=== PATIENT | male | born 1990 | race Caucasian/White ===

== ENCOUNTER 2023-08-08 12:51 | Outpatient (OUT) | payer OTHER, SELFPAY ==
--- NOTE | 2023-08-08 13:00 | XR_ITS ---
The [address] [address] Patient Name: MARK DREW MRN: [id number] date: 1990 Sex: M Assigned Patient Location: RAD Current Patient Location: RAD Accession/Order Number: [id number] Exam Date: 08/08/2023 13:00 Report Date: 08/08/2023 13:15 At the request of: LUIZ RUBIO Procedure: XR foreign body eye EXAMINATION: XR foreign body eye HISTORY: pre mri COMPARISON: No relevant comparison available. FINDINGS: ORBITS: Negative for a metallic foreign body. OTHER: Negative. XR/XR foreign body eye IMPRESSION: 1. No metallic foreign body within the orbits. Electronically authenticated by: EDWIN HILL Date: 08/08/2023 13:15
--- NOTE | 2023-08-08 13:01 | MR_ITS ---
The [address] [address] Patient Name: MARK DREW MRN: [id number] date: 1990 Sex: M Assigned Patient Location: [facility] Current Patient Location: [facility] Accession/Order Number: [id number] Exam Date: 08/08/2023 13:15 Report Date: 08/08/2023 14:43 At the request of: LUIZ RUBIO Procedure: MR head/brain wo con EXAM: MR head/brain wo con CLINICAL INDICATION: cognitive impairment R41.89 COMPARISON: CT head 04/19/2018. TECHNIQUE/PROTOCOL: Standard noncontrast protocol brain MRI performed (Sagittal T1 with axial T1, T2, GRE, FLAIR, and diffusion-weighted imaging). FINDINGS: No restricted diffusion, extra-axial fluid collection, hydrocephalus, midline shift, or other mass effect. Intracranial flow voids are maintained. 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 Single small medial left frontal susceptibility signal focus without surrounding vasogenic edema. Normal marrow signal. No soft tissue abnormalities. Scant scattered paranasal sinus mucosal thickening. Mastoid air cells are well-aerated. MR/MR head/brain wo con IMPRESSION: 1. No acute intracranial process. 2. Single small medial left frontal susceptibility signal focus could represent site of prior petechial hemorrhage. This is of uncertain clinical significance and is often found incidentally. Electronically authenticated by: WAQAR SANDOVAL Date: 08/08/2023 14:43
== END 2023-08-08 12:52 | disposition home or self-care (01) ==
LOC: RAD 12:54
PROVIDERS: PCP Family Medicine; Visit Provider Nurse Practitioner Adult Health
DX: R41.89 Other symptoms and signs involving cognitive functions and awareness (principal); Z01.89 Encounter for other specified special examinations; Z87.820 Personal history of traumatic brain injury
CPT/HCPCS: 70030; 70551

== ENCOUNTER 2023-08-09 09:01 | Outpatient (OUT) | payer OTHER, SELFPAY ==
[2023-08-09 09:32] LABS: Basophils Absolute Auto 0.1 10^3/uL (0.0-0.1); Basophils Percent Auto 0.6 % (0.2-2.0); Eosinophils Absolute Auto 0.2 10^3/uL (0.0-0.7); Eosinophils Percent Auto 2.1 % (0.9-7.0); Hematocrit 43.7 % (42.0-54.0); Hemoglobin 14.5 g/dL (14.0-18.0); Immature Granulocytes Abs Auto 0.03 10^3/uL (0.00-0.03); Immature Granulocytes Pct Auto 0.4 % (0.0-0.5); Lymphocytes Absolute Auto 2.1 10^3/uL (1.2-3.8); Lymphocytes Percent Auto 26.7 % (20.5-60.0); Mean Corpuscular HGB Conc 33.2 g/dL (29.9-35.2); Mean Corpuscular Hemoglobin 31.3 pg (25.9-34.0); Mean Corpuscular Volume 94.2 fL (80.0-94.0); Mean Platelet Volume 9.1 fL (9.5-13.5); Monocytes Absolute Auto 0.6 10^3/uL (0.3-0.8); Monocytes Percent Auto 7.2 % (1.7-12.0); Platelet Count 260 10^3/uL (150-450); Red Blood Count 4.64 10^6/uL (4.70-6.10); Red Cell Distribution Width 12.5 % (11.0-15.0)
[2023-08-09 10:35] LABS: Alanine Aminotransferase 42 U/L (16-63); Albumin Globulin Ratio 0.9; Albumin Level 3.7 g/dL (3.4-5.0); Alkaline Phosphatase 90 U/L (46-116); Aspartate Amino Transferase 22 U/L (15-37); Bilirubin Total 0.4 mg/dL (0.2-1.0); Calcium 8.9 mg/dL (8.5-10.1); Carbon Dioxide 30.6 mmol/L (21.0-32.0); Chol HDL Ratio 3.4; Cholesterol 146 mg/dL (<=200); Estimated GFR (African America >60 (>=60); Estimated GFR (Non-African Ame 58 (>=60); Free T3 2.45 pg/mL (2.18-3.98); Globulin 3.9 g/dL; Glucose 97 mg/dL (74-106); HDL Cholesterol 43 mg/dL (40-60); Thyroid Stimulating Hormone 1.414 uIU/mL (0.358-3.740); Total Protein 7.6 g/dL (6.4-8.2); Triglycerides 55 mg/dL (<=150)
[2023-08-09 10:42] LABS: Anion Gap 12.1; Chloride 103 mmol/L (98-107); Potassium 4.7 mmol/L (3.5-5.1); Sodium 141 mmol/L (136-145)
[2023-08-09 11:26] LABS: Estimated Average Glucose 108 mg/dL; Glycohemoglobin A1C 5.4 % (4.5-6.2)
== END 2023-08-09 09:02 | disposition home or self-care (01) ==
LOC: LAB 09:03
PROVIDERS: PCP Family Medicine; Visit Provider Family Medicine
DX: Z00.00 Encounter for general adult medical examination without abnormal findings (principal); E78.5 Hyperlipidemia, unspecified; R73.09 Other abnormal glucose; R41.89 Other symptoms and signs involving cognitive functions and awareness
CPT/HCPCS: 36415; 80053; 80061; 83036; 84436; 84443; 84481; 85025

== ENCOUNTER 2023-08-09 09:07 | Outpatient (OUT) | payer OTHER, SELFPAY | END 2023-08-09 09:08 | disposition home or self-care (01) | LOC: LAB 09:08 | PROVIDERS: PCP Family Medicine | DX: Z00.00 Encounter for general adult medical examination without abnormal findings (principal); E78.5 Hyperlipidemia, unspecified; R73.09 Other abnormal glucose; R41.89 Other symptoms and signs involving cognitive functions and awareness | CPT/HCPCS: 36415; 80053; 80061; 82607; 82746; 83036; 84436; 84443; 84481; 85025 ==

== ENCOUNTER 2023-08-15 14:06 | Outpatient (OUT) | payer OTHER, SELFPAY ==
[2023-08-15 15:49] LABS: Alanine Aminotransferase 42 U/L (16-63); Albumin Globulin Ratio 0.9; Albumin Level 3.8 g/dL (3.4-5.0); Alkaline Phosphatase 97 U/L (46-116); Anion Gap 13.3; Aspartate Amino Transferase 24 U/L (15-37); BUN Creatinine Ratio 14.1; Bilirubin Total 0.3 mg/dL (0.2-1.0); Carbon Dioxide 30.3 mmol/L (21.0-32.0); Chloride 102 mmol/L (98-107); Estimated GFR (African America >60 (>=60); Estimated GFR (Non-African Ame >60 (>=60); Globulin 4.1 g/dL; Glucose 89 mg/dL (74-106); Potassium 4.6 mmol/L (3.5-5.1); Sodium 141 mmol/L (136-145); Total Protein 7.9 g/dL (6.4-8.2)
== END 2023-08-15 14:07 | disposition home or self-care (01) ==
LOC: LAB 14:07
PROVIDERS: PCP Family Medicine; Visit Provider Family Medicine
DX: N28.9 Disorder of kidney and ureter, unspecified (principal)
CPT/HCPCS: 36415; 80053

== ENCOUNTER 2023-09-20 13:38 | Outpatient (OUT) | payer OTHER, SELFPAY ==
[2023-09-20 14:32] LABS: Anion Gap 11.7; BUN Creatinine Ratio 14.2; Calcium 9.3 mg/dL (8.5-10.1); Carbon Dioxide 29.9 mmol/L (21.0-32.0); Chloride 102 mmol/L (98-107); Estimated GFR (African America >60 (>=60); Estimated GFR (Non-African Ame >60 (>=60); Glucose 87 mg/dL (74-106); Potassium 4.6 mmol/L (3.5-5.1); Sodium 139 mmol/L (136-145)
== END 2023-09-20 13:39 | disposition home or self-care (01) ==
LOC: LAB 13:40
PROVIDERS: PCP Family Medicine; Visit Provider Family Medicine
DX: N28.9 Disorder of kidney and ureter, unspecified (principal)
CPT/HCPCS: 36415; 80048

== ENCOUNTER 2025-01-09 08:01 | Outpatient (OUT) | payer OTHER, SELFPAY ==
--- NOTE | 2025-01-09 08:08 | XR_ITS ---
The [place] [id number] Patient Name: MARK DREW MRN: [id number] date: 1990 Sex: M Assigned Patient Location: [facility] Current Patient Location: [facility] Accession/Order Number: [id number] Exam Date: 01/09/2025 08:14 Report Date: 01/09/2025 10:33 At the request of: ANTIONETTE HURD Procedure: XR shoulder LT min 2V LEFT SHOULDER - 3 views CLINICAL HISTORY: Chronic left shoulder pain, worsening over the past couple months. No injury. COMPARISON: None AP, Y and Grashey views were obtained. There is no evidence of fracture or dislocation. There is minimal spurring at the acromioclavicular joint. There are no significant soft tissue abnormalities. XR/XR shoulder LT min 2V IMPRESSION: NO ACUTE BONY FINDINGS. Impression dictated by: Judy Chung M.D. 01/09/2025 10:33 AM Dictation Location[facility] Electronically authenticated by: [id number] Y Date: 01/09/2025 10:33
--- OUTSIDE RECORDS SUMMARY | 2025-01-09 08:10 | XMS_ITS | CCD ---
Author Organization [facility] Care Team Providers Care Budget Record Clerk Name Role Phone Comfort Blood Attending Physician Unavailable Malcolm Miranda Primary Care Provider Malcolm Miranda Primary Care Provider [phone] MALCOLM MIRANDA Primary Care Unavailable LIZET STYLES Attending Unavailable PJ PEREZ Attending Unavailable MALCOLM MIRANDA Primary Care Unavailable Ivelisse Jara Unavailable Malcolm Miranda MD Primary Care Provider [phone] DR MALCOLM MIRANDA Admitting Unavailable RUTH, DR LEA Attending Unavailable RUTH, DR LEA Primary Care Unavailable RUTH, DR LEA Consulting Unavailable RUTH, DR LEA Admitting Unavailable RUTH, DR LEA Attending Unavailable RUTH, DR LEA Primary Care Unavailable DR MALCOLM MIRANDA Consulting Unavailable ZIBARON, DR EDWIN Dawn Consulting Unavailable DR MALCOLM MIRANDA Admitting Unavailable RUTH, DR LEA Attending Unavailable RUTH, DR LEA Primary Care Unavailable RUTH, DR LEA Consulting Unavailable RUTH, DR LEA Admitting Unavailable RUTH, DR LEA Attending Unavailable DR MALCOLM MIRANDA Primary Care Unavailable RUTH, DR LEA Primary Care Unavailable ANJEL, DR EVERETT Admitting Unavailable ANJEL, DR EVERETT Attending Unavailable ANJEL, DR EVERETT Consulting Unavailable DR MALCOLM MIRANDA Primary Care Unavailable SANJAY STYLES Admitting Unavailable SANJAY STYLES Attending Unavailable LUI LOZADA Consulting Unavailable SANJAY STYLES Consulting Unavailable LADY TAPIA Consulting Unavailable HOUSTON, DR PUENTES Admitting Unavailable HOUSTON, DR PUENTES Attending Unavailable DR MALCOLM MIRANDA Primary Care Unavailable HOUSTON, DR PUENTES Consulting Unavailable DR MALCOLM MIRANDA Admitting Unavailable RUTH, DR LEA Attending Unavailable RUTH, DR LEA Primary Care Unavailable RUTH, DR LEA Consulting Unavailable RUTH, DR LEA Admitting Unavailable RUTH, DR LEA Attending Unavailable RUTH, DR LEA Primary Care Unavailable RUTH, DR LEA Consulting Unavailable Niki Quiroz Unavailable Malcolm Miranda Primary Care Physician [phone] Eliz Cantu CNP Attending Unavailable RICHMOND MARTINEZ Attending Unavailable MALCOLM MIRANDA Primary Care Unavailable Donell Ernst Primary Care Physician [phone] ZayraLaura colon Primary Care Physician VALERIA MANZANO Attending Unavailable EDWIN COLE Referring Unavailable LUIZ RUBIO Attending Unavailable Zayra, Laura Shelby Admitting Unavailable Zayra, Laura Shelby Attending Unavailable Zayra, Laura Shelby Attending Unavailable Zayra, Laura Shelby Attending Unavailable Zayra, Laura Shelby Attending Unavailable Zayra, Laura Shelby Attending Unavailable Zayra, Laura Shelby Attending Unavailable Zayra, Laura Shelby Attending Unavailable MARIOPAM JEAN Attending Unavailable Zayra, Laura Shelby Attending Unavailable Zayra, Laura Shelby Attending Unavailable Zayra, Laura L Admitting Unavailable Sue Park Attending Unavailable Zayra, PATIENT CARE MANAGER Laura Shelby Attending Unavailable Zayra, PATIENT CARE MANAGER Laura Shelby Admitting Unavailable Fredo Zepeda Attending Unavailable Zayra, PATIENT CARE MANAGER Laura Shelby Attending Unavailable Elton Frederick Attending Unavailab Elton Saucedo Admitting Unavailab Malcolm Leung Primary Care Unavailable Allergies Allergy Classification Reported Allergen(s) Allergy Type Date of Onset Reaction(s) Facility (16 sources) Latex; Translations: [latex] Allergy to Substance 03-21-20 12 Anaphylaxis, Cutaneous hypersensitivity (disorder) [facility] Medications Current Medications Medication Drug Class(es) Dates Sig (Normalized) Sig (Original) acetaminophen 325 mg / HYDROcodone bitartrate 5 mg oral tablet (1 source) Opioid Agonist Start: 01-24-[address] [place] [address] 325 mg-5 mg oral tablet 1 tab(s), Oral, q6hr as needed for pain, 10 tab(s), Refill(s) 0 Start Date: 01/24/24 Status: Ordered Albuterol (Eqv-ProAir HFA) 90 mcg/inh inhalation aerosol (6 sources) Start: 07-27-2022 take 2 puff(s) by inhalation every six hours Albuterol (Eqv-ProAir HFA) 90 mcg/inh inhalation aerosol 2 puff(s), Inhalation, q6hr, 18 gm, Refill(s) 0, [facility], 175.3, cm, 07/27/22 11:50:00 EDT, Height/Length Dosing, 129.7, kg, 07/27/22 11:50:00 EDT, Weight Dosing Start Date: 07/27/22 Status: Ordered Quantity: 18.0 Unit: g Repeat number: 1 Indications: Bronchitis, not specified as acute or chronic; Chest pain, unspecified; Start: 07-27-2022 take 2 puff(s) by in halation every six hours Albuterol (Eqv-ProAir HFA) 90 mcg/inh inhalation aerosol 2 puff(s), Inhalation, q6hr, 18 gm, Refill(s) 0, [facility], 175.3, cm, 07/27/22 11:50:00 EDT, Height/Length Dosing, 129.7, kg, 07/27/22 11:50:00 EDT, Weight Dosing Start Date: 07/27/22 Status: Ordered ARIPiprazole 20 mg oral tablet (17 sources) Atypical Antipsychotic Start: 12-31-2023 take 1 tablet by mouth once daily aripiprazole 20 mg oral tablet 20 mg = 1 tab(s), Oral, Daily, # 30 tab(s), Refills(s) 0, Pharmacy: [facility]/pharmacy #[id number], 175, cm, 11/27/23 11:23:00 EDT, Height/Length Dosing, 135.5, kg, 11/27/23 11:23:00 EDT, Weight Dosing Start Date: 12/31/23 Status: Ordered Quantity: 30.0 Unit: tab(s) Repeat number: 1 Start: 07-18-2023 take 1 tablet by steve once daily aripiprazole 20 mg oral tablet 20 mg = 1 tab(s), Oral, Daily, Refills(s) 0 Start Date: 07/18/23 Status: Ordered Start: 07-08-2019 take 1 tablet by steve th once daily Abilify 15 mg Tab 15 mg = 1 tab(s), Oral, Daily Start Date: 07/08/19 Status: Ordered Start: 02-03-2019 take 10 mg by mouth once daily Aripiprazole 10 MG Oral Daily February 03, 2019 Active Start: 01-27-2019 End: 02-03-2019 take 15 mg by mouth once daily Aripiprazole 15 MG Oral Daily January 27, 2019 Discontinued Start: 10-16-2018 take 1 tablet by steve th once daily Abilify 30 mg oral tablet 30 mg = 1 tab(s), Oral, Daily Start Date: 10/16/18 Status: Ordered Abilify Active ARIPiprazole (AB ILIFY) 30 MG tablet Take 15 mg by mouth daily 0 Active ascorbic acid 1000 mg oral tablet (2 sources) Vitamin C Start: 07-18-2023 take 1000 mg by mouth once daily Vitamin C 1,000 mg, Oral, Daily, Refills(s) 0 Start Date: 07/18/23 Status: Ordered busPIRone hydrochloride 10 mg oral tablet (6 sources) Start: 12-31-2023 take 1 tablet by mouth twice daily as needed for anxiety busPIRone 10 mg Tab 10 mg = 1 tab(s), Oral, BID, as needed for anxiety, # 60 tab(s), Refills(s) 0, Pharmacy: [facility]/pharmacy #[id number], 175, cm, 11/27/23 11:23:00 EDT, Height/Length Dosing, 135.5, kg, 11/27/23 11:23:00 EDT, Weight Dosing Start Date: 12/31/23 Status: Ordered Quantity: 60.0 Unit: tab(s) Repeat number: 1 Start: 07-18-2023 take 1 tablet by steve th twice daily as needed for anxiety busPIRone 10 mg Tab 10 mg = 1 tab(s), Oral, BID, as needed for anxiety, Refills(s) 0 Start Date: 07/18/23 Status: Ordered busPIRone HCl Ac tive take 1 tablet by steve th twice daily busPIRone (BUSPAR) 10 MG tablet Take 10 mg by mouth 2 times daily 0 Active cephalexin 500 mg oral capsule (1 source) Cephalosporin Antibacterial Start: 11-09-2024 End: 11-16-2024 take 1 capsule by mouth every eight hours Keflex 500 mg Cap 500 mg = 1 cap(s), Oral, q8hr, X 7 day(s), # 21 cap(s), Refills(s) 0, Pharmacy: [facility]/pharmacy #[id number], 175, cm, 11/09/24 15:20:00 EDT, Height/Length Dosing, 128, kg, 11/09/24 15:20:00 EDT, Weight Dosing Start Date: 11/09/24 Stop Date: 11/16/24 Status: Ordered Quantity: 21.0 Unit: cap(s) Repeat number: 1 doxycycline hyclate 100 mg oral capsule (1 source) Tetracycline-class Drug Start: 11-09-2024 End: 11-16-2024 take 1 capsule by mouth twice daily doxycycline hyclate 100 mg Cap 100 mg = 1 cap(s), Oral, BID, X 7 day(s), # 14 cap(s), Refills(s) 0, [id number], 175, cm, 11/09/24 15:20:00 EDT, Height/Length Dosing, 128, kg, 11/09/24 15:20:00 EDT, Weight Dosing Start Date: 11/09/24 Stop Date: 11/16/24 Status: Ordered Quantity: 14.0 Unit: cap(s) Repeat number: 1 FLUoxetine 40 mg oral capsule (4 sources) Serotonin Reuptake Inhibitor Start: 12-31-2023 take 1 capsule by mouth once daily FLUoxetine 40 mg Cap 40 mg = 1 cap(s), Oral, Daily, # 30 cap(s), Refills(s) 0, [id number], 175, cm, 11/27/23 11:23:00 EDT, Height/Length Dosing, 135.5, kg, 11/27/23 11:23:00 EDT, Weight Dosing Start Date: 12/31/23 Status: Ordered Quantity: 30.0 Unit: cap(s) Repeat number: 1 Start: 07-18-2023 take 1 capsule by [facility] once daily FLUoxetine 40 mg Cap 40 mg = 1 cap(s), Oral, Daily, Refills(s) 0 Start Date: 07/18/23 Status: Ordered PROzac Active gabapentin 600 mg oral tablet (11 sources) Anti-epileptic Agent Start: 12-31-2023 take 1 tablet by mouth twice daily gabapentin 600 mg Tab 600 mg = 1 tab(s), Oral, BID, # 60 tab(s), Refills(s) 0, Pharmacy: [facility]/pharmacy #[id number], 175, cm, 11/27/23 11:23:00 EDT, Height/Length Dosing, 135.5, kg, 11/27/23 11:23:00 EDT, Weight Dosing Start Date: 12/31/23 Status: Ordered Start: 07-18-2023 [facility] 600 mg Tab 600 mg = 1 tab(s), Oral, BID, Refills(s) 0 Start Date: 07/18/23 Status: Ordered Start: 01-27-2019 take 800 mg by mouth twice maureen ly Gabapentin 800 MG Oral Twice daily January 27, 2019 Active Start: 10-16-2018 take 1 capsule by mo [facility] three times daily gabapentin 300 mg Cap 300 mg = 1 cap(s), Oral, TID Start Date: 10/16/18 Status: Ordered gabapentin (NEUR ONTIN) 300 MG capsule Take 800 mg by mouth 2 times daily. 0 Active 12 hr guaiFENesin 600 mg / pseudoephedrine hydrochloride 60 mg extended release oral tablet (1 source) alpha-Adrenergic Agonist Start: 02-06-2022 End: 02-13-2022 take 1 tablet by mouth in the morning, then take 1 tablet by mouth once in the evening pseudoephedrine-guaiFENesin (MUCINEX D) 60-600 MG per extended release tablet Take 1 tablet by mouth in the morning and 1 tablet in the evening. Do all this for 7 days. 14 tablet 0 02/06/2022 02/13/2022 Active hydrOXYzine pamoate 50 mg oral capsule (5 sources) Antihistamine Start: 02-03-2019 hydrOXYzine (VISTARIL) 50 MG capsule Take 50 mg by mouth 0 02/03/2019 Active lurasidone hydrochloride 60 mg oral tablet (11 sources) Atypical Antipsychotic Start: 12-31-2023 take 1 tablet by mouth once daily lurasidone 60 mg oral tablet 60 mg = 1 tab(s), Oral, Daily, # 30 tab(s), Refills(s) 0, Pharmacy: [facility]/pharmacy #[id number], 175, cm, 11/27/23 11:23:00 EDT, Height/Length Dosing, 135.5, kg, 11/27/23 11:23:00 EDT, Weight Dosing Start Date: 12/31/23 Status: Ordered Quantity: 30.0 Unit: tab(s) Repeat number: 1 Start: 08-28-2023 take 1 tablet by steve once daily lurasidone 60 mg oral tablet 60 mg = 1 tab(s), Oral, Daily, Refills(s) 0 Start Date: 08/28/23 Status: Ordered Start: 02-03-2019 take 80 mg by mouth once daily Lurasidone [Latuda] 80 MG Oral Daily at 1700 60 February 03, 2019 Active Start: 01-27-2019 End: 02-03-2019 take 20 mg by mouth once daily Lurasidone 20 MG Oral D aily at 1700 January 27, 2019 Discontinued Latuda Active take 2 tablets by mo [facility] once daily lurasidone (LATUDA) 40 MG TABS tablet Take 80 mg by mouth daily 0 Active methylPREDNISolone 4 mg oral tablet (1 source) Corticosteroid Start: 01-21-2024 End: 01-27-2024 Medrol 4 mg Tab = 1 packet(s), Oral, As Directed, as directed on package labeling, X 6 day(s), # 21 tab(s), Refills(s) 0, Pharmacy: [facility]/pharmacy #[id number], 175, cm, 01/21/24 12:47:00 EDT, Height/Length Dosing, 133.4, kg, 01/21/24 12:47:00 EDT, Weight Dosing Start Date: 01/21/24 Stop Date: 01/27/24 Status: Ordered 24 hr metoprolol succinate 25 mg extended release oral tablet (2 sources) beta-Adrenergic Moe Start: 01-02-2024 take 1 tablet by mouth twice daily metoprolol succinate 25 mg ER Tab 25 mg = 1 tab(s), Oral, BID, # 180 tab(s), Refills(s) 1, Pharmacy: [facility]/pharmacy #[id number], 175, cm, 11/27/23 11:23:00 EDT, Height/Length Dosing, 135.5, kg, 11/27/23 11:23:00 EDT, Weight Dosing Start Date: 01/02/24 Status: Ordered Start: 07-18-2023 take 1 tablet by [facility] twice daily Metoprolol tartrate 25 mg Tab 25 mg = 1 tab(s), Oral, BID, Refills(s) 0 Start Date: 07/18/23 Status: Ordered naproxen 500 mg oral tablet (1 source) Nonsteroidal Anti-inflammatory Drug Start: 01-24-2024 take 1 tablet by mouth twice daily Naprosyn 500 mg Tab 500 mg = 1 tab(s), Oral, BID, # 20 tab(s), Refills(s) 0 Start Date: 01/24/24 Status: Ordered nirmatrelvir/rit onavir (PAXLOVID) 20 x 150 MG & 10 x 100MG TBPK (1 source) Start: 02-06-2022 End: 02-11-2022 nirmatrelvir/riton avir (PAXLOVID) 20 x 150 MG & 10 x 100MG TBPK Take 3 tablets (two 150 mg nirmatrelvir and one 100 mg ritonavir tablets) by mouth every 12 hours for 5 days. 30 tablet 0 02/06/2022 02/11/2022 Active predniSONE 50 mg oral tablet (1 source) Start: 07-27-2022 End: 08-01-2022 take 1 tablet by mouth once daily predniSONE 50 mg Tab 50 mg = 1 tab(s), Oral, Daily, X 5 day(s), # 5 tab(s), Refills(s) 0, Pharmacy: [facility], 175.3, cm, 07/27/22 11:50:00 EDT, Height/Length Dosing, 129.7, kg, 07/27/22 11:50:00 EDT, Weight Dosing Start Date: 07/27/22 Stop Date: 08/01/22 Status: Ordered tiZANidine 4 mg oral tablet (2 sources) Central alpha-2 Adrenergic Agonist Start: 01-21-2024 End: 01-28-2024 take 1 tablet by mouth every eight hours tiZANidine 4 mg Tab 4 mg = 1 tab(s), Oral, q8hr, X 7 day(s), # 21 tab(s), Refills(s) 0, Pharmacy: [facility]/pharmacy #[id number], 175, cm, 01/21/24 12:47:00 EDT, Height/Length Dosing, 133.4, kg, 01/21/24 12:47:00 EDT, Weight Dosing Start Date: 01/21/24 Stop Date: 01/28/24 Status: Ordered tiZANidine HCl 4 MG Oral for 30 Days Active valACYclovir 1000 mg oral tablet (4 sources) Herpesvirus Nucleoside Analog DNA Polymerase Inhibitor, Herpes Simplex Virus Nucleoside Analog DNA Polymerase Inhibitor, Herpes Zoster Virus Nucleoside Analog DNA Polymerase Inhibitor Start: 05-06-2024 take 1 tablet by mouth once daily valacyclovir 1 g Tab See Instructions, TAKE 1 TABLET BY MOUTH EVERY DAY, # 30 tab(s), Refills(s) 0, Pharmacy: [id number], 175, cm, 04/29/24 11:05:00 EST, Height/Length Dosing, 131.1, kg, 04/29/24 11:05:00 EST, Weight Dosing Start Date: 05/06/24 Status: Ordered Quantity: 30.0 Unit: tab(s) Repeat number: 1 Start: 12-31-2023 take 1 tablet by steve once daily valacyclovir 1 g Tab 1 gm = 1 tab(s), Oral, Daily, # 30 tab(s), Refills(s) 0, [id number], 175, cm, 11/27/23 11:23:00 EDT, Height/Length Dosing, 135.5, kg, 11/27/23 11:23:00 EDT, Weight Dosing Start Date: 12/31/23 Status: Ordered Start: 07-18-2023 take 1 tablet by steve once daily valacyclovir 1 g Tab 1 gm = 1 tab(s), Oral, Daily, Refills(s) 0 Start Date: 07/18/23 Status: Ordered valACYclovir HCl 1 GM Oral for 30 Days Active 24 hr venlafaxine 37.5 mg extended release oral capsule (8 sources) Serotonin and Norepinephrine Reuptake Inhibitor Start: 01-01-2024 take 1 capsule by mouth once daily venlafaxine 37.5 mg Cap-ER 37.5 mg = 1 cap(s), Oral, Daily, # 90 cap(s), Refills(s) 0, Pharmacy: [facility]/pharmacy #[id number], 175, cm, 11/27/23 11:23:00 EDT, Height/Length Dosing, 135.5, kg, 11/27/23 11:23:00 EDT, Weight Dosing Start Date: 01/01/24 Status: Ordered Start: 07-18-2023 take 1 tablet by steve once daily venlafaxine 37.5 mg Tab 37.5 mg = 1 tab(s), Oral, Daily, Refills(s) 0 Start Date: 07/18/23 Status: Ordered Start: 07-08-2019 take 1 capsule by [facility] once daily Effexor XR 150 mg Cap-ER 150 mg = 1 cap(s), Oral, Daily Start Date: 07/08/19 Status: Ordered Effexor Active venlafaxine (EFF EXOR) 100 MG tablet Take 175 mg by mouth daily 0 Active Ventolin HFA 90 mcg/inh Aerosol (3 sources) Start: 10-16-2018 take 1 puff(s) by inhalation four times daily Ventolin HFA 90 mcg/inh Aerosol puff(s), Inhalation, QID Start Date: 10/16/18 Status: Ordered vilazodone hydrochloride 40 mg oral tablet (6 sources) Start: 12-31-2023 take 1 tablet by mouth once daily vilazodone 40 mg oral tablet 40 mg = 1 tab(s), Oral, Daily, # 30 tab(s), Refills(s) 0, Pharmacy: [facility]/pharmacy #[id number], 175, cm, 11/27/23 11:23:00 EDT, Height/Length Dosing, 135.5, kg, 11/27/23 11:23:00 EDT, Weight Dosing Start Date: 12/31/23 Status: Ordered Quantity: 30.0 Unit: tab(s) Repeat number: 1 Start: 07-18-2023 take 1 tablet by [facility] once daily vilazodone 40 mg oral tablet 40 mg = 1 tab(s), Oral, Daily, Refills(s) 0 Start Date: 07/18/23 Status: Ordered take 1 tablet by [facility] once daily vilazodone HCl (VILAZODONE HCL) 40 MG TABS Take 40 mg by mouth daily 0 Active Vitamin B12 1000 mcg Tab (1 source) Start: 07-18-2023 take 1 tablet by mouth once daily Vitamin B12 1000 mcg Tab 1,000 mcg = 1 tab(s), Oral, Daily, Refills(s) 0 Start Date: 07/18/23 Status: Ordered Completed/Discontinued Medications Medication Drug Class(es) Dates Sig (Normalized) Sig (Original) acetaminophen 325 mg / oxyCODONE hydrochloride 5 mg oral tablet (1 source) Opioid Agonist End: 08-19-2019 take 1 tablet by mouth every six hours as needed oxyCODONE-acetaminop hen (PERCOCET) 5-325 MG per tablet Take 1 tablet by mouth every 6 hours as needed. 0 08/19/2019 Discontinued Albuterol (2 sources) beta2-Adrenergic Agonist Start: 01-28-2019 Albuterol Sulfate 2 INH Inhalation Q4H PRN For sob January 28, 2019 Active 24 hr buPROPion hydrochloride 150 mg extended release oral tablet (4 sources) Aminoketone Start: 01-27-2019 End: 02-03-2019 take 150 mg by mouth once daily Bupropion Hcl 150 MG Oral Daily February 03, 2019 Active citalopram 40 mg oral tablet (4 sources) Serotonin Reuptake Inhibitor Start: 01-27-2019 End: 02-03-2019 take 40 mg by mouth once daily Citalopram 40 MG Oral Daily February 03, 2019 Active diphenhydrAMINE hydrochloride 25 mg oral tablet (2 sources) Histamine-1 Receptor Antagonist Start: 01-27-2019 take 50 mg by mouth twice daily as needed Diphenhydramine Hcl [Benadryl Allergy] 50 MG Oral Twice daily PRN For Allergy Symptoms January 27, 2019 Active Vitamin D 50,000 intl units (1.25 mg) oral capsule (2 sources) Start: 08-04-2024 take 1 capsule by mouth every week Vitamin D 50,000 intl units (1.25 mg) oral capsule 50,000 International_Unit = 1 cap(s), Oral, qWeek, # 12 cap(s), Refills(s) 3, Pharmacy: [facility]/pharmacy #[id number], 175, cm, 07/31/24 8:59:00 EDT, Height/Length Dosing, 128.6, kg, 07/31/24 8:59:00 EDT, Weight Dosing Start Date: 08/04/24 Status: Ordered Quantity: 12.0 Unit: cap(s) Repeat number: 4 Indications: Other specified abnormal findings of blood chemistry; Start: 08-31-2023 take 1 capsule by mo uth every week Vitamin D 50,000 intl units (1.25 mg) oral capsule 50,000 International_Unit = 1 cap(s), Oral, qWeek, # 12 cap(s), Refills(s) 3, Pharmacy: [facility], 175, cm, 08/28/23 14:14:00 EDT, Height/Length Dosing, 134.6, kg, 08/28/23 14:14:00 EDT, Weight Dosing Start Date: 08/31/23 Status: Ordered Problems Active Problems Problem Classification Problem Date Documented Da te Episodic/Chronic Abdominal pain (7 sources) Left lower quadrant pain 10-16-2018 Episodic Anxiety disorders (1 source) Anxiety disorder, unspecified; Translations: [ANXIETY DISORDER UNSPECIFIED] Onset: 01-24-2022 Chronic Asthma (2 sources) Asthma; Translations: [Unspecified asthma, uncomplicated] Onset: 01-24-2022 Chronic Chronic obstructive pulmonary disease and bronchiectasis (1 source) Bronchitis; Translations: [Bronchitis, not specified as acute or chronic] Onset: 07-27-2022 Episodic Essential hypertension (4 sources) Hypertensive disorder 07-18-2023 Chronic Gastrointestinal hemorrhage (14 sources) Hematochezia; Translations: [Rectal hemorrhage] 10-16-2018 Episodic Genitourinary symptoms and ill-defined conditions (1 source) Urethral discharge, unspecified; Translations: [Urethral discharge, unspecified] Onset: 05-08-2023 Episodic Immunizations and screening for infectious disease (2 sources) Contact with and (suspected) exposure to other viral communicable diseases Onset: 11-26-2021 Resolved: 11-26-2021 Episodic Malaise and fatigue (4 sources) Fatigue 08-28-2023 Episodic Mood disorders (17 sources) Severe manic bipolar I disorder with psychotic features; Translations: [Depressive disorder] Onset: 01-12-2022 10-16-2018 Chronic Nonspecific chest pain (2 sources) Chest pain; Translations: [Chest pain, unspecified] Onset: 07-27-2022 Episodic Nutritional deficiencies (3 sources) Decreased vitamin D 08-31-2023 Chronic Other gastrointestinal disorders (7 sources) Alteration in bowel elimination 10-16-2018 Episodic Other lower respiratory disease (3 sources) Cough 11-27-2023 Episodic Other lower respiratory disease (2 sources) Wheezing 04-29-2024 Episodic Other male genital disorders (1 source) Testicular pain, unspecified; Translations: [Testicular pain, unspecified] Onset: 05-08-2023 Episodic Other nutritional; endocrine; and metabolic disorders (1 source) Morbid (severe) obesity due to excess calories; Translations: [MORBID SEVERE OBES D/T EXCESS KRAIG] Onset: 01-24-2022 Chronic Other nutritional; endocrine; and metabolic disorders (1 source) Body mass index (BMI) 37.0-37.9, adult; Translations: [BODY MASS INDEX BMI 37.0-37.9 ADULT] Onset: 01-24-2022 Chronic Other nutritional; endocrine; and metabolic disorders (1 source) Body mass index (BMI) 40.0-44.9, adult; Translations: [BODY MASS INDEX BMI 40.0-44.9 ADULT] Onset: 01-10-2022 Chronic Other nutritional; endocrine; and metabolic disorders (12 sources) Body mass index 40+ - severely obese 07-08-2019 Chronic Other skin disorders (1 source) Acne Episodic Other skin disorders (3 sources) Ingrowing toenail 09-21-2023 Episodic Other skin disorders (2 sources) Excessive sweating 07-31-2024 Episodic Other skin disorders (2 sources) Lump on thigh 06-11-2024 Episodic Other upper respiratory infections (4 sources) Chronic sinusitis, unspecified; Translations: [Sinusitis] Onset: 05-12-2022 11-27-2023 Chronic Other upper respiratory infections (2 sources) Acute upper respiratory infection, unspecified; Translations: [ACUTE UP RESPIRATORY INFECTION UNS] Onset: 01-24-2022 Episodic Otitis media and related conditions (3 sources) Otitis media of left ear 11-06-2023 Episodic Residual codes; unclassified (4 sources) Memory impairment 07-18-2023 Episodic Residual codes; unclassified (4 sources) Reduced libido 08-28-2023 Episodic Spondylosis; intervertebral disc disorders; other back problems (1 source) Low back pain; Translations: [Low back pain, unspecified] Onset: 01-24-2024 Episodic Substance-related disorders (1 source) Smoker 07-10-2023 Chronic Comment on above: Added secondary to d ocumentation in Social History. Superficial injury; contusion (1 source) Right knee abrasion; Translations: [Abrasion, right knee, initial encounter] Onset: 11-09-2024 Episodic Thyroid disorders (4 sources) Hypothyroidism, unspecified; Translations: [HYPOTHYROIDISM UNSPECIFIED] Onset: 01-11-2022 Chronic Unclassified (3 sources) CONTACT W/AND (SUSP) EXPOS COVID-19; Translations: [CONTACT W/AND (SUSP) EXPOS COVID-19] Onset: 05-12-2022 Unclassified (2 sources) COUGH, UNSPECIFIED; Translations: [COUGH, UNSPECIFIED] Onset: 01-24-2022 Unclassified (3 sources) LOW BACK PAIN, UNSPECIFIED; Translations: [LOW BACK PAIN, UNSPECIFIED] Onset: 01-10-2022 Unclassified (4 sources) Patient encounter status 08-28-2023 Unclassified (2 sources) Non-smoker 04-29-2024 Viral infection (3 sources) Disease caused by 2019-nCoV; Translations: [COVID-19] Onset: 09-12-2022 Episodic Viral infection (2 sources) COVID-19; Translations: [COVID-19] Onset: 11-26-2021 Resolved: 11-26-2021 Past or Other Problems Problem Classification Problem Date Documented Da te Episodic/Chronic Deficiency and other anemia (1 source) Anemia, unspecified; Translations: [ANEMIA UNSPECIFIED] Onset: 03-05-2022 Episodic E Codes: Natural/environment (1 source) Overexertion from strenuous movement or load, initial encounter; Translations: [OVEREXERT STRENUOUS MVMT/LOAD INIT] Onset: 01-10-2022 Episodic Fracture of lower limb (3 sources) Closed fracture of shaft of femur; Translations: [Unspecified fracture of shaft of unspecified femur, initial encounter for closed fracture] Onset: 03-19-2012 03-19-2012 Episodic Other aftercare (1 source) Other shelter (current) drug therapy; Translations: [[facility] CURRENT DRUG THERAPY] Onset: 01-24-2022 Episodic Other connective tissue disease (4 sources) Impingement syndrome of unspecified shoulder; Translations: [IMPINGEMENT SYNDROME UNS SHOULDER] Onset: 01-18-2022 Episodic Other connective tissue disease (4 sources) Pain in right thigh; Translations: [PAIN IN RIGHT THIGH] Onset: 07-28-2021 Episodic Residual codes; unclassified (4 sources) Altered mental status, unspecified; Translations: [ALTERED MENTAL STATUS UNSPECIFIED] Onset: 03-01-2022 Episodic Screening and history of mental health and substance abuse codes (1 source) Personal history of nicotine dependence; Translations: [PERSONAL HISTORY OF NICOTINE DEPEND] Onset: 01-10-2022 Episodic Skin and subcutaneous tissue infections (4 sources) Cellulitis, unspecified; Translations: [CELLULITIS UNSPECIFIED] Onset: 11-07-2021 Episodic Sprains and strains (2 sources) Strain of muscle and tendon of back wall of thorax, initial encounter; Translations: [Strain of muscle, fascia and tendon of lower back, initial encounter] Onset: 01-10-2022 Episodic Unclassified (1 source) CONTACT W/AND (SUSP) EXPOS COVID-19; Translations: [CONTACT W/AND (SUSP) EXPOS COVID-19] Onset: 05-09-2022 Unclassified (1 source) COUGH, UNSPECIFIED; Translations: [COUGH, UNSPECIFIED] Onset: 01-22-2022 Unclassified (1 source) LOW BACK PAIN, UNSPECIFIED; Translations: [LOW BACK PAIN, UNSPECIFIED] Onset: 01-06-2022 Results Test Name Value Interpretation Reference Range Facility ED Note-Physicianon 11-15-19 25 ED Note-Physician ED Note-Physician Basic Information Time Seen: Jovan HAMPTON, Hans Paez. 11/09/2024 15:19 Chief Complaint pt states he had a fall 3 days ago, scraped his r knee. states pouring rubbing alcohol on it last night and now has concern for infection. History of Present Illness A 34-year-old male reports emerged department with concerns of right knee infection. Reports that he fell 3 days ago. Reports crepitus in right knee. Reports having some purulent drainage now. Reports he has been trying to put rubbing alcohol at, but concerned for more infection. Believes he may have a history of staph infection. He denies any fevers or chills. Reports otherwise doing well. Up-to-date on his tetanus shot. Review of Systems No other aggravating or relieving factors no other associated symptoms no other prior treatments or complaints. Family: Reviewed and noncontributory Social: lives at home Review of systems negative unless otherwise specified in the HPI. Physical Exam Vitals & Measurements T: 36.6 ???C(Oral) HR: 107(Peripheral) RR: 18 BP: 149/79 SpO2: 98% HT: 175 cm WT: 128 kg BMI: 41.8 General: The patient appears well and in no apparent distress. Patient is resting comfortably in chair. Afebrile Skin: Warm, dry, no pallor noted. There is approximately a 3 x 2 cm abrasion of the right knee. No obvious deformity. Mild yellow purulent discharge. No surrounding erythema. Head: Normocephalic, atraumatic Neck: No JVD Eye: PERRLA, EOMI ENT: Moist mucus membranes Cardiovascular: Regular rate. normal peripheral perfusion. pedal pulses +2 bila Respiratory: No respiratory distress. no accessory muscle use. no obvious audible wheezing Chest Wall: no deformity Musculoskeletal: normal ROM, no deformity, no swelling GI: No obvious distention Neurological: A&O. moves all extremities equal strength and symmetry Psychiatric: Cooperative and appropriate Medical Decision Making A 34-year-old male reports for department with concerns of abrasion of right knee. Reports fell 3 days ago, concerned of infection now. Exam does reveal some mild purulent yellow drainage, but otherwise benign exam. No surrounding erythema. Reports may have a history of staph, so the patient was placed on Keflex and doxycycline for antibiotic coverage. Discussed wound care. Discussed return precautions. Follow-up with your primary care provider in 3 to 5 days. If symptoms worsen, do not improve, or new symptoms arise please report back to emergency department for further evaluation. The patient was understanding and agreeable to plan moving forward. Assessment/Plan Abrasion of right knee (S80.211A: Abrasion, right knee, initial encounter) Orders: cephalexin, 500 mg = 1 cap(s), Oral, q8hr, X 7 day(s), # 21 cap(s), Refills(s) 0, Pharmacy: [facility] #[id number], 175, cm, 11/09/24 15:20:00 EDT, Height/Length Dosing, 128, kg, 11/09/24 15:20:00 EDT, Weight Dosing doxycycline, 100 mg = 1 cap(s), Oral, BID, X 7 day(s), # 14 cap(s), Refills(s) 0, Pharmacy: [id number], 175, cm, 11/09/24 15:20:00 EDT, Height/Length Dosing, 128, kg, 11/09/24 15:20:00 EDT, Weight Dosing Disposition Plan Patient Discharge Condition stable Discharge Disposition to home Discharge Prescription List Prescriptions doxycycline hyclate 100 mg Cap, 100 mg= 1 cap(s), Oral, BID Keflex 500 mg Cap, 500 mg= 1 cap(s), Oral, q8hr Follow-up With When Contact Information Laura Iverson In 3 days 11/12/[address] [place] [address] Business (1) Additional Instructions: Call Dr for diagnosis based follow up Patient Education Wound Care, Adult Abrasion, Tgho-ga-Iqhz Attestation Patient seen and evaluated by the physician buyer assistant. Attending physician was present in the emergency department and supervised care. This visit was performed by both the physician and an APC. I performed all aspects of the MDM as documented. This report was transcribed using voice recognition software. Every effort was made to ensure accuracy, however, inadvertently computerized truck driving instructor mistakes may be present. Appropriate healthcare PPE was used in evaluating this patient. The patient was placed in a mask. The healthcare provider was wearing mask, gloves, and utilizing proper hand hygiene. All equipment was properly cleansed. I performed a substantive part of the MDM during the patient???s E/M visit. I personally made or approved the documented management plan and acknowledge its risk of complications. (Independent Interpretation) My (EKG/X-Ray/US/CT as applicable) interpretation as above. (Discussion) Management/test interpretation discussed with APC. Problem List/Past Medical History Ongoing Bipolar illness BMI 40.0-44.9, adult Bright red blood per rectum Change in bowel habits Cough Decreased libido Depression Excessive sweating Fatigue HTN (hypertension) Ingrown toenail Left otitis media LLQ abdominal pain Low vitamin D level Lump of thigh (more content not included)... Normal [facility] Comment on above: Result Comment: Elec tronically Signed By: Hans Aldana PA-C\.br\Date and Time Signed: 11/09/24 20:15 EDT\.br\Electronically Co-Signed By: Fredo Zepeda MD\.br\Date and Time Co-Signed: 11/14/24 04:45 EDT Ambulatory Visit Summaryon 0 11-12-2024 Ambulatory Visit Summary Ambulatory Visit Summary MARK PATRICIA :1990 Visit Date:11/12/2024 Ambulatory Visit Instructions Your Diagnosis Left shoulder pain BMI 40.0-44.9, adult Obesity, morbid, BMI 40.0-49.9 Former smoker Your Care Team Attending Physician - Laura Xavier Primary Care Physician - Laura Xavier This Is Your Medications List albuterol (Albuterol (Eqv-ProAir HFA) 90 mcg/inh inhalation aerosol) aripiprazole (aripiprazole 20 mg oral tablet) busPIRone (busPIRone 10 mg Tab) cephalexin (Keflex 500 mg Cap) doxycycline (doxycycline hyclate 100 mg Cap) ergocalciferol (Vitamin D 50,000 intl units (1.25 mg) oral capsule) fluoxetine (FLUoxetine 40 mg Cap) lurasidone (lurasidone 60 mg oral tablet) meloxicam (meloxicam 15 mg Tab) valacyclovir (valacyclovir 1 g Tab) vilazodone (vilazodone 40 mg oral tablet) Procedures Performed Surgery. Discharge Vitals Temperature (Temporal Artery) 36.8 ???C Heart Rate (Peripheral) 84 Respiratory Rate 18 Blood Pressure 130/88 Height 175.0 cm Height 69 in Weight 125.0 kg Weight 275.578 lb BMI 40.82 Medications What How Much When Why Instructions Unchanged albuterol (Albuterol (Eqv-ProAir HFA) 90 mcg/ inh inhalation aerosol) 2 Puffs Inhalation Every 6 hours Chest pain Bronchitis Unchanged aripiprazole (aripiprazole 20 mg oral tablet) 1 Tablets By Mouth Every day Unchanged busPIRone (busPIRone 10 mg Tab) 1 Tablets By Mouth 2 times a day as needed for anxiety Unchanged cephalexin (Keflex 500 mg Cap) 1 Capsules By Mouth Every 8 hours Duration: 7 Days Unchanged doxycycline (doxycycline hyclate 100 mg Cap) 1 Capsules By Mouth 2 times a day Duration: 7 Days Unchanged ergocalciferol (Vitamin D 50,000 intl units (1.25 mg) oral capsule) 1 Capsules By Mouth Every week Low vitamin D level Unchanged fluoxetine (FLUoxetine 40 mg Cap) 20 Milligram By Mouth Every day Unchanged lurasidone (lurasidone 60 mg oral tablet) 80 Milligram By Mouth Every day Unchanged meloxicam (meloxicam 15 mg Tab) Unchanged valacyclovir (valacyclovir 1 g Tab) See instructions TAKE 1 TABLET BY MOUTH EVERY DAY Unchanged vilazodone (vilazodone 40 mg oral tablet) 1 Tablets By Mouth Every day Allergies Latex (Allergic skin rash) Problems Ongoing - Any problem that you are currently receiving treatment for. Bipolar illness BMI 40.0-44.9, adult Bright red blood per rectum Change in bowel habits Cough Decreased libido Depression Excessive sweating Fatigue HTN (hypertension) Ingrown toenail Left otitis media Left shoulder pain LLQ abdominal pain Low vitamin D level Lump of thigh Memory change Morbid obesity with BMI of 40.0-44.9, adult Morbid obesity with BMI of 40.0-44.9, adult Nonsmoker Obesity, morbid, BMI 40.0-49.9 Rectal bleeding Sinusitis Wellness examination Wheezing Patient Survey You may receive a survey via text or e-mail asking about your office visit. Please share your experience with us by completing your survey. We appreciate your feedback and thank you for choosing us for your care. Patient Portal You may access all of your results and other medical record information on our secure patient portal. If you are not signed up for this yet, please contact [employer] at [phone] to get signed up today. Language Information Language assistance services are available as needed. Sean [facility] Family Medicine Office/Clini c Noteon 11-12-2024 Family Medicine Office/Clinic Note Family Medicine Office/Clinic Note HPI Staff Patient is presenting for left shoulder pain, discuss referral to ortho Onset: since he was 21, dislocated shoulder. Has been getting worse. Did PT last year Location: left shoulder Characteristics: 6/10 pain at the worst Aggravated by: sleeping on that side, lifting his arm Relieved by: stretching makes it feel better for about a day Refills: valacyclovir History of Present Illness pt here with c/o left shoulder pain Review of Systems PHQ Score Initial Depression Screen Score: 2 SCORE Physical Exam Vitals & Measurements T: 36.8 ???C(Temporal Artery) HR: 84(Peripheral) RR: 18 BP: 130/88 SpO2: 97% HT: 175.0 cm HT: 69 in WT: 125.0 kg WT: 275.578 lb BMI: 40.82 General: alert, no acute distress ENMT: oral mucosa moist, no pharyngeal erythema or exudate Cardiovascular: regular rate and rhythm, normal peripheral perfusion Respiratory: Lungs CTA, respirations non labored Extremities: no deformity, no trauma Neurological: oriented x 4, LOC appropriate for age, CN II-XII intact, motor strength equal & normal bilaterally, speech normal Assessment/Plan 1. Left shoulder pain (M25.512: Pain in left shoulder) pt c/o worsening shoulder pain. He dislocated it several years ago and his friend put it back in place for him. he has had pain since then but it is getting worse. Did PT last year for it. Has been doing stretches and exercises at home. will send order for x ray to [facility]. will send meloxicam and medrol dose pack. pt was recommended to see ortho years ago but he declined at that time. will send referral to [facility] ortho. RTC 4 weeks Ordered: meloxicam, 15 mg = 1 tab(s), Oral, Daily, # 30 tab(s), Refills(s) 0, Pharmacy: [facility]/pharmacy #[id number], 175, cm, 11/12/24 9:06:00 EDT, Height/Length Dosing, 125, kg, 11/12/24 9:06:00 EDT, Weight Dosing methylPREDNISolone, = 1 packet(s), Oral, As Directed, as directed on package labeling, X 6 day(s), # 21 tab(s), Refills(s) 0, Pharmacy: [facility]/pharmacy #[id number], 175, cm, 11/12/24 9:06:00 EDT, Height/Length Dosing, 125, kg, 11/12/24 9:06:00 EDT, Weight Dosing 2. BMI 40.0-44.9, adult (Z68.41: Body mass index [BMI] 40.0-44.9, adult) BMI education Ordered: meloxicam, 15 mg = 1 tab(s), Oral, Daily, # 30 tab(s), Refills(s) 0, Pharmacy: [facility]/pharmacy #[id number], 175, cm, 11/12/24 9:06:00 EDT, Height/Length Dosing, 125, kg, 11/12/24 9:06:00 EDT, Weight Dosing methylPREDNISolone, = 1 packet(s), Oral, As Directed, as directed on package labeling, X 6 day(s), # 21 tab(s), Refills(s) 0, Pharmacy: [facility]/pharmacy #[id number], 175, cm, 11/12/24 9:06:00 EDT, Height/Length Dosing, 125, kg, 11/12/24 9:06:00 EDT, Weight Dosing 3. Obesity, morbid, BMI 40.0-49.9 (E66.01: Morbid (severe) obesity due to excess calories) see above Ordered: meloxicam, 15 mg = 1 tab(s), Oral, Daily, # 30 tab(s), Refills(s) 0, [id number], 175, cm, 11/12/24 9:06:00 EDT, Height/Length Dosing, 125, kg, 11/12/24 9:06:00 EDT, Weight Dosing methylPREDNISolone, = 1 packet(s), Oral, As Directed, as directed on package labeling, X 6 day(s), # 21 tab(s), Refills(s) 0, [id number], 175, cm, 11/12/24 9:06:00 EDT, Height/Length Dosing, 125, kg, 11/12/24 9:06:00 EDT, Weight Dosing 4. Former smoker (Z87.891: Personal history of nicotine dependence) continue not smoking Ordered: meloxicam, 15 mg = 1 tab(s), Oral, Daily, # 30 tab(s), Refills(s) 0, [id number], 175, cm, 11/12/24 9:06:00 EDT, Height/Length Dosing, 125, kg, 11/12/24 9:06:00 EDT, Weight Dosing methylPREDNISolone, = 1 packet(s), Oral, As Directed, as directed on package labeling, X 6 day(s), # 21 tab(s), Refills(s) 0, [id number], 175, cm, 11/12/24 9:06:00 EDT, Height/Length Dosing, 125, kg, 11/12/24 9:06:00 EDT, Weight Dosing Orders: fluoxetine, 20 mg, Oral, Daily, # 30 cap(s), Refills(s) 0, Pharmacy: [facility]/pharmacy #[id number], 175, cm, 11/27/23 11:23:00 EDT, Height/Length Dosing, 135.5, kg, 11/27/23 11:23:00 EDT, Weight Dosing lurasidone, 80 mg, Oral, Daily, # 30 tab(s), Refills(s) 0, Pharmacy: [facility]/pharmacy #[id number], 175, cm, 11/27/23 11:23:00 EDT, Height/Length Dosing, 135.5, kg, 11/27/23 11:23:00 EDT, Weight Dosing Follow-up No qualifying data available Problem List/Past Medical History Ongoing Bipolar illness BMI 40.0-44.9, adult Bright red blood per rectum Change in bowel habits Cough Decreased libido Depression Excessive sweating Fatigue HTN (hypertension) Ingrown toenail Left otitis media Left shoulder pain LLQ abdominal pain Low vitamin D level Lump of thigh Memory change Morbid obesity with BMI of 40.0-44.9, adult Morbid obesity with BMI of 40.0-44.9, adult Nonsmoker Obesity, morbid, BMI 40.0-49.9 Rectal bleeding Sinusitis Wellness examination Wheezing Historical No qualifying data Procedure/Surgical History Surgery. Medications Albuterol (Eqv-ProAir HFA) 90 mcg/inh inhalation aerosol, 2 puff(s), Inhalation, q6hr aripiprazole (more content not included)... Normal [facility] Comment on above: Result Comment: Elec tronically Signed By: Laura Xavier\.br\Date and Time Signed: 11/12/24 10:07 EDT ED Clinical Summaryon 2024 ED Clinical Summary ED Clinical Summary [place] [id number] ED Clinical Summary Person Information Name: MARK PATRICIA [place] Age: 34 Years : 1990 Sex: Male Language: Syriac PCP: Laura Xavier Marital Status: Single Visit Id: Visit Reason: Fall; Skin problem; Knee injury - Minor; RIGHT KNEE PAIN Speciality: Acuity: 4 Enc Type: Emergency Med Service: Emergency Arrival: 11/09/2024 15:15:00 Discharge: 11/09/2024 15:55:25 LOS: 000 00:40 Checkin: 11/09/2024 15:15:00 Checkout: 11/09/2024 15:55:25 Dispo Type: Home (Routine DC) EVENTS: Event Name Event Status Request Date/Time Start Date/Time Complete Date/Time Arrive Complete 11/09/2024 15:15:00 11/09/2024 15:15:00 11/09/2024 15:15:00 Document Home Meds Request 11/09/2024 15:15:00 Triage Complete 11/09/2024 15:15:00 11/09/2024 15:20:39 11/09/2024 15:20:39 Registration Complete 11/09/2024 15:17:32 11/09/2024 15:17:32 11/09/2024 15:17:32 Reg Complete Request 11/09/2024 15:17:32 Reg Bed Request Complete 11/09/2024 15:17:32 11/09/2024 15:17:32 11/09/2024 15:17:32 Bed Assign Complete 11/09/2024 15:17:41 11/09/2024 15:17:41 11/09/2024 15:17:41 Dr Exam Complete 11/09/2024 15:17:41 11/09/2024 15:19:58 11/09/2024 15:19:58 RN Exam Complete 11/09/2024 15:17:41 11/09/2024 15:23:48 11/09/2024 15:23:48 Registration Request 11/09/2024 15:19:58 Discharge Complete 11/09/2024 15:52:32 11/09/2024 15:55:29 11/09/2024 15:55:29 Transfer Complete 11/09/2024 15:55:29 11/09/2024 15:55:29 11/09/2024 15:55:29 ADDRESS: [address] [place] [phone] PHYS DOC NOTES: MEDICAL INFORMATION: Prescriptions Given: New Medications [id number], [address], [place] [phone], [phone] cephalexin (Keflex 500 mg Cap) 1 Capsules By Mouth every 8 hours for 7 Days. Refills: 0. doxycycline (doxycycline hyclate 100 mg Cap) 1 Capsules By Mouth 2 times a day for 7 Days. Refills: 0. Medications to Continue with No Changes Other Medications albuterol (Albuterol (Eqv-ProAir HFA) 90 mcg/inh inhalation aerosol) 2 Puffs Inhalation every 6 hours. Refills: 0. aripiprazole (aripiprazole 20 mg oral tablet) 1 Tablets By Mouth every day. Refills: 0. busPIRone (busPIRone 10 mg Tab) 1 Tablets By Mouth 2 times a day. as needed for anxiety. Refills: 0. ergocalciferol (Vitamin D 50,000 intl units (1.25 mg) oral capsule) 1 Capsules By Mouth every week. Refills: 3. fluoxetine (FLUoxetine 40 mg Cap) 1 Capsules By Mouth every day. Refills: 0. lurasidone (lurasidone 60 mg oral tablet) 1 Tablets By Mouth every day. Refills: 0. valacyclovir (valacyclovir 1 g Tab) TAKE 1 TABLET BY MOUTH EVERY DAY. Refills: 0. vilazodone (vilazodone 40 mg oral tablet) 1 Tablets By Mouth every day. Refills: 0. PATIENT EDUCATION INFORMATION: Instructions: Wound Care, Adult; Abrasion, Kqkw-hv-Atqz Follow up: With: Address: When: Laura Iverson [address] [place] [address] Business (1) In 3 days 11/12/2024 Comments: Call Dr for diagnosis based follow up DIAGNOSIS: Abrasion of right knee Normal [facility] ED Patient Summaryon 025 ED Patient Summary ED Patient Summary [address] [address] Patient Discharge Instructions Person Information Name: MARK PATRICIA Age: 34 Years Arrival Date: 11/09/2024 15:15:00 Discharge Diagnosis: Abrasion of right knee Primary Care Physician: Laura Xavier Provider Information Primary Provider: [employer] Analyst:Hans Aldana PA-C The exam and treatment you received in the Emergency Department were for an urgent problem and are not intended as complete care. It is important that you follow up with a doctor, nurse practitioner, or physician???s buyer assistant for ongoing care. If your symptoms become worse or you do not improve as expected and you are unable to reach your usual health care provider, you should return to the Emergency Department. We are available 24 hours a day. MARK PATRICIA has been given the following list of patient education materials, prescriptions and follow-up instructions: Follow-up Instructions: With: Address: When: Laura Iverson [address] [place] [address] [employer] (1) In 3 days 11/12/2024 Comments: Call Dr for diagnosis based follow up In the event that this physician does not participate in your insurance network, please consult with your insurance company to find a nearby participating provider. Patient Education Materials: Wound Care, Adult; Abrasion, Xzwt-sl-[id number] A MESSAGE TO ALL PATIENTS REGARDING OPIOIDS PRESCRIPTION OPIOIDS: WHAT YOU NEED TO KNOW Prescription opioids can be used to help relieve wdysznxd-tl-rqlosm pain and are often prescribed following a surgery or injury, or for certain health conditions. These medications can be an important part of the treatment but also come with serious risks. It is important to work with your healthcare provider to make sure you are getting the safest, most effective care. WHAT ARE THE RISKS AND SIDE EFFECTS OF OPIOID USE? Prescription opioids carry serious risks of addiction and overdose, especially with prolonged use. An opioid overdose, often marked by slowed breathing, can cause sudden . The use of prescription opioids can have a number of side effects as well, even when taken as directed: ??? Tolerance???meaning you might need to take more of the medication for the same pain relief ??? Physical dependence???meaning you have symptoms of withdrawal when a medication is stopped ??? Increased sensitivity to pain ??? Constipation ??? Nausea, vomiting, and dry mouth ??? Sleepiness and dizziness ??? Confusion ??? Depression ??? Low levels of testosterone that can result in lower sex drive, energy, and strength ??? Itching and sweating RISKS ARE GREATER WITH: ??? History of drug misuse, substance use disorder, or overdose ??? Mental health conditions (such as depression or anxiety) ??? Sleep apnea ??? Older age (65 years and older) ??? Avoid alcohol while taking prescription opioids. Also, unless specifically advised by your health care provider, medications to avoid include: ??? Benzodiazepines (such as Xanax or Valium) ??? Muscle relaxants (such as Soma or Flexeril) ??? Hypnotics (such as Ambien or Lunesta) ??? Other prescription opioids KNOW YOUR OPTIONS Talk to your health care provider about ways to manage your pain that don???t involve prescription opioids. Some of these options may actually work better and have fewer risks and side effects. Options may include: ??? Pain relievers such as acetaminophen, ibuprofen, and naproxen ??? Some medication that are also used for depression or seizures ??? Physical therapy and exercise ??? Cognitive behavioral therapy, a psychological, goal-directed approach, in which patients learn how to modify physical, behavioral, and emotional triggers of pain and stress. IF YOU ARE PRESCRIBED OPIOIDS FOR PAIN: ??? Never take opioids in greater amounts or more often than prescribed. ??? Follow up with your primary health care provider. o Work together to create a plan on how to manage your pain. o Talk about ways to help manage your pain that don???t involve prescription opioids. o Talk about any and all concerns and side effects. ??? Help prevent misuse and abuse o Never sell or share prescription opioids. o Never use another person???s prescription opioids. ??? Store prescription opioids in a secure place and out of reach of others (this may include visitors, children, friends, and family). ??? Safely dispose of unused prescription opioids: Find your community drug take-back program or your pharmacy mail-back program, or flush them down the toilet, following guidance from the Food and Drug Administration (www.fda.gov/Drugs/Re sourcesForYou). ??? Visit www.cdc.gov/drugoverd ose to learn about the risks of opioids abuse and overdose. ??? If you believe you may be struggl (more content not included)... Normal [facility] Reminderson 08-04-2024 Reminders Reminders From: Laura Xavier To: [facility] - Clinical; Sent: 08/04/2024 09:29:10 EDT Show up: 08/04/2024 09:29:00 EDT Subject: Ambulatory Reminder Due Date/Time: 08/05/2024 09:28:00 EDT Vitamin D is very low. otherwise all other labs are normal. Is he taking the vitamin D that was prescribed? Does he need refills? Results: Date Result Name Ind Value Ref Range 07/31/2024 9:40 WBC 6.8 E9/L (4.0 - 11.0) 07/31/2024 9:40 RBC 4.8 E12/L (4.3 - 5.9) 07/31/2024 9:40 HGB 15.2 gm/dL (13.5 - 17.5) 07/31/2024 9:40 Hct 44.3 % (37.7 - 49.0) 07/31/2024 9:40 MCV 91.3 fL (80.0 - 100.0) 07/31/2024 9:40 MCH 31.4 pg (27.0 - 34.0) 07/31/2024 9:40 MCHC 34.4 gm/dL (31.4 - 36.0) 07/31/2024 9:40 RDW 13.0 % (10.9 - 14.2) 07/31/2024 9:40 Platelet 276.0 E9/L (150.0 - 500.0) 07/31/2024 9:40 MPV 7.9 fL (6.4 - 10.8) 07/31/2024 9:40 Neutro Auto 62.3 % (36.0 - 75.0) 07/31/2024 9:40 Lymph Auto 28.1 % (14.0 - 50.0) 07/31/2024 9:40 [place] Auto 7.8 % (4.0 - 14.0) 07/31/2024 9:40 Eos Auto 1.4 % (0.0 - 8.0) 07/31/2024 9:40 Basophil Auto 0.4 % (0.0 - 2.0) 07/31/2024 9:40 Neutro Absolute 4.2 E9/L (2.0 - 7.5) 07/31/2024 9:40 Lymph Absolute 1.9 E9/L (1.0 - 4.0) 07/31/2024 9:40 [place] Absolute 0.5 E9/L (0.2 - 1.0) 07/31/2024 9:40 Eos Absolute 0.1 E9/L (0.0 - 0.5) 07/31/2024 9:40 Basophil Absolute 0.0 E9/L (0.0 - 0.2) 07/31/2024 9:40 Glucose Lvl 93 mg/dL (55 - 199) 07/31/2024 9:40 BUN 18 mg/dL (5 - 21) 07/31/2024 9:40 Creatinine 1.2 mg/dL (0.5 - 1.3) 07/31/2024 9:40 eGFR 82 mL/min/1.73 m2 (>=59 - ) 07/31/2024 9:40 BUN/Creat Ratio 15 (10 - 20) 07/31/2024 9:40 Sodium Lvl 140 mmol/L (135 - 145) 07/31/2024 9:40 Potassium Lvl 4.5 mmol/L (3.5 - 5.3) 07/31/2024 9:40 Chloride 105 mmol/L (101 - 111) 07/31/2024 9:40 CO2 26 mmol/L (21 - 31) 07/31/2024 9:40 AGAP 14 mEq/L (6 - 16) 07/31/2024 9:40 Calcium Lvl 9.3 mg/dL (8.9 - 11.1) 07/31/2024 9:40 Alk Phos 74 Int._Unit/L (21 - 98) 07/31/2024 9:40 ALT 24 Int._Unit/L (6 - 46) 07/31/2024 9:40 AST 17 Int._Unit/L (5 - 43) 07/31/2024 9:40 Total Protein 7.0 gm/dL (6.0 - 7.8) 07/31/2024 9:40 Albumin Lvl 4.2 gm/dL (3.3 - 5.0) 07/31/2024 9:40 Globulin 2.8 gm/dL (1.4 - 4.0) 07/31/2024 9:40 A/G Ratio 1.5 (1.1 - 2.2) 07/31/2024 9:40 Bili Total 0.4 mg/dL (0.0 - 1.1) 07/31/2024 9:40 Chol 143 mg/dL (120 - 200) 07/31/2024 9:40 Trig 85 mg/dL ( - <=149) 07/31/2024 9:40 HDL 40 mg/dL 07/31/2024 9:40 LDL Direct 97 mg/dL ( - <=129) 07/31/2024 9:40 VLDL 17 mg/dL (7 - 40) 07/31/2024 9:40 TSH 0.97 mcIU/mL (0.34 - 5.60) 07/31/2024 9:40 Vitamin D 25 Hydroxy (L) 16.9 ng/mL (30.0 - 100.0) From: Deanna Valdez M.A. (B - Clinical) To: Laura Xavier; [facility] - Clinical; Sent: 08/04/2024 10:11:48 EDT Show up: 08/04/2024 10:10:00 EDT Subject: RE: Ambulatory Reminder left message to return our call and relay below message From: Flavia Medrano LPN (B - Clinical) To: Laura Xavier; Sent: 08/04/2024 11:21:01 EDT Show up: 08/04/2024 11:20:00 EDT Subject: RE: Ambulatory Reminder Pt. return call message given, states he is not taking Vit D and would need refill. See proposal in correct encounter Normal [facility] Ambulatory Visit Summaryon 0 07-31-2024 Ambulatory Visit Summary Ambulatory Visit Summary MARK PATRICIA :1990 Visit Date:07/31/2024 Ambulatory Visit Instructions Your Diagnosis Excessive sweating Fatigue Low vitamin D level BMI 40.0-44.9, adult Former smoker Your Care Team Attending Physician - Laura Xavier Primary Care Physician - Laura Xavier This Is Your Medications List albuterol (Albuterol (Eqv-ProAir HFA) 90 mcg/inh inhalation aerosol) aripiprazole (aripiprazole 20 mg oral tablet) busPIRone (busPIRone 10 mg Tab) fluoxetine (FLUoxetine 40 mg Cap) lurasidone (lurasidone 60 mg oral tablet) valacyclovir (valacyclovir 1 g Tab) vilazodone (vilazodone 40 mg oral tablet) Procedures Performed Surgery. Discharge Vitals Heart Rate (Peripheral) 74 Respiratory Rate 18 Blood Pressure 124/86 Height 175 cm Height 69 in Weight 128.6 kg Weight 283.514 lb BMI 41.99 Medications What How Much When Why Instructions Unchanged albuterol (Albuterol (Eqv-ProAir HFA) 90 mcg/ inh inhalation aerosol) 2 Puffs Inhalation Every 6 hours Chest pain Bronchitis Unchanged aripiprazole (aripiprazole 20 mg oral tablet) 1 Tablets By Mouth Every day Unchanged busPIRone (busPIRone 10 mg Tab) 1 Tablets By Mouth 2 times a day as needed for anxiety Unchanged fluoxetine (FLUoxetine 40 mg Cap) 1 Capsules By Mouth Every day Unchanged lurasidone (lurasidone 60 mg oral tablet) 1 Tablets By Mouth Every day Unchanged valacyclovir (valacyclovir 1 g Tab) See instructions TAKE 1 TABLET BY MOUTH EVERY DAY Unchanged vilazodone (vilazodone 40 mg oral tablet) 1 Tablets By Mouth Every day Allergies Latex (Allergic skin rash) Problems Ongoing - Any problem that you are currently receiving treatment for. Bipolar illness BMI 40.0-44.9, adult Bright red blood per rectum Change in bowel habits Cough Decreased libido Depression Excessive sweating Fatigue HTN (hypertension) Ingrown toenail Left otitis media LLQ abdominal pain Low vitamin D level Lump of thigh Memory change Morbid obesity with BMI of 40.0-44.9, adult Nonsmoker Obesity, morbid, BMI 40.0-49.9 Rectal bleeding Sinusitis Wellness examination Wheezing Patient Survey You may receive a survey via text or e-mail asking about your office visit. Please share your experience with us by completing your survey. We appreciate your feedback and thank you for choosing us for your care. Normal [facility] CBC w/ Auto Diffon 5 Basophils/100 WBC (Bld) 0.4 % Normal 0.0-2.0 [facility] Comment on above: Performed By: #### 2 [id number] #### [facility] [address] [place] [address] Basophils/Leukocytes Auto (Bld) [Pure # fraction] 0.0 E9/L Normal 0.0-0.2 [facility] Comment on above: Performed By: #### 2 [id number] #### [facility] [address] [place] [address] Eosinophils (Bld) [#/Vol] 0.1 E9/L Normal 0.0-0.5 [facility] Comment on above: Performed By: #### 2 [id number] #### [facility] [address] [place] [address] Eosinophils/100 WBC (Bld) 1.4 % Normal 0.0-8.0 [facility] Comment on above: Performed By: #### 2 [id number] #### [facility] [address] [place] [address] Erythrocyte distribution width (RBC) [Ratio] 13.0 % Normal 10.9-14.2 [facility] Comment on above: Performed By: #### 2 [id number] #### [facility] [address] [place] [address] Hematocrit (Bld) [Volume fraction] 44.3 % Normal 37.7-49.0 [facility] Comment on above: Performed By: #### 2 [id number] #### [facility] [address] [place] [address] Hemoglobin (Bld) [Mass/Vol] 15.2 g/dL Normal 13.5-17.5 [facility] Comment on above: Performed By: #### 2 [id number] #### [facility] [address] [place] [address] Lymphocytes (Bld) [#/Vol] 1.9 E9/L Normal 1.0-4.0 [facility] Comment on above: Performed By: #### 2 [id number] #### [facility] [address] [place] [address] Lymphocytes/100 WBC (Bld) 28.1 % Normal 14.0-50.0 [facility] Comment on above: Performed By: #### 2 [id number] #### [facility] [address] [place] [address] MCH (RBC) [Entitic mass] 31.4 pg Normal 27.0-34.0 [facility] Comment on above: Performed By: #### 2 [id number] #### [facility] [address] [place] [address] MCHC (RBC) [Mass/Vol] 34.4 g/dL Normal 31.4-36.[address] [facility] Comment on above: Performed By: #### 2 [id number] #### [facility] [address] [place] [address] MCV (RBC) [Entitic vol] 91.3 fL Normal 80.0-100.0 [facility] Comment on above: Performed By: #### 2 [id number] #### [facility] [address] [place] [address] Monocytes (Bld) [#/Vol] 0.5 E9/L Normal 0.2-1.0 [facility] Comment on above: Performed By: #### 2 [id number] #### [facility] [address] [place] [address] Neutrophils (Bld) [#/Vol] 4.2 E9/L Normal 2.0-7.5 [facility] Comment on above: Performed By: #### 2 [id number] #### [facility] [address] [place] [address] Neutrophils/100 WBC (Bld) 62.3 % Normal 36.0-75.0 [facility] Comment on above: Performed By: #### 2 [id number] #### [facility] [address] [place] [address] Platelet mean volume (Bld) [Entitic vol] 7.9 fL Normal 6.4-10.8 [facility] Comment on above: Performed By: #### 2 [id number] #### [facility] [address] [place] [address] Platelets (Bld) [#/Vol] 276.0 E9/L Normal 150.0-500.0 [facility] Comment on above: Performed By: #### 2 [id number] #### [facility] [address] [place] [address] RBC (Bld) [#/Vol] 4.8 E12/L Normal 4.3-5.9 [facility] Comment on above: Performed By: #### 2 [id number] #### [facility] [address] [place] [address] WBC corrected for nucl RBC Auto (Bld) [#/Vol] 6.8 E9/L Normal 4.0-11.0 [facility] Comment on above: Performed By: #### 2 [id number] #### [facility] [address] [place] [address] CHEMISTRYOrdered By: SYSTEM SYSTEM on 07-31-2024 25-hydroxyvitamin D3 [Mass/Vol] 16.9 ng/mL Low 30.0 - 100.0 ng/mL Remisol Chem Albumin [Mass/Vol] 4.2 g/dL Normal 3.3 - 5.0 gm/dL Remisol Chem Albumin/Globulin [Mass ratio] 1.5 {ratio} Normal 1.1 - 2.2 Remisol Chem ALP [Catalytic activity/Vol] 74 [iU]/d Normal 21 - 98 Int._Unit/L Remisol Chem ALT No additional P-5'-P [Catalytic activity/Vol] 24 [iU]/d Normal 6 - 46 Int._Unit/L Remisol Chem Anion gap [Moles/Vol] 14 mmol/L Normal 6 - 16 mEq/L R emisol Chem AST [Catalytic activity/Vol] 17 [iU]/d Normal 5 - 43 Int._Unit/L Remisol Chem Bilirubin [Mass/Vol] 0.4 mg/dL Normal 0.0 - 1 .1 mg/dL Remisol Chem Calcium [Mass/Vol] 9.3 mg/dL Normal 8.9 - 11. 1 mg/dL Remisol Chem Chloride [Moles/Vol] 105 mmol/L Normal 101 - 1 11 mmol/L Remisol Chem Cholesterol [Mass/Vol] 143 mg/dL Normal 120 - 200 mg/dL Remisol Chem Cholesterol in HDL [Mass/Vol] 40 mg/dL Invalid Interpretation Code Remisol Chem Comment on above: Result Comment: '>= 60 LOW RISK' '<= 40 HIGH RISK' Cholesterol in LDL [Mass/Vol] 97 mg/dL Normal <=129mg/dL Remisol Chem Cholesterol in VLDL [Mass/Vol] 17 mg/dL Normal 7 - 40 mg/dL Remisol Chem CO2 [Moles/Vol] 26 mmol/L Normal 21 - 31 mmol/L Remisol Chem Creatinine [Mass/Vol] 1.2 mg/dL Normal 0.5 - 1.3 mg/dL Remisol Chem eGFR 82 mL/min/1.73 m2 Normal >=59mL/min /1 .73 m2 Remisol Chem Globulin (S) [Mass/Vol] 2.8 g/dL Normal 1.4 - 4.0 gm/dL Remisol Chem Glucose [Mass/Vol] 93 mg/dL Normal 55 - 199 mg/dL Remisol Chem Potassium [Moles/Vol] 4.5 mmol/L Normal 3.5 - 5.3 mmol/L Remisol Chem Protein [Mass/Vol] 7.0 g/dL Normal 6.0 - 7.8 gm/dL Remisol Chem Sodium [Moles/Vol] 140 mmol/L Normal 135 - 145 mmol/L Remisol Chem Triglyceride [Mass/Vol] 85 mg/dL Normal <=149mg/dL Remisol Chem TSH Qn 0.97 m[IU]/L Normal 0.34 - 5.60 mcIU/mL Remisol Chem Urea nitrogen [Mass/Vol] 18 mg/dL Normal 5 - 21 mg/dL Remisol Chem Urea nitrogen/Creatinine [Mass ratio] 15 mg/mg Normal 10 - 20 Remisol Chem CMPon 07-31-2024 Albumin [Mass/Vol] 4.2 g/dL Normal 3.3-5.0 [facility] Comment on above: Order Comment: green top tube received in the lab unspun. Testing performed on the SST tube that was centrifuged. 07/31/2024 20:08:41 EDT [id number] Performed By: #### 2 [id number] #### [facility] [address] [place] [address] Albumin/Globulin (S) [Mass conc ratio] 1.5 Normal 1.1-2.2 [facility] Comment on above: Order Comment: green top tube received in the lab unspun. Testing performed on the SST tube that was centrifuged. 07/31/2024 20:08:41 EDT [id number] Performed By: #### 2 [id number] #### [facility] [address] [place] [address] ALP [Catalytic activity/Vol] 74 Int._Unit/L Normal 21-98 [facility] Comment on above: Order Comment: green top tube received in the lab unspun. Testing performed on the SST tube that was centrifuged. 07/31/2024 20:08:41 EDT [id number] Performed By: #### 2 [id number] #### [facility] [address] [place] [address] ALT No additional P-5'-P [Catalytic activity/Vol] 24 Int._Unit/L Normal 6-46 [facility] Comment on above: Order Comment: green top tube received in the lab unspun. Testing performed on the SST tube that was centrifuged. 07/31/2024 20:08:41 EDT [id number] Performed By: #### 2 [id number] #### [facility] [address] [place] [address] Anion gap [Moles/Vol] 14 mmol/L Normal 6-[address] [facility] Comment on above: Order Comment: green top tube received in the lab unspun. Testing performed on the SST tube that was centrifuged. 07/31/2024 20:08:41 EDT [id number] Performed By: #### 2 [id number] #### [facility] [address] [place] [address] AST [Catalytic activity/Vol] 17 Int._Unit/L Normal 5-43 [facility] Comment on above: Order Comment: green top tube received in the lab unspun. Testing performed on the SST tube that was centrifuged. 07/31/2024 20:08:41 EDT [id number] Performed By: #### 2 [id number] #### [facility] [address] [place] [address] Bilirubin [Mass/Vol] 0.4 mg/dL Normal 0.0-1.1 [facility] Comment on above: Order Comment: green top tube received in the lab unspun. Testing performed on the SST tube that was centrifuged. 07/31/2024 20:08:41 EDT [id number] Performed By: #### 2 [id number] #### [facility] [address] [place] [address] Calcium [Mass/Vol] 9.3 mg/dL Normal 8.9-11.1 [facility] Comment on above: Order Comment: green top tube received in the lab unspun. Testing performed on the SST tube that was centrifuged. 07/31/2024 20:08:41 EDT [id number] Performed By: #### 2 [id number] #### [facility] [address] [place] [address] Chloride [Moles/Vol] 105 mmol/L Normal 101-111 [facility] Comment on above: Order Comment: green top tube received in the lab unspun. Testing performed on the SST tube that was centrifuged. 07/31/2024 20:08:41 EDT [id number] Performed By: #### 2 [id number] #### [facility] [address] [place] [address] CO2 [Moles/Vol] 26 mmol/L Normal 21-31 [facility] Comment on above: Order Comment: green top tube received in the lab unspun. Testing performed on the SST tube that was centrifuged. 07/31/2024 20:08:41 EDT [id number] Performed By: #### 2 [id number] #### [facility] [address] [place] [address] Creatinine [Mass/Vol] 1.2 mg/dL Normal 0.5-1.[address] [facility] Comment on above: Order Comment: green top tube received in the lab unspun. Testing performed on the SST tube that was centrifuged. 07/31/2024 20:08:41 EDT [id number] Performed By: #### 2 [id number] #### [facility] [address] [place] [address] Globulin (S) [Mass/Vol] 2.8 g/dL Normal 1.4-4.0 [facility] Comment on above: Order Comment: green top tube received in the lab unspun. Testing performed on the SST tube that was centrifuged. 07/31/2024 20:08:41 EDT [id number] Performed By: #### 2 [id number] #### [facility] [address] [place] [address] Glucose [Mass/Vol] 93 mg/dL Normal 55-199 [facility] Comment on above: Order Comment: green top tube received in the lab unspun. Testing performed on the SST tube that was centrifuged. 07/31/2024 20:08:41 EDT [id number] Performed By: #### 2 [id number] #### [facility] [address] [place] [address] Potassium [Moles/Vol] 4.5 mmol/L Normal 3.5-5.[address] [facility] Comment on above: Order Comment: green top tube received in the lab unspun. Testing performed on the SST tube that was centrifuged. 07/31/2024 20:08:41 EDT [id number] Performed By: #### 2 [id number] #### [facility] [address] [place] [address] Protein [Mass/Vol] 7.0 g/dL Normal 6.0-7.8 [facility] Comment on above: Order Comment: green top tube received in the lab unspun. Testing performed on the SST tube that was centrifuged. 07/31/2024 20:08:41 EDT [id number] Performed By: #### 2 [id number] #### [facility] [address] [place] [address] Sodium [Moles/Vol] 140 mmol/L Normal 135-145 [facility] Comment on above: Order Comment: green top tube received in the lab unspun. Testing performed on the SST tube that was centrifuged. 07/31/2024 20:08:41 EDT [id number] Performed By: #### 2 [id number] #### [facility] [address] [place] [address] Urea nitrogen [Mass/Vol] 18 mg/dL Normal 5-21 [facility] Comment on above: Order Comment: green top tube received in the lab unspun. Testing performed on the SST tube that was centrifuged. 07/31/2024 20:08:41 EDT [id number] Performed By: #### 2 [id number] #### [facility] [address] [place] [address] Urea nitrogen/Creatinine [Mass ratio] 15 No Units Normal 10-20 [facility] Comment on above: Order Comment: green top tube received in the lab unspun. Testing performed on the SST tube that was centrifuged. 07/31/2024 20:08:41 EDT [id number] Performed By: #### 2 [id number] #### [facility] [address] [place] [address] Family Medicine Office/Clini c Noteon 07-31-2024 Family Medicine Office/Clinic Note Family Medicine Office/Clinic Note HPI Staff Mark is a 34 year old male presenting to to discuss things Onset: 1 year Pt states he has been sweating a lot at night when sleeping , denies sweating during the day , pt would like to get labs done Pt stopped taking Vitamin D and needs refill on Valacyclovir Review of Systems PHQ Score Initial Depression Screen Score: 0 SCORE Physical Exam Vitals & Measurements HR: 74(Peripheral) RR: 18 BP: 124/86 SpO2: 99% HT: 69 in HT: 175 cm WT: 283.514 lb WT: 128.6 kg BMI: 41.99 Assessment/Plan 1. Excessive sweating (R61: Generalized hyperhidrosis) will check labs today. pt was recently weaned off of effexor. but the sweating was happening before that. will call patients with results. RTC 3 months Ordered: CBC w/ Auto Diff Comprehensive Metabolic Panel Lipid Panel Thyroid Stimulating Hormone Vitamin D 25 Hydroxy 2. Fatigue (R53.83: Other fatigue) will check labs today Ordered: CBC w/ Auto Diff Comprehensive Metabolic Panel Lipid Panel Thyroid Stimulating Hormone Vitamin D 25 Hydroxy 3. Low vitamin D level (R79.89: Other specified abnormal findings of blood chemistry) will check labs today Ordered: ergocalciferol, 50,000 International_Unit = 1 cap(s), Oral, qWeek, # 12 cap(s), Refills(s) 3, Pharmacy: [id number], 175, cm, 08/28/23 14:14:00 EDT, Height/Length Dosing, 134.6, kg, 08/28/23 14:14:00 EDT, Weight Dosing CBC w/ Auto Diff Comprehensive Metabolic Panel Lipid Panel Thyroid Stimulating Hormone Vitamin D 25 Hydroxy 4. BMI 40.0-44.9, adult (Z68.41: Body mass index [BMI] 40.0-44.9, adult) BMI education given Ordered: CBC w/ Auto Diff Comprehensive Metabolic Panel Lipid Panel Thyroid Stimulating Hormone Vitamin D 25 Hydroxy 5. Former smoker (Z87.891: Personal history of nicotine dependence) continue not smoking Ordered: CBC w/ Auto Diff Comprehensive Metabolic Panel Lipid Panel Thyroid Stimulating Hormone Vitamin D 25 Hydroxy Orders: meloxicam, See Instructions, TAKE 1 TABLET BY MOUTH EVERY DAY, # 30 tab(s), Refills(s) 0, Pharmacy: [id number], 175, cm, 06/11/24 9:21:00 EST, Height/Length Dosing, 129, kg, 06/11/24 9:21:00 EST, Weight Dosing venlafaxine, 37.5 mg = 1 cap(s), Oral, Daily, # 90 cap(s), Refills(s) 0, Pharmacy: [id number], 175, cm, 11/27/23 11:23:00 EDT, Height/Length Dosing, 135.5, kg, 11/27/23 11:23:00 EDT, Weight Dosing Follow-up No qualifying data available Problem List/Past Medical History Ongoing Bipolar illness BMI 40.0-44.9, adult Bright red blood per rectum Change in bowel habits Cough Decreased libido Depression Excessive sweating Fatigue HTN (hypertension) Ingrown toenail Left otitis media LLQ abdominal pain Low vitamin D level Lump of thigh Memory change Morbid obesity with BMI of 40.0-44.9, adult Nonsmoker Obesity, morbid, BMI 40.0-49.9 Rectal bleeding Sinusitis Wellness examination Wheezing Historical No qualifying data Procedure/Surgical History Surgery. Medications Albuterol (Eqv-ProAir HFA) 90 mcg/inh inhalation aerosol, 2 puff(s), Inhalation, q6hr aripiprazole 20 mg oral tablet, 20 mg= 1 tab(s), Oral, Daily busPIRone 10 mg Tab, 10 mg= 1 tab(s), Oral, BID FLUoxetine 40 mg Cap, 40 mg= 1 cap(s), Oral, Daily lurasidone 60 mg oral tablet, 60 mg= 1 tab(s), Oral, Daily valacyclovir 1 g Tab, See Instructions vilazodone 40 mg oral tablet, 40 mg= 1 tab(s), Oral, Daily Allergies Latex (Allergic skin rash) Social History Alcohol - Denies Alcohol Use, 10/16/2018 Never., 07/31/2024 Substance Abuse - Denies Substance Abuse, 10/16/2018 Never., 07/31/2024 Tobacco - Denies Tobacco Use, 07/10/2023 Former smoker, quit more than 30 days ago, quit 2020 Tobacco Use:., 07/31/2024 Family History Bilateral primary ovarian cancer: Mother. Immunizations Vaccine Date Status Comments influenza virus vaccine, inactivated 02/28/2023 Recorded influenza virus vaccine, inactivated 04/12/2021 Recorded influenza virus vaccine, inactivated 03/26/2020 Recorded influenza virus vaccine, live, trivalent - Not Given Patient Refuses influenza virus vaccine, inactivated 02/26/2019 Recorded influenza virus vaccine, inactivated 03/11/2012 Recorded measles/mumps/rubella virus vaccine 10/20/1997 Recorded DTaP, unspecified formulation 10/20/1997 Recorded DTaP, unspecified formulation 12/03/1995 Recorded measles/mumps/rubella virus vaccine 08/07/1994 Recorded hepatitis B pediatric vaccine 08/07/1994 Recorded DTP-Hib 08/07/1994 Recorded hepatitis B pediatric vaccine 1992 Recorded Hib, unspecified formulation 1992 Recorded hepatitis B pediatric vaccine 1992 Recorded Hib, unspecified formulation [address] [facility] Comment on above: Result Comment: Elec tronically Signed By: Laura Xavier.larry\Date and Time Signed: 07/31/24 09:24 EDT HEMATOLOGYOrdered By: SYSTEM SYSTEM on 07-31-2024 Basophils/100 WBC (Bld) 0.4 % Normal 0.0 - 2.0 % Remisol Heme Basophils/Leukocytes Auto (Bld) [Pure # fraction] 0.0 E9/L Normal 0.0 - 0.2 E9/L Remisol Heme Eosinophils (Bld) [#/Vol] 0.1 E9/L Normal 0.0 - 0.5 E9/L Remisol Heme Eosinophils/100 WBC (Bld) 1.4 % Normal 0.0 - 8.0 % Remisol Heme Erythrocyte distribution width (RBC) [Ratio] 13.0 % Normal 10.9 - 14.2 % Remisol Heme Hematocrit (Bld) [Volume fraction] 44.3 % Normal 37.7 - 49.0 % Remisol Heme Hemoglobin (Bld) [Mass/Vol] 15.2 g/dL Normal 13.5 - 17.5 gm/dL Remisol Heme Lymphocytes (Bld) [#/Vol] 1.9 E9/L Normal 1.0 - 4.0 E9/L Remisol Heme Lymphocytes/100 WBC (Bld) 28.1 % Normal 14.0 - 50.0 % Remisol Heme MCH (RBC) [Entitic mass] 31.4 pg Normal 27.0 - 34.0 pg Remisol Heme MCHC (RBC) [Mass/Vol] 34.4 g/dL Normal 31.4 - 36.0 gm/dL Remisol Heme MCV (RBC) [Entitic vol] 91.3 fL Normal 80.0 - 100.0 fL Remisol Heme Monocytes (Bld) [#/Vol] 0.5 E9/L Normal 0.2 - 1.0 E9/L Remisol Heme Monocytes/100 WBC (Bld) 7.8 % Normal 4.0 - 14.0 % Remisol Heme Neutrophils (Bld) [#/Vol] 4.2 E9/L Normal 2.0 - 7.5 E9/L Remisol Heme Neutrophils/100 WBC (Bld) 62.3 % Normal 36.0 - 75.0 % Remisol Heme Platelet mean volume (Bld) [Entitic vol] 7.9 fL Normal 6.4 - 10.8 fL Remisol Heme Platelets (Bld) [#/Vol] 276.0 E9/L Normal 150.0 - 500.0 E9/L Remisol Heme RBC (Bld) [#/Vol] 4.8 E12/L Normal 4.3 - 5.9 E12/L Remisol Heme WBC corrected for nucl RBC Auto (Bld) [#/Vol] 6.8 E9/L Normal 4.0 - 11.0 E9/L Remisol Heme Lipid Panelon 07-31-2024 Cholesterol [Mass/Vol] 143 mg/dL Normal 120-200 [facility] Comment on above: Performed By: #### [id number] #### [facility] [address] [place] [address] Cholesterol in HDL [Mass/Vol] 40 mg/dL Invalid Interpretation Code [facility] Comment on above: Result Comment: '>= 60 LOW RISK' '<= 40 HIGH RISK' Performed By: #### [id number] #### [facility] [address] [place] [address] Cholesterol in LDL [Mass/Vol] 97 mg/dL Normal <=129 [facility] Comment on above: Performed By: #### 2 [id number] #### [facility] [address] [place] [address] Cholesterol in VLDL [Mass/Vol] 17 mg/dL Normal 7-40 [facility] Comment on above: Performed By: #### 2 [id number] #### [facility] [address] [place] [address] Triglyceride [Mass/Vol] 85 mg/dL Normal <=149 [facility] Comment on above: Performed By: #### 2 [id number] #### [facility] [address] [place] [address] TSHon 07-31-2024 TSH Qn 0.97 m[IU]/L Normal 0.34-5.60 [facility] Comment on above: Performed By: #### 2 [id number] #### [facility] [address] [place] [address] Vitamin D 25 Hydroxyon 07-31 25-hydroxyvitamin D3 [Mass/Vol] 16.9 ng/mL Low 30.0-100.0 [facility] Comment on above: Performed By: #### [id number] #### [facility] [address] [place] [address] eGFRon 07-31-2024 eGFR 82 mL/min/1.73 m2 Normal >=59 [facility] Comment on above: Performed By: #### 1 [id number] #### [facility] [address] [place] [address] Ambulatory Visit Summaryon 0 06-11-2024 Ambulatory Visit Summary Ambulatory Visit Summary MARK PATRICIA :1990 Visit Date:06/11/2024 Ambulatory Visit Instructions Your Diagnosis Lump of thigh BMI 40.0-44.9, adult Former smoker Your Care Team Attending Physician - Laura Xavier Primary Care Physician - Laura Xavier This Is Your Medications List albuterol (Albuterol (Eqv-ProAir HFA) 90 mcg/inh inhalation aerosol) aripiprazole (aripiprazole 20 mg oral tablet) busPIRone (busPIRone 10 mg Tab) ergocalciferol (Vitamin D 50,000 intl units (1.25 mg) oral capsule) fluoxetine (FLUoxetine 40 mg Cap) lurasidone (lurasidone 60 mg oral tablet) naproxen (Naprosyn 500 mg Tab) valacyclovir (valacyclovir 1 g Tab) venlafaxine (venlafaxine 37.5 mg Cap-ER) vilazodone (vilazodone 40 mg oral tablet) Procedures Performed Surgery. Discharge Vitals Heart Rate (Peripheral) 66 Respiratory Rate 18 Blood Pressure 122/80 Height 175.0 cm Height 69 in Weight 129.0 kg Weight 284.396 lb BMI 42.12 Medications What How Much When Why Instructions Unchanged albuterol (Albuterol (Eqv-ProAir HFA) 90 mcg/ inh inhalation aerosol) 2 Puffs Inhalation Every 6 hours Chest pain Bronchitis Unchanged aripiprazole (aripiprazole 20 mg oral tablet) 1 Tablets By Mouth Every day Unchanged busPIRone (busPIRone 10 mg Tab) 1 Tablets By Mouth 2 times a day as needed for anxiety Unchanged ergocalciferol (Vitamin D 50,000 intl units (1.25 mg) oral capsule) 1 Capsules By Mouth Every week Low vitamin D level Unchanged fluoxetine (FLUoxetine 40 mg Cap) 1 Capsules By Mouth Every day Unchanged lurasidone (lurasidone 60 mg oral tablet) 1 Tablets By Mouth Every day Unchanged naproxen (Naprosyn 500 mg Tab) 1 Tablets By Mouth 2 times a day Unchanged valacyclovir (valacyclovir 1 g Tab) See instructions TAKE 1 TABLET BY MOUTH EVERY DAY Unchanged venlafaxine (venlafaxine 37.5 mg Cap-ER) 1 Capsules By Mouth Every day Unchanged vilazodone (vilazodone 40 mg oral tablet) 1 Tablets By Mouth Every day Allergies Latex (Allergic skin rash) Problems Ongoing - Any problem that you are currently receiving treatment for. Bipolar illness BMI 40.0-44.9, adult Bright red blood per rectum Change in bowel habits Cough Decreased libido Depression Fatigue HTN (hypertension) Ingrown toenail Left otitis media LLQ abdominal pain Low vitamin D level Lump of thigh Memory change Morbid obesity with BMI of 40.0-44.9, adult Nonsmoker Obesity, morbid, BMI 40.0-49.9 Rectal bleeding Sinusitis Wellness examination Wheezing Patient Survey You may receive a survey via text or e-mail asking about your office visit. Please share your experience with us by completing your survey. We appreciate your feedback and thank you for choosing us for your care. Normal [facility] Family Medicine Office/Clini c Noteon 06-11-2024 Family Medicine Office/Clinic Note Family Medicine Office/Clinic Note HPI Staff Tiffanie is a 33 year old male presenting for acute visit Pain characteristics: Pain location: left inner thigh painful lump Intensity:0/10 Pt states yesterday it did get better lump is no long there. This has been intermittent mostly when it is cold out doing heavy strenuous work, will sometimes feel a pain into his left testicle. Will take Tylenol as needed History of Present Illness pt presents today for lump on left thigh Review of Systems PHQ Score Initial Depression Screen Score: 0 SCORE Physical Exam Vitals & Measurements HR: 66(Peripheral) RR: 18 BP: 122/80 SpO2: 98% HT: 69 in HT: 175.0 cm WT: 129.0 kg WT: 284.396 lb BMI: 42.12 General: alert, no acute distress ENMT: oral mucosa moist, no pharyngeal erythema or exudate Cardiovascular: regular rate and rhythm, normal peripheral perfusion Respiratory: Lungs CTA, respirations non labored Extremities: no deformity, no trauma Neurological: oriented x 4, LOC appropriate for age, CN II-XII intact, motor strength equal & normal bilaterally, speech normal Assessment/Plan 1. Lump of thigh (R22.40: Localized swelling, mass and lump, unspecified lower limb) pt c/o intermittent pain in upper left thigh near groin area and sometimes it shoots into his left testicle. pt recently moved and lift a lot of heavy objects. offered to order u/s but pt states I've had those done in the past and it doesn't show anything. will order anti inflammatory and medrol dose pack. if pain becomes persistent he will let me know and I will order u/s. there is no lump or pain during visit today. Ordered: meloxicam, 15 mg = 1 tab(s), Oral, Daily, # 30 tab(s), Refills(s) 0, Pharmacy: [facility]/pharmacy #[id number], 175, cm, 06/11/24 9:21:00 EST, Height/Length Dosing, 129, kg, 06/11/24 9:21:00 EST, Weight Dosing methylPREDNISolone, = 1 packet(s), Oral, As Directed, as directed on package labeling, X 6 day(s), # 21 tab(s), Refills(s) 0, Pharmacy: [facility]/pharmacy #[id number], 175, cm, 06/11/24 9:21:00 EST, Height/Length Dosing, 129, kg, 06/11/24 9:21:00 EST, Weight Dosing 2. BMI 40.0-44.9, adult (Z68.41: Body mass index [BMI] 40.0-44.9, adult) BMI education given Ordered: brompheniramine/dextr omethorphan/PSE, 5 mL, Oral, QID for cold symptoms, 200 mL, Refill(s) 0, [facility]/pharmacy #[id number], 175, cm, 04/29/24 11:05:00 EST, Height/Length Dosing, 131.1, kg, 04/29/24 11:05:00 EST, Weight Dosing meloxicam, 15 mg = 1 tab(s), Oral, Daily, # 30 tab(s), Refills(s) 0, [id number], 175, cm, 06/11/24 9:21:00 EST, Height/Length Dosing, 129, kg, 06/11/24 9:21:00 EST, Weight Dosing methylPREDNISolone, = 1 packet(s), Oral, As Directed, as directed on package labeling, X 6 day(s), # 21 tab(s), Refills(s) 0, Pharmacy: [facility]/pharmacy #[id number], 175, cm, 06/11/24 9:21:00 EST, Height/Length Dosing, 129, kg, 06/11/24 9:21:00 EST, Weight Dosing 3. Former smoker (Z87.891: Personal history of nicotine dependence) continue not smoking Ordered: meloxicam, 15 mg = 1 tab(s), Oral, Daily, # 30 tab(s), Refills(s) 0, [id number], 175, cm, 06/11/24 9:21:00 EST, Height/Length Dosing, 129, kg, 06/11/24 9:21:00 EST, Weight Dosing methylPREDNISolone, = 1 packet(s), Oral, As Directed, as directed on package labeling, X 6 day(s), # 21 tab(s), Refills(s) 0, Pharmacy: [facility]/pharmacy #[id number], 175, cm, 06/11/24 9:21:00 EST, Height/Length Dosing, 129, kg, 06/11/24 9:21:00 EST, Weight Dosing Follow-up No qualifying data available Problem List/Past Medical History Ongoing Bipolar illness BMI 40.0-44.9, adult Bright red blood per rectum Change in bowel habits Cough Decreased libido Depression Fatigue HTN (hypertension) Ingrown toenail Left otitis media LLQ abdominal pain Low vitamin D level Lump of thigh Memory change Morbid obesity with BMI of 40.0-44.9, adult Nonsmoker Obesity, morbid, BMI 40.0-49.9 Rectal bleeding Sinusitis Wellness examination Wheezing Historical No qualifying data Procedure/Surgical History Surgery. Medications Albuterol (Eqv-ProAir HFA) 90 mcg/inh inhalation aerosol, 2 puff(s), Inhalation, q6hr aripiprazole 20 mg oral tablet, 20 mg= 1 tab(s), Oral, Daily busPIRone 10 mg Tab, 10 mg= 1 tab(s), Oral, BID FLUoxetine 40 mg Cap, 40 mg= 1 cap(s), Oral, Daily lurasidone 60 mg oral tablet, 60 mg= 1 tab(s), Oral, Daily Medrol 4 mg Tab, 1 packet(s), Oral, As Directed meloxicam 15 mg Tab, 15 mg= 1 tab(s), Oral, Daily Naprosyn 500 mg Tab, 500 mg= 1 tab(s), Oral, BID valacyclovir 1 g Tab, See Instructions, Not taking: pt has been out venlafaxine 37.5 mg Cap-ER, 37.5 mg= 1 cap(s), Oral, Daily vilazodone 40 mg oral tablet, 40 mg= 1 tab(s), Oral, Daily Vitamin D 50,000 intl units (1.25 mg) oral capsule, [id number] International_Unit= 1 cap(s), Oral, qWeek, 3 refills Allergies Latex (Allergic skin rash) Social History Alcohol - Denies Alcohol Use, 10/16/2018 Substance Abuse - Denies Substance Abuse, 10/16/2018 Tobacco (more content not included)... Normal [facility] Comment on above: Result Comment: Elec tronically Signed By: Laura Xavier\.br\Date and Time Signed: 06/11/24 09:37 EST Ambulatory Visit Summaryon 1 06-30-2023 Ambulatory Visit Summary Ambulatory Visit Summary MARK PATRICIA :1990 Visit Date:04/29/2024 Ambulatory Visit Instructions Your Diagnosis Cough Wheezing BMI 40.0-44.9, adult Obesity, morbid, BMI 40.0-49.9 Nonsmoker Your Care Team Attending Physician - Laura Xavier Primary Care Physician - Laura Xavier This Is Your Medications List acetaminophen-hydroco done ([place] 325 mg-5 mg oral tablet) albuterol (Albuterol (Eqv-ProAir HFA) 90 mcg/inh inhalation aerosol) aripiprazole (aripiprazole 20 mg oral tablet) brompheniramine/dextr omethorphan/PSE (Bromfed DM oral syrup) busPIRone (busPIRone 10 mg Tab) doxycycline (doxycycline hyclate 100 mg Cap) ergocalciferol (Vitamin D 50,000 intl units (1.25 mg) oral capsule) fluoxetine (FLUoxetine 40 mg Cap) lurasidone (lurasidone 60 mg oral tablet) naproxen (Naprosyn 500 mg Tab) valacyclovir (valacyclovir 1 g Tab) venlafaxine (venlafaxine 37.5 mg Cap-ER) vilazodone (vilazodone 40 mg oral tablet) Procedures Performed Surgery. Discharge Vitals Temperature (Tympanic) 37.0 ???C Heart Rate (Peripheral) 78 Respiratory Rate 20 Blood Pressure 138/86 Height 175 cm Height 69 in Weight 131.1 kg Weight 289.026 lb BMI 42.81 Medications What How Much When Why Instructions New brompheniramine/ dextromethorphan/ PSE (Bromfed DM oral syrup) 5 Milliliter By Mouth 4 times a day as needed for for cold symptoms BMI 40.0-44.9, adult Obesity, morbid, BMI 40.0-49.9 [address]up [address] [facility]/pharmacy #[id number] New doxycycline (doxycycline hyclate 100 mg Cap) 1 Capsules By Mouth 2 times a day BMI 40.0-44.9, adult Obesity, morbid, BMI 40.0-49.9 Nonsmoker Duration: [address] [facility]/pharmacy #[id number] Unchanged acetaminophen-hydroco done ([place] 325 mg-5 mg oral tablet) 1 Tablets By Mouth Every 6 hours as needed for as needed for pain Lower back pain Unchanged albuterol (Albuterol (Eqv-ProAir HFA) 90 mcg/ inh inhalation aerosol) 2 Puffs Inhalation Every 6 hours Chest pain Bronchitis Unchanged aripiprazole (aripiprazole 20 mg oral tablet) 1 Tablets By Mouth Every day Unchanged busPIRone (busPIRone 10 mg Tab) 1 Tablets By Mouth 2 times a day as needed for anxiety Unchanged ergocalciferol (Vitamin D 50,000 intl units (1.25 mg) oral capsule) 1 Capsules By Mouth Every week Low vitamin D level Unchanged fluoxetine (FLUoxetine 40 mg Cap) 1 Capsules By Mouth Every day Unchanged lurasidone (lurasidone 60 mg oral tablet) 1 Tablets By Mouth Every day Unchanged naproxen (Naprosyn 500 mg Tab) 1 Tablets By Mouth 2 times a day Unchanged valacyclovir (valacyclovir 1 g Tab) See instructions TAKE 1 TABLET BY MOUTH EVERY DAY Unchanged venlafaxine (venlafaxine 37.5 mg Cap-ER) 1 Capsules By Mouth Every day Unchanged vilazodone (vilazodone 40 mg oral tablet) 1 Tablets By Mouth Every day Pharmacy Information [facility]/pharmacy #[id number]: [address], [place] [id number] [phone] Allergies Latex (Allergic skin rash) Problems Ongoing - Any problem that you are currently receiving treatment for. Bipolar illness BMI 40.0-44.9, adult Bright red blood per rectum Change in bowel habits Cough Decreased libido Depression Fatigue HTN (hypertension) Ingrown toenail Left otitis media LLQ abdominal pain Low vitamin D level Memory change Morbid obesity with BMI of 40.0-44.9, adult Nonsmoker Obesity, morbid, BMI 40.0-49.9 Rectal bleeding Sinusitis Wellness examination Wheezing Patient Survey You may receive a survey via text or e-mail asking about your office visit. Please share your experience with us by completing your survey. We appreciate your feedback and thank you for choosing us for your care. Normal [facility] Family Medicine Office/Clini c Noteon 04-29-2024 Family Medicine Office/Clinic Note Family Medicine Office/Clinic Note Chief Complaint Sick Visit HPI Staff Pt presents today for acute sick visit. Cough & Nasal drainage for the past 3 days. Occasional sputum. Sx worse at night. No known exposure to flu/covid. Denies fever. History of Present Illness pt presents today with URI symptoms Review of Systems PHQ Score Initial Depression Screen Score: 0 SCORE Physical Exam Vitals & Measurements T: 37.0 ???C(Tympanic) HR: 78(Peripheral) RR: 20 BP: 138/86 SpO2: 96% HT: 69 in HT: 175 cm WT: 131.1 kg WT: 289.026 lb BMI: 42.81 General: alert, no acute distress ENMT: oral mucosa moist, no pharyngeal erythema or exudate, KIMMY TM full of fluid and red Cardiovascular: regular rate and rhythm, normal peripheral perfusion Respiratory: Lungs expiratory wheezes, respirations non labored Extremities: no deformity, no trauma Neurological: oriented x 4, LOC appropriate for age, CN II-XII intact, motor strength equal & normal bilaterally, speech normal Assessment/Plan 1. Cough (R05.9: Cough, unspecified) pt c/o severe cough that is worse at night. pt will get mucinex OTC. bromfed and doxycycline sent to pharmacy. pt states he has been hospitalized int he past for pneumonia 2. Wheezing (R06.2: Wheezing) will given 60mg kenalog in office today. doxy sent to pharmacy. 3. BMI 40.0-44.9, adult (Z68.41: Body mass index [BMI] 40.0-44.9, adult) BMI education given Ordered: brompheniramine/dextr omethorphan/PSE, 5 mL, Oral, QID for cold symptoms, 200 mL, Refill(s) 0, [facility]/pharmacy #[id number], 175, cm, 04/29/24 11:05:00 EST, Height/Length Dosing, 131.1, kg, 04/29/24 11:05:00 EST, Weight Dosing doxycycline, 100 mg = 1 cap(s), Oral, BID, X 7 day(s), # 14 cap(s), Refills(s) 0, Pharmacy: [facility]/pharmacy #[id number], 175, cm, 04/29/24 11:05:00 EST, Height/Length Dosing, 131.1, kg, 04/29/24 11:05:00 EST, Weight Dosing 4. Obesity, morbid, BMI 40.0-49.9 (E66.01: Morbid (severe) obesity due to excess calories) see above Ordered: brompheniramine/dextr omethorphan/PSE, 5 mL, Oral, QID for cold symptoms, 200 mL, Refill(s) 0, [facility]/pharmacy #[id number], 175, cm, 04/29/24 11:05:00 EST, Height/Length Dosing, 131.1, kg, 04/29/24 11:05:00 EST, Weight Dosing doxycycline, 100 mg = 1 cap(s), Oral, BID, X 7 day(s), # 14 cap(s), Refills(s) 0, Pharmacy: [facility]/pharmacy #[id number], 175, cm, 04/29/24 11:05:00 EST, Height/Length Dosing, 131.1, kg, 04/29/24 11:05:00 EST, Weight Dosing 5. Nonsmoker (Z78.9: Other specified health status) continue not smoking Ordered: brompheniramine/dextr omethorphan/PSE, 5 mL, Oral, QID for cold symptoms, 200 mL, Refill(s) 0, [facility]/pharmacy #[id number], 175, cm, 04/29/24 11:05:00 EST, Height/Length Dosing, 131.1, kg, 04/29/24 11:05:00 EST, Weight Dosing doxycycline, 100 mg = 1 cap(s), Oral, BID, X 7 day(s), # 14 cap(s), Refills(s) 0, Pharmacy: [facility]/pharmacy #[id number], 175, cm, 04/29/24 11:05:00 EST, Height/Length Dosing, 131.1, kg, 04/29/24 11:05:00 EST, Weight Dosing Orders: gabapentin, 600 mg = 1 tab(s), Oral, BID, # 60 tab(s), Refills(s) 0, Pharmacy: [facility]/pharmacy #[id number], 175, cm, 11/27/23 11:23:00 EDT, Height/Length Dosing, 135.5, kg, 11/27/23 11:23:00 EDT, Weight Dosing metoprolol, 25 mg = 1 tab(s), Oral, BID, # 180 tab(s), Refills(s) 1, Pharmacy: [facility]/pharmacy #[id number], 175, cm, 11/27/23 11:23:00 EDT, Height/Length Dosing, 135.5, kg, 11/27/23 11:23:00 EDT, Weight Dosing Follow-up No qualifying data available Problem List/Past Medical History Ongoing Bipolar illness BMI 40.0-44.9, adult Bright red blood per rectum Change in bowel habits Cough Decreased libido Depression Fatigue HTN (hypertension) Ingrown toenail Left otitis media LLQ abdominal pain Low vitamin D level Memory change Morbid obesity with BMI of 40.0-44.9, adult Nonsmoker Obesity, morbid, BMI 40.0-49.9 Rectal bleeding Sinusitis Wellness examination Wheezing Historical No qualifying data Procedure/Surgical History Surgery. Medications Albuterol (Eqv-ProAir HFA) 90 mcg/inh inhalation aerosol, 2 puff(s), Inhalation, q6hr aripiprazole 20 mg oral tablet, 20 mg= 1 tab(s), Oral, Daily Bromfed DM oral syrup, 5 mL, Oral, QID, PRN busPIRone 10 mg Tab, 10 mg= 1 tab(s), Oral, BID doxycycline hyclate 100 mg Cap, 100 mg= 1 cap(s), Oral, BID FLUoxetine 40 mg Cap, 40 mg= 1 cap(s), Oral, Daily lurasidone 60 mg oral tablet, 60 mg= 1 tab(s), Oral, Daily Naprosyn 500 mg Tab, 500 mg= 1 tab(s), Oral, BID [place] 325 mg-5 mg oral tablet, 1 tab(s), Oral, q6hr, PRN valacyclovir 1 g Tab, See Instructions venlafaxine 37.5 mg Cap-ER, 37.5 mg= 1 cap(s), Oral, Daily vilazodone 40 mg oral tablet, 40 mg= 1 tab(s), Oral, Daily Vitamin D 50,000 intl units (1.25 mg) oral capsule, [id number] International_Unit= 1 cap(s), Oral, qWeek, 3 refills Allergies Latex (Allergic skin rash) Social History Alcohol - Denies Alcohol Use, 10/16/2018 Substance Abuse - Denies Substance Abuse, 10/16/2018 Tobacco - Denies Tobacco Use, 07/10/2023 Former smoker, tara (more content not included)... Normal [facility] Comment on above: Result Comment: Elec tronically Signed By: Laura Xavier\.br\Date and Time Signed: 04/29/24 11:43 EST ED Clinical Summaryon 2023 ED Clinical Summary ED Clinical Summary [place] [id number] ED Clinical Summary Person Information Name: MARK PATRICIA [place] Age: 33 Years : 1990 Sex: Male Language: Syriac PCP: Laura Xavier Marital Status: Single Visit Id: Visit Reason: Back pain; BACK PAIN - HEARD SOMETHING POP ON SUNDAY Speciality: Acuity: 4 Enc Type: Emergency Med Service: Emergency Arrival: 01/23/2024 22:38:51 Discharge: 01/24/2024 02:10:37 LOS: 000 03:32 Checkin: 01/23/2024 22:38:51 Checkout: 01/24/2024 02:10:37 Dispo Type: Home (Routine DC) EVENTS: Event Name Event Status Request Date/Time Start Date/Time Complete Date/Time Arrive Complete 01/23/2024 22:38:51 01/23/2024 22:38:51 01/23/2024 22:38:51 Document Home Meds Request 01/23/2024 22:38:51 Triage Complete 01/23/2024 22:38:51 01/23/2024 23:04:28 01/23/2024 23:04:28 Registration Complete 01/23/2024 22:43:31 01/23/2024 22:43:31 01/23/2024 22:43:31 Reg Complete Request 01/23/2024 22:43:31 Reg Bed Request Complete 01/23/2024 22:43:31 01/23/2024 22:43:31 01/23/2024 22:43:31 Bed Assign Complete 01/23/2024 23:46:32 01/23/2024 23:46:32 01/23/2024 23:46:32 Dr Exam Complete 01/23/2024 23:46:32 01/23/2024 23:57:49 01/23/2024 23:57:49 RN Exam Complete 01/23/2024 23:46:32 01/23/2024 23:58:52 01/23/2024 23:58:52 Registration Request 01/23/2024 23:57:49 Meds Admin Complete 01/24/2024 00:12:49 01/24/2024 00:29:47 X-Ray Complete 01/24/2024 00:13:49 01/24/2024 00:33:14 01/24/2024 00:45:58 Wet Read Request 01/24/2024 00:45:58 Discharge Complete 01/24/2024 01:51:54 01/24/2024 02:10:41 01/24/2024 02:10:41 Transfer Complete 01/24/2024 02:10:41 01/24/2024 02:10:41 01/24/2024 02:10:41 ADDRESS: [address] [place] [id number] PHYS DOC NOTES: MEDICAL INFORMATION: Prescriptions Given: New Medications Printed Prescriptions acetaminophen-hydroco done ([place]ane 325 mg-5 mg oral tablet) 1 Tablets By Mouth every 6 hours as needed as needed for pain. Refills: 0. naproxen (Naprosyn 500 mg Tab) 1 Tablets By Mouth 2 times a day. Refills: 0. Medications to Continue with No Changes Other Medications albuterol (Albuterol (Eqv-ProAir HFA) 90 mcg/inh inhalation aerosol) 2 Puffs Inhalation every 6 hours. Refills: 0. aripiprazole (aripiprazole 20 mg oral tablet) 1 Tablets By Mouth every day. Refills: 0. ascorbic acid (Vitamin C) 1,000 Milligram By Mouth every day. busPIRone (busPIRone 10 mg Tab) 1 Tablets By Mouth 2 times a day. as needed for anxiety. Refills: 0. ergocalciferol (Vitamin D 50,000 intl units (1.25 mg) oral capsule) 1 Capsules By Mouth every week. Refills: 3. fluoxetine (FLUoxetine 40 mg Cap) 1 Capsules By Mouth every day. Refills: 0. gabapentin (gabapentin 600 mg Tab) 1 Tablets By Mouth 2 times a day. Refills: 0. lurasidone (lurasidone 60 mg oral tablet) 1 Tablets By Mouth every day. Refills: 0. methylPREDNISolone (Medrol 4 mg Tab) 1 Packets By Mouth As Directed for 6 Days. as directed on package labeling. Refills: 0. metoprolol (metoprolol succinate 25 mg ER Tab) 1 Tablets By Mouth 2 times a day. Refills: 1. tizanidine (tiZANidine 4 mg Tab) 1 Tablets By Mouth every 8 hours for 7 Days. Refills: 0. valacyclovir (valacyclovir 1 g Tab) 1 Tablets By Mouth every day. Refills: 0. venlafaxine (venlafaxine 37.5 mg Cap-ER) 1 Capsules By Mouth every day. Refills: 0. vilazodone (vilazodone 40 mg oral tablet) 1 Tablets By Mouth every day. Refills: 0. PATIENT EDUCATION INFORMATION: Instructions: Acute Back Pain, Adult Follow up: With: Address: When: Laura Iverson In 3 days 01/27/2024 Comments: Return to the emergency room if your pain gets worse, bowel or bladder incontinence, numbness/tingling in the saddle/groin area or any new symptoms. DIAGNOSIS: 1:Lower back pain Normal [facility] ED Note-Physicianon 01-24-20 24 ED Note-Physician ED Note-Physician Basic Information Time Seen: Xavier Pereyra, Sue Johnston 01/23/2024 23:57 Chief Complaint right lower back pain since sunday. states was pulling weeds and felt something pop. currently taking muscles relaxants and steriods with minimal relief shooting pains down right leg at times History of Present Illness The patient is a 33-year-old male who presented to the emergency room with right lower back pain. The patient stated the pain started on Sunday. The patient states he was just pulling weeds when the pain started. He felt a pop on the right side. The patient states the pain gets worse when he is standing for a long time and it radiates down to the thigh when he stands for long time. The patient denies any bowel or bladder incontinence. He denies any saddle paresthesia. Denies any weakness on the legs. The patient denies any abdominal pain. The patient denies any blood in urine. The patient denies any other associated symptoms. Review of Systems Additional ROS info: Except as noted in the above Review of Systems and in the History of Present Illness all other systems have been reviewed and are negative or noncontributory. Physical Exam Vitals & Measurements T: 36.6 ?C(Oral) HR: 74(Peripheral) RR: 16 BP: 131/83 SpO2: 96% HT: 175 cm WT: 133.4 kg BMI: 43.56 General: alert, no acute distress Skin: warm, dry Head: no trauma, normocephalic Neck: Trachea midline, no tenderness, supple Eye: normal conjunctiva, sclera clear, Cardiovascular: regular rate and rhythm, Respiratory: Lungs CTA, respirations non labored, breath sounds equal Gastrointestinal: soft, non distended, no tenderness, no guarding Back: Mild tenderness in the right lumbosacral region, Normal ROM, Normal alignment, no step-offs. Patellar reflexes equal bilaterally. Extremities: no deformity, no trauma Neurological: Alert and oriented, motor strength equal & normal bilaterally, sensation equal & normal bilaterally, speech normal, no focal neuro deficits Psychiatric: cooperative, affect appropriate for age, Medical Decision Making MEDICAL DECISION MAKING Number and Complexity of Problems Differential Diagnosis: [] [facility] Data External documents reviewed: [] My EKG interpretation: [] My CT interpretation: [] My X-ray interpretation: [] My Ultrasound interpretation: [] Decision rules/scores evaluated: [] Discussed with: [] Treatment and Disposition ED Course: The patient presented with lower back pain. More likely his pain is a muscle skeletal in origin. The patient has no signs or symptoms of cauda equina syndrome. The patient was given Toradol, Norflex and Percocet in the emergency room his pain improved. The x-ray shows no fracture no dislocation. Will discharge patient home with prescription for Naprosyn and few [place] Plane's for breakthrough pain. He does have tizanidine prescribed by his primary doctor. The patient was instructed to return to the emergency room if his pain gets worse, bowel or bladder incontinence, saddle paresthesia or any new symptoms. Shared decision making: [] Code status: [] Assessment/Plan 1. Lower back pain (M54.50: Low back pain, unspecified) Ordered: acetaminophen-hydroco done, 1 tab(s), Oral, q6hr as needed for pain, 10 tab(s), Refill(s) 0 Orders: acetaminophen-oxycodo ne, 1 tab(s), Tab, Oral, Once, Stop date 01/24/24 0:11:00 EDT, STAT, Start date 01/24/24 0:11:00 EDT ketorolac, 60 mg = 2 mL, Injection, IntraMuscular, Once, Stop date 01/24/24 0:11:00 EDT, STAT, Start date 01/24/24 0:11:00 EDT, 01/24/24 0:11:00 EDT naproxen, 500 mg = 1 tab(s), Oral, BID, # 20 tab(s), Refills(s) 0 orphenadrine, 60 mg = 2 mL, Injection, IntraMuscular, Once, Stop date 01/24/24 0:11:00 EDT, STAT, Start date 01/24/24 0:11:00 EDT, 01/24/24 0:11:00 EDT XR Spine Lumbosacral 2 or 3 Views Medications Administered Given ketorolac 60 mg/2 mL Injection, 60 mg, IntraMuscular orphenadrine 30 mg/mL Inj, 60 mg, IntraMuscular Percocet 5 mg-325 mg oral tablet, 1 tab(s), Oral Disposition Plan Patient Discharge Condition Stable, improved Discharge Disposition Discharge home Discharge Prescription List Prescriptions Naprosyn 500 mg Tab, 500 mg= 1 tab(s), Oral, BID [place] Plane 325 mg-5 mg oral tablet, 1 tab(s), Oral, q6hr, PRN Follow-up With When Contact Information Laura Iverson In 3 days 01/27/2024 EDT Additional Instructions: Return to the emergency room if your pain gets worse, bowel or bladder incontinence, numbness/tingling in the saddle/groin area or any new symptoms. Patient Education Acute Back Pain, Adult Problem List/Past Medical History Ongoing Bipolar illness BMI 40.0-44.9, adult Bright red blood per rectum Change in bowel habits Cough Decreased libido Depression Fatigue HTN (hypertension) Ingrown toenail Left otitis media LLQ abdominal pain Low vitamin D level Memory change Morbid obesity with BMI of 40.0-44.9, adult Rectal bl (more content not included)... Normal [facility] Comment on above: Result Comment: Elec tronically Signed By: Sue Park M.D.\.larry\Date and Time Signed: 01/24/24 01:53 EDT ED Patient Summaryon 024 ED Patient Summary ED Patient Summary [place] [id number] Patient Discharge Instructions Person Information Name: MARK PATRICIA Age: 33 Years Arrival Date: 01/23/2024 22:38:51 Discharge Diagnosis: 1:Lower back pain Primary Care Physician: Laura Xavier Provider Information Primary Provider: Sue Park M.D. [employer] Analyst:None The exam and treatment you received in the Emergency Department were for an urgent problem and are not intended as complete care. It is important that you follow up with a doctor, nurse practitioner, or physician?s buyer assistant for ongoing care. If your symptoms become worse or you do not improve as expected and you are unable to reach your usual health care provider, you should return to the Emergency Department. We are available 24 hours a day. MARK PATRICIA has been given the following list of patient education materials, prescriptions and follow-up instructions: Follow-up Instructions: With: Address: When: Laura Iverson In 3 days 01/27/2024 Comments: Return to the emergency room if your pain gets worse, bowel or bladder incontinence, numbness/tingling in the saddle/groin area or any new symptoms. In the event that this physician does not participate in your insurance network, please consult with your insurance company to find a nearby participating provider. Patient Education Materials: Acute Back Pain,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 (aripiprazole 20 mg oral tablet) 1 Tablets By Mouth Every day Unchanged ascorbic acid (Vitamin C) 1,000 Milligram By Mouth Every day Unchanged busPIRone (busPIRone 10 mg Tab) 1 Tablets By Mouth 2 times a day as needed for anxiety Unchanged ergocalciferol (Vitamin D 50,000 intl units (1.25 mg) oral capsule) 1 Capsules By Mouth Every week Low vitamin D level Unchanged fluoxetine (FLUoxetine 40 mg Cap) 1 Capsules By Mouth Every day Unchanged gabapentin (gabapentin 600 mg Tab) 1 Tablets By Mouth 2 times a day Unchanged lurasidone (lurasidone 60 mg oral tablet) 1 Tablets By Mouth Every day Unchanged metoprolol (Metoprolol tartrate 25 mg Tab) 1 Tablets By Mouth 2 times a day Unchanged valacyclovir (valacyclovir 1 g Tab) 1 Tablets By Mouth Every day Unchanged venlafaxine (venlafaxine 37.5 mg Tab) 1 Tablets By Mouth Every day Unchanged vilazodone (vilazodone 40 mg oral tablet) 1 Tablets By Mouth Every day Allergies Latex (Allergic skin rash) Problems Ongoing - Any problem that you are currently receiving treatment for. Bipolar illness BMI 40.0-44.9, adult Bright red blood per rectum Change in bowel habits Decreased libido Depression Fatigue HTN (hypertension) Ingrown toenail LLQ abdominal pain Low vitamin D level Memory change Rectal bleeding Wellness examination Patient Survey You may receive a survey via text or e-mail asking about your office visit. Please share your experience with us by completing your survey. We appreciate your feedback and thank you for choosing us for your care. Normal [facility] Family Medicine Office/Clini c Noteon 11-06-2023 Family Medicine Office/Clinic Note HPI Staff Mark is a 33 year old male presenting for acute sick visit Respiratory C/O: Onset: 5 days ago Body aches: no Chest congestion: yes Last night is first time he hasn't felt any chest congestion Chills: no Cough: yes Sputum production: yes clear/green Sore throat: not today but days before yes Ear complaints: no Eye itching/watering: no Fever: no Headache: no Nasal congestion: yes Nasal discharge: yes Poor appetite: no Reduced activity: no Sinus pain/pressure: no Sneezing: no Wheezing: yes a night time Ill contacts: no Remedies tried: none History of Present Illness pt presents today for nasal congestion, cough and wheezing Review of Systems PHQ Score Initial Depression Screen Score: 0 SCORE Physical Exam Vitals & Measurements T: 36.9 ?C(Tympanic) HR: 82(Peripheral) RR: 18 BP: 126/84 HT: 69 in HT: 175.0 cm WT: 137.15 kg WT: 301.73 lb BMI: 44.78 General: alert, no acute distress ENMT: oral mucosa moist, no pharyngeal erythema or exudate, left TM red and bulging Cardiovascular: regular rate and rhythm, normal peripheral perfusion Respiratory: Lungs CTA, respirations non labored Extremities: no deformity, no trauma Neurological: oriented x 4, LOC appropriate for age, CN II-XII intact, motor strength equal & normal bilaterally, speech normal Assessment/Plan 1. Left otitis media (H66.92: Otitis media, unspecified, left ear) left TM red and full of fluid, sinus congestion wheezing and cough at night. will send Augmentin and medrol dose pack. RTC as needed Ordered: amoxicillin-clavulana te, = 1 tab(s), Oral, q12hr, X 7 day(s), # 14 tab(s), Refills(s) 0, Pharmacy: [facility]/pharmacy #[id number], 175, cm, 11/06/23 11:54:00 EDT, Height/Length Dosing, 137.2, kg, 11/06/23 11:54:00 EDT, Weight Dosing methylPREDNISolone, = 1 packet(s), Oral, As Directed, as directed on package labeling, X 6 day(s), # 21 tab(s), Refills(s) 0, Pharmacy: [facility] #[id number], 175, cm, 11/06/23 11:54:00 EDT, Height/Length Dosing, 137.2, kg, 11/06/23 11:54:00 EDT, Weight Dosing 2. BMI 40.0-44.9, adult (Z68.41: Body mass index [BMI] 40.0-44.9, adult) BMI education given Ordered: amoxicillin-clavulana te, = 1 tab(s), Oral, q12hr, X 7 day(s), # 14 tab(s), Refills(s) 0, Pharmacy: [id number], 175, cm, 11/06/23 11:54:00 EDT, Height/Length Dosing, 137.2, kg, 11/06/23 11:54:00 EDT, Weight Dosing cephalexin, 500 mg = 1 cap(s), Oral, q8hr, # 30 cap(s), Refills(s) 0, Pharmacy: [facility], 175, cm, 09/21/23 13:51:00 EDT, Height/Length Dosing, 133.1, kg, 09/21/23 13:51:00 EDT, Weight Dosing methylPREDNISolone, = 1 packet(s), Oral, As Directed, as directed on package labeling, X 6 day(s), # 21 tab(s), Refills(s) 0, Pharmacy: [id number], 175, cm, 11/06/23 11:54:00 EDT, Height/Length Dosing, 137.2, kg, 11/06/23 11:54:00 EDT, Weight Dosing 3. Former smoker (Z87.891: Personal history of nicotine dependence) continue not smoking Ordered: amoxicillin-clavulana te, = 1 tab(s), Oral, q12hr, X 7 day(s), # 14 tab(s), Refills(s) 0, Pharmacy: [id number], 175, cm, 11/06/23 11:54:00 EDT, Height/Length Dosing, 137.2, kg, 11/06/23 11:54:00 EDT, Weight Dosing cephalexin, 500 mg = 1 cap(s), Oral, q8hr, # 30 cap(s), Refills(s) 0, Pharmacy: [facility], 175, cm, 09/21/23 13:51:00 EDT, Height/Length Dosing, 133.1, kg, 09/21/23 13:51:00 EDT, Weight Dosing methylPREDNISolone, = 1 packet(s), Oral, As Directed, as directed on package labeling, X 6 day(s), # 21 tab(s), Refills(s) 0, Pharmacy: [facility] #[id number], 175, cm, 11/06/23 11:54:00 EDT, Height/Length Dosing, 137.2, kg, 11/06/23 11:54:00 EDT, Weight Dosing Follow-up No qualifying data available Problem List/Past Medical History Ongoing Bipolar illness BMI 40.0-44.9, adult Bright red blood per rectum Change in bowel habits Decreased libido Depression Fatigue HTN (hypertension) Ingrown toenail Left otitis media LLQ abdominal pain Low vitamin D level Memory change Rectal bleeding Wellness examination Historical No qualifying data Procedure/Surgical History Surgery. Medications Albuterol (Eqv-ProAir HFA) 90 mcg/inh inhalation aerosol, 2 puff(s), Inhalation, q6hr aripiprazole 20 mg oral tablet, 20 mg= 1 tab(s), Oral, Daily Augmentin 875 mg oral tablet, 1 tab(s), Oral, q12hr busPIRone 10 mg Tab, 10 mg= 1 tab(s), Oral, BID FLUoxetine 40 mg Cap, 40 mg= 1 cap(s), Oral, Daily gabapentin 600 mg Tab, 600 mg= 1 tab(s), Oral, BID lurasidone 60 mg oral tablet, 60 mg= 1 tab(s), Oral, Daily Medrol 4 mg Tab, 1 packet(s), Oral, As Directed Metoprolol tartrate 25 mg Tab, 25 mg= 1 tab(s), Oral, BID valacyclovir 1 g Tab, 1 gm= 1 tab(s), Oral, Daily venlafaxine 37.5 mg Tab, 37.5 mg= 1 tab(s), Oral, Daily vilazodone 40 mg oral tablet, 40 mg= 1 tab(s), Oral, Daily Vitamin C, 1000 mg, Oral, Daily Vitamin D 50,000 intl units (1.25 mg) oral capsule, 12196 International_Unit= 1 cap(s), Oral, qWeek, 3 refills Allergies Latex ( (more content not included)... Normal [facility] Comment on above: Result Comment: Elec tronically Signed By: Laura Xavier\.br\Date and Time Signed: 11/06/23 13:42 EDT Auth for Release of Medical Recordson 11-01-2023 Auth for Release of Medical Records [id number] .00TIFF Normal [facility] Lab Reportson 10-31-2023 Lab Reports [id number] .00TIFF Normal [facility] Physician Referralon 024 Physician Referral [id number] .00TIFF Normal [facility] Family Medicine Office/Clini c Noteon 09-21-2023 Family Medicine Office/Clinic Note HPI Staff Mark is a 33 year old male presenting for acute visit Onset: 2 weeks ago pt has ingrown toe nail on left big toe, denies any drainage. Corner sore when having to wear steal toe boots. denies any drainage. Last year had it removed and now it grew back. History of Present Illness left big toe ingrown and infected Review of Systems PHQ Score Initial Depression Screen Score: 0 SCORE Physical Exam Vitals & Measurements HR: 82(Peripheral) RR: 18 BP: 134/84 SpO2: 99% HT: 69 in HT: 175.0 cm WT: 133.1 kg WT: 292.82 lb BMI: 43.46 General: alert, no acute distress ENMT: oral mucosa moist, no pharyngeal erythema or exudate Cardiovascular: regular rate and rhythm, normal peripheral perfusion Respiratory: Lungs CTA, respirations non labored Extremities: no deformity, no trauma Neurological: oriented x 4, LOC appropriate for age, CN II-XII intact, motor strength equal & normal bilaterally, speech normal Assessment/Plan 1. Ingrown toenail (L60.0: Ingrowing nail) left big toenail ingrown and infected. will send referral to Dr. Lizarraga. will start keflex Ordered: cephalexin, 500 mg = 1 cap(s), Oral, q8hr, # 30 cap(s), Refills(s) 0, Pharmacy: [facility], 175, cm, 09/21/23 13:51:00 EDT, Height/Length Dosing, 133.1, kg, 09/21/23 13:51:00 EDT, Weight Dosing [facility] External Ambulatory Referral 2. BMI 40.0-44.9, adult (Z68.41: Body mass index [BMI] 40.0-44.9, adult) BMI education complete Ordered: cephalexin, 500 mg = 1 cap(s), Oral, q8hr, # 30 cap(s), Refills(s) 0, Pharmacy: [facility], 175, cm, 09/21/23 13:51:00 EDT, Height/Length Dosing, 133.1, kg, 09/21/23 13:51:00 EDT, Weight Dosing [facility] External Ambulatory Referral 3. Former smoker (Z87.891: Personal history of nicotine dependence) continue not smoking Ordered: cephalexin, 500 mg = 1 cap(s), Oral, q8hr, # 30 cap(s), Refills(s) 0, Pharmacy: [facility], 175, cm, 09/21/23 13:51:00 EDT, Height/Length Dosing, 133.1, kg, 09/21/23 13:51:00 EDT, Weight Dosing [facility] External Ambulatory Referral Follow-up No qualifying data available Problem List/Past Medical History Ongoing Bipolar illness BMI 40.0-44.9, adult Bright red blood per rectum Change in bowel habits Decreased libido Depression Fatigue HTN (hypertension) Ingrown toenail LLQ abdominal pain Low vitamin D level Memory change Rectal bleeding Wellness examination Historical No qualifying data Procedure/Surgical History Surgery. Medications Albuterol (Eqv-ProAir HFA) 90 mcg/inh inhalation aerosol, 2 puff(s), Inhalation, q6hr aripiprazole 20 mg oral tablet, 20 mg= 1 tab(s), Oral, Daily busPIRone 10 mg Tab, 10 mg= 1 tab(s), Oral, BID cephalexin 500 mg Cap, 500 mg= 1 cap(s), Oral, q8hr FLUoxetine 40 mg Cap, 40 mg= 1 cap(s), Oral, Daily gabapentin 600 mg Tab, 600 mg= 1 tab(s), Oral, BID lurasidone 60 mg oral tablet, 60 mg= 1 tab(s), Oral, Daily Metoprolol tartrate 25 mg Tab, 25 mg= 1 tab(s), Oral, BID valacyclovir 1 g Tab, 1 gm= 1 tab(s), Oral, Daily venlafaxine 37.5 mg Tab, 37.5 mg= 1 tab(s), Oral, Daily vilazodone 40 mg oral tablet, 40 mg= 1 tab(s), Oral, Daily Vitamin C, 1000 mg, Oral, Daily Vitamin D 50,000 intl units (1.25 mg) oral capsule, 52246 International_Unit= 1 cap(s), Oral, qWeek, 3 refills Allergies Latex (Allergic skin rash) Social History Alcohol - Denies Alcohol Use, 10/16/2018 Substance Abuse - Denies Substance Abuse, 10/16/2018 Tobacco - Denies Tobacco Use, 07/10/2023 Former smoker, quit more than 30 days ago Tobacco Use:. Never Smokeless Tobacco Use:. Cigarettes, Household tobacco concerns: No., 09/21/2023 Family History Bilateral primary ovarian cancer: Mother. Immunizations Vaccine Date Status Comments influenza virus vaccine, inactivated 02/28/2023 Recorded influenza virus vaccine, inactivated 04/12/2021 Recorded influenza virus vaccine, inactivated 03/26/2020 Recorded influenza virus vaccine, live, trivalent - Not Given Patient Refuses influenza virus vaccine, inactivated 02/26/2019 Recorded influenza virus vaccine, inactivated 03/11/2012 Recorded measles/mumps/rubella virus vaccine 10/20/1997 Recorded DTaP, unspecified formulation 10/20/1997 Recorded DTaP, unspecified formulation 12/03/1995 Recorded measles/mumps/rubella virus vaccine 08/07/1994 Recorded hepatitis B pediatric vaccine 08/07/1994 Recorded DTP-Hib 08/07/1994 Recorded hepatitis B pediatric vaccine 1992 Recorded Hib, unspecified formulation 1992 Recorded hepatitis B pediatric vaccine 1992 Recorded Hib, unspecified formulation [address] [facility] Comment on above: Result Comment: Elec tronically Signed By: Laura Xavier\.br\Date and Time Signed: 09/21/23 14:11 EDT Reminderson 08-30-2023 Reminders - From: Laura Xavier To: [facility] - Clinical; Sent: 08/30/2023 08:00:20 EDT Show up: 08/30/2023 08:00:00 EDT Subject: Ambulatory Reminder Due Date/Time: 08/31/2023 07:59:00 EDT Vitamin D is low but Testosterone is normal. I can send in Vitamin D supplement to pharmacy of his choice. Results: Date Result Name Ind Value Ref Range 08/28/2023 18:19 Vitamin D 25 Hydroxy ((L)) 17.9 ng/mL (30.0 - 100.0) 08/28/2023 18:19 Testoster Tot 306 ng/dL ([id number] - ) From: Johana Alexander (B - Clinical) To: Laura Xavier; Sent: 08/30/2023 15:37:34 EDT Show up: 08/30/2023 15:35:00 EDT Subject: RE: Ambulatory Reminder Patient informed and voiced understanding. [facility] Normal [facility] Testost Totalon 08-30-2023 Testosterone [Mass/Vol] 306 ng/dL Invalid Interpretation Code [id number] [facility] Comment on above: Result Comment: Adul t male reference interval is based on a population of healthy nonobese males (BMI <30) between 19 and 39 years old. Timoteo, et.al. JCEM 2017,102;9590-9026. PMID: [id number]. Performed at: [facility] [id number] PhD Shayy Gonzalez Performed By: #### [id number] ####[facility] [id number] [place] [address] Family Medicine Office/Clini c Noteon 08-29-2023 Family Medicine Office/Clinic Note HPI Staff Anthony is a 33 year old male presenting for one month follow up full PE Health Maintenance: Colonoscopy: [facility] normal , having blood in stool PSA: none Last Labs: due Pt did see neurologist and did have Ct scan done and has some testing the . Pt did get all cpap supplies and when to use machine and feels like the air flow is now to high. He did get sleep study and machine by [facility]. He would like to discuss where he should go to have the air flow adjusted. History of Present Illness pt presents today to discuss decreased libido and fatigue. had lab work done by Dr. Miranda a few weeks ago. Physical Exam Vitals & Measurements HR: 80(Peripheral) RR: 18 BP: 128/78 SpO2: 98% HT: 69 in HT: 175.0 cm WT: 134.6 kg WT: 296.12 lb BMI: 43.95 General: alert, no acute distress ENMT: oral mucosa moist, no pharyngeal erythema or exudate Cardiovascular: regular rate and rhythm, normal peripheral perfusion Respiratory: Lungs CTA, respirations non labored Extremities: no deformity, no trauma Neurological: oriented x 4, LOC appropriate for age, CN II-XII intact, motor strength equal & normal bilaterally, speech normal Assessment/Plan 1. Decreased libido (R68.82: Decreased libido) pt c/o decreased libido. will check testosterone today. discussed this could be from his psych meds. pt will decide Ordered: Lab Specimen Collect [id number] Testosterone Level Total Vitamin D 25 Hydroxy 2. Fatigue (R53.83: Other fatigue) pt c/o worsening fatigue. will check labs today Ordered: Lab Specimen Collect [id number] Testosterone Level Total Vitamin D 25 Hydroxy 3. BMI 40.0-44.9, adult (Z68.41: Body mass index [BMI] 40.0-44.9, adult) BMI education complete Ordered: Lab Specimen Collect [id number] Testosterone Level Total Vitamin D 25 Hydroxy 4. Former smoker (Z87.891: Personal history of nicotine dependence) continue not smoking Ordered: Lab Specimen Collect [id number] Testosterone Level Total Vitamin D 25 Hydroxy Follow-up No qualifying data available Problem List/Past Medical History Ongoing Bipolar illness BMI 40.0-44.9, adult Bright red blood per rectum Change in bowel habits Decreased libido Depression Fatigue HTN (hypertension) LLQ abdominal pain Memory change Rectal bleeding Wellness examination Historical No qualifying data Procedure/Surgical History Surgery. Medications Albuterol (Eqv-ProAir HFA) 90 mcg/inh inhalation aerosol, 2 puff(s), Inhalation, q6hr aripiprazole 20 mg oral tablet, 20 mg= 1 tab(s), Oral, Daily busPIRone 10 mg Tab, 10 mg= 1 tab(s), Oral, BID FLUoxetine 40 mg Cap, 40 mg= 1 cap(s), Oral, Daily gabapentin 600 mg Tab, 600 mg= 1 tab(s), Oral, BID lurasidone 60 mg oral tablet, 60 mg= 1 tab(s), Oral, Daily Metoprolol tartrate 25 mg Tab, 25 mg= 1 tab(s), Oral, BID valacyclovir 1 g Tab, 1 gm= 1 tab(s), Oral, Daily venlafaxine 37.5 mg Tab, 37.5 mg= 1 tab(s), Oral, Daily vilazodone 40 mg oral tablet, 40 mg= 1 tab(s), Oral, Daily Vitamin B12 1000 mcg Tab, 1000 mcg= 1 tab(s), Oral, Daily Vitamin C, 1000 mg, Oral, Daily Allergies Latex (Allergic skin rash) Social History Alcohol - Denies Alcohol Use, 10/16/2018 Substance Abuse - Denies Substance Abuse, 10/16/2018 Tobacco - Denies Tobacco Use, 07/10/2023 Former smoker, quit more than 30 days ago Tobacco Use:. Never Smokeless Tobacco Use:. Cigarettes, Household tobacco concerns: No., 08/28/2023 Family History Bilateral primary ovarian cancer: Mother. Immunizations Vaccine Date Status Comments influenza virus vaccine, inactivated 02/28/2023 Recorded influenza virus vaccine, inactivated 04/12/2021 Recorded influenza virus vaccine, inactivated 03/26/2020 Recorded influenza virus vaccine, live, trivalent - Not Given Patient Refuses influenza virus vaccine, inactivated 02/26/2019 Recorded influenza virus vaccine, inactivated 03/11/2012 Recorded measles/mumps/rubella virus vaccine 10/20/1997 Recorded DTaP, unspecified formulation 10/20/1997 Recorded DTaP, unspecified formulation 12/03/1995 Recorded measles/mumps/rubella virus vaccine 08/07/1994 Recorded hepatitis B pediatric vaccine 08/07/1994 Recorded DTP-Hib 08/07/1994 Recorded hepatitis B pediatric vaccine 1992 Recorded Hib, unspecified formulation 1992 Recorded hepatitis B pediatric vaccine 1992 Recorded Hib, unspecified formulation [address] [facility] Comment on above: Result Comment: Elec tronically Signed By: Laura Xavier\.br\Date and Time Signed: 08/29/23 11:43 EDT CHEMISTRYOrdered By: SYSTEM SYSTEM on 08-28-2023 25-hydroxyvitamin D3 [Mass/Vol] 17.9 ng/mL Low 30.0 - 100.0 ng/mL Remisol Chem Vitamin D 25 Hydroxyon 08-27 25-hydroxyvitamin D3 [Mass/Vol] 17.9 ng/mL Low 30.0-100.0 [facility] Comment on above: Performed By: #### [id number] ####[facility] [address] [place] [address] CHEMISTRYOrdered By: Lab ROP User on 07-10-2023 Glucose [Mass/Vol] 80 mg/dL Normal 55 - 99 mg/dL [facility] POC Subsection Comment on above: Result Comment: Alonzo dodd RN/ POC Device SN [id number] Invalid Interpretation Code [facility] POC Subsection POC User ID [id number] Invalid Interpretation Code [facility] POC Subsection POC Username NEHAL BOYKIN Invalid Interpretation Code [facility] POC Subsection MICRO OTHER TESTSOrdered By: Mi Case on 07-10-2023 Influenzae A Ag Negative (07/10/23 5:19 PM) Normal Negative [facility] Sero Influenzae B Ag Negative 1 (07/10/23 5:19 PM) Normal Negative [facility] Comment on above: Interpretive Data: T est sensitivity and specificity vary for age group, specimen type, antigen types, and prevalence of disease. Test results must be evaluated in conjunction with other clinical data available to the physician. Individuals who received nasally administered Influenza A vaccine may have positive test results up to 3 days after vaccination. Rapid COV Int NEG Ctl Pass (07/10/23 5:19 PM) Normal [facility] Sero Rapid COV Int POS Ctl Pass (07/10/23 5:19 PM) Normal [facility] S. pyogenes Ag IA.rapid Ql (Throat) Negative (07/10/23 5:19 PM) Normal Negative [facility] Sero SARS-CoV+SARS-CoV-2 (COVID-19) Ag IA.rapid Ql (Resp) Not Detected 3 (07/10/23 5:19 PM) Normal Not Detected [facility]ero Comment on above: Interpretive Data: T he mokono Veritor System for Rapid Detection of SARS-CoV-2 is a chromatographic digital immunoassay intended for the direct and qualitative detection of SARS-CoV-2 nucleocapsid antigens in nasal swabs from individuals who are suspected of COVID-19 by their healthcare provider within the first five days of the onset of symptoms. Negative results should be treated as presumptive, do not rule out SARS-CoV-2 infection and should not be used as the sole basis for treatment or patient management decisions, including infection control decisions. Negative results should be considered in the context of a patient s recent exposures, history and the presence of clinical signs and symptoms consistent with COVID-19, and confirmed with a molecular assay, if necessary, for patient management. For in vitro diagnostic use. In the [place], only for use under an Emergency Use Authorization. In the [place], this test has not been FDA cleared or approved; this test has been authorized by FDA under an EUA for use by authorized laboratories; use by laboratories certified under the CLIA, 42 U.S.C. 263a, that meet requirements to perform moderate, high, or waived complexity tests and at the Point of Care (POC), i.e., in patient care settings operating under a CLIA Certificate of Waiver, Certificate of Compliance, or Certificate of Accreditation. This test has been authorized only for the detection of proteins from SARS-CoV-2, not for any other viruses or pathogens; and, in the [place], this test is only authorized for the duration of the declaration that circumstances exist justifying the authorization of emergency use of in vitro diagnostics for detection and/or diagnosis of the virus that causes COVID-19 under Section 564(b)(1) of the Act, 21 U.S.C. 360bbb-3(b)(1), unless the authorization is terminated or revoked sooner. URINALYSISOrdered By: Michelle Johnson on 07-10-2023 Bacteria LM Ql (Urine sed) Trace /HPF Normal Trace/HPF [facility] UA Auto SS Bilirubin Ql (U) Negative (07/10/23 6:07 PM) Normal Negative [facility] UA Auto SS Clarity (U) Clear (07/10/23 6:07 PM) Normal Clear [facility] UA Auto SS Color (U) Yellow (07/10/23 6:07 PM) Normal Yellow [facility] UA Auto SS Crystals LM Ql (Urine sed) Present (07/10/23 6:07 PM) Normal [facility] UA Auto SS Epithelial cells.squamous LM.HPF (Urine sed) [#/Area] 0-2 /HPF Normal 0-2/HPF [facility] UA Aut o SS Glucose Test strip (U) [Mass/Vol] Negative (07/10/23 6:07 PM) Normal Negative [facility]A Auto SS Hemoglobin Ql (U) Negative (07/10/23 6:07 PM) Normal Negative [facility] UA Auto SS Ketones (U) [Mass/Vol] Negative (07/10/23 6:07 PM) Normal Negative [facility] UA Auto SS Destrehan.plasma/Lithiu m.RBC (Bld) [Mass ratio] 0-3 /HPF Normal 0-3/HPF [facility]A Auto SS Mucus Ql (Urine sed) 3+ (07/10/23 6:07 PM) Normal [facility] Auto SS Nitrite Ql (U) Negative (07/10/23 6:07 PM) Normal Negative [facility] UA Auto SS pH (U) 6.0 *NA* (07/10/23 6:07 PM) Invalid Interpretation Code 5.0 - 9.0 [facility] UA Auto SS Protein (U) [Mass/Vol] Negative (07/10/23 6:07 PM) Normal Negative [facility] UA Auto SS Specific gravity (U) [Rel density] >=1.030 *NA* (07/10/23 6:07 PM) Invalid Interpretation Code 1.005 - 1.030 [facility] UA Auto SS UA Spec Desc Clean Catch (07/10/23 6:07 PM) Normal [facility] UA Auto SS Urobilinogen Qn (U) [id number] {Barry'U}/dL Normal 0.0 - 1.0 EU/dL [facility] UA Auto SS WBC Auto Ql (U) Negative (07/10/23 6:07 PM) Normal Negative [facility]A Auto SS WBC LM.HPF (Urine sed) [#/Area] 0-5 /HPF Normal 0-5/HPF [facility] UA Auto SS Chlamydia/GC DNA, Uron 05-09 Chlamydia Probe, Ur Negative Normal NEG [facility] Comment on above: Result Comment: CHLA MYDIA TRACHOMATIS DNA not detected by nucleic acid amplification. This test is intended for medical purposes only and is not valid for the evaluation of suspected sexual abuse or for other forensic purposes. In certain contexts, culture may be required to meet applicable laws and regulations for diagnosis of C. trachomatis and N. gonorrhoeae infections. Per 2014 CDC recommendations, this test does not include confirmation of positive results by an alternative nucleic acid target. Performed By: #### U CGP #### [employer] [address] [place] [address] [id number] Tile Installer: Gurinder Ramirez MD Gonorrhea Probe, Ur Negative Normal NEG [facility] Comment on above: Result Comment: NEIS SERIA GONORRHOEAE DNA not detected by nucleic acid amplification. This test is intended for medical purposes only and is not valid for the evaluation of suspected sexual abuse or for other forensic purposes. In certain contexts, culture may be required to meet applicable laws and regulations for diagnosis of C. trachomatis and N. gonorrhoeae infections. Per 2014 CDC recommendations, this test does not include confirmation of positive results by an alternative nucleic acid target. Performed By: #### U CGP #### [facility] [address] [id number] Tile Installer: Gurnider Ramirez MD UA w/Reflex Cultureon 2022 Bilirubin, SemiQt,Ur Negative Normal NEG [facility] Comment on above: Performed By: #### U AX #### [place] [address] Tile Installer: Adarsh Hernandez MD Blood, Urine Negative Normal NEG [facility] Comment on above: Performed By: #### U AX #### [place] [address] Tile Installer: Adarsh Hernandez MD Clarity (U) Clear Normal CLEAR [facility] Comment on above: Performed By: #### U AX #### [place] [id number] Tile Installer: Adarsh Hernandez MD Color (U) Yellow Normal YEL [facility] Comment on above: Performed By: #### U AX #### [place] [address] Tile Installer: Adarsh Hernanedz MD Comment Microscopic exam not performed based on chemical results unless requested in Normal [facility] Comment on above: Result Comment: orig inal order. Utilizing a urinalysis as the only screening method to exclude a potential uropathogen can be unreliable in many patient populations. Rapid screening tests are less sensitive than culture and if UTI is a clinical possibility, culture should be considered despite a negative urinalysis. Performed By: #### U AX #### [place] [address] Tile Installer: Adarsh Hernandez MD Glucose Ql (U) Negative Normal NEG [facility] Comment on above: Performed By: #### U AX #### [place] [address] Tile Installer: Adarsh Hernandez MD Ketones Ql (U) Negative Normal NEG [facility] Comment on above: Performed By: #### U AX #### [place] [address] Tile Installer: Adarsh Hernandez MD Leukocyte esterase Test strip Ql (U) Negative Normal NEG [facility] Comment on above: Performed By: #### U AX #### [place] [address] Tile Installer: Adarsh Hernandez MD Nitrite,Ur Negative Normal NEG [facility] Comment on above: Performed By: #### U AX #### [place] [address] Tile Installer: Adarsh Hernandez MD PH,Ur 6.0 Normal 5.0-8.0 [facility] Comment on above: Performed By: #### U AX #### [place] [address] Tile Installer: Adarsh Hernandez MD Protein Ql (U) Negative Normal NEG [facility] Comment on above: Performed By: #### U AX #### [place] [id number] [place] [address] Tile Installer: Adarsh Hernandez MD Spec. Crivitz,Ur 1.027 Normal 1.005-1.030 [facility] Comment on above: Performed By: #### U AX #### [place] [address] Tile Installer: Adarsh Hernandez MD Urobilinogen,Ur Normal Normal 0.0-1.0 [facility] Comment on above: Performed By: #### U AX #### [place] [address] Tile Installer: Adarsh Hernandez MD CHEMISTRYOrdered By: SYSTEM SYSTEM on 09-12-2022 Albumin [Mass/Vol] 4.1 g/dL Normal 3.3 - 5.0 gm/dL FT Remisol Albumin/Globulin [Mass ratio] 1.2 {ratio} Normal 1.1 - 2.2 [facility] Remisol ALP [Catalytic activity/Vol] 63 [iU]/d Normal 21 - 98 Int._Unit/L [facility] Remisol ALT No additional P-5'-P [Catalytic activity/Vol] 29 [iU]/d Normal 6 - 46 Int._Unit/L [facility] Remisol Ammonia (P) [Moles/Vol] umol Low 11 - 35 mcmol [facility] Remisol Anion gap [Moles/Vol] 13 mmol/L Normal 6 - 16 mEq/L F [facility] Remisol AST [Catalytic activity/Vol] 25 [iU]/d Normal 5 - 43 Int._Unit/L [facility] Remisol Bilirubin [Mass/Vol] 0.4 mg/dL Normal 0.0 - 1 .1 mg/dL [facility] Remisol Calcium [Mass/Vol] 9.0 mg/dL Normal 8.9 - 11. 1 mg/dL [facility] Remisol Chloride [Moles/Vol] 100 mmol/L Low 101 - 1 11 mmol/L [facility] Remisol CO2 [Moles/Vol] 28 mmol/L Normal 21 - 31 mmol/L [facility] Remisol Creatinine [Mass/Vol] 1.4 mg/dL High 0.5 - 1.3 mg/dL [facility] Remisol Ethanol [Mass/Vol] mg/dL Normal <=7mg/dL [facility] R emisol GFR/1.73 sq M.predicted among non-blacks MDRD (S/P/Bld) [Vol rate/Area] 69 mL/min/1.73 m2 Normal >=59mL/min/1 .73 m2 FT Chem S Globulin (S) [Mass/Vol] 3.5 g/dL Normal 1.4 - 4.0 gm/dL [facility] Remisol Glucose [Mass/Vol] 95 mg/dL Normal 55 - 199 mg/dL [facility] Remisol Potassium [Moles/Vol] 3.7 mmol/L Normal 3.5 - 5.3 mmol/L [facility] Remisol Protein [Mass/Vol] 7.6 g/dL Normal 6.0 - 7.8 gm/dL [facility] Remisol Sodium [Moles/Vol] 137 mmol/L Normal 135 - 145 mmol/L [facility] Remisol Troponin I.cardiac [Mass/Vol] pg/mL Low 15.90 - 38.40 pg/mL [facility] Remisol TSH Qn 0.91 m[IU]/L Normal 0.34 - 5.60 mcIU/mL [facility] Remisol Urea nitrogen [Mass/Vol] 17 mg/dL Normal 5 - 21 mg/dL [facility] Remisol Urea nitrogen/Creatinine [Mass ratio] 12 mg/mg Normal 10 - 20 [facility] Remisol HEMATOLOGYOrdered By: SYSTEM SYSTEM on 09-12-2022 Basophils/100 WBC (Bld) 1.2 % Normal 0.0 - 2.0 % [facility] HemeAutoSS Basophils/Leukocytes Auto (Bld) [Pure # fraction] 0.1 E9/L Normal 0.0 - 0.2 E9/L [facility] HemeAutoSS Eosinophils/100 WBC (Bld) 2.9 % Normal 0.0 - 8.0 % [facility] HemeAutoSS Eosinophils/Leukocyte s Auto (Bld) [Pure # fraction] 0.2 E9/L Normal 0.0 - 0.5 E9/L [facility] HemeAutoSS Lymphocytes/100 WBC (Bld) 33.2 % Normal 14.0 - 50.0 % [facility] HemeAutoSS Lymphocytes/Leukocyte s Auto (Bld) [Pure # fraction] 2.6 E9/L Normal 1.0 - 4.0 E9/L [facility] HemeAutoSS Monocytes/100 WBC (Bld) 7.8 % Normal 4.0 - 14.0 % [facility] HemeAutoSS Monocytes/Leukocytes Auto (Bld) [Pure # fraction] 0.6 E9/L Normal 0.2 - 1.0 E9/L [facility] HemeAutoSS Neutrophils/100 WBC (Bld) 54.9 % Normal 36.0 - 75.0 % [facility] HemeAutoSS Neutrophils/Leukocyte s Auto (Bld) [Pure # fraction] 4.3 E9/L Normal 2.0 - 7.5 E9/L FT HemeAutoSS HEMATOLOGYOrdered By: Payton Ashby on 09-12-2022 Erythrocyte distribution width (RBC) [Ratio] 12.8 % Normal 10.9 - 14.2 % [facility] HemeAutoSS Hematocrit (Bld) [Volume fraction] 43.5 % Normal 37.7 - 49.0 % [facility] HemeAutoSS Hemoglobin (Bld) [Mass/Vol] 14.7 g/dL Normal 13.5 - 17.5 gm/dL [facility] HemeAutoSS MCH (RBC) [Entitic mass] 31.9 pg Normal 27.0 - 34.0 pg [facility] HemeAutoSS MCHC (RBC) [Mass/Vol] 33.9 g/dL Normal 31.4 - 36.0 gm/dL [facility] HemeAutoSS MCV (RBC) [Entitic vol] 94.1 fL Normal 80.0 - 100.0 fL [facility] HemeAutoSS Platelet mean volume (Bld) [Entitic vol] 7.4 fL Normal 6.4 - 10.8 fL [facility] HemeAutoSS Platelets (Bld) [#/Vol] 262.0 E9/L Normal 150.0 - 500.0 E9/L [facility] HemeAutoSS RBC (Bld) [#/Vol] 4.6 E12/L Normal 4.3 - 5.9 E12/L [facility] HemeAutoSS WBC corrected for nucl RBC Auto (Bld) [#/Vol] 7.9 E9/L Normal 4.0 - 11.0 E9/L [facility] HemeAutoSS SEROLOGYOrdered By: Marie Escobar on 09-12-2022 Heterophile Ab LA Ql (S) Positive *ABN* (09/12/22 4:50 PM) Invalid Interpretation Code Negative [facility] CHEMISTRYOrdered By: SYSTEM SYSTEM on 07-27-2022 Anion gap [Moles/Vol] 12 mmol/L Normal 6 - 16 mEq/L F [facility] Remisol Calcium [Mass/Vol] 9.3 mg/dL Normal 8.9 - 11. 1 mg/dL [facility] Remisol Chloride [Moles/Vol] 103 mmol/L Normal 101 - 1 11 mmol/L [facility] Remisol CO2 [Moles/Vol] 25 mmol/L Normal 21 - 31 mmol/L [facility] Remisol Creatinine [Mass/Vol] 1.3 mg/dL Normal 0.5 - 1.3 mg/dL [facility] Remisol GFR/1.73 sq M.predicted among blacks MDRD (S/P/Bld) [Vol rate/Area] mL/min/1.73 m2 Normal >=59mL/min/1 .73 m2 FT Chem S GFR/1.73 sq M.predicted among non-blacks MDRD (S/P/Bld) [Vol rate/Area] mL/min/1.73 m2 Normal >=59mL/min/1 .73 m2 [facility] Chem S Glucose [Mass/Vol] 89 mg/dL Normal 55 - 199 mg/dL [facility] Remisol Potassium [Moles/Vol] 4.3 mmol/L Normal 3.5 - 5.3 mmol/L [facility] Remisol Sodium [Moles/Vol] 136 mmol/L Normal 135 - 145 mmol/L [facility] Remisol Troponin I.cardiac [Mass/Vol] 3.10 pg/mL Low 15.90 - 38.40 pg/mL [facility] Remisol Urea nitrogen [Mass/Vol] 19 mg/dL Normal 5 - 21 mg/dL [facility] Remisol Urea nitrogen/Creatinine [Mass ratio] 15 mg/mg Normal 10 - 20 [facility] Remisol COAGULATIONOrdered By: Lesley Corrales on 07-27-2022 aPTT Coag (PPP) [Time] 33.3 s Normal 25.1 - 36.5 second(s) [facility] Auto Coag INR Coag (PPP) [Relative time] 1.0 {INR} Invalid Interpretation Code [facility] Auto Coag PT Coag (PPP) [Time] 11.5 s Normal 9.4 - 1 2.5 second(s) [facility] Auto Coag HEMATOLOGYOrdered By: SYSTEM SYSTEM on 07-27-2022 Basophils/100 WBC (Bld) 1.2 % Normal 0.0 - 2.0 % [facility] HemeAutoSS Basophils/Leukocytes Auto (Bld) [Pure # fraction] 0.1 E9/L Normal 0.0 - 0.2 E9/L [facility] HemeAutoSS Eosinophils/100 WBC (Bld) 2.8 % Normal 0.0 - 8.0 % [facility] HemeAutoSS Eosinophils/Leukocyte s Auto (Bld) [Pure # fraction] 0.2 E9/L Normal 0.0 - 0.5 E9/L [facility] HemeAutoSS Lymphocytes/100 WBC (Bld) 24.7 % Normal 14.0 - 50.0 % [facility] HemeAutoSS Lymphocytes/Leukocyte s Auto (Bld) [Pure # fraction] 2.1 E9/L Normal 1.0 - 4.0 E9/L [facility] HemeAutoSS Monocytes/100 WBC (Bld) 8.1 % Normal 4.0 - 14.0 % [facility] HemeAutoSS Monocytes/Leukocytes Auto (Bld) [Pure # fraction] 0.7 E9/L Normal 0.2 - 1.0 E9/L [facility] HemeAutoSS Neutrophils/100 WBC (Bld) 63.2 % Normal 36.0 - 75.0 % [facility] HemeAutoSS Neutrophils/Leukocyte s Auto (Bld) [Pure # fraction] 5.2 E9/L Normal 2.0 - 7.5 E9/L [facility] HemeAutoSS HEMATOLOGYOrdered By: Alejandra Jameson on 07-27-2022 Erythrocyte distribution width (RBC) [Ratio] 13.1 % Normal 10.9 - 14.2 % [facility] HemeAutoSS Hematocrit (Bld) [Volume fraction] 43.6 % Normal 37.7 - 49.0 % [facility] HemeAutoSS Hemoglobin (Bld) [Mass/Vol] 14.9 g/dL Normal 13.5 - 17.5 gm/dL [facility] HemeAutoSS MCH (RBC) [Entitic mass] 32.0 pg Normal 27.0 - 34.0 pg [facility] HemeAutoSS MCHC (RBC) [Mass/Vol] 34.1 g/dL Normal 31.4 - 36.0 gm/dL [facility] HemeAutoSS MCV (RBC) [Entitic vol] 93.7 fL Normal 80.0 - 100.0 fL [facility] HemeAutoSS Platelet mean volume (Bld) [Entitic vol] 7.6 fL Normal 6.4 - 10.8 fL [facility] HemeAutoSS Platelets (Bld) [#/Vol] 273.0 E9/L Normal 150.0 - 500.0 E9/L [facility] HemeAutoSS RBC (Bld) [#/Vol] 4.6 E12/L Normal 4.3 - 5.9 E12/L [facility] HemeAutoSS WBC corrected for nucl RBC Auto (Bld) [#/Vol] 8.3 E9/L Normal 4.0 - 11.0 E9/L [facility] HemeAutoSS [facility] SARS-CoV-2 (COVID-19) RNA HARJEET+probe Ql (Unsp spec) Not detected Normal NOT DETECTED [facility] Comment on above: Result Comment: This test is not yet approved or cleared by the [place] FDA. When there are no FDA-approved or cleared tests available, and other criteria are met, FDA can make tests available under an emergency access mechanism called an Emergency Use Authorization (EUA). The EUA for this test is supported by the [place] of Health and Human Service's (HHS's) declaration that circumstances exist to justify the emergency use of in vitro diagnostics for the detection and/or diagnosis of the virus that causes COVID-19. This EUA will remain in effect (meaning this test can be used) for the duration of the COVID-19 declaration justifying emergency of IVDs, unless it is terminated or revoked by FDA (after which the test may no longer be used). When diagnostic testing is negative, the possibility of a false negative should be considered in the context of a patient's recent exposures and the presence of clinical signs and symptoms consistent with SARS-CoV-2. Performed By: #### C MP, SAMREEN, TSH #### [facility] [address] [place] [address] Dr. Sg Koch INFLUENZA A AND B AGon 05-09 INFLUANEGH SEE BELOW Normal [facility] Comment on above: Result Comment: Nega tive for Flu A protein angiten. Infection due to Flu A cannot be ruled out. Flu A angiten in the sample may be below the detection limit of the test. Performed By: #### I NFLUAB #### [facility] [address] [place] [address] Dr. Sg Koch INFLUBNEGH SEE BELOW Normal [facility] Comment on above: Result Comment: Nega tive for Flu B protein antigen. Infection due to Flu B cannot be ruled out. Flu B antigen in the sample may be below the detection limit of the test. Performed By: #### I NFLUAB #### [facility] [address] [place] [address] Dr. Sg Koch INFLUENZA A AG Negative Normal NEGATIVE SEE COMMENT [facility] Comment on above: Performed By: #### I NFLUAB #### [facility] [address] [place] [address] Dr. Sg Koch INFLUENZA B AG Negative Normal NEGATIVE SEE COMMENT [facility] Comment on above: Performed By: #### I NFLUAB #### [facility] [address] [place] [address] Dr. Sg Koch INTERNAL CONTROLS Within Normal Limits Normal Wi thin Normal Limits [facility] Comment on above: Performed By: #### I NFLUAB #### [facility] [address] [place] [address] Dr. Sg Koch COVID + FLU Quick Testingon 05-03-2022 SARS-CoV-2 (COVID-19) RNA HARJEET+probe Ql (Unsp spec) Negative [employer] Other COVID + FLU Quick Testing Negative [employer] [facility] [employer] 1 Other AMMONIAon 03-01-2022 Ammonia (P) [Mass/Vol] ug/dL Critically low 11-32 [facility] Comment on above: Performed By: #### C MP, LIPID, TSH #### [facility] [address] [place] [address] Dr. Sg Koch CBC AUTO DIFFon 03-01-2022 BASO # 0.0 103/ul Normal 0.0-0.1 [facility] Comment on above: Performed By: #### C MP, LIPID, TSH #### [facility] [address] [place] [address] Dr. Sg Koch Basophils/100 WBC (Bld) 0.5 % Normal 0.2-2.0 [facility] Comment on above: Performed By: #### C MP, LIPID, TSH #### [facility] [address] [place] [address] Dr. Sg Koch EO # 0.2 103/ul Normal 0.0-0.7 [facility] Comment on above: Performed By: #### C MP, LIPID, TSH #### [facility] [address] [place] [address] Dr. Sg Koch Eosinophils/100 WBC (Bld) 2.5 % Normal 0.9-7.0 [facility] Comment on above: Performed By: #### C MP, LIPID, TSH #### [facility] [address] [place] [address] Dr. Sg Koch Erythrocyte distribution width (RBC) [Ratio] 13.2 % Normal 11.0-15.0 [facility] Comment on above: Performed By: #### C MP, LIPID, TSH #### [facility] [address] [place] [address] Dr. Sg Koch Hematocrit (Bld) [Volume fraction] 42.3 % Normal 42.0-54.0 [facility] Comment on above: Performed By: #### C MP, LIPID, TSH #### [facility] [address] [place] [address] Dr. Sg Koch Hemoglobin (Bld) [Mass/Vol] 14.6 g/dL Normal 14.0-18.0 [facility] Comment on above: Performed By: #### C MP, LIPID, TSH #### [facility] [address] [place] [address] Dr. Sg Koch IG # 0.03 10e3/ul Normal 0.00-0.03 [facility] Comment on above: Performed By: #### C MP, LIPID, TSH #### [facility] [address] [address] [address] Sg Koch IG % 0.4 % Normal 0.0-0.5 [facility] Comment on above: Performed By: #### C MP, LIPID, TSH #### [facility] [address] [place] [address] Dr. Sg Koch LYMPH # 2.2 103/ul Normal 1.2-3.8 [facility] Comment on above: Performed By: #### C MP, LIPID, TSH #### [facility] [address] [place] [address] Dr. Sg Koch Lymphocytes/100 WBC (Bld) 29.3 % Normal 20.5-60.0 [facility] Comment on above: Performed By: #### C MP, LIPID, TSH #### [facility] [address] [place] [address] Dr. Sg Koch MANUAL DIFF REQ NO Normal [facility] Comment on above: Performed By: #### C MP, LIPID, TSH #### [facility] [address] [place] [address] Dr. Sg Koch MCH (RBC) [Entitic mass] 31.5 pg Normal 25.9-34.0 [facility] Comment on above: Performed By: #### C MP, LIPID, TSH #### [facility] [address] [place] [address] Dr. Sg Koch MCHC (RBC) [Mass/Vol] 34.5 g/dL Normal 29.9-35.2 [facility] Comment on above: Performed By: #### C MP, LIPID, TSH #### [facility] [facility] [address] [place] [address] Dr. Sg Koch MCV (RBC) [Entitic vol] 91.4 fL Normal 80.0-94.0 [facility] Comment on above: Performed By: #### C MP, LIPID, TSH #### [facility] [address] [address] [address] Sg Koch MONO # 0.5 103/ul Normal 0.3-0.8 [facility] Comment on above: Performed By: #### C MP, LIPID, TSH #### [facility] [address] [address] [address] Sg Koch Monocytes/100 WBC (Bld) 6.8 % Normal 1.7-12.0 [facility] Comment on above: Performed By: #### C MP, LIPID, TSH #### [facility] [address] [address] [address] Sg Koch NEUT # 4.6 103/ul Normal 1.4-6.5 [facility] Comment on above: Performed By: #### C MP, LIPID, TSH #### [facility] [address] [place] [address] Dr. Sg Koch Neutrophils/100 WBC (Bld) 60.5 % Normal 43.0-75.0 [facility] Comment on above: Performed By: #### C MP, LIPID, TSH #### [facility] [address] [address] [address] Sg Koch Platelet mean volume (Bld) [Entitic vol] 8.8 fL Critically low 9.5-13.5 [facility] Comment on above: Performed By: #### C MP, LIPID, TSH #### [facility] [address] [address] [address] Sg Koch PLT 251 103/ul Normal 150-450 [facility] Comment on above: Performed By: #### C MP, LIPID, TSH #### [facility] [address] [place] [address] Dr. Sg Koch RBC 4.63 106/ul Critically low 4.70-6.10 [facility] Comment on above: Performed By: #### C MP, LIPID, TSH #### [facility] [address] [place] [address] Dr. Sg Koch WBC 7.5 103/ul Normal 4.0-11.0 [facility] Comment on above: Performed By: #### C MP, LIPID, TSH #### [facility] [address] [address] [address] Sg Koch FREE THYROXINE INDEX T7on FTI 1.82 Normal 1.30-4.50 [facility] Comment on above: Performed By: #### C MP, TSH, T7 #### [facility] [address] [address] [address] Sg Koch T3U 32.0 % Critically low 33.0-40.0 [facility] Comment on above: Performed By: #### C MP, TSH, T7 #### [facility] [address] [address] [address] Sg Koch T4 [Mass/Vol] 5.70 ug/dL Normal 4.50-12.10 [facility] Comment on above: Performed By: #### C MP, TSH, T7 #### [facility] [address] [address] [address] Sg Koch IRONon 03-01-2022 Iron [Mass/Vol] 92.0 ug/dL Normal 65.0-175.0 [facility] Comment on above: Performed By: #### V ITAD, IRON, VITB12 #### [facility] [address] [place] [address] Dr. Sg Koch PROF 14(COMP METB)on 022 Albumin [Mass/Vol] 3.8 g/dL Normal 3.4-5.0 [facility] Comment on above: Performed By: #### C MP, TSH, T7 #### [facility] [address] [address] [address] Sg Koch Albumin/Globulin [Mass ratio] 1.0 {ratio} Normal [facility] Comment on above: Performed By: #### C MP, TSH, T7 #### [facility] [address] [address] [address] Sg Koch ALP [Catalytic activity/Vol] 79 U/L Normal 46-116 [facility] Comment on above: Performed By: #### C MP, TSH, T7 #### [facility] [address] [address] [address] Sg Koch ALT [Catalytic activity/Vol] 36 U/L Normal 16-63 [facility] Comment on above: Performed By: #### C MP, TSH, T7 #### [facility] [address] [address] [address] Sg Koch Anion gap [Moles/Vol] 8.4 mmol/L Normal [facility] Comment on above: Performed By: #### C MP, TSH, T7 #### [facility] [address] [address] [address] Sg Koch AST [Catalytic activity/Vol] 19 U/L Normal 15-37 [facility] Comment on above: Performed By: #### C MP, TSH, T7 #### [facility] [address] [place] [address] Dr. Sg Koch Bilirubin [Mass/Vol] 0.4 mg/dL Normal 0.2-1.0 [facility] Comment on above: Performed By: #### C MP, TSH, T7 #### [facility] [address] [place] [address] Dr. Sg Koch Calcium [Mass/Vol] 8.8 mg/dL Normal 8.5-10.1 [facility] Comment on above: Performed By: #### C MP, TSH, T7 #### [facility] [address] [place] [address] Dr. Sg Koch Chloride [Moles/Vol] 102 mmol/L Normal 98-107 [facility] Comment on above: Performed By: #### C MP, TSH, T7 #### [facility] [address] [place] [address] Dr. Sg Koch CO2 [Moles/Vol] 30.7 mmol/L Normal 21.0-32.0 [facility] Comment on above: Performed By: #### C MP, TSH, T7 #### [facility] [address] [place] [address] Dr. Sg Koch Creatinine [Mass/Vol] 1.36 mg/dL Critically high 0.70-1.30 [facility] Comment on above: Performed By: #### C MP, TSH, T7 #### [facility] [address] [address] [address] Sg Koch EGFR-AF CITIZEN OF [place] >60 Normal >=60 [facility] Comment on above: Performed By: #### C MP, TSH, T7 #### [facility] [address] [address] [address] Sg Koch EGFR-NON AF CITIZEN OF [place] >60 Normal >=60 [facility] Comment on above: Performed By: #### C MP, TSH, T7 #### [facility] [address] [address] [address] Sg Koch Globulin (S) [Mass/Vol] 3.9 g/dL Normal [facility] Comment on above: Performed By: #### C MP, TSH, T7 #### [facility] [address] [address] [address] Sg Koch Glucose [Mass/Vol] 90 mg/dL Normal 74-106 [facility] Comment on above: Performed By: #### C MP, TSH, T7 #### [facility] [address] [address] [address] Sg Koch Potassium [Moles/Vol] 4.1 mmol/L Normal 3.5-5.1 [facility] Comment on above: Performed By: #### C MP, TSH, T7 #### [facility] [address] [address] [address] Sg Koch Protein [Mass/Vol] 7.7 g/dL Normal 6.4-8.2 [facility] Comment on above: Performed By: #### C MP, TSH, T7 #### [facility] [address] [address] [address] Sg Koch Sodium [Moles/Vol] 137 mmol/L Normal 136-145 [facility] Comment on above: Performed By: #### C MP, TSH, T7 #### [facility] [address] [address] [address] Sg Koch Urea nitrogen [Mass/Vol] 14.0 mg/dL Normal 7.0-18.0 [facility] Comment on above: Performed By: #### C MP, TSH, T7 #### [facility] [address] [place] [address] Dr. Sg Koch Urea nitrogen/Creatinine [Mass ratio] 10.3 mg/mg Normal [facility] Comment on above: Performed By: #### C MP, TSH, T7 #### [facility] [address] [place] [address] Dr. Sg Koch TSHon 03-01-2022 TSH 1.199 uIU/mL Normal 0.358-3.740 [facility] Comment on above: Performed By: #### C MP, TSH, T7 #### [facility] [address] [place] [address] Dr. Sg Koch VITAMIN B12on 03-01-2022 Cobalamin (Vitamin B12) [Mass/Vol] 707.0 pg/mL Normal 193.0-986.0 [facility] Comment on above: Performed By: #### C MP, LIPID, TSH #### [facility] [address] [place] [address] Dr. Sg Koch VITAMIN D 25 OHon 03-01-2022 VIT D 25-OH 29.0 ng/mL Normal [facility] Comment on above: Performed By: #### V ITAD, IRON, VITB12 #### [facility] [address] [place] [address] Dr. Sg Koch VIT D RANGES SEE BELOW Normal [facility] Comment on above: Result Comment: <20 ng/mL Vit D deficient 20 - <30 ng/mL Vit D insufficient 30 - 100 ng/mL Vit D sufficient >100 ng/mL Potential Toxicity Performed By: #### V ITAD, IRON, VITB12 #### [facility] [address] [place] [address] Dr. Sg Koch Covid-19 PCR (CVDTB)on SARS-CoV-2 (COVID-19) RNA HARJEET+probe Ql (Unsp spec) Detected Critically abnormal NOT DETECTED [facility] Comment on above: Result Comment: This test is not yet approved or cleared by the [place] FDA. When there are no FDA-approved or cleared tests available, and other criteria are met, FDA can make tests available under an emergency access mechanism called an Emergency Use Authorization (EUA). The EUA for this test is supported by the Patient Transport Orderly of Health and Human Service's (HHS's) declaration that circumstances exist to justify the emergency use of in vitro diagnostics for the detection and/or diagnosis of the virus that causes COVID-19. This EUA will remain in effect (meaning this test can be used) for the duration of the COVID-19 declaration justifying emergency of IVDs, unless it is terminated or revoked by FDA (after which the test may no longer be used). Performed By: #### C MP, LIPID, TSH #### [facility] [address] [place] [address] Dr. Sg Koch COVID-19, Rapidon 02-06-2022 Interpretation and review of laboratory results Abnormal [facility] SARS-CoV-2 (COVID-19) RNA HARJEET+probe Ql (Unsp spec) Detected Abnormal Not Detected [facility] Comment on above: Rapid NAAT: The specimen is POSITIVE for SARS-Cov-2, the novel coronavirus associated with COVID-19. This test has been authorized by the FDA under an Emergency Use Authorization (EUA) for use by authorized laboratories. The ID NOW COVID-19 assay is designed to detect the virus that causes COVID-19 in patients with signs and symptoms of infection who are suspected of COVID-19. An individual without symptoms of COVID-19 and who is not shedding SARS-CoV-2 virus would expect to have a negative (not detected) result in this assay. Fact sheet for Healthcare Providers: https://www.fda.gov/media/556418/download Fact sheet for Patients: https://www.fda.gov/media/159230/download Methodology: Isothermal Nucleic Acid Amplification Results reported to the appropriate Health Department Specimen Description .NASOPHARYNGEAL SWAB [facility] Rapid influenza A/B antigens on 02-06-2022 Flu A Antigen Negative NEGATIVE [facility] Comment on above: for Influenza A Anti gen Flu B Antigen Negative NEGATIVE [facility] Comment on above: for Influenza B Anti gen. [facility] XR CHEST 2 Von 01-22-2022 XR CHEST 2 V EXAM: CHEST 2 VIEWS HISTORY: COUGH TECHNIQUE: PA and lateral views chest. COMPARISON: None. FINDINGS: The lungs are clear. There is no focal lung consolidation, pleural effusion or pneumothorax. Pulmonary vasculature is within normal limits. The cardiomediastinal silhouette is normal. IMPRESSION: 1. No acute cardiopulmonary disease. Electronically authenticated by: LADY TAPIA Date: 2022-01-22 16:48 Normal [facility] T3, TOTAL (TRIIODOTHYRONINE) on 01-12-2022 T3, TOTAL 119 ng/dL Normal 71-180 [facility] Comment on above: Performed By: #### C MP, LIPID, TSH #### [facility] [address] [address] [address] Sg Koch T4 [facility]Pon 01-12-2022 T4 [Mass/Vol] 5.6 ug/dL Normal 4.5-12.0 [facility] Comment on above: Performed By: #### C MP, LIPID, TSH #### [facility] [address] [address] [address] Sg Koch TESTOSTERONE, TOTALon 2021 Testosterone [Mass/Vol] 654 ng/dL Normal 264-916 [facility] Comment on above: Result Comment: Adul t male reference interval is based on a population of healthy nonobese males (BMI <30) between 19 and 39 years old. Timoteo, et.al. JCEM 2017,102;4760-5715. PMID: [id number]. Performed By: #### C MP, LIPID, TSH #### [facility] [address] [address] [address] Sg Koch VIT D 25-OH [facility]on 2021 Vitamin D, 25-Hydroxy 33.1 ng/mL Normal 30.0-100.0 [facility] Comment on above: Result Comment: Odalys min D deficiency has been defined by the [place] of [employer] and an Endocrine Society practice guideline as a level of serum 25-OH vitamin D less than 20 ng/mL (1,2). The Endocrine Society went on to further define vitamin D insufficiency as a level between 21 and 29 ng/mL (2). 1. IOM ([place] of [employer]). 2010. Dietary reference intakes for calcium and D. [place]: The National Academies Press. 2. Carmen MF, Marc MENSAH, Ghulam FONSECA, et al. Evaluation, treatment, and prevention of vitamin D deficiency: an Endocrine Society clinical practice guideline. JCEM. 2010; 96(7):1911-30. Performed By: #### C MP, LIPID, TSH #### [facility] [address] [address] [address] Sg Koch CBC AUTO DIFFon 01-11-2022 BASO # 0.1 103/ul Normal 0.0-0.1 [facility] Comment on above: Performed By: #### C BC #### [facility] [address] [place] [address] Dr. Sg Koch Basophils/100 WBC (Bld) 0.7 % Normal 0.2-2.0 [facility] Comment on above: Performed By: #### C BC #### [facility] [address] [place] [address] Dr. Sg Koch EO # 0.3 103/ul Normal 0.0-0.7 [facility] Comment on above: Performed By: #### C BC #### [facility] [address] [place] [address] Dr. Sg Koch Eosinophils/100 WBC (Bld) 3.3 % Normal 0.9-7.0 [facility] Comment on above: Performed By: #### C BC #### [facility] [address] [place] [address] Dr. Sg Koch Erythrocyte distribution width (RBC) [Ratio] 13.1 % Normal 11.0-15.0 [facility] Comment on above: Performed By: #### C BC #### [facility] [address] [place] [address] Dr. Sg Koch Hematocrit (Bld) [Volume fraction] 41.5 % Critically low 42.0-54.0 [facility] Comment on above: Performed By: #### C BC #### [facility] [address] [place] [address] Dr. Sg Koch Hemoglobin (Bld) [Mass/Vol] 14.3 g/dL Normal 14.0-18.0 [facility] Comment on above: Performed By: #### C BC #### [facility] [address] [place] [address] Dr. Sg Koch IG # 0.04 10e3/ul Critically high 0.00-0.03 [facility] Comment on above: Performed By: #### C BC #### [facility] [address] [place] [address] Dr. Sg Koch IG % 0.5 % Normal 0.0-0.5 [facility] Comment on above: Performed By: #### C BC #### [facility] [address] [place] [address] Dr. Sg Koch LYMPH # 2.3 103/ul Normal 1.2-3.8 [facility] Comment on above: Performed By: #### C BC #### [facility] [address] [place] [address] Dr. Sg Koch Lymphocytes/100 WBC (Bld) 30.3 % Normal 20.5-60.0 [facility] Comment on above: Performed By: #### C BC #### [facility] [address] [place] [address] Dr. Sg Koch MANUAL DIFF REQ NO Normal [facility] Comment on above: Performed By: #### C BC #### [facility] [address] [place] [address] Dr. Sg Koch MCH (RBC) [Entitic mass] 31.1 pg Normal 25.9-34.0 [facility] Comment on above: Performed By: #### C BC #### [facility] [address] [place] [address] Dr. Sg Koch MCHC (RBC) [Mass/Vol] 34.5 g/dL Normal 29.9-35.2 [facility] Comment on above: Performed By: #### C BC #### [facility] [address] [place] [address] Dr. Sg Koch MCV (RBC) [Entitic vol] 90.2 fL Normal 80.0-94.0 [facility] Comment on above: Performed By: #### C BC #### [facility] [address] [place] [address] Dr. Sg Koch MONO # 0.6 103/ul Normal 0.3-0.8 [facility] Comment on above: Performed By: #### C BC #### [facility] [address] [place] [address] Dr. Sg Koch Monocytes/100 WBC (Bld) 8.4 % Normal 1.7-12.0 [facility] Comment on above: Performed By: #### C BC #### [facility] [address] [place] [address] Dr. Sg Koch NEUT # 4.2 103/ul Normal 1.4-6.5 [facility] Comment on above: Performed By: #### C BC #### [facility] [address] [place] [address] Dr. Sg Koch Neutrophils/100 WBC (Bld) 56.8 % Normal 43.0-75.0 [facility] Comment on above: Performed By: #### C BC #### [facility] [address] [place] [address] Dr. Sg Koch Platelet mean volume (Bld) [Entitic vol] 9.0 fL Critically low 9.5-13.5 [facility] Comment on above: Performed By: #### C BC #### [facility] [address] [place] [address] Dr. Sg Koch PLT 249 103/ul Normal 150-450 [facility] Comment on above: Performed By: #### C BC #### [facility] [address] [place] [address] Dr. Sg Koch RBC 4.60 106/ul Critically low 4.70-6.10 [facility] Comment on above: Performed By: #### C BC #### [facility] [address] [place] [address] Dr. Sg Koch WBC 7.5 103/ul Normal 4.0-11.0 [facility] Comment on above: Performed By: #### C BC #### [facility] [address] [address] [address] Sg Koch GLYCOHEMOGLOBIN A1Con 2021 ADA RECOMMENDATION SEE BELOW Normal [facility] Comment on above: Result Comment: ADA RECOMMENDED LIMIT 4.0 - 6.0 ADA THERAPEUTIC TARGET < 7.0 ACTION SUGGESTED > 7.0 Performed By: #### C MP, LIPID, TSH #### [facility] [address] [place] [address] Dr. Sg Koch Glucose [Mass/Vol] 105 mg/dL Normal [facility] Comment on above: Performed By: #### C MP, LIPID, TSH #### [facility] [address] [place] [address] Dr. Sg Koch HbA1c (Bld) [Mass fraction] 5.3 % Normal 4.5-6.2 [facility] Comment on above: Performed By: #### C MP, LIPID, TSH #### [facility] [address] [place] [address] Dr. Sg Koch LIPID PROFILEon 01-11-2022 CHOL-HDL RATIO NORM SEE BELOW Normal [facility] Comment on above: Result Comment: 3.3 - 4.4 LOW RISK 4.4 - 7.1 AVERAGE RISK 7.1 - 11.0 MODERATE RISK >11.0 HIGH RISK Performed By: #### C MP, LIPID, TSH #### [facility] [address] [place] [address] Dr. Sg Koch Cholesterol [Mass/Vol] 137 mg/dL Normal <=200 [facility] Comment on above: Performed By: #### C MP, LIPID, TSH #### [facility] [address] [place] [address] Dr. Sg Koch Cholesterol in HDL [Mass/Vol] 42 mg/dL Normal 40-60 [facility] Comment on above: Performed By: #### C MP, LIPID, TSH #### [facility] [address] [place] [address] Dr. Sg Koch Cholesterol in LDL [Mass/Vol] 81.4 mg/dL Normal [facility] Comment on above: Performed By: #### C MP, LIPID, TSH #### [facility] [address] [address] [address] Sg Koch Cholesterol.total/Cho lesterol in HDL [Mass ratio] 3.3 {ratio} Normal [facility] Comment on above: Performed By: #### C MP, LIPID, TSH #### [facility] [address] [address] [address] Sg Koch HDL NORMAL > or = 60 mg/dl - LO W CARDIOVASCULAR RISK <40 mg/dl - HIGH CARDIOVASCULAR RISK Normal [facility] Comment on above: Performed By: #### C MP, LIPID, TSH #### [facility] [address] [place] [address] Dr. Sg Koch LDL CALC NORMAL SEE BELOW Normal [facility] Comment on above: Result Comment: <100 mg/dl OPTIMAL 100 - 129 mg/dl NEAR OR ABOVE OPTIMAL 130 - 159 mg/dl BORDERLINE HIGH 160 - 189 mg/dl HIGH >190 mg/dl VERY HIGH Performed By: #### C MP, LIPID, TSH #### [facility] [address] [address] [address] Sg Koch Triglyceride [Mass/Vol] 68 mg/dL Normal <=150 [facility] Comment on above: Performed By: #### C MP, LIPID, TSH #### [facility] [address] [address] [address] Sg Koch VLDL CALC 13.6 mg/dL Normal [facility] Comment on above: Performed By: #### C MP, LIPID, TSH #### [facility] [address] [address] [address] Sg Koch PROF 14(COMP METB)on 022 Albumin [Mass/Vol] 4.0 g/dL Normal 3.4-5.0 [facility] Comment on above: Performed By: #### C MP, LIPID, TSH #### [facility] [address] [address] [address] Sg Koch Albumin/Globulin [Mass ratio] 1.1 {ratio} Normal [facility] Comment on above: Performed By: #### C MP, LIPID, TSH #### [facility] [address] [address] [address] Sg Koch ALP [Catalytic activity/Vol] 76 U/L Normal 46-116 [facility] Comment on above: Performed By: #### C MP, LIPID, TSH #### [facility] [address] [address] [address] Sg Koch ALT [Catalytic activity/Vol] 30 U/L Normal 16-63 [facility] Comment on above: Performed By: #### C MP, LIPID, TSH #### [facility] [address] [place] [address] Dr. Sg Koch Anion gap [Moles/Vol] 10.3 mmol/L Normal [facility] Comment on above: Performed By: #### C MP, LIPID, TSH #### [facility] [address] [place] [address] Dr. Sg Koch AST [Catalytic activity/Vol] 22 U/L Normal 15-37 [facility] Comment on above: Performed By: #### C MP, LIPID, TSH #### [facility] [address] [place] [address] Dr. Sg Koch Bilirubin [Mass/Vol] 0.5 mg/dL Normal 0.2-1.0 [facility] Comment on above: Performed By: #### C MP, LIPID, TSH #### [facility] [address] [place] [address] Dr. Sg Koch Calcium [Mass/Vol] 8.7 mg/dL Normal 8.5-10.1 [facility] Comment on above: Performed By: #### C MP, LIPID, TSH #### [facility] [address] [place] [address] Dr. Sg Koch Chloride [Moles/Vol] 104 mmol/L Normal 98-107 [facility] Comment on above: Performed By: #### C MP, LIPID, TSH #### [facility] [facility] [address] [place] [address] Dr. Sg Koch CO2 [Moles/Vol] 29.0 mmol/L Normal 21.0-32.0 [facility] Comment on above: Performed By: #### C MP, LIPID, TSH #### [facility] [address] [address] [address] Sg Koch Creatinine [Mass/Vol] 1.41 mg/dL Critically high 0.70-1.30 [facility] Comment on above: Performed By: #### C MP, LIPID, TSH #### [facility] [address] [address] [address] Sg Koch EGFR-AF CITIZEN OF [place] >60 Normal >=60 [facility] Comment on above: Performed By: #### C MP, LIPID, TSH #### [facility] [address] [address] [address] Sg Koch EGFR-NON AF CITIZEN OF [place] <59 Critically low >=60 [facility] Comment on above: Performed By: #### C MP, LIPID, TSH #### [facility] [address] [address] [address] Sg Koch Globulin (S) [Mass/Vol] 3.5 g/dL Normal [facility] Comment on above: Performed By: #### C MP, LIPID, TSH #### [facility] [address] [address] [address] Sg Koch Glucose [Mass/Vol] 100 mg/dL Normal 74-106 [facility] Comment on above: Performed By: #### C MP, LIPID, TSH #### [facility] [address] [address] [address] Sg Koch Potassium [Moles/Vol] 4.3 mmol/L Normal 3.5-5.1 [facility] Comment on above: Performed By: #### C MP, LIPID, TSH #### [facility] [address] [address] [address] Sg Koch Protein [Mass/Vol] 7.5 g/dL Normal 6.4-8.2 [facility] Comment on above: Performed By: #### C MP, LIPID, TSH #### [facility] [address] [address] [address] Sg Koch Sodium [Moles/Vol] 139 mmol/L Normal 136-145 [facility] Comment on above: Performed By: #### C MP, LIPID, TSH #### [facility] [address] [address] [address] Sg Koch Urea nitrogen [Mass/Vol] 17.0 mg/dL Normal 7.0-18.0 [facility] Comment on above: Performed By: #### C MP, LIPID, TSH #### [facility] [address] [address] [address] Sg Koch Urea nitrogen/Creatinine [Mass ratio] 12.1 mg/mg Normal [facility] Comment on above: Performed By: #### C MP, LIPID, TSH #### [facility] [address] [place] [address] Dr. Sg Koch TSHon 01-11-2022 TSH 1.086 uIU/mL Normal 0.358-3.740 [facility] Comment on above: Performed By: #### C MP, LIPID, TSH #### [facility] [address] [place] [address] Dr. Sg Koch COVID Quick Testingon 2021 Result Negative [employer] Other HERPES SIMPLEX 1/2 IGMon HSV, IgM I/II Combination <0.91 Normal 0.00-0.90 [facility] Comment on above: Result Comment: Nega tive <0.91 Equivocal 0.91 - 1.09 Positive >1.09 Effective February 06, 2022 HSV, IgM I/II Combination will be made non-orderable. [facility] offers [id number] HSV 1 and 2-Spec Ab, IgG w/Rfx and [id number] HSV HARJEET. Performed By: #### C MP, LIPID, TSH #### [facility] [address] [address] [address] Sg Koch HEPATITIS PANEL, ACUTEon HBsAg Screen Negative Normal Negative [facility] Comment on above: Performed By: #### C MP, LIPID, TSH #### [facility] [address] [address] [address] Sg Koch HCV AB 0.1 s/co ratio Normal 0.0-0.9 [facility] Comment on above: Performed By: #### C MP, LIPID, TSH #### [facility] [address] [address] [address] Sg Koch Hep A Ab, IgM Negative Normal Negative [facility] Comment on above: Performed By: #### C MP, LIPID, TSH #### [facility] [address] [address] [address] Sg Koch Hep B Core Ab, IgM Negative Normal Negative [facility] Comment on above: Performed By: #### C MP, LIPID, TSH #### [facility] [address] [address] [address] Sg Koch Interpretation: Comment Normal [facility] Comment on above: Result Comment: Nega tive Not infected with HCV, unless recent infection is suspected or other evidence exists to indicate HCV infection. Performed By: #### C MP, LIPID, TSH #### [facility] [address] [address] [address] Sg Koch HERPES SIMPLEX 1/2 IGGon HSV 1 IgG, Type Spec <0.91 Normal 0.00-0.90 [facility] Comment on above: Result Comment: Nega tive <0.91 Equivocal 0.91 - 1.09 Positive >1.09 Note: Negative indicates no antibodies detected to HSV-1. Equivocal may suggest early infection. If clinically appropriate, retest at later date. Positive indicates antibodies detected to HSV-1. Performed By: #### C MP, LIPID, TSH #### [facility] [address] [address] [address] Sg Koch HSV 2 IgG Type Spec 9.36 index Critically high 0.00-0.90 [facility] Comment on above: Result Comment: Nega tive <0.91 Equivocal 0.91 - 1.09 Positive >1.09 Note: Negative indicates no HSV-2 antibodies detected. Positive indicates HSV-2 antibodies detected. Equivocal and low positive HSV-2 screens (Index 0.91-5.00) may be false positive and are reflexed to supplemental testing in accordance with CDC guidelines. Performed By: #### C NEELA LIPID, TSH #### [facility] [address] [place], [place] [address] Dr. Sg Koch RPR QUANTon 11-08-2021 Rapid Plasma Reagin, Quant Non-Reactive Normal NonRea<1:1 [facility] Comment on above: Result Comment: Esteban hughes Note: This test does not meet current guidelines for screening and diagnosis of syphilis. This test is intended for following treatment response in patients being treated for syphilis infection. To screen for syphilis infection, a reflex cascade that includes both RPR and a treponema-specific assay should be utilized, such as Treponema pallidum (Syphilis) Screening Stephens (581072) or Rapid Plasma Reagin (RPR) Test With Reflex to Quantitative RPR and Confirmatory Treponema pallidum Antibodies ([id number]). Performed By: #### C NEELA LIPID, TSH #### [facility] [address] [place], [place] [address] Dr. Sg Koch CBC Auto Differentialon 03-15 Basophils (Bld) [#/Vol] 0.07 10*3/uL [place] Basophils/100 WBC (Bld) 1 % 0 - 2 % [place] Differential Type NOT REPORTED [place] Eosinophils (Bld) [#/Vol] 0.23 10*3/uL [place] Eosinophils/100 WBC (Bld) 2 % 1 - 4 % [place] Erythrocyte distribution width (RBC) [Ratio] 12.7 % 11.8 - 14.4 % [place] Hematocrit (Bld) [Volume fraction] 44.8 % 40.7 - 50.3 % [place] Hemoglobin (Bld) [Mass/Vol] 15.1 g/dL 13 - 17 g/dL [place] Immature granulocytes (Bld) [#/Vol] 0.07 10*3/uL [place] Immature granulocytes (Bld) [#/Vol] 1 % High 0 [place] Interpretation and review of laboratory results Abnormal [place] Lymphocytes (Bld) [#/Vol] 2.90 10*3/uL [place] Lymphocytes/100 WBC (Bld) 23 % Low 24 - 43 % [place] MCH (RBC) [Entitic mass] 30.4 pg 25.2 - 33.5 pg [place] MCHC (RBC) [Mass/Vol] 33.7 g/dL 28.4 - 34.8 g/dL [place] MCV (RBC) [Entitic vol] 90.1 fL 82.6 - 102.9 fL [place] Monocytes (Bld) [#/Vol] 0.90 10*3/uL [place] Monocytes/100 WBC (Bld) 7 % 3 - 12 % [place] Platelet mean volume (Bld) [Entitic vol] 8.9 fL 8.1 - 13.5 fL [place] Platelets (Bld) [#/Vol] 293 10*3/uL [place] Platelets (Bld) [#/Vol] NOT REPORTED [place] RBC (Bld) [#/Vol] 4.97 10*6/uL 4.21 - 5.7 7 m/uL [place] RBC morphology finding Nom (Bld) NOT REPORTED [place] Segmented neutrophils/100 WBC (Bld) 66 % High 36 - 65 % [place] Segs Absolute 8.54 High [place] WBC (Bld) [#/Vol] 12.7 10*3/uL High [place] WBC (Bld) [#/Vol] 0.0 10*3/uL 0.0 per 10 0 WBC [place] WBC Morphology NOT REPORTED [place], [place] CBC with Diffon 04-10-2020 Abs. Basophil 0.07 k/uL Normal 0.00-0.20 [facility] Comment on above: Performed By: #### C MPX, CDP #### [facility] [address] [place] [address] Tile Installer: Víctor Leary MD Abs.Imm.Granulocyte 0.07 k/uL Normal 0.00-0.30 [facility] Comment on above: Performed By: #### C MPX, CDP #### [facility] [address] [place], [facility] Tile Installer: Víctor Leary MD Abs.Neutrophil (Seg) 8.54 k/uL High 1.50-8.10 [facility] Comment on above: Performed By: #### C MPX, CDP #### [facility] [address] [place], [facility] Tile Installer: Víctor Leary MD Basophils/100 WBC (Bld) 1 % Normal 0-2 [facility] Comment on above: Performed By: #### C MPX, CDP #### [facility] [address] [place], [facility] Tile Installer: Víctor Leary MD Eosinophils (Bld) [#/Vol] 0.23 10*3/uL Normal 0.00-0.44 [facility] Comment on above: Performed By: #### C MPX, CDP #### [facility] [address] [place], [facility]83 Tile Installer: Víctor Leary MD Eosinophils/100 WBC (Bld) 2 % Normal 1-4 [facility] Comment on above: Performed By: #### C MPX, CDP #### [facility] [address] [place], [facility] Tile Installer: Víctor Leary MD Erythrocyte distribution width (RBC) [Ratio] 12.7 % Normal 11.8-14.4 [facility] Comment on above: Performed By: #### C MPX, CDP #### [facility] [address] [place] [address] Tile Installer: Víctor Leary MD Hematocrit (Bld) [Volume fraction] 44.8 % Normal 40.7-50.3 [facility] Comment on above: Performed By: #### C MPX, CDP #### [facility] [address] [place], [place] [id number] Tile Installer: Víctor Leary MD Hemoglobin (Bld) [Mass/Vol] 15.1 g/dL Normal 13.0-17.0 [facility] Comment on above: Performed By: #### C MPX, CDP #### [facility] [address] [place], [facility] Tile Installer: Víctor Leary MD Immature granulocytes (Bld) [#/Vol] 1 % High 0 [facility] Comment on above: Performed By: #### C MPX, CDP #### [facility] [address] [place], [facility]83 Tile Installer: Víctor Leary MD Lymphocytes (Bld) [#/Vol] 2.90 10*3/uL Normal 1.10-3.70 [facility] Comment on above: Performed By: #### C MPX, CDP #### [facility] [address] [place], [place] [id number] Tile Installer: Víctor Leary MD Lymphocytes/100 WBC (Bld) 23 % Low 24-43 [facility] Comment on above: Performed By: #### C MPX, CDP #### [facility] [address] [place], [place] [address] Tile Installer: Víctor Leary MD MCH (RBC) [Entitic mass] 30.4 pg Normal 25.2-33.5 [facility] Comment on above: Performed By: #### C MPX, CDP #### [facility] [address] [place], [place] [id number] Tile Installer: Víctor Leary MD MCHC (RBC) [Mass/Vol] 33.7 g/dL Normal 28.4-34.8 [facility] Comment on above: Performed By: #### C MPX, CDP #### [facility] [address] [place], [place] [id number] Tile Installer: Víctor Leary MD MCV (RBC) [Entitic vol] 90.1 fL Normal 82.6-102.9 [facility] Comment on above: Performed By: #### C MPX, CDP #### [facility] [address] [place], [place] [id number] Tile Installer: Víctor Leary MD Monocytes (Bld) [#/Vol] 0.90 10*3/uL Normal 0.10-1.20 [facility] Comment on above: Performed By: #### C MPX, CDP #### [facility] [address] [place], [place] [id number] Tile Installer: Víctor Leary MD Monocytes/100 WBC (Bld) 7 % Normal 3-12 [facility] Comment on above: Performed By: #### C MPX, CDP #### [facility] [address] [place], [place] [id number] Tile Installer: Víctor Leary MD Neutrophil (Seg) 66 % High 36-65 [facility] Comment on above: Performed By: #### C MPX, CDP #### [facility] [address] [place], [place] [id number] Tile Installer: Víctor Leary MD NRBC Automated 0.0 per 100 WBC Normal 0.0 [facility] Comment on above: Performed By: #### C MPX, CDP #### [facility] [address] [place], [place] [id number] Tile Installer: Víctor Leary MD Platelet mean volume (Bld) [Entitic vol] 8.9 fL Normal 8.1-13.5 [facility] Comment on above: Performed By: #### C MPX, CDP #### [facility] [address] [place] [address] Tile Installer: Víctor Leary MD Platelets (Bld) [#/Vol] 293 10*3/uL Normal 138-453 [facility] Comment on above: Performed By: #### C MPX, CDP #### [facility] [address] [place], [place] [id number] ([address] Tile Installer: Víctor Leary MD RBC (Bld) [#/Vol] 4.97 10*6/uL Normal 4.21-5.77 [facility] Comment on above: Performed By: #### C MPX, CDP #### [facility] [address] [place] [address] Tile Installer: Víctor Leary MD WBC (Bld) [#/Vol] 12.7 10*3/uL High 3.5-11.3 [facility] Comment on above: Performed By: #### C MPX, CDP #### [facility] [address] [place], [place] [address] Tile Installer: Víctor Leary MD Auto Diff Performed NOT REPORTED Normal [facility] Comment on above: Performed By: #### C MPX, CDP #### [facility] [address] [place] [address] Tile Installer: Víctor Leary MD Platelets (Bld) [#/Vol] NOT REPORTED Normal [facility] Comment on above: Performed By: #### C MPX, CDP #### [facility] [address] [place] [address] Tile Installer: Víctor Leary MD RBC morphology finding Nom (d) NOT REPORTED Normal [facility] Comment on above: Performed By: #### C MPX, CDP #### [facility] [address] [place], [place] [id number] Tile Installer: Víctor Leary MD WBC Morphology NOT REPORTED Normal [facility] Comment on above: Performed By: #### C MPX, CDP #### [facility] [address] [place] [address] Tile Installer: Víctor Leary MD COVID-19on 04-10-2020 SARS-CoV-2, Rapid Not Detected Not Detected [facility] [place] Comment on above: Rapid NAAT: The specimen is NEGATIVE for SARS-CoV-2, the novel coronavirus associated with COVID-19. The ID NOW COVID-19 assay is designed to detect the virus that causes COVID-19 in patients with signs and symptoms of infection who are suspected of COVID-19. An individual without symptoms of COVID-19 and who is not shedding SARS-CoV-2 virus would expect to have a negative (not detected) result in this assay. Negative results should be treated as presumptive and, if inconsistent with clinical signs and symptoms or necessary for patient management, should be tested with an alternative molecular assay. Negative results do not preclude SARS-CoV-2 infection and should not be used as the sole basis for patient management decisions. Fact sheet for Healthcare Providers: https://www.fda.gov/media/219448/download Fact sheet for Patients: https://www.fda.gov/media/355703/download Methodology: Isothermal Nucleic Acid Amplification Source .NASOPHARYNGEAL SWAB [place], [place] Comp Metabolic Pr/rfx MGon 1 06-10-2019 (cont.) Normal [facility] Comment on above: Result Comment: Aver age GFR for 20-29 years old: 116 mL/min/1.73sq m Chronic Kidney Disease: <60 mL/min/1.73sq m Kidney failure: <15 mL/min/1.73sq m eGFR calculated using average adult body mass. Additional eGFR calculator available at: http://www.[employer]/multiple_crcl_2012.htm Performed By: #### C MPX, CDP #### [facility] [address] [place] [address] Tile Installer: Víctor Leary MD Albumin [Mass/Vol] 4.2 g/dL Normal 3.5-5.2 [facility] Comment on above: Performed By: #### C MPX, CDP #### [facility] [address] [place] [address] Tile Installer: Víctor Leary MD Albumin/Globulin [Mass ratio] 1.3 {ratio} Normal 1.0-2.5 [facility] Comment on above: Performed By: #### C MPX, CDP #### [facility] [address] [place] [address] Tile Installer: Víctor Leary MD Alkaline Phos 83 U/L Normal 40-129 [facility] Comment on above: Performed By: #### C MPX, CDP #### [facility] [address] [place], [place] [id number] Tile Installer: Víctor Leary MD ALT [Catalytic activity/Vol] 26 U/L Normal 5-41 [facility] Comment on above: Performed By: #### C MPX, CDP #### [facility] [address] [place] [address] Tile Installer: Víctor Leary MD Anion gap [Moles/Vol] 7 mmol/L Low 9-17 [facility] Comment on above: Performed By: #### C MPX, CDP #### [facility] [address] [place] [address] Tile Installer: Víctor Leary MD AST [Catalytic activity/Vol] 21 U/L Normal <40 [facility] Comment on above: Performed By: #### C MPX, CDP #### [facility] [address] [place], [place] [id number] Tile Installer: Víctor Leary MD Bilirubin Ql (U) 0.17 mg/dL Low 0.3-1.2 [facility] Comment on above: Performed By: #### C MPX, CDP #### [facility] [address] [place] [address] Tile Installer: Víctor Leary MD BUN/CRE Ratio 12 Normal 9-20 [facility] Comment on above: Performed By: #### C MPX, CDP #### [facility] [address] [place], [place] [id number] Tile Installer: Víctor Leary MD Calcium [Mass/Vol] 9.4 mg/dL Normal 8.6-10.4 [facility] Comment on above: Performed By: #### C MPX, CDP #### [facility] [address] [place], [place] [id number] Tile Installer: Víctor Leary MD Chloride [Moles/Vol] 101 mmol/L Normal 98-107 [facility] Comment on above: Performed By: #### C MPX, CDP #### [facility] [address] [place], [place] [id number] Tile Installer: Víctor Leary MD CO2 [Moles/Vol] 28 mmol/L Normal 20-31 [facility] Comment on above: Performed By: #### C MPX, CDP #### [facility] [address] [place], [place] [id number] Tile Installer: Víctor Leary MD Creatinine [Mass/Vol] 1.13 mg/dL Normal 0.70-1.20 [facility] Comment on above: Performed By: #### C MPX, CDP #### [facility] [address] [place], [place] [id number] Tile Installer: Víctor Leary MD GFR, Amer >60 Normal >60 [facility] Comment on above: Performed By: #### C MPX, CDP #### [facility] [address] [place], [place] [id number] Tile Installer: Víctor Leary MD GFR,non Amer >60 Normal >60 [facility] Comment on above: Performed By: #### C MPX, CDP #### [facility] [address] [place], [place] [id number] Tile Installer: Víctor Leary MD Glucose [Mass/Vol] 114 mg/dL High 70-99 [facility] Comment on above: Performed By: #### C MPX, CDP #### [facility] [address] [place] [address] Tile Installer: Víctor Leary MD Potassium [Moles/Vol] 4.0 mmol/L Normal 3.7-5.3 [facility] Comment on above: Performed By: #### C MPX, CDP #### [facility] [address] [place] [address] Tile Installer: Víctor Leary MD Protein [Mass/Vol] 7.5 g/dL Normal 6.4-8.3 [facility] Comment on above: Performed By: #### C MPX, CDP #### [facility] [address] [place] [address] Tile Installer: Víctor Leary MD Sodium [Moles/Vol] 136 mmol/L Normal 135-144 [facility] Comment on above: Performed By: #### C MPX, CDP #### [address] [place] [address] Tile Installer: Víctor Leary MD Staging: Normal [facility] Comment on above: Result Comment: Stag e 1: Some kidney damage normal GFR Stage 2: Mild kidney damage GFR 60-89 Stage 3: Moderate kidney damage GFR 30-59 Stage 4: Severe kidney damage GFR 15-29 Stage 5: Severe kidney damage GFR <15 ESRD - chronic treatment by dialysis or transplant Performed By: #### C MPX, CDP #### [facility] [address] [place] [address] Tile Installer: Víctor Leary MD Urea nitrogen [Mass/Vol] 14 mg/dL Normal 6-20 [facility] Comment on above: Performed By: #### C MPX, CDP #### [facility] [address] [place] [address] Tile Installer: Víctor Leary MD Comprehensive Metabolic Pane l w/ Reflex to MGon 04-10-2020 Albumin [Mass/Vol] 4.2 g/dL 3.5 - 5.2 g/dL [place] Albumin/Globulin [Mass ratio] 1.3 {ratio} [place] ALP [Catalytic activity/Vol] 83 U/L 40 - 129 U/L [place] ALT [Catalytic activity/Vol] 26 U/L 5 - 41 U/L [place] Anion gap [Moles/Vol] 7 mmol/L Low 9 - 17 mmol/L [place] AST [Catalytic activity/Vol] 21 U/L <40 [place] Bilirubin Ql (U) 0.17 mg/dL Low 0.3 - 1.2 mg/dL [place] Bun/Cre Ratio 12 [place] Calcium [Mass/Vol] 9.4 mg/dL 8.6 - 10. 4 mg/dL [place] Chloride [Moles/Vol] 101 mmol/L 98 - 10 7 mmol/L [place] CO2 [Moles/Vol] 28 mmol/L 20 - 31 mmol/L [place] Creatinine [Mass/Vol] 1.13 mg/dL 0.7 - 1.2 mg/dL [place] GFR >60 >60 mL/min [place] GFR Non- >60 >60 mL/min [place] Glucose [Mass/Vol] 114 mg/dL High 70 - 99 mg/dL [place] Interpretation and review of laboratory results Abnormal [place] Potassium [Moles/Vol] 4.0 mmol/L 3.7 - 5.3 mmol/L [place] Protein [Mass/Vol] 7.5 g/dL 6.4 - 8.3 g/dL [place] Sodium [Moles/Vol] 136 mmol/L 135 - 144 mmol/L [place] Urea nitrogen [Mass/Vol] 14 mg/dL 6 - 20 mg/dL [place] Drug Scr, Abuse, Uron 2019 Amphetamine(s),Ur Negative Normal [facility]G [facility] Comment on above: Performed By: #### U A, LEILANI #### [facility] [address] [place], [place] [id number] Tile Installer: Víctor Leary MD Barbiturate(s),Ur Negative Normal [facility] Comment on above: Performed By: #### U A, LEILANI #### [facility] [address] [place], [facility] Tile Installer: Víctor Leary MD Base excess Calc (Bld) [Moles/Vol] Negative Normal [facility] Comment on above: Performed By: #### U A, LEILANI #### [facility] [address] [place], [place] [id number] Tile Installer: Víctor Leary MD Benzodiazepine(s) Negative Normal [facility] Comment on above: Performed By: #### U A, LEILANI #### [facility] [address] [place], [place] [address] Tile Installer: Víctor Leary MD Buprenorphrine, Ur Negative Normal [facility] Comment on above: Performed By: #### U A, LEILANI #### [facility] [address] [place], [place] [id number] Tile Installer: Víctor Leary MD Cannabinoid(s),Ur Negative Normal [facility] Comment on above: Performed By: #### U A, LEILANI #### [facility] [address] [place], [place] [id number] Tile Installer: Víctor Leary MD Methadone Ql (U) Negative Normal NEG [facility] Comment on above: Performed By: #### U A, LEILANI #### [facility] [address] [place], [place] [id number] Tile Installer: Víctor Leary MD Methamphetamine, Ur Negative Normal [facility] Comment on above: Performed By: #### U A, LEILANI #### [facility] [address] [place] [address] Tile Installer: Víctor Leary MD Opiate(s), Ur Negative Normal NEG [facility] Comment on above: Performed By: #### U A, LEILANI #### [facility] [address] [place] [address] Tile Installer: Víctor Leary MD Oxycodone, Urine Negative Normal NEG [facility] Comment on above: Performed By: #### U A, LEILANI #### [facility] [address] [place], [place] [id number] Tile Installer: Víctor Leary MD Phencyclidine, Ur Negative Normal NEG [facility] Comment on above: Performed By: #### U A, LEILANI #### [facility] [address] [place] [address] Tile Installer: Víctor Leary MD Propoxyphene,Urine Negative Normal NEG [facility] Comment on above: Performed By: #### U A, LEILANI #### [facility] [address] [place] [address] [place], [place] [id number] Tile Installer: Víctor Leary MD Tricyclic antidepressants Screen Ql (U) Negative [facility] Comment on above: Result Comment: Drug screen results are to be used for medical purposes only. All positive results are unconfirmed. Testing for employment or legal uses should be sent to a reference laboratory for confirmation. Performed By: #### U A, LEILANI #### [facility] [address] [place], [place] [id number] Tile Installer: Víctor Leary MD Interpretive Info NOT REPORTED Normal [facility] Comment on above: Performed By: #### U A, LEILANI #### [facility] [address] [place], [place] [address] Tile Installer: Víctor Leary MD MDMA, Urine NOT REPORTED Normal NEG [facility] Comment on above: Performed By: #### U A, LEILANI #### [facility] [address] [place] [address] Tile Installer: Víctor Leary MD Drug screen multi urineon Amphetamine Screen, Ur Negative NEGATIVE [facility] [place] Barbiturate Screen, Ur Negative NEGATIVE [facility] [place] Benzodiazepine Screen, Urine Negative NEGATIVE [facility] [place] Buprenorphine Urine Negative NEGATIVE [facility] [place] Cannabinoid Scrn, Ur Negative NEGATIVE [facility] [place] Cocaine Metabolite, Urine Negative NEGATIVE [facility] [place] MDMA, Urine NOT REPORTED NEGATIVE [facility] [place] [place] Methadone Screen, Urine Negative NEGATIVE [facility] [place] Methamphetamine, Urine Negative NEGATIVE [facility] [place] Opiates, Urine Negative NEGATIVE [facility] [place] Oxycodone Screen, Ur Negative NEGATIVE [facility] [place] Phencyclidine, Urine Negative NEGATIVE [facility] [place] Propoxyphene, Urine Negative NEGATIVE [facility] [place] Test Information NOT REPORTED [facility], [place] Tricyclic Antidepressants, Urine Negative NEGATIVE [facility] [place], [place] Comment on above: Drug screen results are to be used for medical purposes only. All positive results are unconfirmed. Testing for employment or legal uses should be sent to a reference laboratory for confirmation. Ethanolon 04-10-2020 Ethanol [Mass/Vol] mg/dL <10 mg/dL [place] Ethanol percent <0.010 <0.010 % [place], [place] Ethanol Alcoholon 04-10-2020 Ethanol [Mass/Vol] mg/dL Normal <10 [facility] Comment on above: Performed By: #### A LCB #### [facility] [address] [place] [address] Tile Installer: Víctor Leary MD Ethanol percent <0.010 Normal <0.010 [facility] Comment on above: Performed By: #### A LCB #### [facility] [address] [place] [address] Tile Installer: Víctor Leary MD Metabolic Panelon 04-10-2020 GFR/1.73 sq M predicted among non-blacks MDRD (S/P/Bld) [Vol rate/Area] [place], [place] Comment on above: Stage 1: Some kidney damage normal GFR Stage 2: Mild kidney damage GFR 60-89 Stage 3: Moderate kidney damage GFR 30-59 Stage 4: Severe kidney damage GFR 15-29 Stage 5: Severe kidney damage GFR <15 ESRD - chronic treatment by dialysis or transplant Average GFR for 20-2 9 years old: 116 mL/min/1.73sq m Chronic Kidney Disease: <60 mL/min/1.73sq m Kidney failure: <15 mL/min/1.73sq m eGFR calculated using average adult body mass. Additional eGFR calculator available at: http://www.[employer]/multiple_crcl_2012.htm Otheron 04-10-2020 SARS-CoV-2 [place] [id number] 04-10-2020 SARS-CoV-2,Rapid Not Detected [facility] Comment on above: Result Comment: Rapid NAAT: The specimen is NEGATIVE for SARS-CoV-2, the novel coronavirus associated with COVID-19. The ID NOW COVID-19 assay is designed to detect the virus that causes COVID-19 in patients with signs and symptoms of infection who are suspected of COVID-19. An individual without symptoms of COVID-19 and who is not shedding SARS-CoV-2 virus would expect to have a negative (not detected) result in this assay. Negative results should be treated as presumptive and, if inconsistent with clinical signs and symptoms or necessary for patient management, should be tested with an alternative molecular assay. Negative results do not preclude SARS-CoV-2 infection and should not be used as the sole basis for patient management decisions. Fact sheet for Healthcare Providers: https://www.fda.gov/media/526717/download Fact sheet for Patients: https://www.fda.gov/media/048055/download Methodology: Isothermal Nucleic Acid Amplification Performed By: #### C OVID #### [facility] [address] [place] [address] Tile Installer: Víctor Leary MD SARS-CoV-2 Normal [facility] Comment on above: Performed By: #### C OVID #### [facility] [address] [place] [id number] Tile Installer: Víctor Leary MD SARS-CoV-2 Source .NASOPHARYNGEAL SWAB Normal [facility] Comment on above: Performed By: #### C OVID #### [facility] [address] [place] [id number] Tile Installer: Víctor Leary MD TSH w/reflex to FT4on 2019 TSH Qn 2.45 m[IU]/L Normal 0.30-5.00 [facility] Comment on above: Performed By: #### T SHX #### [facility] [address] [place] [id number] Tile Installer: Víctor Leary MD TSH with Reflexon 04-10-2020 TSH Qn 2.45 m[IU]/L [facility], [place] Urinalysis, Routineon 2019 Acetoacetic Acid,Ur Negative Normal NEG [facility] Comment on above: Performed By: #### U A, LEILANI #### [address] [place] [id number] Tile Installer: Víctor Leary MD Bilirubin, SemiQt,Ur Negative Normal NEG [facility] Comment on above: Performed By: #### U A, LEILANI #### [facility] [address] [place] [id number] Tile Installer: Víctor Leary MD Color (U) YELLOW Normal [facility] Comment on above: Performed By: #### U A, LEILANI #### [facility] [address] [place] [address] Tile Installer: Víctor Leary MD Glucose Ql (U) Negative Normal NEG [facility] Comment on above: Performed By: #### U A, LEILANI #### [facility] [address] [place] [facility] Tile Installer: Víctor Leary MD Hemoglobin, Ur Negative Normal [facility]G [facility] Comment on above: Performed By: #### U A, LEILANI #### [facility] [address] [place], [place] 1432683 Tile Installer: Víctor Leary MD Leukocyte esterase Test strip Ql (U) Negative Normal NEG [facility] Comment on above: Performed By: #### U A, LEILANI #### [facility] [address] [place], [facility] Tile Installer: Víctor Leary MD Nitrite,Ur Negative Normal NEG [facility] Comment on above: Performed By: #### U A, LEILANI #### [address] [place] [id number] Tile Installer: Víctor Leary MD pH (U) 5.5 [pH] Normal 5.0-9.0 [facility] Comment on above: Performed By: #### U A, LEILANI #### [address] [place], [facility] Tile Installer: Víctor Leary MD Protein Ql (U) Negative Normal NEG [facility] Comment on above: Performed By: #### U A, LEILANI #### [address] [place], [place] [address] Tile Installer: Víctor Leary MD Specific gravity (U) [Rel density] >1.030 High 1.010-1.020 [facility] Comment on above: Performed By: #### U A, LEILANI #### [address] [place], [place] [id number] Tile Installer: Víctor Leary MD Turbidity CLEAR Normal CLEAR [facility] Comment on above: Performed By: #### U A, LEILANI #### [address] [place] [address] Tile Installer: Víctor Leary MD Urobilinogen,Ur Normal Normal NORM [facility] Comment on above: Performed By: #### U A, LEILANI #### [facility] [address] [place] [address] Tile Installer: Víctor Leary MD Comment NOT REPORTED Normal [facility] Comment on above: Performed By: #### U A, LEILANI #### [facility] [address] [place] [address] Tile Installer: Víctor Leary MD Urinalysis, reflex to micros copicon 04-10-2020 Bilirubin Urine Negative NEGATIVE [facility] [place] [place] Color, UA YELLOW YELLOW [place] Glucose, Ur Negative NEGATIVE [place] Interpretation and review of laboratory results Abnormal [place] Ketones Ql (U) Negative NEGATIVE [place], [place] Leukocyte esterase Test strip Ql (U) Negative NEGATIVE [place] Nitrite, Urine Negative NEGATIVE [place] pH, UA 5.5 [place] Protein (U) [Mass/Vol] Negative NEGATIVE [place] Specific [place], UA >1.030 High [place] Turbidity UA CLEAR CLEAR [place], [place] Urinalysis Comments NOT REPORTED [place] Urine Hgb Negative NEGATIVE [place] Urobilinogen, Urine Normal Normal [place] CBC Auto Differentialon 04-0 Basophils (Bld) [#/Vol] 0.06 10*3/uL [place] Basophils/100 WBC (Bld) 1 % 0 - 2 % [place] Differential Type NOT REPORTED [place] Eosinophils (Bld) [#/Vol] 0.27 10*3/uL [place] Eosinophils/100 WBC (Bld) 4 % 1 - 4 % [place] Erythrocyte distribution width (RBC) [Ratio] 12.4 % 11.8 - 14.4 % [place] Hematocrit (Bld) [Volume fraction] 46.1 % 40.7 - 50.3 % [place] Hemoglobin (Bld) [Mass/Vol] 15.5 g/dL 13 - 17 g/dL [place] Immature granulocytes (Bld) [#/Vol] 0 % 0 [place] Immature granulocytes (Bld) [#/Vol] 10*3/uL [place] Lymphocytes (Bld) [#/Vol] 2.22 10*3/uL [place] Lymphocytes/100 WBC (Bld) 32 % 24 - 43 % [place] MCH (RBC) [Entitic mass] 30.2 pg 25.2 - 33.5 pg [place] MCHC (RBC) [Mass/Vol] 33.6 g/dL 28.4 - 34.8 g/dL [place] MCV (RBC) [Entitic vol] 89.9 fL 82.6 - 102.9 fL [place] Monocytes (Bld) [#/Vol] 0.44 10*3/uL [place] Monocytes/100 WBC (Bld) 6 % 3 - 12 % [place] Platelet mean volume (Bld) [Entitic vol] 8.8 fL 8.1 - 13.5 fL [place] Platelets (Bld) [#/Vol] NOT REPORTED [place] Platelets (Bld) [#/Vol] 258 10*3/uL [place] RBC (Bld) [#/Vol] 5.13 10*6/uL 4.21 - 5.7 7 m/uL [place] RBC morphology finding Nom (Bld) NOT REPORTED [place] Segmented neutrophils/100 WBC (Bld) 57 % 36 - 65 % [place] Segs Absolute 3.95 [place] WBC (Bld) [#/Vol] 0.0 10*3/uL 0.0 per 10 0 WBC [place] WBC (Bld) [#/Vol] 7.0 10*3/uL [place] WBC Morphology NOT REPORTED [facility] [place] CBC with Diffon 08-19-2019 Abs. Basophil 0.06 k/uL Normal 0.00-0.20 [facility] Comment on above: Performed By: #### C MPX, CDP #### [facility] [address] [place], [place] [id number] Tile Installer: Víctor Leary MD Abs.Imm.Granulocyte <0.03 Normal 0.00-0.30 [facility] Comment on above: Performed By: #### C MPX, CDP #### [facility] [address] [place] [address] Tile Installer: Víctor Leary MD Abs.Neutrophil (Seg) 3.95 k/uL Normal 1.50-8.10 [facility] Comment on above: Performed By: #### C MPX, CDP #### [facility] [address] [place], [place] [id number] Tile Installer: Víctor Leary MD Basophils/100 WBC (Bld) 1 % Normal 0-2 [facility] Comment on above: Performed By: #### C MPX, CDP #### [address] [place], [place] 2334183 Tile Installer: Víctor Leary MD Eosinophils (Bld) [#/Vol] 0.27 10*3/uL Normal 0.00-0.44 [facility] Comment on above: Performed By: #### C MPX, CDP #### [facility] [address] [place], [place] 1430083 Tile Installer: Víctor Leary MD Eosinophils/100 WBC (Bld) 4 % Normal 1-4 [facility] Comment on above: Performed By: #### C MPX, CDP #### [address] [place], [place] 665[address]83 Tile Installer: Víctor Leary MD Erythrocyte distribution width (RBC) [Ratio] 12.4 % Normal 11.8-14.4 [facility] Comment on above: Performed By: #### C MPX, CDP #### [facility] [address] [place], [place] [address] Tile Installer: Víctor Leary MD Hematocrit (Bld) [Volume fraction] 46.1 % Normal 40.7-50.3 [facility] Comment on above: Performed By: #### C MPX, CDP #### [facility] [address] [place], [facility] Tile Installer: Víctor Leary MD Hemoglobin (Bld) [Mass/Vol] 15.5 g/dL Normal 13.0-17.0 [facility] Comment on above: Performed By: #### C MPX, CDP #### [facility] [address] [place], [place] [address] Tile Installer: Víctor Leary MD Immature granulocytes (Bld) [#/Vol] 0 % Normal 0 [facility] Comment on above: Performed By: #### C MPX, CDP #### [facility] [address] [place], [facility] Tile Installer: Víctor Leary MD Lymphocytes (Bld) [#/Vol] 2.22 10*3/uL Normal 1.10-3.70 [facility] Comment on above: Performed By: #### C MPX, CDP #### [facility] [address] [place], [facility] Tile Installer: Víctor Leary MD Lymphocytes/100 WBC (Bld) 32 % Normal 24-43 [facility] Comment on above: Performed By: #### C MPX, CDP #### [facility] [address] [place], [facility] Tile Installer: Víctor Leary MD MCH (RBC) [Entitic mass] 30.2 pg Normal 25.2-33.5 [facility] Comment on above: Performed By: #### C MPX, CDP #### [facility] [address] [place], [place] [id number] Tile Installer: Víctor Leary MD MCHC (RBC) [Mass/Vol] 33.6 g/dL Normal 28.4-34.8 [facility] Comment on above: Performed By: #### C MPX, CDP #### [facility] [address] [place], [facility] Tile Installer: Víctor Leary MD MCV (RBC) [Entitic vol] 89.9 fL Normal 82.6-102.9 [facility] Comment on above: Performed By: #### C MPX, CDP #### [facility] [address] [place], [facility]83 Tile Installer: Víctor Leary MD Monocytes (Bld) [#/Vol] 0.44 10*3/uL Normal 0.10-1.20 [facility] Comment on above: Performed By: #### C MPX, CDP #### [facility] [address] [place], [facility]83 Tile Installer: Víctor Leary MD Monocytes/100 WBC (Bld) 6 % Normal 3-12 [facility] Comment on above: Performed By: #### C MPX, CDP #### [facility] [address] [place], [facility]83 Tile Installer: Víctor Leary MD Neutrophil (Seg) 57 % Normal 36-65 [facility] Comment on above: Performed By: #### C MPX, CDP #### [facility] [address] [place], [facility]83 Tile Installer: Víctor Leary MD NRBC Automated 0.0 per 100 WBC Normal 0.0 [facility] Comment on above: Performed By: #### C MPX, CDP #### [facility] [address] [place], [facility] Tile Installer: Víctor Leary MD Platelet mean volume (Bld) [Entitic vol] 8.8 fL Normal 8.1-13.5 [facility] Comment on above: Performed By: #### C MPX, CDP #### [facility] [address] [place], [place] [id number] Tile Installer: Víctor Leary MD Platelets (Bld) [#/Vol] 258 10*3/uL Normal 138-453 [facility] Comment on above: Performed By: #### C MPX, CDP #### [facility] [address] [place], [place] [id number] Tile Installer: Víctor Leray MD RBC (Bld) [#/Vol] 5.13 10*6/uL Normal 4.21-5.77 [facility] Comment on above: Performed By: #### C MPX, CDP #### [facility] [address] [place], [facility]83 Tile Installer: íVctor Leary MD WBC (Bld) [#/Vol] 7.0 10*3/uL Normal 3.5-11.3 [facility] Comment on above: Performed By: #### C MPX, CDP #### [facility] [address] [place], [place] 2379283 Tile Installer: Víctor Leary MD Auto Diff Performed NOT REPORTED Normal [facility] Comment on above: Performed By: #### C MPX, CDP #### [facility] [address] [place], [place] [id number] Tile Installer: Víctor Leary MD Platelets (Bld) [#/Vol] NOT REPORTED Normal [facility] Comment on above: Performed By: #### C MPX, CDP #### [facility] [address] [place], [place] 6157083 Tile Installer: Víctor Leary MD RBC morphology finding Nom (Bld) NOT REPORTED Normal [facility] Comment on above: Performed By: #### C MPX, CDP #### [facility] [address] [place], [place] 4981083 Tile Installer: Víctor Leary MD WBC Morphology NOT REPORTED Normal [facility] Comment on above: Performed By: #### C MPX, CDP #### [facility] [address] [place], [place] [id number] Tile Installer: Víctor Leary MD Comp Metabolic Pr/rfx MGon 0 08-19-2019 (cont.) Normal [facility] Comment on above: Result Comment: Aver age GFR for 20-29 years old: 116 mL/min/1.73sq m Chronic Kidney Disease: <60 mL/min/1.73sq m Kidney failure: <15 mL/min/1.73sq m eGFR calculated using average adult body mass. Additional eGFR calculator available at: http://www.[employer]/multiple_crcl_2011.htm Performed By: #### C MPX, CDP #### [facility] [address] [place], [place] [id number] Tile Installer: Víctor Leary MD Albumin [Mass/Vol] 4.1 g/dL Normal 3.5-5.2 [facility] Comment on above: Performed By: #### C MPX, CDP #### [facility] [address] [place], [place] [id number] Tile Installer: Víctor Leary MD Albumin/Globulin [Mass ratio] 1.1 {ratio} Normal 1.0-2.5 [facility] Comment on above: Performed By: #### C MPX, CDP #### [facility] [address] [place], [place] 7928683 Tile Installer: Víctor Leary MD Alkaline Phos 87 U/L Normal 40-129 [facility] Comment on above: Performed By: #### C MPX, CDP #### [facility] [address] [place] [address] Tile Installer: Víctor Leary MD ALT [Catalytic activity/Vol] 23 U/L Normal 5-41 [facility] Comment on above: Performed By: #### C MPX, CDP #### [facility] [address] [place], [place] 7862783 Tile Installer: Víctor Leary MD Anion gap [Moles/Vol] 14 mmol/L Normal 9-17 [facility] Comment on above: Performed By: #### C MPX, CDP #### [facility] [address] [place], [place] [id number] Tile Installer: Víctor Leary MD AST [Catalytic activity/Vol] 20 U/L Normal <40 [facility] Comment on above: Performed By: #### C MPX, CDP #### [facility] [address] [place], [place] 5392383 Tile Installer: Víctor Leary MD Bilirubin Ql (U) 0.38 mg/dL Normal 0.3-1.2 [facility] Comment on above: Performed By: #### C MPX, CDP #### [facility] [address] [place], [place] 0960183 Tile Installer: Víctor Leary MD BUN/CRE Ratio 13 Normal 9-20 [facility] Comment on above: Performed By: #### C MPX, CDP #### [facility] [address] [place], [place] [id number] Tile Installer: Víctor Leary MD Calcium [Mass/Vol] 9.2 mg/dL Normal 8.6-10.4 [facility] Comment on above: Performed By: #### C MPX, CDP #### [facility] [address] [place], [place] 3473583 Tile Installer: Víctor Leary MD Chloride [Moles/Vol] 100 mmol/L Normal 98-107 [facility] Comment on above: Performed By: #### C MPX, CDP #### [facility] [address] [place] [id number] Tile Installer: Víctor Leary MD CO2 [Moles/Vol] 24 mmol/L Normal 20-31 [facility] Comment on above: Performed By: #### C MPX, CDP #### [facility] [address] [place], [place] 4351283 Tile Installer: Víctor Leary MD Creatinine [Mass/Vol] 1.15 mg/dL Normal 0.70-1.20 [facility] Comment on above: Performed By: #### C MPX, CDP #### [facility] [address] [place], [place] [id number] Tile Installer: Víctor Leary MD GFR, Amer >60 Normal >60 [facility] Comment on above: Performed By: #### C MPX, CDP #### [facility] [address] [place], [place] 8887083 Tile Installer: Víctor Leary MD GFR,non Amer >60 Normal >60 [facility] Comment on above: Performed By: #### C MPX, CDP #### [facility] [address] [place], [place] 3443283 Tile Installer: Víctor Leary MD Glucose [Mass/Vol] 157 mg/dL High 70-99 [facility] Comment on above: Performed By: #### C MPX, CDP #### [facility] [address] [place], [place] 4408983 Tile Installer: Víctor Leary MD Potassium [Moles/Vol] 4.0 mmol/L Normal 3.7-5.3 [facility] Comment on above: Performed By: #### C MPX, CDP #### [facility] [address] [place] [address] Tile Installer: Víctor Leary MD Protein [Mass/Vol] 7.9 g/dL Normal 6.4-8.3 [facility] Comment on above: Performed By: #### C MPX, CDP #### [facility] [address] [place] [address] Tile Installer: Víctor Leary MD Sodium [Moles/Vol] 138 mmol/L Normal 135-144 [facility] Comment on above: Performed By: #### C MPX, CDP #### [facility] [address] [place] [address] Tile Installer: Víctor Leary MD Staging: Normal [facility] Comment on above: Result Comment: Stag e 1: Some kidney damage normal GFR Stage 2: Mild kidney damage GFR 60-89 Stage 3: Moderate kidney damage GFR 30-59 Stage 4: Severe kidney damage GFR 15-29 Stage 5: Severe kidney damage GFR <15 ESRD - chronic treatment by dialysis or transplant Performed By: #### C MPX, CDP #### [facility] [address] [place] [address] Tile Installer: Víctor Leary MD Urea nitrogen [Mass/Vol] 15 mg/dL Normal 6-20 [facility] Comment on above: Performed By: #### C MPX, CDP #### [facility] [address] [place] [address] Tile Installer: Víctor Leary MD Comprehensive Metabolic Pane l w/ Reflex to MGon 08-19-2019 Albumin [Mass/Vol] 4.1 g/dL 3.5 - 5.2 g/dL [place] Albumin/Globulin [Mass ratio] 1.1 {ratio} [place] ALP [Catalytic activity/Vol] 87 U/L 40 - 129 U/L [place] ALT [Catalytic activity/Vol] 23 U/L 5 - 41 U/L [place] Anion gap [Moles/Vol] 14 mmol/L 9 - 17 mmol/L [place] AST [Catalytic activity/Vol] 20 U/L <40 [place] Bilirubin Ql (U) 0.38 mg/dL 0.3 - 1.2 mg/dL [place] Bun/Cre Ratio 13 [place] Calcium [Mass/Vol] 9.2 mg/dL 8.6 - 10. 4 mg/dL [place] Chloride [Moles/Vol] 100 mmol/L 98 - 10 7 mmol/L [place] CO2 [Moles/Vol] 24 mmol/L 20 - 31 mmol/L [place] Creatinine [Mass/Vol] 1.15 mg/dL 0.7 - 1.2 mg/dL [place] GFR >60 >60 mL/min [place] GFR Non- >60 >60 mL/min [place] Glucose [Mass/Vol] 157 mg/dL High 70 - 99 mg/dL [place] Interpretation and review of laboratory results Abnormal [place] Potassium [Moles/Vol] 4.0 mmol/L 3.7 - 5.3 mmol/L [place] Protein [Mass/Vol] 7.9 g/dL 6.4 - 8.3 g/dL [place] Sodium [Moles/Vol] 138 mmol/L 135 - 144 mmol/L [place], [place] Urea nitrogen [Mass/Vol] 15 mg/dL 6 - 20 mg/dL [place], [place] Drug Scr, Abuse, Uron 2019 Amphetamine(s),Ur Negative Normal NEG [facility] Comment on above: Performed By: #### VIELKA PASTOR DAU #### [facility] [address] [place] [address] Tile Installer: Víctor Leary MD Barbiturate(s),Ur Negative Normal NEG [facility] Comment on above: Performed By: #### VIELKA PASTOR DAU #### [facility] [address] [place] [address] Tile Installer: Víctor Leary MD Base excess Calc (Bld) [Moles/Vol] Negative Normal NEG [facility] Comment on above: Performed By: #### VIELKA PASTOR, LEILANI #### [facility] [address] [place], [place] [id number] Tile Installer: Víctor Leary MD Benzodiazepine(s) Negative Normal NEG [facility] Comment on above: Performed By: #### U AX, UMICAO, LEILANI #### [facility] [address] [place], [place] [id number] Tile Installer: Víctor Leary MD Buprenorphrine, Ur Negative Normal [facility] Comment on above: Performed By: #### U AX, UMICAO, LEILANI #### [facility] [address] [place], [place] [id number] Tile Installer: Víctor Leary MD Cannabinoid(s),Ur Negative Normal [facility] Comment on above: Performed By: #### U AX, UMICAO, LEILANI #### [facility] [address] [place] [address] Tile Installer: Víctor Leary MD Methadone Ql (U) Negative Normal [facility] Comment on above: Performed By: #### U AX, UMICAO, LEILANI #### [address] [place], [place] [id number] Tile Installer: Víctor Leary MD Methamphetamine, Ur Negative Normal [facility] Comment on above: Performed By: #### U AX, UMICAO, LEILANI #### [facility] [address] [place] [address] Tile Installer: Víctor Leary MD Opiate(s), Ur Negative Normal [facility] Comment on above: Performed By: #### U AX, UMICAO, LEILANI #### [facility] [address] [place], [place] [id number] Tile Installer: Víctor Leary MD Oxycodone, Urine Negative Normal NEG [facility] Comment on above: Performed By: #### U AX, UMICAO, LEILANI #### [facility] [address] [place], [place] [id number] Tile Installer: Víctor Leary MD Phencyclidine, Ur Negative Normal NEG [facility] Comment on above: Performed By: #### U AX, UMICAO, LEILANI #### [facility] [address] [place], [place] [id number] Tile Installer: Víctor Leary MD Propoxyphene,Urine Negative Normal NEG [facility] Comment on above: Performed By: #### U AX, UMICAO, LEILANI #### [facility] [address] [place] [address] Tile Installer: Víctor Leary MD Tricyclic antidepressants Screen Ql (U) Negative Normal NEG [facility] Comment on above: Result Comment: Drug screen results are to be used for medical purposes only. All positive results are unconfirmed. Testing for employment or legal uses should be sent to a reference laboratory for confirmation. Performed By: #### U AX, UMICAO, LEILANI #### [facility] [address] [place] [address] Tile Installer: Víctor Leary MD Interpretive Info NOT REPORTED Normal [facility] Comment on above: Performed By: #### U AX, UMICAO, LEILANI #### [facility] [address] [place] [address] Tile Installer: Víctor Leary MD MDMA, Urine NOT REPORTED Normal NEG [facility] Comment on above: Performed By: #### U AX, UMICAO, LEILANI #### [facility] [address] [place] [address] Tile Installer: Víctor Leary MD Ethanolon 08-19-2019 Ethanol [Mass/Vol] mg/dL <10 mg/dL [place] Ethanol percent <0.010 <0.010 % [place], [place] Ethanol Alcoholon 08-19-2019 Ethanol [Mass/Vol] mg/dL Normal <10 [facility] Comment on above: Performed By: #### C MPX, CDP #### [facility] [address] [place] [address] Tile Installer: Víctor Leary MD Ethanol percent <0.010 Normal <0.010 [facility] Comment on above: Performed By: #### C MPX, CDP #### [facility] [address] [place] [address] Tile Installer: Víctor Leary MD Metabolic Panelon 08-19-2019 GFR/1.73 sq M predicted among non-blacks MDRD (S/P/Bld) [Vol rate/Area] [place] Comment on above: Average GFR for 20-2 9 years old: 116 mL/min/1.73sq m Chronic Kidney Disease: <60 mL/min/1.73sq m Kidney failure: <15 mL/min/1.73sq m eGFR calculated using average adult body mass. Additional eGFR calculator available at: http://[email or web address]/multiple_crcl_2012.htm Stage 1: Some kidney damage normal GFR Stage 2: Mild kidney damage GFR 60-89 Stage 3: Moderate kidney damage GFR 30-59 Stage 4: Severe kidney damage GFR 15-29 Stage 5: Severe kidney damage GFR <15 ESRD - chronic treatment by dialysis or transplant Microscopic Urinalysison Amorphous, UA NOT REPORTED None [place], [place] Bacteria, UA TRACE Abnormal None [place], [place] Casts UA NOT REPORTED /LPF [place] Crystals, UA NOT REPORTED None /HPF [place], [place] Epithelial Cells UA None [place] Interpretation and review of laboratory results Abnormal [place] Mucus, UA 2+ Abnormal None [place] Other Observations UA NOT REPORTED NOT REQ. M [place] RBC (U) [#/Vol] None [place], [place] Renal Epithelial, UA NOT REPORTED 0 /HPF [facility] [place] [place] Trichomonas, UA NOT REPORTED None [facility] [place], [place] WBC, UA 0 TO 2 [facility], [place] Yeast, UA NOT REPORTED None [facility], [place] - [facility], [place] UA w/Reflex Cultureon 2019 Acetoacetic Acid,Ur Negative Normal [facility] Comment on above: Performed By: #### U AX, UMICAO, LEILANI #### [facility] [address] [place] [address] [place], [place] [id number] Tile Installer: Víctor Leary MD Bilirubin, SemiQt,Ur Negative Normal [facility] Comment on above: Performed By: #### U AX, UMICAO, LEILANI #### [address] [place] [address] Tile Installer: Víctor Leary MD Color (U) YELLOW Normal L [facility] Comment on above: Performed By: #### U AX, UMICAO, LEILANI #### [address] [place] [address] Tile Installer: Víctor Leary MD Glucose Ql (U) Negative Normal NEG [facility] Comment on above: Performed By: #### U AX, UMICAO, LEILANI #### [address] [place], [place] [id number] Tile Installer: Víctor Leary MD Hemoglobin, Ur Negative Normal NEG [facility] Comment on above: Performed By: #### U AX, UMICAO, LEILANI #### [address] [place], [place] [id number] Tile Installer: Víctor Leary MD Leukocyte esterase Test strip Ql (U) Negative Normal [facility] Comment on above: Performed By: #### U AX, UMICAO, LEILANI #### [address] [place] [address] Tile Installer: Víctor Leary MD Nitrite,Ur Negative Normal [facility] Comment on above: Performed By: #### U AX, UMICAO, LEILANI #### [facility] [address] [place] [address] Tile Installer: Víctor Leary MD pH (U) 5.5 [pH] Normal 5.0-9.0 [facility] Comment on above: Performed By: #### U AX, UMICAO, LEILANI #### [facility] [address] [place], [place] [address] Tile Installer: Víctor Leary MD Protein Ql (U) Negative Normal NEG [facility] Comment on above: Performed By: #### U AX, UMICAO, LEILANI #### [facility] [address] [place], [facility] Tile Installer: Víctor Leary MD Specific gravity (U) [Rel density] >1.030 High 1.010-1.020 [facility] Comment on above: Performed By: #### U AX, UMICAO, LEILANI #### [facility] [address] [place], [facility] Tile Installer: Víctor Leary MD Turbidity CLEAR Normal CLEAR [facility] Comment on above: Performed By: #### U AX, UMICAO, LEILANI #### [facility] [address] [place], [facility] Tile Installer: Víctor Leary MD Urobilinogen,Ur Normal Normal NORM [facility] Comment on above: Performed By: #### U AX, UMICAO, LEILANI #### [facility] [address] [place], [place] [address] Tile Installer: Víctor Leary MD Comment NOT REPORTED Normal [facility] Comment on above: Performed By: #### U AX, UMICAO, LEILANI #### [facility] [address] [place], [facility] Tile Installer: Víctor Leary MD Urinalysis Reflex to Culture on 08-19-2019 Bilirubin Urine Negative NEGATIVE [facility] [place] [place] Color, UA YELLOW YELLOW [place], [place] Glucose, Ur Negative NEGATIVE [place] Interpretation and review of laboratory results Abnormal [place] Ketones Ql (U) Negative NEGATIVE [place], [place] Leukocyte esterase Test strip Ql (U) Negative NEGATIVE [place] Nitrite, Urine Negative NEGATIVE [place] pH, UA 5.5 [place] Protein (U) [Mass/Vol] Negative NEGATIVE [place] Specific [place], UA >1.030 High [place], [place] Turbidity UA CLEAR CLEAR [place], [place] Urinalysis Comments NOT REPORTED [place] Urine Hgb Negative NEGATIVE [place] Urobilinogen, Urine Normal Normal [place] Urinalysis,Microon 0 ----- Normal [facility] Comment on above: Performed By: #### U AX, UMICAO, LEILANI #### [facility] [address] [place] [address] [place] [address] Tile Installer: Víctor Leary MD Bacteria LM.HPF (Urine sed) [#/Area] TRACE Abnormal [facility] Comment on above: Performed By: #### U AX, UMICAO, LEILANI #### [address] [place] [address] Tile Installer: Víctor Leary MD Epithelial cells LM.HPF (Urine sed) [#/Area] None Normal 0-5 [facility] Comment on above: Performed By: #### U AX, UMICAO, LEILANI #### [address] [place] [address] Tile Installer: Víctor Leary MD Mucus Strands 2+ Abnormal [facility] Comment on above: Performed By: #### U AX, UMICAO, LEILANI #### [address] [place] [facility] Tile Installer: Víctor Leary MD RBC (U) [#/Vol] None Normal 0-2 [facility] Comment on above: Performed By: #### U AX, UMICAO, LEILANI #### [facility] [address] [place] [id number] Tile Installer: Víctor Leary MD WBC (U) [#/Vol] 0 TO 2 Normal 0-5 [facility] Comment on above: Performed By: #### U AX, UMICAO, LEILANI #### [facility] [address] [place] [address] Tile Installer: Víctor Leary MD Amorphous sediment LM Ql (Urine sed) NOT REPORTED Normal [facility] Comment on above: Performed By: #### U AX, UMICAO, LEILANI #### [facility] [address] [place] [address] Tile Installer: Víctor Leary MD Casts LM.LPF (Urine sed) [#/Area] NOT REPORTED Normal [facility] Comment on above: Performed By: #### U AX, UMICAO, LEILANI #### [facility] [address] [place] [id number] Tile Installer: Víctor Leary MD Crystals LM Nom (Urine sed) NOT REPORTED Normal [facility] Comment on above: Performed By: #### U AX, UMICAO, LEILANI #### [facility] [address] [place], [facility] Tile Installer: Víctor Leary MD Epithelial, Renal NOT REPORTED Normal 0 [facility] Comment on above: Performed By: #### U AX, UMICAO, LEILANI #### [facility] [address] [place], [place] [id number] Tile Installer: Víctor Leary MD Other Observations NOT REPORTED Normal NREQ [facility] Comment on above: Performed By: #### U AX, UMICAO, LEILANI #### [facility] [address] [place] [address] Tile Installer: Víctor Leary MD Trichomonas NOT REPORTED Normal [facility] Comment on above: Performed By: #### U AX, UMICAO, LEILANI #### [facility] [address] [place] [address] Tile Installer: Víctor Leary MD Yeast LM Ql (Urine sed) NOT REPORTED Normal NONE [facility] Comment on above: Performed By: #### U AX, UMICAO, LEILANI #### [facility] [address] [place] [address] Tile Installer: Víctor Leary MD Urine Drug Screenon 08-19-19 20 Amphetamine Screen, Ur Negative NEGATIVE [facility] [place] Barbiturate Screen, Ur Negative NEGATIVE [facility] [place] Benzodiazepine Screen, Urine Negative NEGATIVE [facility] [place] Buprenorphine Urine Negative NEGATIVE [facility] [place] Cannabinoid Scrn, Ur Negative NEGATIVE [facility] [place] Cocaine Metabolite, Urine Negative NEGATIVE [facility] [place] MDMA, Urine NOT REPORTED NEGATIVE [facility] [place] Methadone Screen, Urine Negative NEGATIVE [facility] [place] Methamphetamine, Urine Negative NEGATIVE [facility] [place] Opiates, Urine Negative NEGATIVE [facility] [place] Oxycodone Screen, Ur Negative NEGATIVE [facility] [place] Phencyclidine, Urine Negative NEGATIVE [facility] [place] Propoxyphene, Urine Negative NEGATIVE [facility] [place] Test Information NOT REPORTED [facility] [place] Tricyclic Antidepressants, Urine Negative NEGATIVE [facility] [place] Comment on above: Drug screen results are to be used for medical purposes only. All positive results are unconfirmed. Testing for employment or legal uses should be sent to a reference laboratory for confirmation. Laboratory Studieson 017 Amphetamines Ql (U) Negative [facility] Appearance (U) Clear [facility] Bacteria LM.HPF (Urine sed) [#/Area] None seen [facility] Benzodiazepines Ql (U) Negative [facility] Bilirubin Ql (U) Negative [facility] Cocaine Ql (U) Negative [facility] Color (U) Yellow [facility] Epithelial cells.squamous LM.HPF (Urine sed) [#/Area] None seen /hpf [facility] Glucose (U) [Mass/Vol] Normal mg/dL [facility] Hyaline casts LM Ql (Urine sed) None seen /lpf [facility] Ketones Ql (U) Negative [facility] Leukocyte esterase Test strip Ql (U) Negative [facility] Nitrite Ql (U) Negative [facility] Opiates Ql (U) Negative [facility] pH (U) 7.0 [pH] 5.0-9.0 [facility] Phencyclidine Ql (U) Negative [facility] Protein Ql (U) Negative [facility] RBC (U) [#/Vol] None seen /hpf [facility] Specific gravity (U) [Rel density] 1.021 1.001-1.030 [facility] Urine Barbiturates Screen Negative [facility] Urine Collection Type Type [facility] Comment on above: VOIDED Urine Drug Screen Comment See comment [facility] Comment on above: THESE ARE UNCONFIRME D RESULTS AND SHOULD NOT BE USED FOR LEGAL PURPOSES. DRUG CUT-OFF CONCENTRATION: AMPH 1000 ng/mL CHASE 200 ng/mL ОЛЕГ 200 ng/mL COCM 300 ng/mL OP 300 ng/mL PCP 25 ng/mL THC 20 ng/mL Urine Marijuana (THC) Screen Negative [facility] Urine Occult Blood Negative [facility] Urobilinogen Qn (U) Normal mg/dL [facility] WBC (U) [#/Vol] None seen /hpf [facility] Albumin [Mass/Vol] 3.5 g/dL 3.2-5.5 [facility] Albumin/Globulin [Mass ratio] 1.2 {ratio} [facility] ALP [Catalytic activity/Vol] 75 U/L 32-92 [facility] ALT [Catalytic activity/Vol] 17 U/L 10-60 [facility] AST [Catalytic activity/Vol] 18 U/L 10-42 [facility] Basophils (Bld) [#/Vol] 0.1 10*3/uL 0.0-0.2 [facility] Basophils/100 WBC (Bld) 1.0 % [facility] Bilirubin Ql (U) 0.4 mg/dL 0.3-1.2 [facility] Bilirubin.direct [Mass/Vol] 0.1 mg/dL 0.0-0.4 [facility] Bilirubin.indirect (Body fld) [Mass/Vol] 0.3 mg/dL [facility] Calcium [Mass/Vol] 9.1 mg/dL 8.2-10.2 [facility] Chloride [Moles/Vol] 104 mmol/L 95-114 [facility] Cholesterol [Mass/Vol] 104 mg/dL Low 140-200 [facility] Comment on above: CHOL less than 200 m g/dL Low risk CHOL 201-239 mg/dL Borderline risk CHOL 240 mg/dL and greater High risk Cholesterol [Mass/Vol] 21 mg/dL [facility] Cholesterol in HDL [Mass/Vol] 30 mg/dL 29-71 [facility] Comment on above: HDL CHOL ATP-III CLA SSIFICATION Cardiovascular Risk HDL > or equal to 60 mg/dL Low HDL < 40 mg/dL High Cholesterol.total/Cho lesterol in HDL [Mass ratio] 3.5 {ratio} [facility] CO2 [Moles/Vol] 27.7 mmol/L 22.0-30.0 [facility] Creatinine [Mass/Vol] 1.13 mg/dL 0.64-1.27 [facility] Eosinophils (Bld) [#/Vol] 0.40 10*3/uL 0.0-0.45 [facility] Eosinophils/100 WBC (Bld) 4.5 % [facility] Erythrocyte distribution width (RBC) [Ratio] 13.3 % 12.0-14.8 [facility] Estimated GFR (Non- > 60 [facility] GFR/1.73 sq M.predicted MDRD (S/P/Bld) [Vol rate/Area] mL/min/{1.73_m2} [facility] Comment on above: GFR estimated refere nce range: According to KDOQI guidelines, <60 ml/min/1.73m2 is sufficient to diagnose a patient with chronic kidney disease. Globulin (S) [Mass/Vol] 2.9 g/dL [facility] Glucose [Mass/Vol] 99 mg/dL 70-100 [facility] Comment on above: ADA RECOMMENDED REFE RENCE RANGE Hematocrit (Bld) [Volume fraction] 41.7 % 38.8-50.0 [facility] Hemoglobin (Bld) [Mass/Vol] 14.3 g/dL 13.0-17.0 [facility] LDL Cholesterol, Calculated 52 mg/dL 0-100 [facility] Comment on above: LDL ATP III CLASSIFI CATION LDL less than 100 mg/dL Optimal LDL 100-129 mg/dL Near or above optimal LDL 130-159 mg/dL Borderline high LDL 160-189 mg/dL High LDL greater than 189 mg/dL Very high Lymphocytes (Bld) [#/Vol] 3.1 10*3/uL 1.00-4.8 [facility] Lymphocytes/100 WBC (Bld) 38.8 % [facility] MCH (RBC) [Entitic mass] 29.7 pg 27.5-35.2 [facility] MCHC (RBC) [Mass/Vol] 34.3 g/dL 32.5-35.6 [facility] MCV (RBC) [Entitic vol] 86.6 fL 83.5-101 [facility] Monocytes (Bld) [#/Vol] 0.7 10*3/uL 0.0-0.8 [facility] Monocytes/100 WBC (Bld) 8.9 % [facility] Neutrophils (Bld) [#/Vol] 3.7 10*3/uL 1.8-7.7 [facility] Neutrophils/100 WBC (Bld) 46.8 % [facility] Platelet mean volume (Bld) [Entitic vol] 7.7 fL 6.6-10.1 [facility] Platelets (Bld) [#/Vol] 261 10*3/uL 150-450 [facility] Potassium [Moles/Vol] 4.1 mmol/L 3.5-5.1 [facility] Protein [Mass/Vol] 6.4 g/dL 6.1-7.9 [facility] RBC (Bld) [#/Vol] 4.81 10*6/uL 3.90-5.60 [facility] Sodium [Moles/Vol] 138 mmol/L 136-146 [facility] Triglyceride [Mass/Vol] 109 mg/dL 35-149 [facility] Comment on above: TRIG ATP III CLASSIF ICATION TRIG less than 150 mg/dL Normal TRIG 150-199 mg/dL Borderline high TRIG 200-500 mg/dL High TRIG greater than 500 mg/dL Very high Standard traceable to the Center for Disease Conrtrol and Prevention (CDC) test method. TSH Qn 0.54 uIU/mL 0.45-5.33 [facility] Comment on above: Revised TSH Assay This assay is standardized to the World Health Organization International Standard for human TSH. Please note Reference Intervals have changed. Urea nitrogen [Mass/Vol] 14 mg/dL 02-03 [facility] WBC (Bld) [#/Vol] 7.9 10*3/uL 4.1-10.5 [facility] Vital Signs Date Time Vital Sign Value Performing Clinician Facility 01-23-2024 23:01-0400 Body temperature 97.88 [degF] [facility] 01-23-2024 23:01-0400 Diastolic blood pressure 83 mm[Hg] [facility] 01-23-2024 23:01-0400 Heart rate 74 /min [facility] 01-23-2024 23:01-0400 Respiratory rate 16 /min [facility] 01-23-2024 23:01-0400 SaO2% (BldA) [Mass fraction] 96 % [facility] 01-23-2024 23:01-0400 Systolic blood pressure 131 mm[Hg] [facility] 07-10-2023 19:03-0500 Diastolic blood pressure 86 mm[Hg] [facility] 07-10-2023 19:03-0500 Heart rate 72 /min [facility] 07-10-2023 19:03-0500 Mean blood pressure 98 mm[Hg] [facility] 07-10-2023 19:03-0500 Respiratory rate 18 /min [facility] 07-10-2023 19:03-0500 SaO2% (BldA) [Mass fraction] 97 % [facility] 07-10-2023 19:03-0500 Systolic blood pressure 121 mm[Hg] [facility] 07-10-2023 18:00-0500 Diastolic blood pressure 82 mm[Hg] [facility] 07-10-2023 18:00-0500 Heart rate 81 /min [facility] 07-10-2023 18:00-0500 Respiratory rate 17 /min [facility] 07-10-2023 18:00-0500 Systolic blood pressure 131 mm[Hg] [facility] 07-10-2023 17:30-0500 Diastolic blood pressure 92 mm[Hg] [facility] 07-10-2023 17:30-0500 Heart rate 79 /min [facility] 07-10-2023 17:30-0500 Mean blood pressure 107 mm[Hg] [facility] 07-10-2023 17:30-0500 Respiratory rate 18 /min [facility] 07-10-2023 17:30-0500 SaO2% (BldA) [Mass fraction] 95 % [facility] 07-10-2023 17:30-0500 Systolic blood pressure 136 mm[Hg] [facility] 07-10-2023 16:10-0500 gluc 80 mg/dL [facility] 07-10-2023 16:10-0500 gluc [facility] 07-10-2023 16:00-0500 Body temperature 97.88 [degF] [facility] 07-10-2023 16:00-0500 Heart rate 87 /min [facility] 09-12-2022 16:50-0400 gluc 105 mg/dL Timothy [facility]ess[facility] 09-12-2022 16:50-0400 gluc Timothy Kessler [facility] 09-12-2022 16:36-0400 Body temperature 98.24 [degF] [facility] 09-12-2022 16:36-0400 Diastolic blood pressure 80 mm[Hg] Timothy Kessler [facility] 09-12-2022 16:36-0400 Heart rate 63 /min Timothy Kessler [facility] 09-12-2022 16:36-0400 Respiratory rate 16 /min Timothy Kessler [facility] 09-12-2022 16:36-0400 SaO2% (BldA) [Mass fraction] 99 % [facility] [facility] 09-12-2022 16:36-0400 Systolic blood pressure 124 mm[Hg] Timothy Kessler [facility] 07-27-2022 14:35-0400 Diastolic blood pressure 73 mm[Hg] [facility] 07-27-2022 14:35-0400 Heart rate 54 /min [facility] 07-27-2022 14:35-0400 Mean blood pressure 85 mm[Hg] [facility] 07-27-2022 14:35-0400 Respiratory rate 20 /min [facility] 07-27-2022 14:35-0400 SaO2% (BldA) [Mass fraction] 97 % [facility] 07-27-2022 14:35-0400 Systolic blood pressure 108 mm[Hg] [facility] 07-27-2022 13:59-0400 Heart rate 68 /min [facility] 07-27-2022 13:59-0400 Respiratory rate 16 /min [facility] 07-27-2022 13:41-0400 Heart rate 75 /min [facility] 07-27-2022 13:41-0400 Respiratory rate 16 /min [facility] 07-27-2022 12:45-0400 Diastolic blood pressure 67 mm[Hg] [facility] 07-27-2022 12:45-0400 Mean blood pressure 85 mm[Hg] [facility] 07-27-2022 12:45-0400 Respiratory rate 20 /min [facility] 07-27-2022 12:45-0400 SaO2% (BldA) [Mass fraction] 95 % [facility] 07-27-2022 12:45-0400 Systolic blood pressure 122 mm[Hg] [facility] 07-27-2022 11:43-0400 Body temperature 98.42 [degF] [facility] 07-27-2022 11:43-0400 Diastolic blood pressure 80 mm[Hg] [facility] 07-27-2022 11:43-0400 Heart rate 76 /min [facility] 07-27-2022 11:43-0400 Respiratory rate 16 /min [facility] 07-27-2022 11:43-0400 SaO2% (BldA) [Mass fraction] 97 % [facility] 03-16-2023 11:43-0400 Systolic blood pressure 122 mm[Hg] Sue Park [facility] 05-03-2022 13:15-0500 Body height 175.26 cm Niki Quiroz Other [employer] Other 05-03-2022 13:15-0500 Body mass index (BMI) [Ratio] 39.13 kg/m2 Niki Austinmond Other [employer] Other 05-03-2022 13:15-0500 Body temperature 997 [degF] Niki Quiroz Other [employer] Other 05-03-2022 13:15-0500 Body weight 120.2 kg Niki Quiroz Other [employer] Other 05-03-2022 13:15-0500 Respiratory rate 18 /min Niki Quiroz Other [employer] Other 05-03-2022 13:15-0500 SaO2% (BldA) [Mass fraction] 99 % Niki Quiroz Other [employer] Other 02-06-2022 11:27-0400 Body height 175.3 cm Malcolm Miranda MD Work Phone: [employer] 02-06-2022 11:27-0400 Body mass index (BMI) [Ratio] 40.61 kg/m2 Malcolm Miranda MD Work Phone: [employer] 02-06-2022 11:27-0400 Body weight 124.74 kg Malcolm Miranda MD Work Phone: [employer] 02-06-2022 11:27-0400 Diastolic blood pressure 90 mm[Hg] Malcolm Miranda MD Work Phone: [employer] 02-06-2022 11:27-0400 Heart rate 70 /min Malcolm Miranda MD [facility] 02-06-2022 11:27-0400 Respiratory rate 18 /min Malcolm Miranda MD [facility] 02-06-2022 11:27-0400 SaO2% (BldA) [Mass fraction] 96 % Malcolm Miranda MD Work Phone: [facility] 02-06-2022 11:27-0400 Systolic blood pressure 130 mm[Hg] Malcolm Miranda MD Work Phone: [facility] 04-10-2020 00:19-0500 Body Temperature 97 [degF] Lizet [facility] 04-10-2020 00:19-0500 BP Diastolic 88 mm[Hg] [facility] [place] 04-10-2020 00:19-0500 BP Systolic 130 mm[Hg] [facility] [place] 04-10-2020 00:19-0500 Pulse (Heart Rate) 97 /min [facility] [place] 04-10-2020 00:19-0500 Pulse Oximetry 97 % [facility] [place] 04-10-2020 00:19-0500 Respiratory Rate 16 /min [place]et [place] [place] 08-19-2019 15:18-0400 BMI (Body Mass Index) 39.05 kg/m2 [facility] [place] 08-19-2019 15:18-0400 Body Temperature 98.01 [degF] [facility] [employer] [place] 08-19-2019 15:18-0400 Body weight 127.01 kg [facility] [place] 08-19-2019 15:18-0400 BP Diastolic 74 mm[Hg] [facility] [place] 08-19-2019 15:18-0400 BP Systolic 121 mm[Hg] [facility] [place] 08-19-2019 15:18-0400 Pulse (Heart Rate) 88 /min [facility] [place] 08-19-2019 15:18-0400 Pulse Oximetry 98 % Pj [facility] , [place] 08-19-2019 15:18-0400 Respiratory Rate 18 /min Pj [facility] [place] NEGATED: Highlighted row BMI (Body Mass Index) Comfort Blood [facility] NEGATED: Highlighted row Body Temperature Comfort Blood [facility] NEGATED: Highlighted row Body weight Comfort Blood [facility] NEGATED: Highlighted row BP Diastolic Comfort Blood [facility] NEGATED: Highlighted row BP Systolic Comfort Blood [facility] NEGATED: Highlighted row Height Comfort Blood [facility] NEGATED: Highlighted row Pulse (Heart Rate) [facility] NEGATED: Highlighted row Pulse Oximetry Comfort Blood [facility] NEGATED: Highlighted row Respiratory Rate Comfort Blood [facility] Encounters Encounter Date Encounter Type Care Provider Facility Start: 12-16-2024 ambulatory Elton Davis acility:[facility] Start: 11-12-2024 End: 11-12-2024 ambulatory PATIENT CARE MANAGER Laura L Zayra Facility:[facility] Nadira whitaker Start: 11-09-2024 End: 11-09-2024 Emergency department patient visit Fredo Zepeda [facility] Start: 07-31-2024 End: 08-01-2024 Lab Drop off Laura L Zayra [facility] Start: 07-31-2024 End: 08-01-2024 ambulatory Larua L Zayra Facility:[facility] [place] Start: 06-11-2024 End: 06-11-2024 ambulatory Laura L Zayra Facility:[facility] [place] Start: 04-29-2024 End: 04-29-2024 ambulatory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 help right away. Call your lo (more content not included)... [facility] 01-24-2024 Evaluation + Plan note Extrac jadyn from: Title:ED Note Author:Sue Park M.D. te:01/24/24 1. Lower back pain (M54.50: Low back pain, unspecified) Ordered: acetaminophen-hydrocodone, 1 tab(s), Oral, q6hr as needed for pain, 10 tab(s), Refill(s) 0 Orders: acetaminophen-oxycodone, 1 tab(s), Tab, Oral, Once, Stop date 01/24/24 0:11:00 EDT, STAT, Start date 01/24/24 0:11:00 EDT ketorolac, 60 mg = 2 mL, Injection, IntraMuscular, Once, Stop date 01/24/24 0:11:00 EDT, STAT, Start date 01/24/24 0:11:00 EDT, 01/24/24 0:11:00 EDT naproxen, 500 mg = 1 tab(s), Oral, BID, # 20 tab(s), Refills(s) 0 orphenadrine, 60 mg = 2 mL, Injection, IntraMuscular, Once, Stop date 01/24/24 0:11:00 EDT, STAT, Start date 01/24/24 0:11:00 EDT, 01/24/24 0:11:00 EDT XR Spine Lumbosacral 2 or 3 Views [facility] 09-12-2024 Hospital Discharge instructions Patient Education 01/24/2024 02:10:41 Acute Back Pain, Adult Acute Back Pain, Adult Acute back pain is sudden and usually short-lived. It is often caused by an injury to the muscles and tissues in the back. The injury may result from: A muscle, tendon, or ligament getting overstretched or torn. Ligaments are tissues that connect bones to each other. Lifting something improperly can cause a back strain. Wear and tear (degeneration) of the spinal disks. Spinal disks are circular tissue that provide cushioning between the bones of the spine (vertebrae). Twisting motions, such as while playing sports or doing yard work. A hit to the back. Arthritis. You may have a physical exam, lab tests, and imaging tests to find the cause of your pain. Acute back pain usually goes away with rest and home care. Follow these instructions at home: Managing pain, stiffness, and swelling Take dvph-zsf-umcnqty and prescription medicines only as told by your health care provider. Treatment may include medicines for pain and inflammation that are taken by mouth or applied to the skin, or muscle relaxants. Your health care provider may recommend applying ice during the first 24 48 hours after your pain starts. To do this: ?Put ice in a plastic bag. ?Place a towel between your skin and the bag. ?Leave the ice on for 20 minutes, 2 3 times a day. ?Remove the ice if your skin turns bright red. This is very important. If you cannot feel pain, heat, or cold, you have a greater risk of damage to the area. If directed, apply heat to the affected area as often as told by your health care provider. Use theheat source that your health care provider recommends, such as a moist heat pack or a heating pad. ?Place a towel between your skin and the heat source. ?Leave the heat on for 20 30 minutes. ?Remove the heat if your skin turns bright red. This is especially important if you are unable to feel pain, heat, or cold. You have a greater risk of getting burned. Activity Do not stay in bed. Staying in bed for more than 1 2 days can delay your recovery. Sit up and stand up straight. Avoid leaning forward when you sit or hunching over when you stand. ?If you work at a desk, sit close to it so you do not need to lean over. Keep your chin tucked in. Keep your neck drawn back, and keep your elbows bent at a 90-degree angle (right angle). ?Sit high and close to the steering wheel when you drive. Add lower back (lumbar) support to your car seat, if needed. Take short walks on even surfaces as soon as you are able. Try to increase the length of time you walk each day. Do not sit, drive, or sack sewer machine one place for more than 30 minutes at a time. Sitting or standing for long periods of time can put stress on your back. Do not drive or use heavy machinery while taking prescription pain medicine. Use proper lifting techniques. When you bend and lift, use positions that put less stress on your back: ?Bend your knees. ?Keep the load close to your body. ?Avoid twisting. Exercise regularly as told by your health care provider. Exercising helps your back heal faster andhelps prevent back injuries by keeping muscles strong and flexible. Work with a physical therapist to make a safe exercise program, as recommended by your health care provider. Do any exercises as told by your physical therapist. Lifestyle Maintain a healthy weight. Extra weight puts stress on your back and makes it difficult to have good posture. Avoid activities or situations that make you feel anxious or stressed. Stress and anxiety increase muscle tension and can make back pain worse. Learn ways to manage anxiety and stress, such as through exercise. General instructions Sleep on a firm mattress in a comfortable position. Try lying on your side with your knees slightlybent. If you lie on your back, put a pillow under your knees. Keep your head and neck in a straight line with your spine (neutral position) when using electronicequipment like smartphones or pads. To do this: ?Raise your smartphone or pad to look at it instead of bending your head or neck to look down. ?Put the smartphone or pad at the level of your face while looking at the screen. Follow your treatment plan as told by your health care provider. This may include: ?Cognitive or behavioral therapy. ?Acupuncture or massage therapy. ?Meditation or yoga. Contact a health care provider if: You have pain that is not relieved with rest or medicine. You have increasing pain going down into your legs or buttocks. Your pain does not improve after 2 weeks. You have pain at night. You lose weight without trying. You have a fever or chills. You develop nausea or vomiting. You develop abdominal pain. Get help right away if: You develop new bowel or bladder control problems. You have unusual weakness or numbness in your arms or legs. You feel faint. These symptoms may represent a serious problem that is an emergency. Do not wait to see if the symptoms will go away. Get medical help right away. Call your local emergency services (911 in the [place] Do not drive yourself to the hospital. Summary Acute back pain is sudden and usually short-lived. Use proper lifting techniques. When you bend and lift, use positions that put less stress on your back. Take uplu-zrb-ainglqt and prescription medicines only as told by your health care provider, and apply heat or ice as told. This information is not intended to replace advice given to you by your health care provider. Make sure you discuss any questions you have with your health care provider. Document Revised: 07/22/2021 Document Reviewed: 07/22/2021 [employer] Patient Education 2023 [employer]. Follow Up Care 01/23/2024 22:41:38 With:Laura Iverson Address:Unknown When:01/27/2024 Comments:Return to the emergency room if your pain gets worse, bowel or bladder incontinence, numbness/tingling in the saddle/groin area or any new symptoms. [facility] 09-12-2024 NoteED Patient Education Note Orthopedics Acute Back Pain, Adult Acute back pain is sudden and usually short-lived. It is often caused by an injury to the muscles and tissues in the back. The injury may result from: ? A muscle, tendon, or ligament getting overstretched or torn. Ligaments are tissues that connect bones to each other. Lifting something improperly can cause a back strain. ? Wear and tear (degeneration) of the spinal disks. Spinal disks are circular tissue that provide cushioning between the bones of the spine (vertebrae). ? Twisting motions, such as while playing sports or doing yard work. ? A hit to the back. ? Arthritis. You may have a physical exam, lab tests, and imaging tests to find the cause of your pain. Acute back pain usually goes away with rest and home care. Follow these instructions at home: Managing pain, stiffness, and swelling ? Take ilsd-blb-ekiszhq and prescription medicines only as told by your health care provider. Treatment may include medicines for pain and inflammation that are taken by mouth or applied to the skin,or muscle relaxants. ? Your health care provider may recommend applying ice during the first 24?48 hours after your painstarts. To do this: ? Put ice in a plastic bag. ? Place a towel between your skin and the bag. ? Leave the ice on for 20 minutes, 2?3 times a day. ? Remove the ice if your skin turns bright red. This is very important. If you cannot feel pain, heat, or cold, you have a greater risk of damage to the area. ? If directed, apply heat to the affected area as often as told by your health care provider. Use the heat source that your health care provider recommends, such as a moist heat pack or a heating pad. ? Place a towel between your skin and the heat source. ? Leave the heat on for 20?30 minutes. ? Remove the heat if your skin turns bright red. This is especially important if you are unable to feel pain, heat, or cold. You have a greater risk of getting burned. Activity ? Do not stay in bed. Staying in bed for more than 1?2 days can delay your recovery. ? Sit up and stand up straight. Avoid leaning forward when you sit or hunching over when you stand. ? If you work at a desk, sit close to it so you do not need to lean over. Keep your chin tucked in.Keep your neck drawn back, and keep your elbows bent at a 90-degree angle (right angle). ? Sit high and close to the steering wheel when you drive. Add lower back (lumbar) support to your car seat, if needed. ? Take short walks on even surfaces as soon as you are able. Try to increase the length of time youwalk each day. ? Do not sit, drive, or sack sewer machine one place for more than 30 minutes at a time. Sitting or standing for long periods of time can put stress on your back. ? Do not drive or use heavy machinery while taking prescription pain medicine. ? Use proper lifting techniques. When you bend and lift, use positions that put less stress on yourback: ? Bend your knees. ? Keep the load close to your body. ? Avoid twisting. ? Exercise regularly as told by your health care provider. Exercising helps your back heal faster and helps prevent back injuries by keeping muscles strong and flexible. ? Work with a physical therapist to make a safe exercise program, as recommended by your health care provider. Do any exercises as told by your physical therapist. Lifestyle ? Maintain a healthy weight. Extra weight puts stress on your back and makes it difficult to have good posture. ? Avoid activities or situations that make you feel anxious or stressed. Stress and anxiety increase muscle tension and can make back pain worse. Learn ways to manage anxiety and stress, such as through exercise. General instructions ? Sleep on a firm mattress in a comfortable position. Try lying on your side with your knees slightly bent. If you lie on your back, put a pillow under your knees. ? Keep your head and neck in a straight line with your spine (neutral position) when using electronic equipment like smartphones or pads. To do this: ? Raise your smartphone or pad to look at it instead of bending your head or neck to look down. ? Put the smartphone or pad at the level of your face while looking at the screen. ? Follow your treatment plan as told by your health care provider. This may include: ? Cognitive or behavioral therapy. ? Acupuncture or massage therapy. ? Meditation or yoga. Contact a health care provider if: ? You have pain that is not relieved with rest or medicine. ? You have increasing pain going down into your legs or buttocks. ? Your pain does not improve after 2 weeks. ? You have pain at night. ? You lose weight without trying. ? You have a fever or chills. ? You develop nausea or vomiting. ? You develop abdominal pain. Get help right away if: ? You develop new bowel or bladder control problems. ? You have unusual weakness or numbness in your arms or legs. ? (more content not included)...[facility]09-09-2024 Note Patient Education Orthopedics Acute Back Pain, Adult Acute back pain is sudden and usually short-lived. It is often caused by an injury to the muscles and tissues in the back. The injury may result from: ? A muscle, tendon, or ligament getting overstretched or torn. Ligaments are tissues that connect bones to each other. Lifting something improperly can cause a back strain. ? Wear and tear (degeneration) of the spinal disks. Spinal disks are circular tissue that provide cushioning between the bones of the spine (vertebrae). ? Twisting motions, such as while playing sports or doing yard work. ? A hit to the back. ? Arthritis. You may have a physical exam, lab tests, and imaging tests to find the cause of your pain. Acute back pain usually goes away with rest and home care. Follow these instructions at home: Managing pain, stiffness, and swelling ? Take ykmr-jhw-dayndqe and prescription medicines only as told by your health care provider. Treatment may include medicines for pain and inflammation that are taken by mouth or applied to the skin,or muscle relaxants. ? Your health care provider may recommend applying ice during the first 24?48 hours after your painstarts. To do this: ? Put ice in a plastic bag. ? Place a towel between your skin and the bag. ? Leave the ice on for 20 minutes, 2?3 times a day. ? Remove the ice if your skin turns bright red. This is very important. If you cannot feel pain, heat, or cold, you have a greater risk of damage to the area. ? If directed, apply heat to the affected area as often as told by your health care provider. Use the heat source that your health care provider recommends, such as a moist heat pack or a heating pad. ? Place a towel between your skin and the heat source. ? Leave the heat on for 20?30 minutes. ? Remove the heat if your skin turns bright red. This is especially important if you are unable to feel pain, heat, or cold. You have a greater risk of getting burned. Activity ? Do not stay in bed. Staying in bed for more than 1?2 days can delay your recovery. ? Sit up and stand up straight. Avoid leaning forward when you sit or hunching over when you stand. ? If you work at a desk, sit close to it so you do not need to lean over. Keep your chin tucked in.Keep your neck drawn back, and keep your elbows bent at a 90-degree angle (right angle). ? Sit high and close to the steering wheel when you drive. Add lower back (lumbar) support to your car seat, if needed. ? Take short walks on even surfaces as soon as you are able. Try to increase the length of time youwalk each day. ? Do not sit, drive, or sack sewer machine one place for more than 30 minutes at a time. Sitting or standing for long periods of time can put stress on your back. ? Do not drive or use heavy machinery while taking prescription pain medicine. ? Use proper lifting techniques. When you bend and lift, use positions that put less stress on yourback: ? Bend your knees. ? Keep the load close to your body. ? Avoid twisting. ? Exercise regularly as told by your health care provider. Exercising helps your back heal faster and helps prevent back injuries by keeping muscles strong and flexible. ? Work with a physical therapist to make a safe exercise program, as recommended by your health care provider. Do any exercises as told by your physical therapist. Lifestyle ? Maintain a healthy weight. Extra weight puts stress on your back and makes it difficult to have good posture. ? Avoid activities or situations that make you feel anxious or stressed. Stress and anxiety increase muscle tension and can make back pain worse. Learn ways to manage anxiety and stress, such as through exercise. General instructions ? Sleep on a firm mattress in a comfortable position. Try lying on your side with your knees slightly bent. If you lie on your back, put a pillow under your knees. ? Keep your head and neck in a straight line with your spine (neutral position) when using electronic equipment like smartphones or pads. To do this: ? Raise your smartphone or pad to look at it instead of bending your head or neck to look down. ? Put the smartphone or pad at the level of your face while looking at the screen. ? Follow your treatment plan as told by your health care provider. This may include: ? Cognitive or behavioral therapy. ? Acupuncture or massage therapy. ? Meditation or yoga. Contact a health care provider if: ? You have pain that is not relieved with rest or medicine. ? You have increasing pain going down into your legs or buttocks. ? Your pain does not improve after 2 weeks. ? You have pain at night. ? You lose weight without trying. ? You have a fever or chills. ? You develop nausea or vomiting. ? You develop abdominal pain. Get help right away if: ? You develop new bowel or bladder control problems. ? You have unusual weakness or numbness in your arms or legs. ? You fee (more content not included)...[facility]04-16-2024 Evaluation + Plan note Diagnostic Tests Pending * Testosterone Level Total 08/28/23 [facility]02-27-2024 Hospital Discharge instructions Patient Education 07/10/2023 19:05:09 Viral Illness, Adult Viral Illness, Adult Viruses are tiny germs that can get into a person's body and cause illness. There are many different types of viruses, and they cause many types of illness. Viral illnesses can range from mild to severe. They can affect various parts of the body. Short-term conditions that are caused by a virus include colds and the flu (influenza). Long-term conditions that are caused by a virus include herpes, shingles, and HIV (human immunodeficiency virus) infection. A few viruses have been linked to certain cancers. What are the causes? Many types of viruses can cause illness. Viruses invade cells in your body, multiply, and cause theinfected cells to work abnormally or . When these cells , they release more of the virus. When this happens, you develop symptoms of the illness, and the virus continues to spread to other cells. If the virus takes over the function of the cell, it can cause the cell to divide and grow out ofcontrol. This happens when a virus causes cancer. Different viruses get into the body in different ways. You can get a virus by: Swallowing food or water that has come in contact with the virus (is contaminated). Breathing in droplets that have been coughed or sneezed into the air by an infected person. Touching a surface that has been contaminated with the virus and then touching your eyes, nose, or mouth. Being bitten by an insect or animal that carries the virus. Having sexual contact with a person who is infected with the virus. Being exposed to blood or fluids that contain the virus, either through an open cut or during a transfusion. If a virus enters your body, your body's defense system (immune system) will try to fight the virus. You may be at higher risk for a viral illness if your immune system is weak. What are the signs or symptoms? You may have these symptoms, depending on the type of virus and the location of the cells that it invades: Cold and flu viruses: ?Fever. ?Headache. ?Sore throat. ?Muscle aches. ?Stuffy nose (nasal congestion). ?Cough. Digestive system (gastrointestinal) viruses: ?Fever. ?Pain in the abdomen. ?Nausea. ?Diarrhea. Liver viruses (hepatitis): ?Loss of appetite. ?Tiredness. ?Skin or the white parts of your eyes turning yellow (jaundice). Brain and spinal cord viruses: ?Fever. ?Headache. ?Stiff neck. ?Nausea and vomiting. ?Confusion or sleepiness. Skin viruses: ?Warts. ?Itching. ?Rash. Sexually transmitted viruses: ?Discharge. ?Swelling. ?Redness. ?Rash. How is this diagnosed? This condition may be diagnosed based on one or more of the following: Symptoms. Medical history. Physical exam. Blood test, sample of mucus from your lungs (sputum sample), stool sample, or a swab of body fluidsor a skin sore (lesion). How is this treated? Viruses can be hard to treat because they live within cells. Antibiotic medicines do not treat viruses because these medicines do not get inside cells. Treatment for a viral illness may include: Resting and drinking plenty of fluids. Medicines to relieve symptoms. These can include wwqw-agh-sjmvrlc medicine for pain and fever, medicines for cough or congestion, and medicines to relieve diarrhea. Antiviral medicines. These medicines are available only for certain types of viruses. Some viral illnesses can be prevented with vaccinations. A common example is the flu shot. Follow these instructions at home: Medicines Take cwym-pzl-nimoeft and prescription medicines only as told by your health care provider. If you were prescribed an antiviral medicine, take it as told by your health care provider. Do not stop taking the antiviral even if you start to feel better. Be aware of when antibiotics are needed and when they are not needed. Antibiotics do not treat viruses. You may get an antibiotic if your health care provider thinks that you may have, or are at riskfor, a bacterial infection and you have a viral infection. ?Do not ask for an antibiotic prescription if you have been diagnosed with a viral illness. Antibiotics will not make your illness go away faster. ?Frequently taking antibiotics when they are not needed can lead to antibiotic resistance. When this develops, the medicine no longer works against the bacteria that it normally fights. General instructions Drink enough fluids to keep your urine pale yellow. Rest as much as possible. Return to your normal activities as told by your health care provider. Ask your health care provider what activities are safe for you. Keep all follow-up visits as told by your health care provider. This is important. How is this prevented? To reduce your risk of viral illness: Wash your hands often with soap and water for at least 20 seconds. If soap and water are not available, use hand sand mill operator facing sand. Avoid touching your nose, eyes, and mouth, especially if you have not washed your hands recently. If anyone in your household has a viral infection, clean all household surfaces that may have been in contact with the virus. Use soap and hot water. You may also use bleach that you have added waterto (diluted). Stay away from people who are sick with symptoms of a viral infection. Do not share items such as toothbrushes and water bottles with other people. Keep your vaccinations up to date. This includes getting a yearly flu shot. Eat a healthy diet and get plenty of rest. Contact a health care provider if: You have symptoms of a viral illness that do not go away. Your symptoms come back after going away. Your symptoms get worse. Get help right away if you have: Trouble breathing. A severe headache or a stiff neck. Severe vomiting or pain in your abdomen. These symptoms may represent a serious problem that is an emergency. Do not wait to see if the symptoms will go away. Get medical help right away. Call your local emergency services (911 in the [place] Do not drive yourself to the hospital. Summary Viruses are types of germs that can get into a person's body and cause illness. Viral illnesses canrange from mild to severe. They can affect various parts of the body. Viruses can be hard to treat. There are medicines to relieve symptoms, and there are some antiviralmedicines. If you were prescribed an antiviral medicine, take it as told by your health care provider. Do not stop taking the antiviral even if you start to feel better. Contact a health care provider if you have symptoms of a viral illness that do not go away. This information is not intended to replace advice given to you by your health care provider. Make sure you discuss any questions you have with your health care provider. Document Revised: 09/13/2020 Document Reviewed: 03/09/2020 [employer] Patient Education 2022 [employer]. Follow Up Care 07/10/2023 15:55:35 With:Donell Ernst Address:Unknown When:07/13/2023 18:22:05 [facility]02-27-2024 Evaluation + Plan noteExtracted from: Title:ED Note Author:Jocelin Blevins PA-C Date:07/10/23 1. Viral illness (B34.9: Vir al infection, unspecified) Orders: ketorolac, 30 mg = 1 mL, Injection, IV Push, Once, Stop date 07/10/23 16:59:00 EST, STAT, Start date 07/10/23 16:59:00 EST, 07/10/23 16:59:00 EST Sodium Chloride 0.9% intravenous solution 1,000 mL, 1,000 mL, IV, 1,000 mL/hr, STAT, Start date 07/10/23 16:31:00 EST, 1 hour(s), Total volume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
== END 2025-01-09 08:02 | disposition home or self-care (01) ==
LOC: RAD 08:04
PROVIDERS: PCP Nurse Practitioner; Visit Provider Nurse Practitioner
DX: M25.512 Pain in left shoulder (principal)
CPT/HCPCS: 73030

== ENCOUNTER 2025-01-26 10:00 | Outpatient (OUT) | payer OTHER, SELFPAY ==
--- OUTSIDE RECORDS SUMMARY | 2021-04-12 16:00 | XMS_ITS | Continuity of Care Document ---
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 [address] [place] [address], [id number], [place]. tel:[phone] Family History Family Member Type Diagnosis Age At Onset No Information Immunizations Vaccine Date Status Comments Flulaval/ Fluarix administered Source: Ne w Immunization Record Payers Payer name Insurance type Covered republican ID Authoriza tion(s) Medicaid Wrap - [facility] [place] [id number] Medicaid Wrap - [facility] [place] [id number] Social History Type Description Quantity Date Captured Comments Alcohol Use Details Unknown Caffeine Use Details Unknown Tobacco Use Status No Information Smoking Status No Information Sex Male Sexual Orientation Don't Know Gender Identity Male Chief Complaint And Reason For Visit No Information Reason For Referral Reason For Referral No Information History Of Present Illness Encounter Date Complaint History Of Prese nt Illness No Information Functional Status Date Functional Assessmen t No Information Instructions Date Instruction Additional Infor mation No Information Assessments Type Assessment Date No Information Patient Care Teams Name Effective Dates (start - stop) Status Members No Information
--- OUTSIDE RECORDS SUMMARY | 2025-01-26 10:03 | XMS_ITS | Clinical Summary ---
Author Organization [facility] Address [address], [address] [place] [address] Care Team Providers Care Ribbon Winder Name Role Phone Malcolm Cifuentes MD Primary Care Provider [phone] Allergies Active Allergy Reactions Criticality Noted Date Comments Latex Anaphylaxis High 03/21/2012 Medications hydrOXYzine (VISTARIL) 50 MG capsule Take 1 capsule by mouth 02/03/2019 Active gabapentin (NEURONTIN) 300 MG capsule Take 800 mg by mouth 2 times daily. Active ARIPiprazole (ABILIFY) 30 MG tablet Take 0.5 tablets by mouth daily Active vilazodone HCl (VIIBRYD) 40 MG TABS Take 1 tablet by mouth daily Active lurasidone (LATUDA) 40 MG TABS tablet Take 2 tablets by mouth daily Active venlafaxine (EFFEXOR) 100 MG tablet Take 0.5 tablets by mouth daily Active busPIRone (BUSPAR) 10 MG tablet Take 1 tablet by mouth 2 times daily Active FLUoxetine (PROZAC) 20 MG capsule Take 1 capsule by mouth daily Active valACYclovir (VALTREX) 1 g tablet Take 1 tablet by mouth daily Active Active Problems Problem Noted Date Diagnosed Date Closed fracture of shaft of femur 03/19/2012 Family History Medical History Relation Name Comments Depression Father Diabetes Father High Blood Pressure Father High Cholesterol Father Seizures Father Asthma Mother Cancer Mother Cervical Diabetes Mother High Cholesterol Mother Relation Name Status Comments Brother 1 Alive Brother 2 Alive Father Alive Mother Alive Social History Tobacco Use Types Packs/Day Years Used Date Smoking Tobacco: Former Cigarettes Q uit: 03/07/2012 Smokeless Tobacco: Former Chew Tobacco Cessation:Counseling Given: Not Answered Alcohol Use Standard Drinks/Week Comments Yes 0 (1 standard drink = 0.6 oz pur e alcohol) social Interpersonal Safety Domain Source: IP Abuse Scr eening Answer Date Recorded Read-Only, Retired: Physical Abuse Denies 05/08/2023 Read-Only, Retired: Verbal Abuse Denies 05/08/2023 Read-Only, Retired: Emotional abuse Denies 05/08/2023 Read-Only, Retired: Financial Abuse Denies 05/08/2023 Read-Only, Retired: Sexual abuse Denies 05/08/2023 Sex and Gender Information Value Date Recorded Sex Assigned at Not on file Legal Sex Male 1:18 AM EST Gender Identity Not on file Sexual Orientation Not on file Last Filed Vital Signs Vital Sign Reading Time Taken Comments Blood Pressure 132/78 05/08/2023 12:52 AM EST Pulse 76 05/08/2023 12:52 AM EST Temperature 36.2 C (97.2 F) 05/08/2023 12:52 AM EST Respiratory Rate 16 05/08/2023 12:52 AM EST Oxygen Saturation 96% 05/08/2023 12:52 AM EST Inhaled Oxygen Concentration - - Weight 127 kg (280 lb) 05/08/2023 12:55 AM EST Height 175.3 cm (5' 9 ) 05/08/2023 12:55 AM EST Body Mass Index 41.35 05/08/2023 12:55 AM EST Plan of Treatment Health Maintenance Due Date Last Done Comments Depression Screen 2004 Varicella vaccine (1 of 2 - 13+ 2-dose series) 2005 HIV screen 2007 Hepatitis C screen 2010 DTaP/Tdap/Td vaccine (1 - Tdap) 2011 Hepatitis B vaccine (1 of 3 - 19+ 3-dose series) 2011 Flu vaccine (#1) 12/12/2024 COVID-19 Vaccine ( - 2023-2 5 season) 2025 HPV vaccine (No Doses Required) Completed Hepatitis A vaccine Aged Out No longe r eligible based on patient's age to complete this topic Hib vaccine Aged Out No longer eligi ble based on patient's age to complete this topic Meningococcal (ACWY) vaccine Aged Out No longer eligible based on patient's age to complete this topic Meningococcal B vaccine Aged Out No l onger eligible based on patient's age to complete this topic Pneumococcal 0-49 years Vaccine Aged Out No longer eligible based on patient's age to complete this topic Polio vaccine Aged Out No longer elig ible based on patient's age to complete this topic Insurance [place] Care Teams Ribbon Winder Relationship Specialty Start Date End Date Malcolm Cifuentes MD [address] [place] [address] PCP - General Family Medicine 08/19/19
--- OUTSIDE RECORDS SUMMARY | 2025-01-26 10:03 | XMS_ITS | Encounter Summary ---
Author Organization [facility] Address [address] [place] [address] Care Team Providers Care Watch And Clock Repair Clerk Name Role Phone Malcolm Cifuentes MD Primary Care Provider [phone] Encounter Details Date Type Department Care Team (Late st Contact Info) Description 08/08/2023 Clinisync Result Encounter [facility] External Department Unsolicited Luiz Rubio, SUPPLY CHAIN BUYER Social History Tobacco Use Types Packs/Day Years Used Date Smoking Tobacco: Never Assessed Sex and Gender Information Value Date Recorded Sex Assigned at Not on file Legal Sex Male 9:50 PM EDT Gender Identity Not on file Sexual Orientation Not on file documented as of this encounter Plan of Treatment Upcoming Encounters Date Type Department Care Team (Late st Contact Info) Description 02/05/2025 2:45 PM EDT [facility] [address] [place] [phone] Hank Wasserman, [address] [place] [address] documented as of this encounter Procedures Procedure Name Priority Date/Time Associated Diagnosis Comments XR FOREIGN BODY EYE 08/08/2023 1 :15 PM EDT documented in this encounter Results * XR FOREIGN BODY EYE (08/08/2023 1:15 PM EDT) Anatomical Region Laterality Modality Other 08/08/2023 1:15 PM EDT Narrative 08/08/2023 1:18 PM EDT [address] [address] XRay Report Signed Patient: GALLO PATRICIA MR#: [id number] : 1990 Acct:[id number] Age/Sex: 33 / M ADM Date: 08/08/23 Loc: RAD Attending Dr: Luiz Rubio SUPPLY CHAIN BUYER Ordering Physician: Luiz Rubio NP Date of Service: 08/08/23 Procedure(s): XR foreign body eye Accession Number(s): [id number] cc: Malcolm Cifuentes M.D.; Luiz Rubio NP [facility] [place] [address] Patient Name: GALLO PATRICIA MRN: [id number] date: 1990 Sex: M Assigned Patient Location: RAD Current Patient Location: [facility] Accession/Order Number: [id number] Exam Date: 08/08/2023 13:00 Report Date: 08/08/2023 13:15 At the request of: LUIZ RUBIO Procedure: XR foreign body eye EXAMINATION: XR foreign body eye HISTORY: pre mri COMPARISON: No relevant comparison available. FINDINGS: ORBITS: Negative for a metallic foreign body. OTHER: Negative. XR/XR foreign body eye IMPRESSION: 1. No metallic foreign body within the orbits. Electronically authenticated by: TALAT JAIN Date: 08/08/2023 13:15 Dictated By: Talat Jain M.D. Signed By: 08/08/23 1318 DD/ 1315 TD/TT: Pathology Collector: Procedure Note Radiology, Radiologist, MD - 08/08/2023 [place] [address] XRay Report Signed Patient: GALLO PATRICIA WMR#: [id number] : 1990Acct:[id number] Age/Sex: 33 / MADM Date: 08/08/23 Loc: RAD Attending Dr: Luiz Rubio SUPPLY CHAIN BUYER Ordering Physician: Luiz Rubio NP Date of Service: 08/08/23 Procedure(s): XR foreign body eye Accession Number(s): [id number] cc: Malcolm Cifuentes M.D.; Luiz Rubio NP [place] [id number] Patient Name: GALLO PATRICIA MRN: [id number] date: 1990 Sex: M Assigned Patient Location: RAD Current Patient Location: RAD Accession/Order Number: [id number] Exam Date: 08/08/2023 13:00 Report Date: 08/08/2023 13:15 At the request of: LUIZ RUBIO Procedure: XR foreign body eye EXAMINATION: XR foreign body eye HISTORY: pre mri COMPARISON: No relevant comparison available. FINDINGS: ORBITS: Negative for a metallic foreign body. OTHER: Negative. XR/XR foreign body eye IMPRESSION: 1. No metallic foreign body within the orbits. Electronically authenticated by: TALAT JAIN Date: 08/08/2023 13:15 Dictated By: Talat Jain M.D. Signed By:08/08/23 1318 DD/ 1315 TD/TT: Pathology Collector: us Luiz Rubio SUPPLY CHAIN BUYER [facility] Final R esult documented in this encounter Visit Diagnoses Not on filedocumented in this encounter Care Teams Watch And Clock Repair Clerk Relationship Specialty Start Date End Date Malcolm Cifuentes MD PCP - General Family Medicine 08/02/23 documented as of this encounter
--- OUTSIDE RECORDS SUMMARY | 2025-01-26 10:03 | XMS_ITS | Clinical Summary ---
Author Organization [facility] Address [address] [place] [address] Care Team Providers Care Silk Brusher Name Role Phone Malcolm Cifuentes MD Primary Care Provider [phone] Allergies Active Allergy Reactions Criticality Noted Date Comments Latex Anaphylaxis,Rash,Unknown High 03/21/2012 Medications busPIRone (Buspar) 10 MG tablet Take 1 tablet by mouth in the morning and 1 tablet before bedtime. Active valACYclovir (Valtrex) 1 g tablet Take 1 tablet by mouth Daily Active venlafaxine XR (Effexor XR) 37.5 MG 24 hr capsule Take 37.5 mg by mouth Daily Do not crush or chew. Active lurasidone (Latuda) 60 MG tablet Take 60 mg by mouth in the evening. Take with meals Active metoprolol tartrate (Lopressor) 25 MG tablet Take 25 mg by mouth in the morning and 25 mg before bedtime. Active FLUoxetine (PROzac) 40 MG capsule Take 40 mg by mouth Daily Active ARIPiprazole (Abilify) 20 MG tablet Take 20 mg by mouth Daily Active gabapentin (Neurontin) 600 MG tablet 600 mg in the morning and 600 mg before bedtime. Active vilazodone (Viibryd) 40 mg tablet Take 40 mg by mouth in the morning. Take with meals. Active Active Problems Problem Noted Date Diagnosed Date Anxiety 09/07/2023 Major depressive disorder with current active ep isode 09/07/2023 Intractable chronic post-traumatic headache 08/13 Chronic migraine without aura 09/07/2023 CYRIL (obstructive sleep apnea) 09/07/2023 Memory changes 09/07/2023 Family History Relation Name Status Comments Mother Social History Tobacco Use Types Packs/Day Years Used Date Smoking Tobacco: Every Day Cigarettes Tobacco Cessation:Ready to Q uit: Not Asked; Counseling Given: Not Answered Alcohol Use Standard Drinks/Week Comments Not Currently 3 (1 standard drink = 0.6 oz pur e alcohol) Sex and Gender Information Value Date Recorded Sex Assigned at Not on file Legal Sex Male 9:50 PM EDT Gender Identity Not on file Sexual Orientation Not on file Last Filed Vital Signs Vital Sign Reading Time Taken Comments Blood Pressure 140/96 09/27/2023 3:29 PM EDT Pulse 76 09/27/2023 3:29 PM EDT Temperature - - Respiratory Rate - - Oxygen Saturation 94% 09/27/2023 3:29 PM EDT Inhaled Oxygen Concentration - - Weight 134 kg (296 lb) 09/27/2023 3:29 PM EDT Height 175.3 cm (5' 9 ) 09/27/2023 3:29 PM EDT Body Mass Index 43.71 09/27/2023 3:29 PM EDT Plan of Treatment Upcoming Encounters Date Type Department Care Team (Late st Contact Info) Description 02/05/2025 2:45 PM EDT Office Visit [facility] [address] [facility] [place] [phone] Hank Wasserman DO [address] [place] [address] [place] [address] MEDICAID Care Teams Silk Brusher Relationship Specialty Start Date End Date Malcolm Cifuentes MD PCP - General Family Medicine 08/02/23
--- OUTSIDE RECORDS SUMMARY | 2025-01-26 10:03 | XMS_ITS | Encounter Summary ---
Author Organization [facility] Address [address] [facility] [place] [address] Care Team Providers Care Heatset Winder Operator Name Role Phone Malcolm Cifuentes MD Primary Care Provider [phone] Encounter Details Date Type Department Care Team (Late st Contact Info) Description 08/08/2023 Clinisync Result Encounter [facility] External Department Unsolicited Luiz Rubio, BASKET TURNER Social History Tobacco Use Types Packs/Day Years [...] 02/05/2025 2:45 PM EDT [facility] [address] [place] [phone] Hank Wasserman, [address] [place] [address] documented as of this encounter Procedures Procedure Name Priority Date/Time Associated Diagnosis Comments MR HEAD/BRAIN WO CON 08/08/2023 2:43 PM EDT documented in this encounter Results * MR HEAD/BRAIN WO CON (08/08/2023 2:43 PM EDT) Anatomical Region Laterality Modality Other 08/08/2023 2:43 PM EDT Narrative 08/08/2023 2:46 [place] [address] Magnetic Resonance Report Signed Patient: GALLO PATRICIA MR#: [id number] : 1990 Acct:[id number] Age/Sex: 33 / M ADM Date: 08/08/23 Loc: RAD Attending Dr: Luiz Rubio BASKET TURNER Ordering Physician: Luiz Rubio NP Date of Service: 08/08/23 Procedure(s): MR head/brain wo con Accession Number(s): [id number] cc: Malcolm Cifuentes M.D.; Luiz Rubio NP [place] [address] Patient Name: GALLO PATRICIA MRN: [id number] date: 1990 Sex: M Assigned Patient Location: [facility] Current Patient Location: [facility] Accession/Order Number: [id number] Exam Date: 08/08/2023 13:15 Report Date: 08/08/2023 14:43 At the request of: LUIZ RUBIO Procedure: MR head/brain wo con EXAM: MR head/brain wo con CLINICAL INDICATION: cognitive impairment R41.89 COMPARISON: CT head 04/19/2018. TECHNIQUE/PROTOCOL: Standard noncontrast protocol brain MRI performed (Sagittal T1 with axial T1, T2, GRE, FLAIR, and diffusion-weighted imaging). FINDINGS: No restricted diffusion, extra-axial fluid collection, hydrocephalus, midline shift, or other mass effect. Intracranial flow voids are maintained. 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 Single small medial left frontal susceptibility signal focus without surrounding vasogenic edema. Normal marrow signal. No soft tissue abnormalities. Scant scattered paranasal sinus mucosal thickening. Mastoid air cells are well-aerated. MR/MR head/brain wo con IMPRESSION: 1. No acute intracranial process. 2. Single small medial left frontal susceptibility signal focus could represent site of prior petechial hemorrhage. This is of uncertain clinical significance and is often found incidentally. Electronically authenticated by: FLAVIA MORRIS Date: 08/08/2023 14:43 Dictated By: Flavia Morris M.D. Signed By: 08/08/23 1446 DD/ 1443 TD/TT: Building Coordinator: Procedure Note Radiology, Radiologist, MD - 08/08/2023 [place] [address] Magnetic Resonance Report Signed Patient: GALLO PATRICIA WMR#: [id number] : 1990Acct:[id number] Age/Sex: 33 / MADM Date: 08/08/23 Loc: RAD Attending Dr: Luiz Rubio BASKET TURNER Ordering Physician: Luiz Rubio NP Date of Service: 08/08/23 Procedure(s): MR head/brain wo con Accession Number(s): [id number] cc: Malcolm Cifuentes M.D.; Luiz Rubio NP [place] [address] Patient Name: GALLO PATRICIA MRN: [id number] date: 1990 Sex: M Assigned Patient Location: [facility] Current Patient Location: [facility] Accession/Order Number: [id number] Exam Date: 08/08/2023 13:15 Report Date: 08/08/2023 14:43 At the request of: LUIZ RUBIO Procedure: MR head/brain wo con EXAM: MR head/brain wo con CLINICAL INDICATION: cognitive impairment R41.89 COMPARISON: CT head 04/19/2018. TECHNIQUE/PROTOCOL: Standard noncontrast protocol brain MRI performed (Sagittal T1 with axial T1, T2, GRE, FLAIR, and diffusion-weighted imaging). FINDINGS: No restricted diffusion, extra-axial fluid collection, hydrocephalus,midline shift, or other mass effect. Intracranial flow voids are maintained. 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 Single small medial left frontal susceptibility signal focus without surroundingvasogenic edema. Normal marrow signal. No soft tissue abnormalities. Scant scatteredparanasal sinus mucosal thickening. Mastoid air cells are well-aerated. MR/MR head/brain wo con IMPRESSION: 1. No acute intracranial process. 2. Single small medial left frontal susceptibility signal focus could represent site of prior petechial hemorrhage. This is of uncertain clinicalsignificance and is often found incidentally. Electronically authenticated by: FLAVIA MORRIS Date: 08/08/2023 14:43 Dictated By: Flavia Morris M.D. Signed By:08/08/23 1446 DD/ 1443 TD/TT: Building Coordinator: us Luiz Rubio BASKET TURNER [facility] Final R esult documented in this encounter Visit Diagnoses Not on filedocumented in this encounter Care Teams Heatset Winder Operator Relationship Specialty Start Date End Date Malcolm Cifuentes MD PCP - General Family Medicine 08/02/23 documented as of this encounter
--- OUTSIDE RECORDS SUMMARY | 2025-01-26 10:03 | XMS_ITS | Clinical Summary ---
Author Organization [employer] Address [id number] [address] [place] [address] Care Team Providers Care Health Information Managers Name Role Phone Malcolm Cifuentes MD Primary Care Provider [phone] Allergies Active Allergy Reactions Criticality Noted Date Comments Latex Rash Low 03/21/2018 Medications buPROPion (WELLBUTRIN) 75 mg tablet Take 150 mg by mouth daily. Active citalopram (CeleXA) 40 mg tablet Take 40 mg by mouth daily. Active gabapentin (NEURONTIN) 300 mg capsule Take 300 mg by mouth 2 (two) times a day. Active ARIPiprazole (ABILIFY) 30 mg tablet Take 30 mg by mouth daily. Active Social History Tobacco Use Types Packs/Day Years Used Date Smoking Tobacco: Former Smokeless Tobacco: Former Alcohol Use Standard Drinks/Week Comments Yes 0 (1 standard drink = 0.6 oz pur e alcohol) socail Childcare Answer Date Recorded Childcare Unknown 10/23/2018 Employment Answer Date Recorded Employment Unknown 10/23/2018 Purpose - Life Answer Date Recorded Purpose and direction in life Unknown Sex and Gender Information Value Date Recorded Sex Assigned at Not on file Legal Sex Male 12:02 PM EDT Gender Identity Not on file Sexual Orientation Not on file Last Filed Vital Signs Vital Sign Reading Time Taken Comments Blood Pressure 115/77 01/27/2019 3:35 PM EDT Pulse 70 01/27/2019 3:35 PM EDT Temperature 36.9 C (98.4 F) 01/27/2019 3:35 PM EDT Respiratory Rate 18 01/27/2019 3:35 PM EDT Oxygen Saturation 97% 01/27/2019 3:35 PM EDT Inhaled Oxygen Concentration - - Weight 117.9 kg (260 lb) 01/27/2019 4:16 PM EDT Height 175.3 cm (5' 9 ) 01/27/2019 4:16 PM EDT Body Mass Index 38.4 01/27/2019 4:16 PM EDT Plan of Treatment Not on file Medical Devices Not on [place] [address] [place] [address] MEDICAID Care Teams Health Information Managers Relationship Specialty Start Date End Date Malcolm Cifuentes MD PCP - General 03/21/18
--- OUTSIDE RECORDS SUMMARY | 2025-01-26 10:06 | XMS_ITS | CCD ---
Author Organization [facility] Care Team Providers Care Information Architect Name Role Phone Comfort Blood Attending Physician Unavailable Malcolm Miranda Primary Care Provider Malcolm Miranda Primary Care Provider [phone] MALCOLM MIRANDA Primary Care Unavailable LIZET STYLES Attending Unavailable PJ PEREZ Attending Unavailable MALCOLM MIRANDA Primary Care Unavailable Ivelisse Jara Unavailable Malcolm Miranda MD Primary Care Provider [phone] DR MALCOLM MIRANDA Admitting Unavailable RUTH, DR LEA Attending Unavailable RUTH, DR LEA Primary Care Unavailable RUTH, DR LEA Consulting Unavailable RUTH, DR LEA Admitting Unavailable RUTH, DR LEA Attending Unavailable RUTH, DR LEA Primary Care Unavailable RUTH, DR LEA Consulting Unavailable ZIBARON, DR EDWIN Dawn Consulting Unavailable RUTH, DR LEA Admitting Unavailable RUTH, DR LEA Attending Unavailable RUTH, DR LEA Primary Care Unavailable RUTH, DR LEA Consulting Unavailable RUTH, DR LEA Admitting Unavailable RUTH, DR LEA Attending Unavailable RUTH, DR LEA Primary Care Unavailable DR MALCOLM MIRANDA Primary Care Unavailable DR KARLOS HOBBS Admitting Unavailable ANJEL, DR EVERETT Attending Unavailable DR KARLOS HOBBS Consulting Unavailable DR MALCOLM MIRANDA Primary Care Unavailable SANJAY STYLES Admitting Unavailable SANJAY STYLES Attending Unavailable LUI LOZADA Consulting Unavailable SANJAY STYLES Consulting Unavailable LADY TAPIA Consulting Unavailable HOUSTON, DR PUENTES Admitting Unavailable HOUSTON, DR PUENTES Attending Unavailable RUTH, DR LEA Primary Care Unavailable HOUSTON, DR PUENTES Consulting Unavailable DR MALCOLM MIRANDA Admitting Unavailable RUTH, DR LEA Attending Unavailable RUTH, DR LEA Primary Care Unavailable RUTH, DR LEA Consulting Unavailable RUTH, DR LEA Admitting Unavailable RUTH, DR LEA Attending Unavailable RUTH, DR LEA Primary Care Unavailable RUTH, DR LEA Consulting Unavailable Niki Quiroz Unavailable Malcolm Miranda Primary Care Physician [phone] Eliz Cantu CNP Attending Unavailable RICHMOND MARTINEZ Attending Unavailable MALCOLM MIRANDA Primary Care Unavailable Donell Ernst Primary Care Physician Laura Iverson Primary Care Physician [phone] VALERIA MANZANO Attending Unavailable EDWIN COLE Referring [...] Laura Shelby Attending Unavailable Zayra, Laura Shelby Admitting Unavailable HaSue garcia Attending Unavailable Elton Frederick Attending Unavailab Elton Saucedo Admitting Unavailab Malcolm Leung Primary Care Unavailable Fredo Zepeda Attending Unavailable Zayra, Laura Shelby Attending Unavailable Zayra, Laura Shelby Attending Unavailable Zayra, Laura Shelby Attending Unavailable Zayra, Laura Shelby Admitting Unavailable Allergies Allergy Classification Reported Allergen(s) Allergy Type Date of Onset Reaction(s) Facility (16 sources) Latex; Translations: [latex] Allergy to Substance 03-21-20 12 Anaphylaxis, Cutaneous hypersensitivity (disorder) [facility] Medications Current Medications Medication Drug Class(es) Dates Sig (Normalized) Sig (Original) acetaminophen 325 mg / HYDROcodone bitartrate 5 mg oral tablet (1 source) Opioid Agonist Start: 01-24-2024 Milfay 325 mg-5 mg oral tablet 1 tab(s), [...] Daily, # 30 tab(s), Refills(s) 0, Pharmacy: [facility]/pharmacy #[id number], 175, cm, 11/27/23 11:23:00 EDT, Height/Length Dosing, 135.5, kg, 11/27/23 11:23:00 EDT, Weight Dosing Start Date: 12/31/23 Status: Ordered Quantity: 30.0 Unit: tab(s) Repeat number: 1 Start: 07-18-2023 take 1 tablet by steve th once daily aripiprazole 20 mg oral tablet [...] anxiety, # 60 tab(s), Refills(s) 0, Pharmacy: [facility]/pharmacy #[id number], 175, cm, 11/27/23 11:23:00 EDT, [...] day(s), # 21 cap(s), Refills(s) 0, Pharmacy: [facility]/pharmacy #[id number], 175, cm, 11/09/24 15:20:00 EDT, [...] day(s), # 14 cap(s), Refills(s) 0, [id number], cm, 11/09/24 15:20:00 EDT, Height/Length [...] Daily, # 30 cap(s), Refills(s) 0, [id number], cm, 11/27/23 11:23:00 EDT, Height/Length Dosing, 135.5, kg, 11/27/23 11:23:00 EDT, Weight Dosing Start Date: 12/31/23 Status: Ordered Quantity: 30.0 Unit: cap(s) Repeat number: 1 Start: 07-18-2023 take 1 capsule by [facility] once daily FLUoxetine 40 mg Cap 40 mg = 1 cap(s), Oral, Daily, Refills(s) 0 Start Date: 07/18/23 Status: Ordered PROzac Active gabapentin 600 mg oral tablet (11 sources) Anti-epileptic Agent Start: 12-31-2023 take 1 tablet by mouth twice daily gabapentin 600 mg Tab 600 mg = 1 tab(s), Oral, BID, # 60 tab(s), Refills(s) 0, Pharmacy: [facility]/pharmacy #[id number], 175, cm, 11/27/23 11:23:00 EDT, Height/Length Dosing, 135.5, kg, 11/27/23 11:23:00 EDT, Weight Dosing Start Date: 12/31/23 Status: Ordered Start: 07-18-2023 [facility] gab[facility] 600 mg Tab 600 mg = 1 tab(s), Oral, BID, Refills(s) 0 Start Date: 07/18/23 Status: Ordered Start: 01-27-2019 take 800 mg by mouth twice maureen ly Gabapentin 800 MG Oral Twice daily January 27, 2019 Active Start: 10-16-2018 take 1 capsule by mo [facility] three times daily gabapentin 300 mg Cap [...] Daily, # 30 tab(s), Refills(s) 0, Pharmacy: [facility]/pharmacy #[id number], 175, cm, 11/27/23 11:23:00 EDT, [...] Latuda Active take 2 tablets by mo [facility] once daily lurasidone (LATUDA) 40 MG TABS tablet Take 80 mg by mouth daily 0 Active methylPREDNISolone 4 mg oral tablet (1 source) Corticosteroid Start: 01-21-2024 End: 01-27-2024 Medrol 4 mg Tab = 1 packet(s), Oral, As Directed, as directed on package labeling, X 6 day(s), # 21 tab(s), Refills(s) 0, Pharmacy: [facility]/pharmacy #[id number], 175, cm, 01/21/24 12:47:00 EDT, [...] BID, # 180 tab(s), Refills(s) 1, Pharmacy: [facility]/pharmacy #[id number], 175, cm, 11/27/23 11:23:00 EDT, Height/Length Dosing, 135.5, kg, 11/27/23 11:23:00 EDT, Weight Dosing Start Date: 01/02/24 Status: Ordered Start: 07-18-2023 take 1 tablet by [facility] twice daily Metoprolol tartrate 25 mg Tab [...] day(s), # 5 tab(s), Refills(s) 0, Pharmacy: [id number], 175.3, cm, 07/27/22 11:50:00 EDT, [...] day(s), # 21 tab(s), Refills(s) 0, Pharmacy: [facility]/pharmacy #[id number], 175, cm, 01/21/24 12:47:00 EDT, [...] DAY, # 30 tab(s), Refills(s) 0, Pharmacy: [facility] [id number], 175, cm, 04/29/24 11:05:00 EST, Height/Length Dosing, 131.1, kg, 04/29/24 11:05:00 EST, Weight Dosing Start Date: 05/06/24 Status: Ordered Quantity: 30.0 Unit: tab(s) Repeat number: 1 Start: 12-31-2023 take 1 tablet by steve once daily valacyclovir 1 g Tab 1 gm = 1 tab(s), Oral, Daily, # 30 tab(s), Refills(s) 0, [id number], 175, cm, 11/27/23 11:23:00 EDT, Height/Length Dosing, 135.5, kg, 11/27/23 11:23:00 EDT, Weight Dosing Start Date: 12/31/23 Status: Ordered Start: 07-18-2023 take 1 tablet by steve th once daily valacyclovir 1 g Tab 1 [...] Daily, # 90 cap(s), Refills(s) 0, Pharmacy: [facility]/pharmacy #[id number], 175, cm, 11/27/23 11:23:00 EDT, Height/Length Dosing, 135.5, kg, 11/27/23 11:23:00 EDT, Weight Dosing Start Date: 01/01/24 Status: Ordered Start: 07-18-2023 take 1 tablet by steve once daily venlafaxine 37.5 mg Tab 37.5 mg = 1 tab(s), Oral, Daily, Refills(s) 0 Start Date: 07/18/23 Status: Ordered Start: 07-08-2019 take 1 capsule by mo [facility] once daily Effexor XR 150 mg [...] Daily, # 30 tab(s), Refills(s) 0, Pharmacy: [facility]/pharmacy #[id number], 175, cm, 11/27/23 11:23:00 EDT, Height/Length Dosing, 135.5, kg, 11/27/23 11:23:00 EDT, Weight Dosing Start Date: 12/31/23 Status: Ordered Quantity: 30.0 Unit: tab(s) Repeat number: 1 Start: 07-18-2023 take 1 tablet by [facility] once daily vilazodone 40 mg oral tablet 40 mg = 1 tab(s), Oral, Daily, Refills(s) 0 Start Date: 07/18/23 Status: Ordered [facility] daily vilazodone HCl (VILAZODONE HCL) 40 [...] qWeek, # 12 cap(s), Refills(s) 3, Pharmacy: [facility]/pharmacy #[id number], 175, cm, 07/31/24 8:59:00 EDT, Height/Length Dosing, 128.6, kg, 07/31/24 8:59:00 EDT, Weight Dosing Start Date: 08/04/24 Status: Ordered Quantity: 12.0 Unit: cap(s) Repeat number: 4 Indications: Other specified abnormal findings of blood chemistry; Start: 08-31-2023 take 1 capsule by mo [facility] every week Vitamin D 50,000 intl units [...] 03-19-2012 Episodic Other aftercare (1 source) Other long distance operator (current) drug therapy; Translations: [OTH INTERMEDIATE CURRENT DRUG THERAPY] Onset: 01-24-2022 Episodic Other [...] Test Name Value Interpretation Reference Range Facility Ambulatory Visit Summaryon 0 01-23-2025 Ambulatory Visit Summary Ambulatory Visit Summary VIKI MARK Ye :1990 Visit Date:01/23/2025 Ambulatory Visit Instructions Your Diagnosis Excessive sweating Former smoker BMI 40.0-44.9, adult, Body mass index [BMI] 40.0-44.9, adult Class 3 severe obesity due to excess calories with body mass index (BMI) of 40.0 to 44.9 in adult Morbid (severe) obesity due to excess calories Your Care Team Attending Physician - Laura Xavier Primary Care Physician - Laura Xavier This Is Your Medications List albuterol (Albuterol (Eqv-ProAir HFA) 90 mcg/inh inhalation aerosol) aripiprazole (Abilify 15 mg Tab) fluoxetine (FLUoxetine 20 mg Cap) lurasidone (lurasidone 80 mg oral tablet) vilazodone (vilazodone 40 mg oral tablet) Procedures Performed Surgery. Discharge Vitals Temperature (Temporal Artery) 36.4 ???C Heart Rate (Peripheral) 94 Respiratory Rate 18 Blood Pressure 142/88 Height 175.0 cm Height 69 in Weight 124.9 kg Weight 275.357 lb BMI 40.78 What to do next You Need to Complete the Following Serotonin Level, Blood, Routine collect, 01/23/25, Order for future visit, Lab Collect, Excessive sweating, Print Label By Order Location Medications What How Much When Why Instructions Unchanged albuterol (Albuterol (Eqv-ProAir HFA) 90 mcg/ inh inhalation aerosol) 2 Puffs Inhalation Every 6 hours Chest pain Bronchitis Unchanged aripiprazole (Abilify 15 mg Tab) 1 Tablets By Mouth Every day Unchanged fluoxetine (FLUoxetine 20 mg Cap) 1 Capsules By Mouth Every day Unchanged lurasidone (lurasidone 80 mg oral tablet) 1 Tablets By Mouth Every day with food Unchanged vilazodone (vilazodone 40 mg oral tablet) [...] signed up for this yet, please contact [employer] at [phone] to get signed up today. Language Information Language assistance services are available as needed. [facility] Family Medicine Office/Clini c Noteon 01-23-2025 Family Medicine Office/Clinic Note Family Medicine Office/Clinic Note HPI Staff Pt is here for sweating a lot when sleeping Onset: at least 6 months He tries to wear thin layer but it still wakes him up, wakes him up 3-4 times Last couple nights he has gotten up 2-3 times History of Present Illness pt presents today for excessive night time sweating that has been going on for a few months Review of Systems PHQ Score Initial Depression Screen Score: 0 SCORE Physical Exam Vitals & Measurements T: 36.4 ???C(Temporal Artery) HR: 94(Peripheral) RR: 18 BP: 142/88 SpO2: 98% HT: 69 in HT: 175.0 cm WT: 275.357 lb WT: 124.9 kg BMI: 40.78 General: alert, no acute distress ENMT: oral mucosa moist, no pharyngeal erythema or exudate Cardiovascular: regular rate and rhythm, normal peripheral perfusion Respiratory: Lungs CTA, respirations non labored Extremities: no deformity, no trauma Neurological: oriented x 4, LOC appropriate for age, CN II-XII intact, motor strength equal & normal bilaterally, speech normal Assessment/Plan 1. Excessive sweating (R61: Generalized hyperhidrosis) pt c/o excessive sweating at night. he wakes up several times a night soaked in sweat. denies any other symptoms. pt is on 4 different Behavioral health meds and I feel his serotonin may be too high. causing the sweating. will check serotonin level. we are not able to draw that in office so he will go to [facility] for lab draw. will also check hgba1c, testosterone and TSH. if serotonin is too high he will contact psych provider to determine how to manage and/or decrease the meds he is currently taking. Ordered: HgbA1c Serotonin Level Serotonin Level Testosterone Level Total Thyroid Stimulating Hormone 2. Former smoker (Z87.891: Personal history of nicotine dependence) continue not smoking Ordered: meloxicam, 15 mg = 1 tab(s), Oral, Daily, # 30 tab(s), Refills(s) 0, Pharmacy: [facility]/pharmacy #[id number], 175, cm, 11/12/24 9:06:00 EDT, Height/Length Dosing, 125, kg, 11/12/24 9:06:00 EDT, Weight Dosing HgbA1c Serotonin Level Testosterone Level Total Thyroid Stimulating Hormone 3. BMI 40.0-44.9, adult, (Z68.41: Body mass index [BMI] 40.0-44.9, adult)Body mass index [BMI] 40.0-44.9, adult BMI education Ordered: meloxicam, 15 mg = 1 tab(s), Oral, Daily, # 30 tab(s), Refills(s) 0, [id number] 175, cm, 11/12/24 9:06:00 EDT, Height/Length Dosing, 125, kg, 11/12/24 9:06:00 EDT, Weight Dosing HgbA1c Serotonin Level Testosterone Level Total Thyroid Stimulating Hormone 4. Class 3 severe obesity due to excess calories with body mass index (BMI) of 40.0 to 44.9 in adult (E66.813: Obesity, class 3) see above Ordered: HgbA1c Serotonin Level Testosterone Level Total Thyroid Stimulating Hormone Orders: busPIRone, 10 mg = 1 tab(s), Oral, BID, as needed for anxiety, # 60 tab(s), Refills(s) 0, [id number] 175, cm, 11/27/23 11:23:00 EDT, Height/Length Dosing, 135.5, kg, 11/27/23 11:23:00 EDT, Weight Dosing duloxetine, 20 mg = 1 cap(s), Oral, Daily, # 30 cap(s), Refills(s) 0, [id number], 175, cm, 11/12/24 9:06:00 EDT, Height/Length Dosing, 125, kg, 11/12/24 9:06:00 EDT, Weight Dosing ergocalciferol, 50,000 International_Unit = 1 cap(s), Oral, qWeek, # 12 cap(s), Refills(s) 3, [id number], 175, cm, 07/31/24 8:59:00 EDT, Height/Length Dosing, 128.6, kg, 07/31/24 8:59:00 EDT, Weight Dosing valacyclovir, See Instructions, TAKE 1 TABLET BY MOUTH EVERY DAY, # 30 tab(s), Refills(s) 0, Pharmacy: [id number], 175, cm, 04/29/24 11:05:00 EST, Height/Length Dosing, 131.1, kg, 04/29/24 11:05:00 EST, Weight Dosing Follow-up No qualifying data [...] No qualifying data Procedure/Surgical History Surgery. Medications Abilify 15 mg Tab, 15 mg= 1 tab(s), Oral, Daily Albuterol (Eqv-ProAir HFA) 90 mcg/inh inhalation aerosol, 2 puff(s), Inhalation, q6hr FLUoxetine 20 mg Cap, 20 mg= 1 cap(s), Oral, Daily lurasidone 80 mg oral tablet, 80 mg= 1 tab(s), Oral, Daily vilazodone 40 mg oral tablet, 40 mg= 1 tab(s), Oral, Daily Allergies Latex (Allergic skin rash) Social History Alcohol - Denies Alcohol Use, 10/16/2018 Never., 07/31/2024 Substance Abuse - Denies Substance Abuse, 10/16/2018 Never., 07/31/2024 Tobacco - Denies Tobacco Use, 07/10/2023 Former smoker, quit more than 30 days ago, quit 2020 Tobacco Use:., 01/23/2025 Family Hist (more content not included)... Normal [facility] Comment on above: Result Comment: Elec tronically Signed By: Laura Xavier\.br\Date and Time Signed: 01/23/25 12:28 EDT ED Note-Physicianon 11-15-19 ED Note-Physician ED Note-Physician Basic Information Time Seen: Jovan HAMPTON, Hans Pastrana 11/09/2024 15:19 Chief Complaint pt states he [...] day(s), # 21 cap(s), Refills(s) 0, Pharmacy: [facility]/pharmacy #[id number], 175, cm, 11/09/24 15:20:00 EDT, Height/Length Dosing, 128, kg, 11/09/24 15:20:00 EDT, Weight Dosing doxycycline, 100 mg = 1 cap(s), Oral, BID, X 7 day(s), # 14 cap(s), Refills(s) 0, Pharmacy: [facility]/pharmacy #[id number], 175, cm, 11/09/24 15:20:00 EDT, Height/Length Dosing, 128, kg, 11/09/24 15:20:00 EDT, Weight Dosing Disposition Plan Patient Discharge Condition stable Discharge Disposition to home Discharge Prescription List Prescriptions doxycycline hyclate 100 mg Cap, 100 mg= 1 cap(s), Oral, BID Keflex 500 mg Cap, 500 mg= 1 cap(s), Oral, q8hr Follow-up With When Contact Information Laura Iverson In 3 days 11/12/[address] [place] [address] [facility] (1) Additional Instructions: Call Dr for diagnosis based follow up Patient Education Wound Care, Adult Abrasion, [id number] Attestation Patient seen and evaluated by the physician research assistant member. Attending physician was present in the emergency department and supervised care. This visit was performed by both the physician and an APC. I performed all aspects of the MDM as documented. This report was transcribed using voice recognition software. Every effort was made to ensure accuracy, however, inadvertently computerized art instructor mistakes may be present. Appropriate healthcare [...] of thigh (more content not included)... Normal [facility] Comment on above: Result Comment: Elec tronically Signed By: Jovan HAMPTON, Hans Pastrana\.br\Date and Time Signed: 11/09/24 20:15 EDT\.br\Electronically Co-Signed By: Fredo Zepeda MD\.br\Date and Time Co-Signed: 11/14/24 04:45 EDT Ambulatory Visit Summaryon 0 11-12-2024 Ambulatory Visit Summary Ambulatory Visit Summary MARK DREW :1990 Visit Date:11/12/2024 Ambulatory Visit Instructions Your [...] signed up for this yet, please contact [employer] at [phone] to get signed up today. Language Information Language assistance services are available as needed. [facility] Family Medicine Office/Clini c Noteon 11-12-2024 Family [...] will send order for x ray to [facility]. will send meloxicam and medrol dose pack. pt was recommended to see ortho years ago but he declined at that time. will send referral to [facility] ortho. RTC 4 weeks Ordered: meloxicam, 15 mg = 1 tab(s), Oral, Daily, # 30 tab(s), Refills(s) 0, Pharmacy: [facility]/pharmacy #[id number], 175, cm, 11/12/24 9:06:00 EDT, Height/Length Dosing, 125, kg, 11/12/24 9:06:00 EDT, Weight Dosing methylPREDNISolone, = 1 packet(s), Oral, As Directed, as directed on package labeling, X 6 day(s), # 21 tab(s), Refills(s) 0, Pharmacy: [facility]/pharmacy #[id number], 175, cm, 11/12/24 9:06:00 EDT, Height/Length Dosing, 125, kg, 11/12/24 9:06:00 EDT, Weight Dosing 2. BMI 40.0-44.9, adult (Z68.41: Body mass index [BMI] 40.0-44.9, adult) BMI education Ordered: meloxicam, 15 mg = 1 tab(s), Oral, Daily, # 30 tab(s), Refills(s) 0, Pharmacy: [facility]/pharm[facility] #[id number], 175, cm, 11/12/24 9:06:00 EDT, Height/Length Dosing, 125, kg, 11/12/24 9:06:00 EDT, Weight Dosing methylPREDNISolone, = 1 packet(s), Oral, As Directed, as directed on package labeling, X 6 day(s), # 21 tab(s), Refills(s) 0, Pharmacy: [facility]/pharmacy #[id number], 175, cm, 11/12/24 9:06:00 EDT, Height/Length Dosing, 125, kg, 11/12/24 9:06:00 EDT, Weight Dosing 3. Obesity, morbid, BMI 40.0-49.9 (E66.01: Morbid (severe) obesity due to excess calories) see above Ordered: meloxicam, 15 mg = 1 tab(s), Oral, Daily, # 30 tab(s), Refills(s) 0, Pharmacy: [facility]/pharmacy #[id number], 175, cm, 11/12/24 9:06:00 EDT, Height/Length Dosing, 125, kg, 11/12/24 9:06:00 EDT, Weight Dosing methylPREDNISolone, = 1 packet(s), Oral, As Directed, as directed on package labeling, X 6 day(s), # 21 tab(s), Refills(s) 0, [id number] 175, cm, 11/12/24 9:06:00 EDT, Height/Length Dosing, 125, kg, 11/12/24 9:06:00 EDT, Weight Dosing 4. Former smoker (Z87.891: Personal history of nicotine dependence) continue not smoking Ordered: meloxicam, 15 mg = 1 tab(s), Oral, Daily, # 30 tab(s), Refills(s) 0, Pharmacy: [facility]/pharmacy #[id number], 175, cm, 11/12/24 9:06:00 EDT, Height/Length Dosing, 125, kg, 11/12/24 9:06:00 EDT, Weight Dosing methylPREDNISolone, = 1 packet(s), Oral, As Directed, as directed on package labeling, X 6 day(s), # 21 tab(s), Refills(s) 0, [id number], 175, cm, 11/12/24 9:06:00 EDT, Height/Length Dosing, 125, kg, 11/12/24 9:06:00 EDT, Weight Dosing Orders: fluoxetine, 20 mg, Oral, Daily, # 30 cap(s), Refills(s) 0, [id number], 175, cm, 11/27/23 11:23:00 EDT, Height/Length Dosing, 135.5, kg, 11/27/23 11:23:00 EDT, Weight Dosing lurasidone, 80 mg, Oral, Daily, # 30 tab(s), Refills(s) 0, [id number], 175, cm, 11/27/23 11:23:00 EDT, Height/Length [...] q6hr aripiprazole (more content not included)... Normal [facility] Comment on above: Result Comment: Elec tronically Signed By: Laura Xavier\.larry\Date and Time Signed: 11/12/24 10:07 EDT ED Clinical Summaryon 2024 ED Clinical Summary ED Clinical Summary [address] [address] ED Clinical Summary Person Information Name: MARK DREW [place] Age: 34 Years : 1990 Sex: Male Language: Estonian PCP: Laura Xavier Marital Status: Single Visit [...] 11/09/2024 15:55:29 11/09/2024 15:55:29 11/09/2024 15:55:29 ADDRESS: [address] [place] [phone] PHYS DOC NOTES: MEDICAL INFORMATION: Prescriptions Given: New Medications [id number], [address], [place] [id number], [phone] cephalexin (Keflex 500 mg Cap) 1 Capsules [...] EDUCATION INFORMATION: Instructions: Wound Care, Adult; Abrasion, Umex-th-Romw Follow up: With: Address: When: Laura Iverson [address] [place] [id number] Business (1) In 3 days 11/12/2024 Comments: Call Dr for diagnosis based follow up DIAGNOSIS: Abrasion of right knee Normal [facility] ED Patient Summaryon 025 ED Patient Summary ED Patient Summary [address] [address] Patient Discharge Instructions Person Information Name: MARK DREW Age: 34 Years Arrival Date: 11/09/2024 15:15:00 Discharge Diagnosis: Abrasion of right knee Primary Care Physician: Laura Xavier Provider Information Primary Provider: Advanced Meter Repairer Helper:Hans Aldana PA-C The exam and treatment you received in the Emergency Department were for an urgent problem and are not intended as complete care. It is important that you follow up with a doctor, nurse practitioner, or physician???s research assistant member for ongoing care. If your symptoms become worse or you do not improve as expected and you are unable to reach your usual health care provider, you should return to the Emergency Department. We are available 24 hours a day. MARK DREW has been given the following list of patient education materials, prescriptions and follow-up instructions: Follow-up Instructions: With: Address: When: Laura Iverson [address] [place] [address] [facility] () In 3 days 11/12/2024 Comments: Call Dr for diagnosis based follow up In the event that this physician does not participate in your insurance network, please consult with your insurance company to find a nearby participating provider. Patient Education Materials: Wound Care, Adult; Abrasion, Cejy-ws-[id number] A MESSAGE TO ALL PATIENTS REGARDING OPIOIDS PRESCRIPTION OPIOIDS: WHAT YOU NEED TO KNOW Prescription opioids can be used to help relieve dvhdnrti-uj-lkvhte pain and are often prescribed following a [...] be struggl (more content not included)... Normal [facility] Reminderson 08-04-2024 Reminders Reminders From: Laura Xavier To: B - Clinical; Sent: 08/04/2024 09:29:10 EDT Show [...] 28.1 % (14.0 - 50.0) 07/31/2024 9:40 [employer] 7.8 % (4.0 - 14.0) 07/31/2024 9:40 [employer] 1.4 % (0.0 - 8.0) 07/31/2024 9:40 Basophil Auto 0.4 % (0.0 - 2.0) 07/31/2024 9:40 Neutro Absolute 4.2 E9/L (2.0 - 7.5) 07/31/2024 9:40 Lymph Absolute 1.9 E9/L (1.0 - 4.0) 07/31/2024 9:40 Sublette Absolute 0.5 E9/L (0.2 - 1.0) 07/31/2024 [...] (30.0 - 100.0) From: Deanna Valdez M.A. ([facility] - Clinical) To: Laura Xavier; [facility] - Clinical; Sent: 08/04/2024 10:11:48 EDT Show up: 08/04/2024 10:10:00 EDT Subject: RE: Ambulatory Reminder left message to return our call and relay below message From: Flavia Medrano LPN ([facility] - Clinical) To: Laura Xavier; Sent: 08/04/2024 11:21:01 EDT Show up: 08/04/2024 11:20:00 EDT Subject: RE: Ambulatory Reminder Pt. return call message given, states he is not taking Vit D and would need refill. See proposal in correct encounter [facility] Ambulatory Visit Summaryon 0 07-31-2024 Ambulatory Visit Summary Ambulatory Visit Summary MARK DREW :1990 Visit Date:07/31/2024 Ambulatory Visit Instructions Your [...] for choosing us for your care. Normal [facility] CBC w/ Auto Diffon 5 Basophils/100 WBC (Bld) 0.4 % Normal 0.0-2.0 [facility] Comment on above: Performed By: #### 2 [id number] #### [facility] [address] [place] [address] Basophils/Leukocytes Auto (Bld) [Pure # fraction] 0.0 E9/L Normal 0.0-0.2 [facility] Comment on above: Performed By: #### 2 [id number] #### [facility] [address] [place] [address] Eosinophils (Bld) [#/Vol] 0.1 E9/L Normal 0.0-0.5 [facility] Comment on above: Performed By: #### 2 [id number] #### [facility] [address] [place] [address] Eosinophils/100 WBC (Bld) 1.4 % Normal 0.0-8.0 [facility] Comment on above: Performed By: #### 2 [id number] #### [facility] [address] [place] [address] Erythrocyte distribution width (RBC) [Ratio] 13.0 % Normal 10.9-14.2 [facility] Comment on above: Performed By: #### 2 [id number] #### [facility] [address] [place] [address] Hematocrit (Bld) [Volume fraction] 44.3 % Normal 37.7-49.0 [facility] Comment on above: Performed By: #### 2 [id number] #### [facility] [address] [place] [address] Hemoglobin (Bld) [Mass/Vol] 15.2 g/dL Normal 13.5-17.5 [facility] Comment on above: Performed By: #### 2 [id number] #### [facility] [address] [place] [address] Lymphocytes (Bld) [#/Vol] 1.9 E9/L Normal 1.0-4.0 [facility] Comment on above: Performed By: #### 2 607684 #### [facility] [address] [place] [address] Lymphocytes/100 WBC (Bld) 28.1 % Normal 14.0-50.0 [facility] Comment on above: Performed By: #### 2 [id number] #### [facility] [address] [place] [address] MCH (RBC) [Entitic mass] 31.4 pg Normal 27.0-34.0 [facility] Comment on above: Performed By: #### 2 [id number] #### [facility] [address] [place] [address] MCHC (RBC) [Mass/Vol] 34.4 g/dL Normal 31.4-36.0 [facility] Comment on above: Performed By: #### 2 [id number] #### [facility] [address] [place] [address] MCV (RBC) [Entitic vol] 91.3 fL Normal 80.0-100.0 [facility] Comment on above: Performed By: #### 2 [id number] #### [facility] [address] [place] [address] Monocytes (Bld) [#/Vol] 0.5 E9/L Normal 0.2-1.0 [facility] Comment on above: Performed By: #### 2 [id number] #### [facility] [address] [place] [address] Neutrophils (Bld) [#/Vol] 4.2 E9/L Normal 2.0-7.5 [facility] Comment on above: Performed By: #### 2 [id number] #### [facility] [address] [place] [address] Neutrophils/100 WBC (Bld) 62.3 % Normal 36.0-75.0 [facility] Comment on above: Performed By: #### 2 [id number] #### [facility] [address] [place] [address] Platelet mean volume (Bld) [Entitic vol] 7.9 fL Normal 6.4-10.8 [facility] Comment on above: Performed By: #### 2 [id number] #### [facility] [address] [place] [address] Platelets (Bld) [#/Vol] 276.0 E9/L Normal 150.0-500.0 [facility] Comment on above: Performed By: #### 2 [id number] #### [facility] [address] [place] [address] RBC (Bld) [#/Vol] 4.8 E12/L Normal 4.3-5.9 [facility] Comment on above: Performed By: #### 2 [id number] #### [facility] [address] [place] [address] WBC corrected for nucl RBC Auto (Bld) [#/Vol] 6.8 E9/L Normal 4.0-11.0 [facility] Comment on above: Performed By: #### 2 [id number] #### [facility] [address] [place] [address] CHEMISTRYOrdered By: SYSTEM SYSTEM on 07-31-2024 25-hydroxyvitamin [...] 07-31-2024 Albumin [Mass/Vol] 4.2 g/dL Normal 3.3-5.0 [facility] Comment on above: Order Comment: green top tube received in the lab unspun. Testing performed on the SST tube that was centrifuged. 07/31/2024 20:08:41 EDT [id number] Performed By: #### 2 [id number] #### [facility] [address] [place] [address] Albumin/Globulin (S) [Mass conc ratio] 1.5 Normal 1.1-2.2 [facility] Comment on above: Order Comment: green top tube received in the lab unspun. Testing performed on the SST tube that was centrifuged. 07/31/2024 20:08:41 EDT [id number] Performed By: #### 2 [id number] #### [facility] [address] [place] [address] ALP [Catalytic activity/Vol] 74 Int._Unit/L Normal 21-98 [facility] Comment on above: Order Comment: green top tube received in the lab unspun. Testing performed on the SST tube that was centrifuged. 07/31/2024 20:08:41 EDT [id number] Performed By: #### 2 [id number] #### [facility] [address] [place] [address] ALT No additional P-5'-P [Catalytic activity/Vol] 24 Int._Unit/L Normal 6-46 [facility] Comment on above: Order Comment: green top tube received in the lab unspun. Testing performed on the SST tube that was centrifuged. 07/31/2024 20:08:41 EDT [id number] Performed By: #### 2 107077 #### [facility] [address] [place] [address] Anion gap [Moles/Vol] 14 mmol/L Normal 6-16 [facility] Comment on above: Order Comment: green top tube received in the lab unspun. Testing performed on the SST tube that was centrifuged. 07/31/2024 20:08:41 EDT [id number] Performed By: #### 2 [id number] #### [facility] [address] [place] [address] AST [Catalytic activity/Vol] 17 Int._Unit/L Normal 5-43 [facility] Comment on above: Order Comment: green top tube received in the lab unspun. Testing performed on the SST tube that was centrifuged. 07/31/2024 20:08:41 EDT [id number] Performed By: #### 2 [id number] #### [facility] [address] [place] [address] Bilirubin [Mass/Vol] 0.4 mg/dL Normal 0.0-1.1 [facility] Comment on above: Order Comment: green top tube received in the lab unspun. Testing performed on the SST tube that was centrifuged. 07/31/2024 20:08:41 EDT [id number] Performed By: #### 2 [id number] #### [facility] [address] [place] [address] Calcium [Mass/Vol] 9.3 mg/dL Normal 8.9-11.1 [facility] Comment on above: Order Comment: green top tube received in the lab unspun. Testing performed on the SST tube that was centrifuged. 07/31/2024 20:08:41 EDT [id number] Performed By: #### 2 [id number] #### [facility] [address] [place] [address] Chloride [Moles/Vol] 105 mmol/L Normal 101-111 [facility] Comment on above: Order Comment: green top tube received in the lab unspun. Testing performed on the SST tube that was centrifuged. 07/31/2024 20:08:41 EDT [id number] Performed By: #### 2 [id number] #### [facility] [address] [place] [address] CO2 [Moles/Vol] 26 mmol/L Normal 21-31 [facility] Comment on above: Order Comment: green top tube received in the lab unspun. Testing performed on the SST tube that was centrifuged. 07/31/2024 20:08:41 EDT [id number] Performed By: #### 2 750684 #### [facility] [address] [place] [address] Creatinine [Mass/Vol] 1.2 mg/dL Normal 0.5-1.3 [facility] Comment on above: Order Comment: green top tube received in the lab unspun. Testing performed on the SST tube that was centrifuged. 07/31/2024 20:08:41 EDT [id number] Performed By: #### 2 [id number] #### [facility] [address] [place] [address] Globulin (S) [Mass/Vol] 2.8 g/dL Normal 1.4-4.0 [facility] Comment on above: Order Comment: green top tube received in the lab unspun. Testing performed on the SST tube that was centrifuged. 07/31/2024 20:08:41 EDT [id number] Performed By: #### 2 332884 #### [facility] [address] [place] [address] Glucose [Mass/Vol] 93 mg/dL Normal 55-199 [facility] Comment on above: Order Comment: green top tube received in the lab unspun. Testing performed on the SST tube that was centrifuged. 07/31/2024 20:08:41 EDT [id number] Performed By: #### 2 [id number] #### [facility] [address] [place] [address] Potassium [Moles/Vol] 4.5 mmol/L Normal 3.5-5.3 [facility] Comment on above: Order Comment: green top tube received in the lab unspun. Testing performed on the SST tube that was centrifuged. 07/31/2024 20:08:41 EDT [id number] Performed By: #### 2 [id number] #### [facility] [address] [place] [address] Protein [Mass/Vol] 7.0 g/dL Normal 6.0-7.8 [facility] Comment on above: Order Comment: green top tube received in the lab unspun. Testing performed on the SST tube that was centrifuged. 07/31/2024 20:08:41 EDT [id number] Performed By: #### 2 [id number] #### [facility] [address] [place] [address] Sodium [Moles/Vol] 140 mmol/L Normal 135-145 [facility] Comment on above: Order Comment: green top tube received in the lab unspun. Testing performed on the SST tube that was centrifuged. 07/31/2024 20:08:41 EDT [id number] Performed By: #### 2 [id number] #### [facility] [address] [place] [address] Urea nitrogen [Mass/Vol] 18 mg/dL Normal 5-21 [facility] Comment on above: Order Comment: green top tube received in the lab unspun. Testing performed on the SST tube that was centrifuged. 07/31/2024 20:08:41 EDT [id number] Performed By: #### 2 [id number] #### [facility] [address] [place] [address] Urea nitrogen/Creatinine [Mass ratio] 15 No Units Normal 10-20 [facility] Comment on above: Order Comment: green top tube received in the lab unspun. Testing performed on the SST tube that was centrifuged. 07/31/2024 20:08:41 EDT [id number] Performed By: #### 2 [id number] #### [facility] [address] [place] [address] Family Medicine Office/Clini c Noteon 07-31-2024 Family [...] qWeek, # 12 cap(s), Refills(s) 3, Pharmacy: [facility], 175, cm, 08/28/23 14:14:00 EDT, Height/Length [...] DAY, # 30 tab(s), Refills(s) 0, Pharmacy: [id number], 175, cm, 06/11/24 9:21:00 EST, Height/Length Dosing, 129, kg, 06/11/24 9:21:00 EST, Weight Dosing venlafaxine, 37.5 mg = 1 cap(s), Oral, Daily, # 90 cap(s), Refills(s) 0, Pharmacy: [facility]/pharmacy #[id number], 175, cm, 11/27/23 11:23:00 EDT, Height/Length [...] Recorded Hib, unspecified formulation 1990 Recorded Normal [facility] Comment on above: Result Comment: Elec tronically Signed By: Laura Xavier\.br\Date and Time Signed: 07/31/24 09:24 EDT HEMATOLOGYOrdered [...] 07-31-2024 Cholesterol [Mass/Vol] 143 mg/dL Normal 120-200 [facility] Comment on above: Performed By: #### 2 [id number] #### [facility] [address] [place] [address] Cholesterol in HDL [Mass/Vol] 40 mg/dL Invalid Interpretation Code [facility] Comment on above: Result Comment: '>= 60 LOW RISK' '<= 40 HIGH RISK' Performed By: #### 2 [id number] #### [facility] [address] [place] [address] Cholesterol in LDL [Mass/Vol] 97 mg/dL Normal <=129 [facility] Comment on above: Performed By: #### 2 [id number] #### [facility] [address] [place] [address] Cholesterol in VLDL [Mass/Vol] 17 mg/dL Normal 7-40 [facility] Comment on above: Performed By: #### 2 [id number] #### [facility] [address] [place] [address] Triglyceride [Mass/Vol] 85 mg/dL Normal <=149 [facility] Comment on above: Performed By: #### 2 [id number] #### [facility] [address] [place] [address] TSHon 07-31-2024 TSH Qn 0.97 m[IU]/L Normal 0.34-5.60 [facility] Comment on above: Performed By: #### 2 [id number] #### [facility] [address] [place] [id number] Vitamin D 25 Hydroxyon 07-31 25-hydroxyvitamin D3 [Mass/Vol] 16.9 ng/mL Low 30.0-100.0 [facility] Comment on above: Performed By: #### 5 [id number] #### [facility] [address] [place] [address] eGFRon 07-31-2024 eGFR 82 mL/min/1.73 m2 Normal >=59 [facility] Comment on above: Performed By: #### 1 [id number] #### [facility] [address] [place] [address] Ambulatory Visit Summaryon 0 06-11-2024 Ambulatory Visit Summary Ambulatory Visit Summary MARK DREW :1990 Visit Date:06/11/2024 Ambulatory Visit Instructions Your [...] you for choosing us for your care. [facility] Family Medicine Office/Clini c Noteon 06-11-2024 [...] Daily, # 30 tab(s), Refills(s) 0, Pharmacy: [facility]/pharmacy #[id number], 175, cm, 06/11/24 9:21:00 EST, Height/Length Dosing, 129, kg, 06/11/24 9:21:00 EST, Weight Dosing methylPREDNISolone, = 1 packet(s), Oral, As Directed, as directed on package labeling, X 6 day(s), # 21 tab(s), Refills(s) 0, Pharmacy: [facility]/pharmacy #[id number], 175, cm, 06/11/24 9:21:00 EST, Height/Length Dosing, 129, kg, 06/11/24 9:21:00 EST, Weight Dosing 2. BMI 40.0-44.9, adult (Z68.41: Body mass index [BMI] 40.0-44.9, adult) BMI education given Ordered: brompheniramine/dextr omethorphan/PSE, 5 mL, Oral, QID for cold symptoms, 200 mL, Refill(s) 0, [facility]/pharmacy #[id number], 175, cm, 04/29/24 11:05:00 EST, Height/Length Dosing, 131.1, kg, 04/29/24 11:05:00 EST, Weight Dosing meloxicam, 15 mg = 1 tab(s), Oral, Daily, # 30 tab(s), Refills(s) 0, Pharmacy: [facility]/pharmacy #[id number], 175, cm, 06/11/24 9:21:00 EST, Height/Length Dosing, 129, kg, 06/11/24 9:21:00 EST, Weight Dosing methylPREDNISolone, = 1 packet(s), Oral, As Directed, as directed on package labeling, X 6 day(s), # 21 tab(s), Refills(s) 0, Pharmacy: [facility]/pharmacy #[id number], 175, cm, 06/11/24 9:21:00 EST, Height/Length Dosing, 129, kg, 06/11/24 9:21:00 EST, Weight Dosing 3. Former smoker (Z87.891: Personal history of nicotine dependence) continue not smoking Ordered: meloxicam, 15 mg = 1 tab(s), Oral, Daily, # 30 tab(s), Refills(s) 0, [id number], cm, 06/11/24 9:21:00 EST, Height/Length Dosing, 129, kg, 06/11/24 9:21:00 EST, Weight Dosing methylPREDNISolone, = 1 packet(s), Oral, As Directed, as directed on package labeling, X 6 day(s), # 21 tab(s), Refills(s) 0, Pharmacy: [facility]/pharmacy #[id number], 175, cm, 06/11/24 9:21:00 EST, [...] 50,000 intl units (1.25 mg) oral capsule, [address] International_Unit= 1 cap(s), Oral, qWeek, 3 refills Allergies Latex (Allergic skin rash) Social History Alcohol - Denies Alcohol Use, 10/16/2018 Substance Abuse - Denies Substance Abuse, 10/16/2018 Tobacco (more content not included)... Normal [facility] Comment on above: Result Comment: Elec tronically Signed By: Laura Xavier\.br\Date and Time Signed: 06/11/24 09:37 EST Ambulatory Visit Summaryon 1 06-30-2023 Ambulatory Visit Summary Ambulatory Visit Summary MARK DREW :1990 Visit Date:04/29/2024 Ambulatory Visit Instructions Your Diagnosis Cough Wheezing BMI 40.0-44.9, adult Obesity, morbid, BMI 40.0-49.9 Nonsmoker Your Care Team Attending Physician - Laura Xavier Primary Care Physician - Laura Xavier This Is Your Medications List acetaminophen-hydroco done (Milfay 325 mg-5 mg oral tablet) albuterol (Albuterol [...] Obesity, morbid, BMI 40.0-49.9 Nonsmoker Pickup at [facility]/pharmacy #[id number] New doxycycline (doxycycline hyclate 100 mg Cap) 1 Capsules By Mouth 2 times a day BMI 40.0-44.9, adult Obesity, morbid, BMI 40.0-49.9 Nonsmoker Duration: 7 Days Pickup at [facility]/pharmacy #[id number] Unchanged acetaminophen-hydroco done (Milfay 325 mg-5 mg oral tablet) 1 Tablets [...] Tablets By Mouth Every day Pharmacy Information [facility]/pharmacy #[id number]: [address], [place] [id number] [phone] Allergies Latex (Allergic skin rash) Problems Ongoing [...] choosing us for your care. [facility] Family Medicine Office/Clini c Noteon 04-29-2024 Family [...] for cold symptoms, 200 mL, Refill(s) 0, [facility]/pharmacy #[id number], 175, cm, 04/29/24 11:05:00 EST, Height/Length Dosing, 131.1, kg, 04/29/24 11:05:00 EST, Weight Dosing doxycycline, 100 mg = 1 cap(s), Oral, BID, X 7 day(s), # 14 cap(s), Refills(s) 0, Pharmacy: [facility]/pharmacy #[id number], 175, cm, 04/29/24 11:05:00 EST, Height/Length Dosing, 131.1, kg, 04/29/24 11:05:00 EST, Weight Dosing 4. Obesity, morbid, BMI 40.0-49.9 (E66.01: Morbid (severe) obesity due to excess calories) see above Ordered: brompheniramine/dextr omethorphan/PSE, 5 mL, Oral, QID for cold symptoms, 200 mL, [facility]ill(s) 0, [id number], cm, 04/29/24 11:05:00 EST, Height/Length Dosing, 131.1, kg, 04/29/24 11:05:00 EST, Weight Dosing doxycycline, 100 mg = 1 cap(s), Oral, BID, X 7 day(s), # 14 cap(s), Refills(s) 0, [id number], 175, cm, 04/29/24 11:05:00 EST, Height/Length Dosing, 131.1, kg, 04/29/24 11:05:00 EST, Weight Dosing 5. Nonsmoker (Z78.9: Other specified health status) continue not smoking Ordered: brompheniramine/dextr omethorphan/PSE, 5 mL, Oral, QID for cold symptoms, 200 mL, [facility]ill(s) 0, [id number], cm, 04/29/24 11:05:00 EST, Height/Length Dosing, 131.1, kg, 04/29/24 11:05:00 EST, Weight Dosing doxycycline, 100 mg = 1 cap(s), Oral, BID, X 7 day(s), # 14 cap(s), Refills(s) 0, [id number], 175, cm, 04/29/24 11:05:00 EST, Height/Length Dosing, 131.1, kg, 04/29/24 11:05:00 EST, Weight Dosing Orders: gabapentin, 600 mg = 1 tab(s), Oral, BID, # 60 tab(s), Refills(s) 0, [id number] 175, cm, 11/27/23 11:23:00 EDT, Height/Length Dosing, 135.5, kg, 11/27/23 11:23:00 EDT, Weight Dosing metoprolol, 25 mg = 1 tab(s), Oral, BID, # 180 tab(s), Refills(s) 1, [id number] 175, cm, 11/27/23 11:23:00 EDT, Height/Length [...] Tab, 500 mg= 1 tab(s), Oral, BID Milfay 325 mg-5 mg oral tablet, 1 tab(s), Oral, q6hr, PRN valacyclovir 1 g Tab, See Instructions venlafaxine 37.5 mg Cap-ER, 37.5 mg= 1 cap(s), Oral, Daily vilazodone 40 mg oral tablet, 40 mg= 1 tab(s), Oral, Daily Vitamin D 50,000 intl units (1.25 mg) oral capsule, 16056 International_Unit= 1 cap(s), Oral, qWeek, 3 refills Allergies Latex (Allergic skin rash) Social History Alcohol - Denies Alcohol Use, 10/16/2018 Substance Abuse - Denies Substance Abuse, 10/16/2018 Tobacco - Denies Tobacco Use, 07/10/2023 Former smoker, tara (more content not included)... Normal [facility] Comment on above: Result Comment: Elec tronically Signed By: Laura Xavier\.br\Date and Time Signed: 04/29/24 11:43 EST ED Clinical Summaryon 2023 ED Clinical Summary ED Clinical Summary [place] [id number] ED Clinical Summary Person Information Name: MARK DREW [place] Age: 33 Years : 1990 Sex: Male Language: Estonian PCP: Laura Xavier Marital Status: Single MRN: [id number] Visit Id: Visit Reason: Back pain; BACK [...] 01/24/2024 02:10:41 01/24/2024 02:10:41 01/24/2024 02:10:41 ADDRESS: [address] [place] [place] [id number] PHYS DOC NOTES: MEDICAL INFORMATION: Prescriptions Given: New Medications Printed Prescriptions acetaminophen-hydroco done (Milfay 325 mg-5 mg oral tablet) 1 Tablets [...] Pain, Adult Follow up: With: Address: When: Laurakarina Iverson In 3 days 01/27/2024 Comments: Return to the emergency room if your pain gets worse, bowel or bladder incontinence, numbness/tingling in the saddle/groin area or any new symptoms. DIAGNOSIS: 1:Lower back pain Normal [facility] ED Note-Physicianon 01-24-20 24 ED Note-Physician ED Note-Physician Basic Information Time Seen: Sue Park M.D. 01/23/2024 23:57 Chief Complaint right lower back [...] and Complexity of Problems Differential Diagnosis: [] [facility] Data External documents reviewed: [] My EKG [...] home with prescription for Naprosyn and few Milfay's for breakthrough pain. He does have tizanidine [...] Tab, 500 mg= 1 tab(s), Oral, BID Milfay 325 mg-5 mg oral tablet, 1 tab(s), [...] Rectal bl (more content not included)... Normal [facility] Comment on above: Result Comment: Elec tronically Signed By: Xavier Pereyra, Astrit H\.br\Date and Time Signed: 01/24/24 01:53 EDT ED Patient Summaryon 024 ED Patient Summary ED Patient Summary [place] [id number] Patient Discharge Instructions Person Information Name: MARK DREW Age: 33 Years Arrival Date: 01/23/2024 22:38:51 Discharge Diagnosis: 1:Lower back pain Primary Care Physician: Laura Xavier Provider Information Primary Provider: Sue Park M.D. Advanced Meter Repairer Helper:None The exam and treatment you received in the Emergency Department were for an urgent problem and are not intended as complete care. It is important that you follow up with a doctor, nurse practitioner, or physician?s research assistant member for ongoing care. If your symptoms become worse or you do not improve as expected and you are unable to reach your usual health care provider, you should return to the Emergency Department. We are available 24 hours a day. MARK DREW has been given the following list of [...] opioids can be used to help relieve nmmzglzl-lv-[id number] pain and are often prescribed following a [...] care profess (more content not included)... Normal [facility] XR Spine Lumbosacral 2 or 3 Viewson [...] mGy = n/a DAP = n/a Normal [facility] Ambulatory Visit Summaryon 0 01-21-2024 Ambulatory Visit Summary Ambulatory Visit Summary MARK DREW :1990 Visit Date:01/21/2024 Ambulatory Visit Instructions Your [...] Laura Iverson When: Within 2 weeks Where: [address] [place] [address] [facility] (1) Medications What How Much When Why Instructions New methylPREDNISolone (Medrol 4 mg Tab) 1 Packets By Mouth As Directed Acute back pain Body mass index [BMI] 35.0-35.9, adult Duration: 6 Days as directed on package labeling Pickup at [facility]/pharmacy #[id number] New tizanidine (tiZANidine 4 mg Tab) 1 Tablets By Mouth Every 8 hours Acute back pain Body mass index [BMI] 35.0-35.9, adult Duration: 7 Days Pickup at [facility]/pharmacy #[id number] Unchanged albuterol (Albuterol (Eqv-ProAir HFA) [...] Tablets By Mouth Every day Pharmacy Information [facility]/pharmacy #[id number]: [address], [place] [phone] Medications and Immunizations Administered Given ketorolac 60 [...] Managi (more content not included)... Normal [facility] Family Medicine Office/Clini c Noteon 01-21-2024 [...] day(s), # 21 tab(s), Refills(s) 0, Pharmacy: [facility]/pharmacy #[id number], 175, cm, 01/21/24 12:47:00 EDT, Height/Length Dosing, 133.4, kg, 01/21/24 12:47:00 EDT, Weight Dosing tizanidine, 4 mg = 1 tab(s), Oral, q8hr, X 7 day(s), # 21 tab(s), Refills(s) 0, Pharmacy: [facility]/pharmacy #[id number], 175, cm, 01/21/24 12:47:00 EDT, [...] day(s), # 21 tab(s), Refills(s) 0, Pharmacy: [facility]/pharmacy #[id number], 175, cm, 01/21/24 12:47:00 EDT, Height/Length Dosing, 133.4, kg, 01/21/24 12:47:00 EDT, Weight Dosing tizanidine, 4 mg = 1 tab(s), Oral, q8hr, X 7 day(s), # 21 tab(s), Refills(s) 0, Pharmacy: [facility]/pharmacy #[id number], 175, cm, 01/21/24 12:47:00 EDT, Height/Length Dosing, 133.4, kg, 01/21/24 12:47:00 EDT, Weight Dosing Follow-up With When Contact Information Laura Iverson Within [address] [place] [address] Business (1) Additional Instructions: Patient Education Acute Back Pain, Adult Back Exercises, Kvwi-yl-Wbyu Problem List/Past Medical History Ongoing Bipolar illness BMI 40.0-44.9, adult Bright red blood per rectum Change in bowel habits Cough Decreased libido Depression Fatigue HTN (hypertension) Ingrown toenail Left otitis media LLQ abdomin (more content not included)... Normal [facility] Comment on above: Result Comment: Elec tronically Signed By: PAM MARTIN CNP\.larry\Date and Time Signed: 01/21/24 13:10 EDT Ambulatory Visit Summaryon 0 11-27-2023 Ambulatory Visit Summary Ambulatory Visit Summary MARK DREW :1990 Visit Date:11/27/2023 Ambulatory Visit Instructions Your [...] as directed on package labeling Pickup at [facility]/pharmacy #6177 New benzonatate (benzonatate 200 mg oral capsule) 1 Capsules By Mouth 3 times a day Cough Sinusitis Former smoker BMI 40.0-44.9, adult Duration: 7 Days Pickup at [facility]/pharmacy #6177 Unchanged albuterol (Albuterol (Eqv-ProAir HFA) [...] Tablets By Mouth Every day Pharmacy Information [facility]/pharmacy #[id number]: [address], [place] [phone] Allergies Latex (Allergic skin rash) Problems Ongoing [...] for choosing us for your care. Normal [facility] Family Medicine Office/Clini c Noteon 11-27-2023 Family [...] no issues *Referral for Aide Hylton in [place] [facility] for weight loss * History of Present [...] day(s), # 6 tab(s), Refills(s) 0, Pharmacy: [facility]/pharmacy #6177, 175, cm, 11/27/23 11:23:00 EDT, Height/Length Dosing, 135.5, kg, 11/27/23 11:23:00 EDT, Weight Dosing benzonatate, 200 mg = 1 cap(s), Oral, TID, X 7 day(s), # 21 cap(s), Refills(s) 0, Pharmacy: [facility]/pharmacy #6177, 175, cm, 11/27/23 11:23:00 EDT, Height/Length Dosing, 135.5, kg, 11/27/23 11:23:00 EDT, Weight Dosing 2. Sinusitis (J32.9: Chronic sinusitis, unspecified) sinus pressure headaches Ordered: azithromycin, = 1 packet(s), Oral, As Directed, as directed on package labeling, X 5 day(s), # 6 tab(s), Refills(s) 0, Pharmacy: [facility]/pharmacy #[id number], 175, cm, 11/27/23 11:23:00 EDT, Height/Length Dosing, 135.5, kg, 11/27/23 11:23:00 EDT, Weight Dosing benzonatate, 200 mg = 1 cap(s), Oral, TID, X 7 day(s), # 21 cap(s), Refills(s) 0, [id number], cm, 11/27/23 11:23:00 EDT, Height/Length Dosing, 135.5, kg, 11/27/23 11:23:00 EDT, Weight Dosing 3. Former smoker (Z87.891: Personal history of nicotine dependence) continue not smoking Ordered: azithromycin, = 1 packet(s), Oral, As Directed, as directed on package labeling, X 5 day(s), # 6 tab(s), Refills(s) 0, Pharmacy: [facility] #6177, 175, cm, 11/27/23 11:23:00 EDT, Height/Length Dosing, 135.5, kg, 11/27/23 11:23:00 EDT, Weight Dosing benzonatate, 200 mg = 1 cap(s), Oral, TID, X 7 day(s), # 21 cap(s), Refills(s) 0, Pharmacy: [facility] #6177, 175, cm, 11/27/23 11:23:00 EDT, Height/Length Dosing, 135.5, kg, 11/27/23 11:23:00 EDT, Weight Dosing 4. BMI 40.0-44.9, adult, (Z68.41: Body mass index [BMI] 40.0-44.9, adult)Body mass index [BMI] 40.0-44.9, adult pt would like to work on portion sizes and healthy food choices. requesting referral to digital sales planner. Ordered: azithromycin, = 1 packet(s), Oral, As Directed, as directed on package labeling, X 5 day(s), # 6 tab(s), Refills(s) 0, Pharmacy: [facility] #6177, 175, cm, 11/27/23 11:23:00 EDT, Height/Length Dosing, 135.5, kg, 11/27/23 11:23:00 EDT, Weight Dosing benzonatate, 200 mg = 1 cap(s), Oral, TID, X 7 day(s), # 21 cap(s), Refills(s) 0, Pharmacy: [facility]/pharmacy #[id number], 175, cm, 11/27/23 11:23:00 EDT, Height/Length Dosing, 135.5, kg, 11/27/23 11:23:00 EDT, Weight Dosing [facility] Internal Ambulatory Referral 5. Morbid obesity with BMI of 40.0-44.9, adult (E66.01: Morbid (severe) obesity due to excess calories) patient and are requesting referral to Aide Hylton Ordered: [facility] Internal Ambulatory Referral Follow-up No qualifying data [...] Procedure/Surgical Histo (more content not included)... Normal [facility] Comment on above: Result Comment: Elec tronically Signed By: Laura Xavier\.br\Date and Time Signed: 11/27/23 12:39 EDT Ambulatory Visit Summaryon 0 11-06-2023 Ambulatory Visit Summary MARK DREW :1990 Visit Date:11/06/2023 Ambulatory Visit Instructions Your [...] choosing us for your care. Normal [facility] Family Medicine Office/Clini c Noteon 11-06-2023 [...] day(s), # 14 tab(s), Refills(s) 0, Pharmacy: [facility]/pharmacy #[id number], 175, cm, 11/06/23 11:54:00 EDT, Height/Length Dosing, 137.2, kg, 11/06/23 11:54:00 EDT, Weight Dosing methylPREDNISolone, = 1 packet(s), Oral, As Directed, as directed on package labeling, X 6 day(s), # 21 tab(s), Refills(s) 0, [id number] 175, cm, 11/06/23 11:54:00 EDT, Height/Length Dosing, 137.2, kg, 11/06/23 11:54:00 EDT, Weight Dosing 2. BMI 40.0-44.9, adult (Z68.41: Body mass index [BMI] 40.0-44.9, adult) BMI education given Ordered: amoxicillin-clavulana te, = 1 tab(s), Oral, q12hr, X 7 day(s), # 14 tab(s), Refills(s) 0, [facility], 175, cm, 11/06/23 11:54:00 EDT, Height/Length Dosing, 137.2, kg, 11/06/23 11:54:00 EDT, Weight Dosing cephalexin, 500 mg = 1 cap(s), Oral, q8hr, # 30 cap(s), Refills(s) 0, Pharmacy: [facility], 175, cm, 09/21/23 13:51:00 EDT, Height/Length Dosing, 133.1, kg, 09/21/23 13:51:00 EDT, Weight Dosing methylPREDNISolone, = 1 packet(s), Oral, As Directed, as directed on package labeling, X 6 day(s), # 21 tab(s), Refills(s) 0, [facility], 175, cm, 11/06/23 11:54:00 EDT, Height/Length Dosing, 137.2, kg, 11/06/23 11:54:00 EDT, Weight Dosing 3. Former smoker (Z87.891: Personal history of nicotine dependence) continue not smoking Ordered: amoxicillin-clavulana te, = 1 tab(s), Oral, q12hr, X 7 day(s), # 14 tab(s), Refills(s) 0, [facility], 175, cm, 11/06/23 11:54:00 EDT, Height/Length Dosing, 137.2, kg, 11/06/23 11:54:00 EDT, Weight Dosing cephalexin, 500 mg = 1 cap(s), Oral, q8hr, # 30 cap(s), Refills(s) 0, Pharmacy: [facility], 175, cm, 09/21/23 13:51:00 EDT, Height/Length Dosing, 133.1, kg, 09/21/23 13:51:00 EDT, Weight Dosing methylPREDNISolone, = 1 packet(s), Oral, As Directed, as directed on package labeling, X 6 day(s), # 21 tab(s), Refills(s) 0, Pharmacy: [facility]/pharmacy #6177, 175, cm, 11/06/23 11:54:00 EDT, [...] 50,000 intl units (1.25 mg) oral capsule, 82131 International_Unit= 1 cap(s), Oral, qWeek, 3 refills Allergies Latex ( (more content not included)... Normal [facility] Comment on above: Result Comment: Elec tronically Signed By: Laura Xavier\.larry\Date and Time Signed: 11/06/23 13:42 EDT Auth for Release of Medical Recordson 11-01-2023 Auth for Release of Medical Records [id number] .00TIFF Normal [facility] Lab Reportson 10-31-2023 Lab Reports [id number] .00TIFF [facility] Physician Referralon 024 Physician Referral [id number] .00TIFF [facility] Family Medicine Office/Clini c Noteon 09-21-2023 Family [...] q8hr, # 30 cap(s), Refills(s) 0, Pharmacy: [facility], 175, cm, 09/21/23 13:51:00 EDT, Height/Length Dosing, 133.1, kg, 09/21/23 13:51:00 EDT, Weight Dosing [facility] External Ambulatory Referral 2. BMI 40.0-44.9, adult (Z68.41: Body mass index [BMI] 40.0-44.9, adult) BMI education complete Ordered: cephalexin, 500 mg = 1 cap(s), Oral, q8hr, # 30 cap(s), Refills(s) 0, Pharmacy: [facility], 175, cm, 09/21/23 13:51:00 EDT, Height/Length Dosing, 133.1, kg, 09/21/23 13:51:00 EDT, Weight Dosing [facility] External Ambulatory Referral 3. Former smoker (Z87.891: Personal history of nicotine dependence) continue not smoking Ordered: cephalexin, 500 mg = 1 cap(s), Oral, q8hr, # 30 cap(s), Refills(s) 0, Pharmacy: [facility], 175, cm, 09/21/23 13:51:00 EDT, Height/Length Dosing, 133.1, kg, 09/21/23 13:51:00 EDT, Weight Dosing [facility] External Ambulatory Referral Follow-up No qualifying data [...] 50,000 intl units (1.25 mg) oral capsule, 14796 International_Unit= 1 cap(s), Oral, qWeek, 3 refills [...] Hib, unspecified formulation 1990 Recorded Normal [facility] Comment on above: Result Comment: Elec tronically Signed By: Laura Xavier\.br\Date and Time Signed: 09/21/23 14:11 EDT Reminderson 08-30-2023 Reminders - From: Laura Xavier To: [facility] - Clinical; Sent: 08/30/2023 08:00:20 EDT Show [...] ng/dL ([phone] - ) From: Johana Alexander ([facility] - Clinical) To: Laura Xavier; Sent: 08/30/2023 15:37:34 EDT Show up: 08/30/2023 15:35:00 EDT Subject: RE: Ambulatory Reminder Patient informed and voiced understanding. Patient would like Vitamin D sent to [facility]. Normal [facility] Testost Totalon 08-30-2023 Testosterone [Mass/Vol] 306 ng/dL Invalid Interpretation Code [phone] [facility] Comment on above: Result Comment: Adul t male reference interval is based on a population of healthy nonobese males (BMI <30) between 19 and 39 years old. Timoteo et.al. JCEM 2017,102;0386-1433. PMID: [id number]. Performed at: [facility] [id number] PhD Shayy Gonzalez Performed By: #### 5 [id number] ####[facility] [address] [place] [address] Family Medicine Office/Clini c Noteon 08-29-2023 Family [...] did get sleep study and machine by [facility]. He would like to discuss where he [...] pt will decide Ordered: Lab Specimen Collect [id number] Testosterone Level Total Vitamin D 25 Hydroxy 2. Fatigue (R53.83: Other fatigue) pt c/o worsening fatigue. will check labs today Ordered: Lab Specimen Collect [id number] Testosterone Level Total Vitamin D 25 Hydroxy 3. BMI 40.0-44.9, adult (Z68.41: Body mass index [BMI] 40.0-44.9, adult) BMI education complete Ordered: Lab Specimen Collect [id number] Testosterone Level Total Vitamin D 25 Hydroxy 4. Former smoker (Z87.891: Personal history of nicotine dependence) continue not smoking Ordered: Lab Specimen Collect [id number] Testosterone Level Total Vitamin D 25 Hydroxy [...] Recorded Hib, unspecified formulation 1990 Recorded Normal [facility] Comment on above: Result Comment: Elec tronically Signed By: Laura Xavier.larry\Date and Time Signed: 08/29/23 11:43 EDT CHEMISTRYOrdered By: SYSTEM SYSTEM on 08-28-2023 25-hydroxyvitamin D3 [Mass/Vol] 17.9 ng/mL Low 30.0 - 100.0 ng/mL Remisol Chem Vitamin D 25 Hydroxyon 08-27 25-hydroxyvitamin D3 [Mass/Vol] 17.9 ng/mL Low 30.0-100.0 [facility] Comment on above: Performed By: #### 5 [id number] ####[facility] [address] [place] [address] CHEMISTRYOrdered By: Lab ROP User on 07-10-2023 Glucose [Mass/Vol] 80 mg/dL Normal 55 - 99 mg/dL [facility] POC Subsection Comment on above: Result Comment: Alonzo dodd RN/ POC Device SN [id number] 1 Invalid Interpretation Code [facility] POC Subsection POC User ID [id number] 1 Invalid Interpretation Code [facility] POC Subsection POC Username NEHAL BOYKIN Invalid Interpretation Code [facility] POC Subsection MICRO OTHER TESTSOrdered By: Mi Case on 07-10-2023 Influenzae A Ag Negative (07/10/23 5:19 PM) Normal Negative [facility] Man Sero Influenzae B Ag Negative 1 (07/10/23 5:19 PM) Normal Negative [facility]ero Comment on above: Interpretive Data: T [...] NEG Ctl Pass (07/10/23 5:19 PM) Normal [facility] Man Sero Rapid COV Int POS Ctl Pass (07/10/23 5:19 PM) Normal [facility] Man Sero S. pyogenes Ag IA.rapid Ql (Throat) Negative (07/10/23 5:19 PM) Normal Negative [facility] Man Sero SARS-CoV+SARS-CoV-2 (COVID-19) Ag IA.rapid Ql (Resp) Not Detected 3 (07/10/23 5:19 PM) Normal Not Detected [facility] Man Sero Comment on above: Interpretive Data: Louie dong BD Veritor System for Rapid Detection of SARS-CoV-2 [...] Ql (Urine sed) Trace /HPF Normal Trace/HPF [facility] UA Auto SS Bilirubin Ql (U) Negative [...] PM) Normal Negative [facility] UA Auto SS Hemoglobin Ql (U) Negative (07/10/23 6:07 PM) Normal Negative [facility] UA Auto SS Ketones (U) [Mass/Vol] Negative (07/10/23 6:07 PM) Normal Negative [facility] UA Auto SS Di Giorgio.plasma/Lithiu m.RBC (Bld) [Mass ratio] 0-3 /HPF Normal 0-3/HPF [facility] UA Auto SS Mucus Ql (Urine sed) 3+ (07/10/23 6:07 PM) Normal [facility] UA Auto SS Nitrite Ql (U) Negative (07/10/23 6:07 PM) Normal Negative [facility] UA Auto SS pH (U) 6.0 *NA* (07/10/23 6:07 PM) Invalid Interpretation Code 5.0 - 9.0 [facility] UA Auto SS Protein (U) [Mass/Vol] Negative (07/10/23 6:07 PM) Normal Negative [facility] UA Auto SS Specific gravity (U) [Rel density] >=1.030 *NA* (07/10/23 6:07 PM) Invalid Interpretation Code 1.005 - 1.030 [facility] UA Auto SS UA Spec Desc Clean Catch (07/10/23 6:07 PM) Normal [facility] UA Auto SS Urobilinogen Qn (U) [id number] {Barry'U}/dL Normal 0.0 - 1.0 EU/dL [facility] UA Auto SS WBC Auto Ql (U) Negative (07/10/23 6:07 PM) Normal Negative [facility] UA Auto SS WBC LM.HPF (Urine sed) [#/Area] 0-5 /HPF Normal 0-5/HPF [facility] UA Auto SS Chlamydia/GC DNA, Uron 05-09 Chlamydia Probe, Ur Negative Normal NEG [facility] Comment on above: Result Comment: CHLA MYDIA [...] target. Performed By: #### U CGP #### [address] [address] Shuttle Inspector: Gurinder Ramirez MD Gonorrhea Probe, Ur Negative Normal NEG [facility] Comment on above: Result Comment: NEIS SERIA [...] target. Performed By: #### U CGP #### [address] [address] Shuttle Inspector: Gurinder Ramirez MD UA w/Reflex Cultureon 2022 Bilirubin, SemiQt,Ur Negative Normal NEG [facility] Comment on above: Performed By: #### U AX #### [address] [address] Shuttle Inspector: Adarsh Hernandez MD Blood, Urine Negative Normal NEG [facility] Comment on above: Performed By: #### U AX #### [address] [address] Shuttle Inspector: Adarsh Hernandez MD Clarity (U) Clear Normal CLEAR [facility] Comment on above: Performed By: #### U AX #### [address] [address] Shuttle Inspector: Adarsh Hernandez MD Color (U) Yellow Normal YEL [facility] Comment on above: Performed By: #### U AX #### [address] [id number] Shuttle Inspector: Adarsh Hernandez MD Comment Microscopic exam not performed based on chemical results unless requested in Normal [facility] Comment on above: Result Comment: orig inal order. Utilizing a urinalysis as the only screening method to exclude a potential uropathogen can be unreliable in many patient populations. Rapid screening tests are less sensitive than culture and if UTI is a clinical possibility, culture should be considered despite a negative urinalysis. Performed By: #### U AX #### [address] [address] Shuttle Inspector: Adarsh Hernandez MD Glucose Ql (U) Negative Normal NEG [facility] Comment on above: Performed By: #### U AX #### [address] [id number] Shuttle Inspector: Adarsh Hernandez MD Ketones Ql (U) Negative Normal NEG [facility] Comment on above: Performed By: #### U AX #### [address] [id number] Shuttle Inspector: Adarsh Hernandez MD Leukocyte esterase Test strip Ql (U) Negative Normal NEG [facility] Comment on above: Performed By: #### U AX #### [address] [id number] Shuttle Inspector: Adarsh Hernandez MD Nitrite,Ur Negative Normal NEG [facility] Comment on above: Performed By: #### U AX #### [place] [address] Shuttle Inspector: Adarsh Hernandez MD PH,Ur 6.0 Normal 5.0-8.0 [facility] Comment on above: Performed By: #### U AX #### [place] [address] Shuttle Inspector: Adarsh Hernandez MD Protein Ql (U) Negative Normal NEG [facility] Comment on above: Performed By: #### U AX #### [place] [address] Shuttle Inspector: Adarsh Hernandez MD Spec. [place],Ur 1.027 Normal 1.005-1.030 [facility] Comment on above: Performed By: #### U AX #### [place] [address] Shuttle Inspector: Adarsh Hernandez MD Urobilinogen,Ur Normal Normal 0.0-1.0 [facility] Comment on above: Performed By: #### U AX #### [place] [address] Shuttle Inspector: Adarsh Hernandez MD CHEMISTRYOrdered By: SYSTEM SYSTEM [...] [facility] Remisol Ethanol [Mass/Vol] mg/dL Normal <=7mg/dL [facility] emisol GFR/1.73 sq M.predicted among non-blacks [...] 4.3 E9/L Normal 2.0 - 7.5 E9/L [facility] HemeAutoSS HEMATOLOGYOrdered By: Payton Ashby on 09-12-2022 [...] (09/12/22 4:50 PM) Invalid Interpretation Code Negative [facility] Man Sero CHEMISTRYOrdered By: SYSTEM SYSTEM on [...] rate/Area] mL/min/1.73 m2 Normal >=59mL/min/1 .73 m2 [facility] Chem S GFR/1.73 sq M.predicted among non-blacks MDRD (S/P/Bld) [Vol rate/Area] mL/min/1.73 m2 Normal >=59mL/min/1 .73 m2 [facility] Chem S Glucose [Mass/Vol] 89 mg/dL Normal [...] 5.2 E9/L Normal 2.0 - 7.5 E9/L FT HemeAutoSS HEMATOLOGYOrdered By: Alejandra Jameson on 07-27-2022 Erythrocyte distribution width (RBC) [Ratio] 13.1 % Normal 10.9 - 14.2 % [facility] Hematocrit (Bld) [Volume fraction] 43.6 % Normal 37.7 - 49.0 % [facility] Hemoglobin (Bld) [Mass/Vol] 14.9 g/dL Normal 13.5 - 17.5 gm/dL [facility] MCH (RBC) [Entitic mass] 32.0 pg Normal 27.0 - 34.0 pg [facility] HemeAutoSS MCHC (RBC) [Mass/Vol] 34.1 g/dL Normal 31.4 - 36.0 gm/dL [facility] MCV (RBC) [Entitic vol] 93.7 fL Normal 80.0 - 100.0 fL [facility] Platelet mean volume (Bld) [Entitic vol] 7.6 fL Normal 6.4 - 10.8 fL [facility] Platelets (Bld) [#/Vol] 273.0 E9/L Normal 150.0 - 500.0 E9/L [facility] RBC (Bld) [#/Vol] 4.6 E12/L Normal 4.3 - 5.9 E12/L [facility] WBC corrected for nucl RBC Auto (Bld) [#/Vol] 8.3 E9/L Normal 4.0 - 11.0 E9/L [facility] Covid-19 PCR (CVDTBH)on 04-14 SARS-CoV-2 (COVID-19) RNA HARJEET+probe Ql (Unsp spec) Not detected Normal NOT DETECTED [facility] Comment on above: Result Comment: This test is not yet approved or cleared by the [place] FDA. When there are no FDA-approved or cleared tests available, and other criteria are met, FDA can make tests available under an emergency access mechanism called an Emergency Use Authorization (EUA). The EUA for this test is supported by the [place] of Health and Human Service's (HHS's) declaration [...] with SARS-CoV-2. Performed By: #### C MP, LIPID, TSH #### [facility] [address] [place] [address] Dr. Sg Koch INFLUENZA A AND B [facility] BELOW Normal [facility] Comment on above: Result Comment: Nega tive for Flu A protein angiten. Infection due to Flu A cannot be ruled out. Flu A angiten in the sample may be below the detection limit of the test. Performed By: #### I NFLUAB #### [facility] [address] [place] [address] Dr. Sg Koch INFLUBNEGH SEE BELOW Normal [facility] Comment on above: Result Comment: Nega tive for Flu B protein antigen. Infection due to Flu B cannot be ruled out. Flu B antigen in the sample may be below the detection limit of the test. Performed By: #### I NFLUAB #### [facility] [address] [place] [address] Dr. Sg Koch INFLUENZA A AG Negative Normal NEGATIVE SEE COMMENT [facility] Comment on above: Performed By: #### I NFLUAB #### [facility] [address] [place] [address] Dr. Sg Koch INFLUENZA B AG Negative Normal NEGATIVE SEE COMMENT [facility] Comment on above: Performed By: #### I NFLUAB #### [facility] [address] [place] [address] Dr. Sg Koch INTERNAL CONTROLS Within Normal Limits Normal Wi thin Normal Limits [facility] Comment on above: Performed By: #### I NFLUAB #### [facility] [address] [place] [address] Dr. Sg Koch COVID + FLU Quick Testingon 05-03-2022 SARS-CoV-2 (COVID-19) RNA HARJEET+probe Ql (Unsp spec) Negative [facility] Typeform Other COVID + FLU Quick Testing Negative [facility] Typeform Other AMMONIAon 03-01-2022 Ammonia (P) [Mass/Vol] ug/dL Critically low 11-32 [facility] Comment on above: Performed By: #### C MP, LIPID, TSH #### [facility] [address] [address] [address] Sg Koch CBC AUTO DIFFon 03-01-2022 BASO # 0.0 103/ul Normal 0.0-0.1 [facility] Comment on above: Performed By: #### C MP, LIPID, TSH #### [facility] [address] [address] [address] Sg Koch Basophils/100 WBC (Bld) 0.5 % Normal 0.2-2.0 [facility] Comment on above: Performed By: #### C MP, LIPID, TSH #### [facility] [address] [address] [address] Sg Koch EO # 0.2 103/ul Normal 0.0-0.7 [facility] Comment on above: Performed By: #### C MP, LIPID, TSH #### [facility] [address] [address] [address] Sg Koch Eosinophils/100 WBC (Bld) 2.5 % Normal 0.9-7.0 [facility] Comment on above: Performed By: #### C MP, LIPID, TSH #### [facility] [address] [address] [address] Sg Koch Erythrocyte distribution width (RBC) [Ratio] 13.2 % Normal 11.0-15.0 [facility] Comment on above: Performed By: #### C MP, LIPID, TSH #### [facility] [address] [place] [address] Dr. Sg Koch Hematocrit (Bld) [Volume fraction] 42.3 % Normal 42.0-54.0 [facility] Comment on above: Performed By: #### C MP, LIPID, TSH #### [facility] [facility] [address] [place] [address] Dr. Sg Koch Hemoglobin (Bld) [Mass/Vol] 14.6 g/dL Normal 14.0-18.0 [facility] Comment on above: Performed By: #### C MP, LIPID, TSH #### [facility] [address] [place] [address] Dr. Sg Koch IG # 0.03 10e3/ul Normal 0.00-0.03 [facility] Comment on above: Performed By: #### C MP, LIPID, TSH #### [facility] [address] [place] [address] Dr. Sg Koch IG % 0.4 % Normal 0.0-0.5 [facility] Comment on above: Performed By: #### C MP, LIPID, TSH #### [facility] [address] [place] [address] Dr. Sg Koch LYMPH # 2.2 103/ul Normal 1.2-3.8 [facility] Comment on above: Performed By: #### C MP, LIPID, TSH #### [facility] [address] [place] [address] Dr. Sg Koch Lymphocytes/100 WBC (Bld) 29.3 % Normal 20.5-60.0 [facility] Comment on above: Performed By: #### C MP, LIPID, TSH #### [facility] [address] [place] [address] Dr. Sg Koch MANUAL DIFF REQ NO Normal [facility] Comment on above: Performed By: #### C MP, LIPID, TSH #### [facility] [address] [place] [address] Dr. Sg Koch MCH (RBC) [Entitic mass] 31.5 pg Normal 25.9-34.0 [facility] Comment on above: Performed By: #### C MP, LIPID, TSH #### [facility] [address] [place] [address] Dr. Sg Koch MCHC (RBC) [Mass/Vol] 34.5 g/dL Normal 29.9-35.2 [facility] Comment on above: Performed By: #### C MP, LIPID, TSH #### [facility] [address] [place] [address] Dr. Sg Koch MCV (RBC) [Entitic vol] 91.4 fL Normal 80.0-94.0 [facility] Comment on above: Performed By: #### C MP, LIPID, TSH #### [facility] [address] [place] [address] Dr. Sg Koch MONO # 0.5 103/ul Normal 0.3-0.8 [facility] Comment on above: Performed By: #### C MP, LIPID, TSH #### [facility] [address] [place] [address] Dr. Sg Koch Monocytes/100 WBC (Bld) 6.8 % Normal 1.7-12.0 [facility] Comment on above: Performed By: #### C MP, LIPID, TSH #### [facility] [address] [place] [address] Dr. Sg Koch NEUT # 4.6 103/ul Normal 1.4-6.5 [facility] Comment on above: Performed By: #### C MP, LIPID, TSH #### [facility] [address] [place] [address] Dr. Sg Koch Neutrophils/100 WBC (Bld) 60.5 % Normal 43.0-75.0 [facility] Comment on above: Performed By: #### C MP, LIPID, TSH #### [facility] [address] [place] [address] Dr. Sg Koch Platelet mean volume (Bld) [Entitic vol] 8.8 fL Critically low 9.5-13.5 [facility] Comment on above: Performed By: #### C MP, LIPID, TSH #### [facility] [address] [place] [address] Dr. Sg Koch PLT 251 103/ul Normal 150-450 [facility] Comment on above: Performed By: #### C MP, LIPID, TSH #### [facility] [address] [address] [address] Sg Koch RBC 4.63 106/ul Critically low 4.70-6.10 [facility] Comment on above: Performed By: #### C MP, LIPID, TSH #### [facility] [address] [address] [address] Sg Koch WBC 7.5 103/ul Normal 4.0-11.0 [facility] Comment on above: Performed By: #### C MP, LIPID, TSH #### [facility] [address] [place] [address] Dr. Sg Koch FREE THYROXINE INDEX T7on FTI 1.82 Normal 1.30-4.50 [facility] Comment on above: Performed By: #### C MP, TSH, T7 #### [facility] [address] [place] [address] Dr. Sg Koch T3U 32.0 % Critically low 33.0-40.0 [facility] Comment on above: Performed By: #### C MP, TSH, T7 #### [facility] [address] [address] [address] Sg Koch T4 [Mass/Vol] 5.70 ug/dL Normal 4.50-12.10 [facility] Comment on above: Performed By: #### C MP, TSH, T7 #### [facility] [address] [place] [address] Dr. Sg Koch IRONon 03-01-2022 Iron [Mass/Vol] 92.0 ug/dL Normal 65.0-175.0 [facility] Comment on above: Performed By: #### V ITAD, IRON, VITB12 #### [facility] [address] [place] [address] Dr. Sg Koch PROF 14(COMP METB)on 022 Albumin [Mass/Vol] 3.8 g/dL Normal 3.4-5.0 [facility] Comment on above: Performed By: #### C MP, TSH, T7 #### [facility] [address] [address] [address] Sg Koch Albumin/Globulin [Mass ratio] 1.0 {ratio} Normal [facility] Comment on above: Performed By: #### C MP, TSH, T7 #### [facility] [address] [address] [address] Sg Koch ALP [Catalytic activity/Vol] 79 U/L Normal 46-116 [facility] Comment on above: Performed By: #### C MP, TSH, T7 #### [facility] [address] [address] [address] Sg Koch ALT [Catalytic activity/Vol] 36 U/L Normal 16-63 [facility] Comment on above: Performed By: #### C MP, TSH, T7 #### [facility] [address] [address] [address] Sg Koch Anion gap [Moles/Vol] 8.4 mmol/L Normal [facility] Comment on above: Performed By: #### C MP, TSH, T7 #### [facility] [address] [address] [address] Sg Koch AST [Catalytic activity/Vol] 19 U/L Normal 15-37 [facility] Comment on above: Performed By: #### C MP, TSH, T7 #### [facility] [address] [address] [address] Sg Koch Bilirubin [Mass/Vol] 0.4 mg/dL Normal 0.2-1.0 [facility] Comment on above: Performed By: #### C MP, TSH, T7 #### [facility] [address] [address] [address] Sg Koch Calcium [Mass/Vol] 8.8 mg/dL Normal 8.5-10.1 [facility] Comment on above: Performed By: #### C MP, TSH, T7 #### [facility] [address] [address] [address] Sg Koch Chloride [Moles/Vol] 102 mmol/L Normal 98-107 [facility] Comment on above: Performed By: #### C MP, TSH, T7 #### [facility] [address] [address] [address] Sg Koch CO2 [Moles/Vol] 30.7 mmol/L Normal 21.0-32.0 [facility] Comment on above: Performed By: #### C MP, TSH, T7 #### [facility] [address] [address] [address] Sg Koch Creatinine [Mass/Vol] 1.36 mg/dL Critically high 0.70-1.30 [facility] Comment on above: Performed By: #### C MP, TSH, T7 #### [facility] [address] [address] [address] Sg Koch EGFR-AF GREEK >60 Normal >=60 [facility] Comment on above: Performed By: #### C MP, TSH, T7 #### [facility] [address] [address] [address] Sg Koch EGFR-NON AF GREEK >60 Normal >=60 [facility] Comment on above: Performed By: #### C MP, TSH, T7 #### [facility] [address] [address] [address] Sg Koch Globulin (S) [Mass/Vol] 3.9 g/dL Normal [facility] Comment on above: Performed By: #### C MP, TSH, T7 #### [facility] [address] [address] [address] Sg Koch Glucose [Mass/Vol] 90 mg/dL Normal 74-106 [facility] Comment on above: Performed By: #### C MP, TSH, T7 #### [facility] [address] [address] [address] Sg Koch Potassium [Moles/Vol] 4.1 mmol/L Normal 3.5-5.1 [facility] Comment on above: Performed By: #### C MP, TSH, T7 #### [facility] [address] [address] [address] Sg Koch Protein [Mass/Vol] 7.7 g/dL Normal 6.4-8.2 [facility] Comment on above: Performed By: #### C MP, TSH, T7 #### [facility] [address] [address] [address] Sg Koch Sodium [Moles/Vol] 137 mmol/L Normal 136-145 [facility] Comment on above: Performed By: #### C MP, TSH, T7 #### [facility] [address] [place] [address] Dr. Sg Koch Urea nitrogen [Mass/Vol] 14.0 mg/dL Normal 7.0-18.0 [facility] Comment on above: Performed By: #### C MP, TSH, T7 #### [facility] [address] [address] [address] Sg Koch Urea nitrogen/Creatinine [Mass ratio] 10.3 mg/mg Normal [facility] Comment on above: Performed By: #### C MP, TSH, T7 #### [facility] [address] [place] [address] Dr. Sg Koch TSHon 03-01-2022 TSH 1.199 uIU/mL Normal 0.358-3.740 [facility] Comment on above: Performed By: #### C MP, TSH, T7 #### [facility] [address] [place] [address] Dr. Sg Koch VITAMIN B12on 03-01-2022 Cobalamin (Vitamin B12) [Mass/Vol] 707.0 pg/mL Normal 193.0-986.0 [facility] Comment on above: Performed By: #### C MP, LIPID, TSH #### [facility] [address] [place] [address] Dr. Sg Koch VITAMIN D 25 OHon 03-01-2022 VIT D 25-OH 29.0 ng/mL Normal [facility] Comment on above: Performed By: #### V ITAD, IRON, VITB12 #### [facility] [address] [place] [address] Dr. Sg Koch VIT D RANGES SEE BELOW Normal [facility] Comment on above: Result Comment: <20 ng/mL Vit D deficient 20 - <30 ng/mL Vit D insufficient 30 - 100 ng/mL Vit D sufficient >100 ng/mL Potential Toxicity Performed By: #### V ITAD, IRON, VITB12 #### [facility] [address] [place] [address] Dr. Sg Koch [facility] SARS-CoV-2 (COVID-19) RNA HARJEET+probe Ql (Unsp spec) Detected Critically abnormal NOT DETECTED [facility] Comment on above: Result Comment: This test is not yet approved or cleared by the [place] FDA. When there are no FDA-approved or cleared tests available, and other criteria are met, FDA can make tests available under an emergency access mechanism called an Emergency Use Authorization (EUA). The EUA for this test is supported by the [place] of Health and Human Service's (HHS's) declaration [...] By: #### C MP, LIPID, TSH #### [facility] [address] [place] [address] Dr. Sg Koch COVID-19, Rapidon 02-06-2022 Interpretation and review of laboratory results Abnormal [facility] SARS-CoV-2 (COVID-19) RNA HARJEET+probe Ql (Unsp spec) Detected Abnormal Not Detected [facility] Comment on above: Rapid NAAT: The specimen [...] this assay. Fact sheet for Healthcare Providers: https://www.fda.gov/media/651597/download Fact sheet for Patients: https://www.fda.gov/media/380800/download Methodology: Isothermal Nucleic Acid Amplification Results reported to the appropriate Health Department Specimen Description .NASOPHARYNGEAL SWAB [facility] Rapid influenza A/B antigens on 02-06-2022 Flu A Antigen Negative NEGATIVE [facility] Comment on above: for Influenza A Anti gen Flu B Antigen Negative NEGATIVE [facility] Comment on above: for Influenza B Anti gen. [facility] XR CHEST 2 Von 01-22-2022 XR CHEST [...] LADY TAPIA Date: 2022-01-22 16:48 Normal [facility] T3, TOTAL (TRIIODOTHYRONINE) on 01-12-2022 T3, TOTAL 119 ng/dL Normal 71-180 [facility] Comment on above: Performed By: #### C MP, LIPID, TSH #### [facility] [address] [address] [address] Sg Koch T4 [facility]on 01-12-2022 T4 [Mass/Vol] 5.6 ug/dL Normal 4.5-12.0 [facility] Comment on above: Performed By: #### C MP, LIPID, TSH #### [facility] [address] [address] [address] Sg Koch TESTOSTERONE, TOTALon 2021 Testosterone [Mass/Vol] 654 ng/dL Normal 264-916 [facility] Comment on above: Result Comment: Adul t male reference interval is based on a population of healthy nonobese males (BMI <30) between 19 and 39 years old. asher Mahmood.al. JCEM 2017,102;[id number]. PMID: [id number]. Performed By: #### C MP, LIPID, TSH #### [facility] [address] [address] [address] Sg Koch VIT D 25-OH [facility] 2021 Vitamin D, 25-Hydroxy 33.1 ng/mL Normal 30.0-100.0 [facility] Comment on above: Result Comment: Odalys min D deficiency has been defined by the [place] of Medicine and an Endocrine Society practice guideline as a level of serum 25-OH vitamin D less than 20 ng/mL (1,2). The Endocrine Society went on to further define vitamin D insufficiency as a level between 21 and 29 ng/mL (2). 1. IOM ([place] of Medicine). 2010. Dietary reference intakes for calcium and D. [place]: The National Academies Press. 2. Carmen MF, Marc MENSAH, Ghulam FONSECA, et al. Evaluation, treatment, and prevention of vitamin D deficiency: an Endocrine Society clinical practice guideline. JCEM. 2010; 96(7):1911-30. Performed By: #### C MP, LIPID, TSH #### [facility] [address] [place] [address] Dr. Sg Koch CBC AUTO DIFFon 01-11-2022 BASO # 0.1 103/ul Normal 0.0-0.1 [facility] Comment on above: Performed By: #### C BC #### [facility] [address] [place] [address] Dr. Sg Koch Basophils/100 WBC (Bld) 0.7 % Normal 0.2-2.0 [facility] Comment on above: Performed By: #### C BC #### [facility] [address] [place] [address] Dr. Sg Koch EO # 0.3 103/ul Normal 0.0-0.7 [facility] Comment on above: Performed By: #### C BC #### [facility] [address] [place] [address] Dr. Sg Koch Eosinophils/100 WBC (Bld) 3.3 % Normal 0.9-7.0 [facility] Comment on above: Performed By: #### C BC #### [facility] [address] [place] [address] Dr. Sg Koch Erythrocyte distribution width (RBC) [Ratio] 13.1 % Normal 11.0-15.0 [facility] Comment on above: Performed By: #### C BC #### [facility] [address] [place] [address] Dr. Sg Koch Hematocrit (Bld) [Volume fraction] 41.5 % Critically low 42.0-54.0 [facility] Comment on above: Performed By: #### C BC #### [facility] [address] [place] [address] Dr. Sg Koch Hemoglobin (Bld) [Mass/Vol] 14.3 g/dL Normal 14.0-18.0 [facility] Comment on above: Performed By: #### C BC #### [facility] [address] [place] [address] Dr. Sg Koch IG # 0.04 10e3/ul Critically high 0.00-0.03 [facility] Comment on above: Performed By: #### C BC #### [facility] [address] [place] [address] Dr. Sg Koch IG % 0.5 % Normal 0.0-0.5 [facility] Comment on above: Performed By: #### C BC #### [facility] [address] [place] [address] Dr. Sg Koch LYMPH # 2.3 103/ul Normal 1.2-3.8 [facility] Comment on above: Performed By: #### C BC #### [facility] [address] [place] [address] Dr. Sg Koch Lymphocytes/100 WBC (Bld) 30.3 % Normal 20.5-60.0 [facility] Comment on above: Performed By: #### C BC #### [facility] [address] [place] [address] Dr. Sg Koch MANUAL DIFF REQ NO Normal [facility] Comment on above: Performed By: #### C BC #### [facility] [address] [place] [address] Dr. Sg Koch MCH (RBC) [Entitic mass] 31.1 pg Normal 25.9-34.0 [facility] Comment on above: Performed By: #### C BC #### [facility] [address] [place] [address] Dr. Sg Koch MCHC (RBC) [Mass/Vol] 34.5 g/dL Normal 29.9-35.2 [facility] Comment on above: Performed By: #### C BC #### [facility] [address] [place] [address] Dr. Sg Koch MCV (RBC) [Entitic vol] 90.2 fL Normal 80.0-94.0 [facility] Comment on above: Performed By: #### C BC #### [facility] [address] [place] [address] Dr. Sg Koch MONO # 0.6 103/ul Normal 0.3-0.8 [facility] Comment on above: Performed By: #### C BC #### [facility] [address] [place] [address] Dr. Sg Koch Monocytes/100 WBC (Bld) 8.4 % Normal 1.7-12.0 [facility] Comment on above: Performed By: #### C BC #### [facility] [address] [place] [address] Dr. Sg Koch NEUT # 4.2 103/ul Normal 1.4-6.5 [facility] Comment on above: Performed By: #### C BC #### [facility] [address] [place] [address] Dr. Sg Koch Neutrophils/100 WBC (Bld) 56.8 % Normal 43.0-75.0 [facility] Comment on above: Performed By: #### C BC #### [facility] [address] [place] [address] Dr. Sg Koch Platelet mean volume (Bld) [Entitic vol] 9.0 fL Critically low 9.5-13.5 [facility] Comment on above: Performed By: #### C BC #### [facility] [address] [place] [address] Dr. Sg Koch PLT 249 103/ul Normal 150-450 [facility] Comment on above: Performed By: #### C BC #### [facility] [address] [address] [address] Sg Koch RBC 4.60 106/ul Critically low 4.70-6.10 [facility] Comment on above: Performed By: #### C BC #### [facility] [address] [address] [address] Sg Koch WBC 7.5 103/ul Normal 4.0-11.0 [facility] Comment on above: Performed By: #### C BC #### [facility] [address] [address] [address] Sg Koch GLYCOHEMOGLOBIN A1Con 2021 ADA RECOMMENDATION SEE BELOW Normal [facility] Comment on above: Result Comment: ADA RECOMMENDED LIMIT 4.0 - 6.0 ADA THERAPEUTIC TARGET < 7.0 ACTION SUGGESTED > 7.0 Performed By: #### C MP, LIPID, TSH #### [facility] [address] [place] [address] Dr. Sg Koch Glucose [Mass/Vol] 105 mg/dL Normal [facility] Comment on above: Performed By: #### C MP, LIPID, TSH #### [facility] [address] [place] [address] Dr. Sg Koch HbA1c (Bld) [Mass fraction] 5.3 % Normal 4.5-6.2 [facility] Comment on above: Performed By: #### C MP, LIPID, TSH #### [facility] [address] [place] [address] Dr. Sg Koch LIPID PROFILEon 01-11-2022 CHOL-HDL RATIO NORM SEE BELOW Normal [facility] Comment on above: Result Comment: 3.3 - 4.4 LOW RISK 4.4 - 7.1 AVERAGE RISK 7.1 - 11.0 MODERATE RISK >11.0 HIGH RISK Performed By: #### C MP, LIPID, TSH #### [facility] [address] [place] [address] Dr. Sg Koch Cholesterol [Mass/Vol] 137 mg/dL Normal <=200 [facility] Comment on above: Performed By: #### C MP, LIPID, TSH #### [facility] [address] [address] [address] Sg Koch Cholesterol in HDL [Mass/Vol] 42 mg/dL Normal 40-60 [facility] Comment on above: Performed By: #### C MP, LIPID, TSH #### [facility] [address] [address] [address] Sg Koch Cholesterol in LDL [Mass/Vol] 81.4 mg/dL Normal [facility] Comment on above: Performed By: #### C MP, LIPID, TSH #### [facility] [address] [address] [address] Sg Koch Cholesterol.total/Cho lesterol in HDL [Mass ratio] 3.3 {ratio} Normal [facility] Comment on above: Performed By: #### C MP, LIPID, TSH #### [facility] [address] [address] [address] Sg Koch HDL NORMAL > or = 60 mg/dl - LO W CARDIOVASCULAR RISK <40 mg/dl - HIGH CARDIOVASCULAR RISK Normal [facility] Comment on above: Performed By: #### C MP, LIPID, TSH #### [facility] [address] [address] [address] Sg Koch LDL CALC NORMAL SEE BELOW Normal [facility] Comment on above: Result Comment: <100 mg/dl OPTIMAL 100 - 129 mg/dl NEAR OR ABOVE OPTIMAL 130 - 159 mg/dl BORDERLINE HIGH 160 - 189 mg/dl HIGH >190 mg/dl VERY HIGH Performed By: #### C MP, LIPID, TSH #### [facility] [address] [address] [address] Sg Koch Triglyceride [Mass/Vol] 68 mg/dL Normal <=150 [facility] Comment on above: Performed By: #### C MP, LIPID, TSH #### [facility] [address] [address] [address] Sg Koch VLDL CALC 13.6 mg/dL Normal [facility] Comment on above: Performed By: #### C MP, LIPID, TSH #### [facility] [address] [address] [address] Sg Koch PROF 14(COMP METB)on 022 Albumin [Mass/Vol] 4.0 g/dL Normal 3.4-5.0 [facility] Comment on above: Performed By: #### C MP, LIPID, TSH #### [facility] [address] [address] [address] Sg Koch Albumin/Globulin [Mass ratio] 1.1 {ratio} Normal [facility] Comment on above: Performed By: #### C MP, LIPID, TSH #### [facility] [address] [address] [address] Sg Koch ALP [Catalytic activity/Vol] 76 U/L Normal 46-116 [facility] Comment on above: Performed By: #### C MP, LIPID, TSH #### [facility] [address] [address] [address] Sg Koch ALT [Catalytic activity/Vol] 30 U/L Normal 16-63 [facility] Comment on above: Performed By: #### C MP, LIPID, TSH #### [facility] [address] [address] [address] Sg Koch Anion gap [Moles/Vol] 10.3 mmol/L Normal [facility] Comment on above: Performed By: #### C MP, LIPID, TSH #### [facility] [address] [address] [address] Sg Koch AST [Catalytic activity/Vol] 22 U/L Normal 15-37 [facility] [facility] Comment on above: Performed By: #### C MP, LIPID, TSH #### [facility] [address] [address] [address] Sg Koch Bilirubin [Mass/Vol] 0.5 mg/dL Normal 0.2-1.0 [facility] Comment on above: Performed By: #### C MP, LIPID, TSH #### [facility] [address] [address] [address] Sg Koch Calcium [Mass/Vol] 8.7 mg/dL Normal 8.5-10.1 [facility] Comment on above: Performed By: #### C MP, LIPID, TSH #### [facility] [address] [address] [address] gS Koch Chloride [Moles/Vol] 104 mmol/L Normal 98-107 [facility] Comment on above: Performed By: #### C MP, LIPID, TSH #### [facility] [address] [address] [address] Sg Koch CO2 [Moles/Vol] 29.0 mmol/L Normal 21.0-32.0 [facility] Comment on above: Performed By: #### C MP, LIPID, TSH #### [facility] [address] [place] [address] Dr. Sg Koch Creatinine [Mass/Vol] 1.41 mg/dL Critically high 0.70-1.30 [facility] Comment on above: Performed By: #### C MP, LIPID, TSH #### [facility] [address] [place] [address] Dr. Sg Koch EGFR-AF GREEK >60 Normal >=60 [facility] Comment on above: Performed By: #### C MP, LIPID, TSH #### [facility] [address] [place] [address] Dr. Sg Koch EGFR-NON AF GREEK <59 Critically low >=60 [facility] Comment on above: Performed By: #### C MP, LIPID, TSH #### [facility] [address] [place] [address] Dr. Sg Koch Globulin (S) [Mass/Vol] 3.5 g/dL Normal [facility] Comment on above: Performed By: #### C MP, LIPID, TSH #### [facility] [address] [place] [address] Dr. gS Koch Glucose [Mass/Vol] 100 mg/dL Normal 74-106 [facility] Comment on above: Performed By: #### C MP, LIPID, TSH #### [facility] [address] [place] [address] Dr. Sg Koch Potassium [Moles/Vol] 4.3 mmol/L Normal 3.5-5.1 [facility] Comment on above: Performed By: #### C MP, LIPID, TSH #### [facility] [address] [place] [address] Dr. Sg Koch Protein [Mass/Vol] 7.5 g/dL Normal 6.4-8.2 [facility] Comment on above: Performed By: #### C MP, LIPID, TSH #### [facility] [address] [address] [address] Sg Kohc Sodium [Moles/Vol] 139 mmol/L Normal 136-145 [facility] Comment on above: Performed By: #### C MP, LIPID, TSH #### [facility] [address] [place] [address] Dr. Sg Koch Urea nitrogen [Mass/Vol] 17.0 mg/dL Normal 7.0-18.0 [facility] Comment on above: Performed By: #### C MP, LIPID, TSH #### [facility] [address] [place] [address] Dr. Sg Koch Urea nitrogen/Creatinine [Mass ratio] 12.1 mg/mg Normal [facility] Comment on above: Performed By: #### C MP, LIPID, TSH #### [facility] [address] [place] [address] Dr. Sg Koch TSHon 01-11-2022 TSH 1.086 uIU/mL Normal 0.358-3.740 [facility] Comment on above: Performed By: #### C MP, LIPID, TSH #### [facility] [address] [place] [address] Dr. Sg Koch COVID Quick Testingon 2021 Result Negative [employer] Other HERPES SIMPLEX 1/2 IGMon HSV, IgM I/II Combination <0.91 Normal 0.00-0.90 [facility] Comment on above: Result Comment: Nega tive <0.91 Equivocal 0.91 - 1.09 Positive >1.09 Effective February 06, 2022 HSV, IgM I/II Combination will be made non-orderable. [facility] offers [id number] HSV 1 and 2-Spec Ab, IgG w/Rfx and [id number] HSV HARJEET. Performed By: #### C MP, LIPID, TSH #### [facility] [address] [address] [address] Sg Koch HEPATITIS PANEL, ACUTEon HBsAg Screen Negative Normal Negative [facility] Comment on above: Performed By: #### C MP, LIPID, TSH #### [facility] [address] [address] [address] Sg Koch HCV AB 0.1 s/co ratio Normal 0.0-0.9 [facility] Comment on above: Performed By: #### C MP, LIPID, TSH #### [facility] [address] [address] [address] Sg Koch Hep A Ab, IgM Negative Normal Negative [facility] Comment on above: Performed By: #### C MP, LIPID, TSH #### [facility] [address] [address] [address] Sg Koch Hep B Core Ab, IgM Negative Normal Negative [facility] Comment on above: Performed By: #### C MP, LIPID, TSH #### [facility] [address] [address] [address] Sg Koch Interpretation: Comment Normal [facility] Comment on above: Result Comment: Nega tive Not infected with HCV, unless recent infection is suspected or other evidence exists to indicate HCV infection. Performed By: #### C MP, LIPID, TSH #### [facility] [address] [address] [address] Sg Koch HERPES SIMPLEX 1/2 IGGon HSV 1 IgG, Type Spec <0.91 Normal 0.00-0.90 [facility] Comment on above: Result Comment: Nega tive <0.91 Equivocal 0.91 - 1.09 Positive >1.09 Note: Negative indicates no antibodies detected to HSV-1. Equivocal may suggest early infection. If clinically appropriate, retest at later date. Positive indicates antibodies detected to HSV-1. Performed By: #### C MP, LIPID, TSH #### [facility] [address] [address] [address] Sg Koch HSV 2 IgG Type Spec 9.36 index Critically high 0.00-0.90 [facility] Comment on above: Result Comment: Nega tive <0.91 Equivocal 0.91 - 1.09 Positive >1.09 Note: Negative indicates no HSV-2 antibodies detected. Positive indicates HSV-2 antibodies detected. Equivocal and low positive HSV-2 screens (Index 0.91-5.00) may be false positive and are reflexed to supplemental testing in accordance with CDC guidelines. Performed By: #### C MP, LIPID, TSH #### [facility] [address] [address] [address] Sg Koch RPR QUANTon 11-08-2021 Rapid Plasma Reagin, Quant Non-Reactive Normal NonRea<1:1 [facility] Comment on above: Result Comment: Plea se Note: This test does not meet current guidelines for screening and diagnosis of syphilis. This test is intended for following treatment response in patients being treated for syphilis infection. To screen for syphilis infection, a reflex cascade that includes both RPR and a treponema-specific assay should be utilized, such as Treponema pallidum (Syphilis) Screening [place] (940769) or Rapid Plasma Reagin (RPR) Test With Reflex to Quantitative RPR and Confirmatory Treponema pallidum Antibodies ([id number]). Performed By: #### C MP, LIPID, TSH #### [facility] [address] [address] [address] Sg Koch CBC Auto Differentialon 03-15 Basophils (Bld) [#/Vol] 0.07 10*3/uL [place] Basophils/100 WBC (Bld) 1 % 0 - 2 % [place] Differential Type NOT REPORTED [place] Eosinophils (Bld) [#/Vol] 0.23 10*3/uL [place] Eosinophils/100 WBC (Bld) 2 % 1 - 4 % [place] Erythrocyte distribution width (RBC) [Ratio] 12.7 % 11.8 - 14.4 % [place] Hematocrit (Bld) [Volume fraction] 44.8 % 40.7 - 50.3 % [place] Hemoglobin (Bld) [Mass/Vol] 15.1 g/dL 13 - 17 g/dL [place] Immature granulocytes (Bld) [#/Vol] 0.07 10*3/uL [place] Immature granulocytes (Bld) [#/Vol] 1 % High 0 [place] Interpretation and review of laboratory results Abnormal [place] Lymphocytes (Bld) [#/Vol] 2.90 10*3/uL [place] Lymphocytes/100 WBC (Bld) 23 % Low 24 - 43 % [place] MCH (RBC) [Entitic mass] 30.4 pg 25.2 - 33.5 pg [place] MCHC (RBC) [Mass/Vol] 33.7 g/dL 28.4 - 34.8 g/dL [place] MCV (RBC) [Entitic vol] 90.1 fL 82.6 - 102.9 fL [place] Monocytes (Bld) [#/Vol] 0.90 10*3/uL [place] Monocytes/100 WBC (Bld) 7 % 3 - 12 % [place] Platelet mean volume (Bld) [Entitic vol] 8.9 fL 8.1 - 13.5 fL [place] Platelets (Bld) [#/Vol] 293 10*3/uL [place] Platelets (Bld) [#/Vol] NOT REPORTED [place] RBC (Bld) [#/Vol] 4.97 10*6/uL 4.21 - 5.7 7 m/uL [place] RBC morphology finding Nom (Bld) NOT REPORTED [place] Segmented neutrophils/100 WBC (Bld) 66 % High 36 - 65 % [place] Segs Absolute 8.54 High [place] WBC (Bld) [#/Vol] 12.7 10*3/uL High [facility] [place] [place] WBC (Bld) [#/Vol] 0.0 10*3/uL 0.0 per 10 0 WBC [place] WBC Morphology NOT REPORTED [place], [place] CBC with Diffon 04-10-2020 Abs. Basophil 0.07 k/uL Normal 0.00-0.20 [facility] Comment on above: Performed By: #### C MPX, CDP #### [facility] [address] [place] [id number] Shuttle Inspector: Víctor Leary MD Abs.Imm.Granulocyte 0.07 k/uL Normal 0.00-0.30 [facility] Comment on above: Performed By: #### C MPX, CDP #### [address] [place] [address] Shuttle Inspector: Víctor Leary MD Abs.Neutrophil (Seg) 8.54 k/uL High 1.50-8.10 [facility] Comment on above: Performed By: #### C MPX, CDP #### [address] [place] [id number] Shuttle Inspector: Víctor Leary MD Basophils/100 WBC (Bld) 1 % Normal 0-2 [facility] Comment on above: Performed By: #### C MPX, CDP #### [address] [place] [id number] Shuttle Inspector: Víctor Leary MD Eosinophils (Bld) [#/Vol] 0.23 10*3/uL Normal 0.00-0.44 [facility] Comment on above: Performed By: #### C MPX, CDP #### [facility] [address] [place] [id number] Shuttle Inspector: Víctor Leary MD Eosinophils/100 WBC (Bld) 2 % Normal 1-4 [facility] Comment on above: Performed By: #### C MPX, CDP #### [address] [place] [id number] Shuttle Inspector: Víctor Leary MD Erythrocyte distribution width (RBC) [Ratio] 12.7 % Normal 11.8-14.4 [facility] Comment on above: Performed By: #### C MPX, CDP #### [facility] [address] [place], [place] [id number] Shuttle Inspector: Víctor Leary MD Hematocrit (Bld) [Volume fraction] 44.8 % Normal 40.7-50.3 [facility] Comment on above: Performed By: #### C MPX, CDP #### [facility] [address] [place], [facility] Shuttle Inspector: Víctor Leary MD Hemoglobin (Bld) [Mass/Vol] 15.1 g/dL Normal 13.0-17.0 [facility] Comment on above: Performed By: #### C MPX, CDP #### [facility] [address] [place], [facility] Shuttle Inspector: Víctor Leary MD Immature granulocytes (Bld) [#/Vol] 1 % High 0 [facility] Comment on above: Performed By: #### C MPX, CDP #### [address] [place], [facility] Shuttle Inspector: Víctor Leary MD Lymphocytes (Bld) [#/Vol] 2.90 10*3/uL Normal 1.10-3.70 [facility] Comment on above: Performed By: #### C MPX, CDP #### [facility] [address] [place], [place] [id number] Shuttle Inspector: Víctor Leary MD Lymphocytes/100 WBC (Bld) 23 % Low 24-43 [facility] Comment on above: Performed By: #### C MPX, CDP #### [facility] [address] [place], [facility] Shuttle Inspector: Víctor Leary MD MCH (RBC) [Entitic mass] 30.4 pg Normal 25.2-33.5 [facility] Comment on above: Performed By: #### C MPX, CDP #### [facility] [address] [place], [place] [id number] Shuttle Inspector: Víctor Leary MD MCHC (RBC) [Mass/Vol] 33.7 g/dL Normal 28.4-34.8 [facility] Comment on above: Performed By: #### C MPX, CDP #### [facility] [address] [place], [place] [id number] Shuttle Inspector: Víctor Leary MD MCV (RBC) [Entitic vol] 90.1 fL Normal 82.6-102.9 [facility] Comment on above: Performed By: #### C MPX, CDP #### [facility] [address] [place] [address] Shuttle Inspector: Víctor Leary MD Monocytes (Bld) [#/Vol] 0.90 10*3/uL Normal 0.10-1.20 [facility] Comment on above: Performed By: #### C MPX, CDP #### [facility] [address] [place], [place] 1089783 Shuttle Inspector: Víctor Leary MD Monocytes/100 WBC (Bld) 7 % Normal 3-12 [facility] Comment on above: Performed By: #### C MPX, CDP #### [facility] [address] [place], [place] 2338983 Shuttle Inspector: Víctor Leary MD Neutrophil (Seg) 66 % High 36-65 [facility] Comment on above: Performed By: #### C MPX, CDP #### [facility] [address] [place] [address] Shuttle Inspector: Víctor Leary MD NRBC Automated 0.0 per 100 WBC Normal 0.0 [facility] Comment on above: Performed By: #### C MPX, CDP #### [facility] [address] [place], [place] [id number] Shuttle Inspector: Víctor Leary MD Platelet mean volume (Bld) [Entitic vol] 8.9 fL Normal 8.1-13.5 [facility] Comment on above: Performed By: #### C MPX, CDP #### [facility] [address] [place], [place] 7227483 Shuttle Inspector: Víctor Leary MD Platelets (Bld) [#/Vol] 293 10*3/uL Normal 138-453 [facility] Comment on above: Performed By: #### C MPX, CDP #### [facility] [address] [place], [facility] Shuttle Inspector: Víctor Leary MD RBC (Bld) [#/Vol] 4.97 10*6/uL Normal 4.21-5.77 [facility] Comment on above: Performed By: #### C MPX, CDP #### [facility] [address] [place], [facility] Shuttle Inspector: Víctor Leary MD WBC (Bld) [#/Vol] 12.7 10*3/uL High 3.5-11.3 [facility] Comment on above: Performed By: #### C MPX, CDP #### [facility] [address] [place], [facility] Shuttle Inspector: Víctor Leary MD Auto Diff Performed NOT REPORTED Normal [facility] Comment on above: Performed By: #### C MPX, CDP #### [facility] [address] [place], [place] [id number] Shuttle Inspector: Víctor Leary MD Platelets (Bld) [#/Vol] NOT REPORTED Normal [facility] Comment on above: Performed By: #### C MPX, CDP #### [facility] [address] [place], [facility] Shuttle Inspector: Víctor Leary MD RBC morphology finding Nom (Bld) NOT REPORTED Normal [facility] Comment on above: Performed By: #### C MPX, CDP #### [facility] [address] [place] [address] Shuttle Inspector: Víctor Leary MD WBC Morphology NOT REPORTED Normal [facility] Comment on above: Performed By: #### C MPX, CDP #### [facility] [address] [place] [address] Shuttle Inspector: Víctor Leary MD COVID-19on 04-10-2020 SARS-CoV-2, Rapid Not Detected Not Detected [place], [place] Comment on above: Rapid NAAT: The specimen [...] management decisions. Fact sheet for Healthcare Providers: https://www.fda.gov/media/142464/download Fact sheet for Patients: https://www.fda.gov/media/498271/download Methodology: Isothermal Nucleic Acid Amplification Source .NASOPHARYNGEAL SWAB [place], [place] Comp Metabolic Pr/rfx MGon 1 06-10-2019 (cont.) Normal [facility] Comment on above: Result Comment: Aver age GFR for 20-29 years old: 116 mL/min/1.73sq m Chronic Kidney Disease: <60 mL/min/1.73sq m Kidney failure: <15 mL/min/1.73sq m eGFR calculated using average adult body mass. Additional eGFR calculator available at: http://www.[employer]/multiple_crcl_2012.htm Performed By: #### C MPX, CDP #### [facility] [address] [place], [place] 4998983 Shuttle Inspector: Víctor Leary MD Albumin [Mass/Vol] 4.2 g/dL Normal 3.5-5.2 [facility] Comment on above: Performed By: #### C MPX, CDP #### [facility] [address] [place], [place] 0393783 Shuttle Inspector: Víctor Leary MD Albumin/Globulin [Mass ratio] 1.3 {ratio} Normal 1.0-2.5 [facility] Comment on above: Performed By: #### C MPX, CDP #### [facility] [address] [place], [place] [id number] Shuttle Inspector: Víctor Leary MD Alkaline Phos 83 U/L Normal 40-129 [facility] Comment on above: Performed By: #### C MPX, CDP #### [facility] [address] [place], [place] 1169083 Shuttle Inspector: Víctor Leary MD ALT [Catalytic activity/Vol] 26 U/L Normal 5-41 [facility] Comment on above: Performed By: #### C MPX, CDP #### [facility] [address] [place], [place] [id number] Shuttle Inspector: Víctor Leary MD Anion gap [Moles/Vol] 7 mmol/L Low 9-17 [facility] Comment on above: Performed By: #### C MPX, CDP #### [facility] [address] [place], [place] 5349583 Shuttle Inspector: Víctor Leary MD AST [Catalytic activity/Vol] 21 U/L Normal <40 [facility] Comment on above: Performed By: #### C MPX, CDP #### [facility] [address] [place], [place] 8246083 Shuttle Inspector: Víctor Leary MD Bilirubin Ql (U) 0.17 mg/dL Low 0.3-1.2 [facility] Comment on above: Performed By: #### C MPX, CDP #### [facility] [address] [place], [place] 4982983 Shuttle Inspector: Víctor Leary MD BUN/CRE Ratio 12 Normal 9-20 [facility] Comment on above: Performed By: #### C MPX, CDP #### [facility] [address] [place] [address] Shuttle Inspector: Víctor Leary MD Calcium [Mass/Vol] 9.4 mg/dL Normal 8.6-10.4 [facility] Comment on above: Performed By: #### C MPX, CDP #### [facility] [address] [place], [place] 3887783 Shuttle Inspector: Víctor Leary MD Chloride [Moles/Vol] 101 mmol/L Normal 98-107 [facility] Comment on above: Performed By: #### C MPX, CDP #### [facility] [address] [place], [place] 4734683 Shuttle Inspector: Víctor Leary MD CO2 [Moles/Vol] 28 mmol/L Normal 20-[address] [facility] Comment on above: Performed By: #### C MPX, CDP #### [facility] [address] [place], [place] 6028383 Shuttle Inspector: Víctor Leary MD Creatinine [Mass/Vol] 1.13 mg/dL Normal 0.70-1.20 [facility] Comment on above: Performed By: #### C MPX, CDP #### [facility] [address] [place] [address] Shuttle Inspector: Víctor Leary MD GFR, Amer >60 Normal >60 [facility] Comment on above: Performed By: #### C MPX, CDP #### [facility] [address] [place], [place] 2407483 Shuttle Inspector: Víctor Leary MD GFR,non Amer >60 Normal >60 [facility] Comment on above: Performed By: #### C MPX, CDP #### [facility] [address] [place], [place] 2852883 Shuttle Inspector: Víctor Leary MD Glucose [Mass/Vol] 114 mg/dL High 70-99 [facility] Comment on above: Performed By: #### C MPX, CDP #### [facility] [address] [place], [place] [id number] Shuttle Inspector: Víctor Leary MD Potassium [Moles/Vol] 4.0 mmol/L Normal 3.7-5.3 [facility] Comment on above: Performed By: #### C MPX, CDP #### [facility] [address] [place], [place] 3194783 Shuttle Inspector: Víctor Leary MD Protein [Mass/Vol] 7.5 g/dL Normal 6.4-8.3 [facility] Comment on above: Performed By: #### C MPX, CDP #### [facility] [address] [place], [place] 7[address]1283 Shuttle Inspector: Víctor Leary MD Sodium [Moles/Vol] 136 mmol/L Normal 135-144 [facility] Comment on above: Performed By: #### C MPX, CDP #### [facility] [address] [place], [place] 1264683 Shuttle Inspector: Víctor Leary MD Staging: Normal [facility] Comment on above: Result Comment: Stag e 1: Some kidney damage normal GFR Stage 2: Mild kidney damage GFR 60-89 Stage 3: Moderate kidney damage GFR 30-59 Stage 4: Severe kidney damage GFR 15-29 Stage 5: Severe kidney damage GFR <15 ESRD - chronic treatment by dialysis or transplant Performed By: #### C MPX, CDP #### [facility] [address] [place] [address] Shuttle Inspector: Víctor Leary MD Urea nitrogen [Mass/Vol] 14 mg/dL Normal 6-20 [facility] Comment on above: Performed By: #### C MPX, CDP #### [facility] [address] [place] [address] Shuttle Inspector: Víctor Leary MD Comprehensive Metabolic Pane l w/ Reflex to MGon 04-10-2020 Albumin [Mass/Vol] 4.2 g/dL 3.5 - 5.2 g/dL [place] Albumin/Globulin [Mass ratio] 1.3 {ratio} [place] ALP [Catalytic activity/Vol] 83 U/L 40 - 129 U/L [place] ALT [Catalytic activity/Vol] 26 U/L 5 - 41 U/L [place] Anion gap [Moles/Vol] 7 mmol/L Low 9 - 17 mmol/L [place] AST [Catalytic activity/Vol] 21 U/L <40 [place] Bilirubin Ql (U) 0.17 mg/dL Low 0.3 - 1.2 mg/dL [place] Bun/Cre Ratio 12 [place] Calcium [Mass/Vol] 9.4 mg/dL 8.6 - 10. 4 mg/dL [place] Chloride [Moles/Vol] 101 mmol/L 98 - 10 7 mmol/L [place] CO2 [Moles/Vol] 28 mmol/L 20 - 31 mmol/L [place] Creatinine [Mass/Vol] 1.13 mg/dL 0.7 - 1.2 mg/dL [place] GFR >60 >60 mL/min [place] GFR Non- >60 >60 mL/min [place] Glucose [Mass/Vol] 114 mg/dL High 70 - 99 mg/dL [place] Interpretation and review of laboratory results Abnormal [place] Potassium [Moles/Vol] 4.0 mmol/L 3.7 - 5.3 mmol/L [place] Protein [Mass/Vol] 7.5 g/dL 6.4 - 8.3 g/dL [place] Sodium [Moles/Vol] 136 mmol/L 135 - 144 mmol/L [place] Urea nitrogen [Mass/Vol] 14 mg/dL 6 - 20 mg/dL [place] Drug Scr, Abuse, Uron 2019 Amphetamine(s),Ur Negative Normal NEG [facility] Comment on above: Performed By: #### U A, LEILANI #### [facility] [address] [place] [address] Shuttle Inspector: Víctor Leary MD Barbiturate(s),Ur Negative Normal NEG [facility] Comment on above: Performed By: #### U A, LEILANI #### [facility] [address] [place] [id number] Shuttle Inspector: Víctor Leary MD Base excess Calc (Bld) [Moles/Vol] Negative Normal [facility] Comment on above: Performed By: #### U A, LEILANI #### [address] [place] [address] Shuttle Inspector: Víctor Leary MD Benzodiazepine(s) Negative Normal [facility] Comment on above: Performed By: #### U A, LEILANI #### [facility] [address] [place] [id number] Shuttle Inspector: Vícotr Leary MD Buprenorphrine, Ur Negative Normal [facility] Comment on above: Performed By: #### U A, LEILANI #### [facility] [address] [place] [address] Shuttle Inspector: Víctor Leary MD Cannabinoid(s),Ur Negative Normal [facility] Comment on above: Performed By: #### U A, LEILANI #### [facility] [address] [place] [address] Shuttle Inspector: Víctor Leary MD Methadone Ql (U) Negative Normal [facility] Comment on above: Performed By: #### U A, LEILANI #### [facility] [address] [place] [address] Shuttle Inspector: Víctor Leary MD Methamphetamine, Ur Negative Normal NEG [facility] Comment on above: Performed By: #### U A, LEILANI #### [facility] [address] [place], [place] [id number] Shuttle Inspector: Víctor Leary MD Opiate(s), Ur Negative Normal NEG [facility] Comment on above: Performed By: #### U A, LEILANI #### [facility] [address] [place], [place] [id number] Shuttle Inspector: Víctor Leary MD Oxycodone, Urine Negative Normal [facility] Comment on above: Performed By: #### U A, LEILANI #### [facility] [address] [place], [place] [id number] Shuttle Inspector: Víctor Leary MD Phencyclidine, Ur Negative Normal [facility] Comment on above: Performed By: #### U A, LEILANI #### [facility] [address] [place], [place] [id number] Shuttle Inspector: Víctor Leary MD Propoxyphene,Urine Negative Normal NEG [facility] Comment on above: Performed By: #### U A, LEILANI #### [facility] [address] [place], [place] 1907783 Shuttle Inspector: Víctor Leary MD Tricyclic antidepressants Screen Ql (U) Negative Normal [facility] Comment on above: Result Comment: Drug screen results are to be used for medical purposes only. All positive results are unconfirmed. Testing for employment or legal uses should be sent to a reference laboratory for confirmation. Performed By: #### U A, LEILANI #### [facility] [address] [place] [address] Shuttle Inspector: Víctor Leary MD Interpretive Info NOT REPORTED Normal [facility] Comment on above: Performed By: #### U A, LEILANI #### [facility] [address] [place] [address] Shuttle Inspector: Víctor Leary MD MDMA, Urine NOT REPORTED Normal NEG [facility] Comment on above: Performed By: #### U A, LEILANI #### [facility] [address] [place] [address] Shuttle Inspector: Víctor Leary MD Drug screen multi urineon Amphetamine Screen, Ur Negative NEGATIVE [facility] [place] Barbiturate Screen, Ur Negative NEGATIVE [facility] [place] Benzodiazepine Screen, Urine Negative NEGATIVE [facility] [place] Buprenorphine Urine Negative NEGATIVE [facility] [place] Cannabinoid Scrn, Ur Negative NEGATIVE [facility] [place] Cocaine Metabolite, Urine Negative NEGATIVE [facility] [place] MDMA, Urine NOT REPORTED NEGATIVE [facility] [place] Methadone Screen, Urine Negative NEGATIVE [facility] [place] Methamphetamine, Urine Negative NEGATIVE [facility] [place] Opiates, Urine Negative NEGATIVE [facility] [place] Oxycodone Screen, Ur Negative NEGATIVE [facility] [place] Phencyclidine, Urine Negative NEGATIVE [facility] [place] Propoxyphene, Urine Negative NEGATIVE [facility] [place] Test Information NOT REPORTED [facility] [place] Tricyclic Antidepressants, Urine Negative NEGATIVE [facility] [place] Comment on above: Drug screen results are to be used for medical purposes only. All positive results are unconfirmed. Testing for employment or legal uses should be sent to a reference laboratory for confirmation. Ethanolon 04-10-2020 Ethanol [Mass/Vol] mg/dL <10 mg/dL [facility], [place] Ethanol percent <0.010 <0.010 % [place], [place] Ethanol Alcoholon 04-10-2020 Ethanol [Mass/Vol] mg/dL Normal <10 [facility] Comment on above: Performed By: #### A LCB #### [facility] [address] [place] [address] Shuttle Inspector: Víctor Leary MD Ethanol percent <0.010 Normal <0.[address] [facility] Comment on above: Performed By: #### A LCB #### [facility] [address] [place] [address] Shuttle Inspector: Víctor Leary MD Metabolic Panelon 04-10-2020 GFR/1.73 sq M predicted among non-blacks MDRD (S/P/Bld) [Vol rate/Area] [place], [place] Comment on above: Stage 1: Some [...] body mass. Additional eGFR calculator available at: http://www.[employer]/multiple_crcl_2012.htm Otheron 04-10-2020 SARS-CoV-2 [place], [place] [id number] 04-10-2020 SARS-CoV-2,Rapid Not Detected Normal NOTDET [facility] Comment on above: Result Comment: Rapid [...] management decisions. Fact sheet for Healthcare Providers: https://www.fda.gov/media/275575/download Fact sheet for Patients: https://www.fda.gov/media/985088/download Methodology: Isothermal Nucleic Acid Amplification Performed By: #### C OVID #### [facility] [address] [place], [place] [id number] Shuttle Inspector: Víctor Leary MD SARS-CoV-2 [facility] Comment on above: Performed By: #### C OVID #### [facility] [address] [place] [id number] Shuttle Inspector: Víctor Leary MD SARS-CoV-2 Source .NASOPHARYNGEAL SWAB Normal [facility] Comment on above: Performed By: #### C OVID #### [facility] [address] [place] [id number] Shuttle Inspector: Víctor Leary MD TSH w/reflex to FT4on 2019 TSH Qn 2.45 m[IU]/L Normal 0.30-5.00 [facility] Comment on above: Performed By: #### T SHX #### [facility] [address] [place] [id number] Shuttle Inspector: Víctor Leary MD TSH with Reflexon 04-10-2020 TSH Qn 2.45 m[IU]/L [facility], [place] Urinalysis, Routineon 2019 Acetoacetic Acid,Ur Negative Normal NEG [facility] Comment on above: Performed By: #### U A, LEILANI #### [facility] [address] [place] [id number] Shuttle Inspector: Víctor Leary MD Bilirubin, SemiQt,Ur Negative Normal NEG [facility] Comment on above: Performed By: #### U A, LEILANI #### [facility] [address] [place] [id number] Shuttle Inspector: Víctor Leary MD Color (U) YELLOW Normal YEL [facility] Comment on above: Performed By: #### U A, LEILANI #### [facility] [address] [place] [address] [place], [place] [id number] Shuttle Inspector: Víctor Leary MD Glucose Ql (U) Negative Normal NEG [facility] Comment on above: Performed By: #### U A, LEILANI #### [facility] [address] [place], [place] [id number] Shuttle Inspector: Víctor Leary MD Hemoglobin, Ur Negative Normal NEG [facility] Comment on above: Performed By: #### U A, LEILANI #### [address] [place], [place] [address]1983 Shuttle Inspector: Víctor Leary MD Leukocyte esterase Test strip Ql (U) Negative Normal NEG [facility] Comment on above: Performed By: #### U A, LEILANI #### [address] [place], [place] [id number] Shuttle Inspector: Víctor Leary MD Nitrite,Ur Negative Normal [facility] Comment on above: Performed By: #### U A, LEILANI #### [address] [place], [place] [id number] Shuttle Inspector: Víctor Leary MD pH (U) 5.5 [pH] Normal 5.0-9.0 [facility] Comment on above: Performed By: #### U A, LEILANI #### [facility] [address] [place] [address] [place], [place] [id number] Shuttle Inspector: Víctor Leary MD Protein Ql (U) Negative Normal NEG [facility] Comment on above: Performed By: #### U A, LEILANI #### [facility] [address] [place] [address] [place], [place] [id number] Shuttle Inspector: Víctor Leary MD Specific gravity (U) [Rel density] >1.030 High 1.010-1.020 [facility] Comment on above: Performed By: #### U A, LEILANI #### [facility] [address] [place] [id number] Shuttle Inspector: Víctor Leary MD Turbidity CLEAR Normal CLEAR [facility] Comment on above: Performed By: #### U A, LEILANI #### [facility] [address] [place] [address] Shuttle Inspector: Víctor Leary MD Urobilinogen,Ur Normal Normal NORM [facility] Comment on above: Performed By: #### U A, LEILANI #### [facility] [address] [place] [id number] Shuttle Inspector: Víctor Leary MD Comment NOT REPORTED Normal [facility] Comment on above: Performed By: #### U A, LEILANI #### [facility] [address] [place] [id number] Shuttle Inspector: Víctor Leary MD Urinalysis, reflex to micros copicon 04-10-2020 Bilirubin Urine Negative NEGATIVE [facility], [place] Color, UA YELLOW YELLOW [place] Glucose, Ur Negative NEGATIVE [place] Interpretation and review of laboratory results Abnormal [place] Ketones Ql (U) Negative NEGATIVE [place], [place] Leukocyte esterase Test strip Ql (U) Negative NEGATIVE [place] Nitrite, Urine Negative NEGATIVE [facility], [place] pH, UA 5.5 [place], [place] Protein (U) [Mass/Vol] Negative NEGATIVE [facility], [place] Specific [place], UA >1.030 [place], [place] Turbidity UA CLEAR CLEAR [place] Urinalysis Comments NOT REPORTED [place], [place] Urine Hgb Negative NEGATIVE [place] Urobilinogen, Urine Normal Normal [place] CBC Auto Differentialon 04-0 Basophils (Bld) [#/Vol] 0.06 10*3/uL [place] Basophils/100 WBC (Bld) 1 % 0 - 2 % [place] Differential Type NOT REPORTED [place] Eosinophils (Bld) [#/Vol] 0.27 10*3/uL [place] Eosinophils/100 WBC (Bld) 4 % 1 - 4 % [place] Erythrocyte distribution width (RBC) [Ratio] 12.4 % 11.8 - 14.4 % [place] Hematocrit (Bld) [Volume fraction] 46.1 % 40.7 - 50.3 % [place] Hemoglobin (Bld) [Mass/Vol] 15.5 g/dL 13 - 17 g/dL [place] Immature granulocytes (Bld) [#/Vol] 0 % 0 [place] Immature granulocytes (Bld) [#/Vol] 10*3/uL [place] Lymphocytes (Bld) [#/Vol] 2.22 10*3/uL [place] Lymphocytes/100 WBC (Bld) 32 % 24 - 43 % [place] MCH (RBC) [Entitic mass] 30.2 pg 25.2 - 33.5 pg [place] MCHC (RBC) [Mass/Vol] 33.6 g/dL 28.4 - 34.8 g/dL [place] MCV (RBC) [Entitic vol] 89.9 fL 82.6 - 102.9 fL [place] Monocytes (Bld) [#/Vol] 0.44 10*3/uL [place] Monocytes/100 WBC (Bld) 6 % 3 - 12 % [place] Platelet mean volume (Bld) [Entitic vol] 8.8 fL 8.1 - 13.5 fL [place] Platelets (Bld) [#/Vol] NOT REPORTED [place] Platelets (Bld) [#/Vol] 258 10*3/uL [place] RBC (Bld) [#/Vol] 5.13 10*6/uL 4.21 - 5.7 7 m/uL [place] RBC morphology finding Nom (Bld) NOT REPORTED [place] Segmented neutrophils/100 WBC (Bld) 57 % 36 - 65 % [place] Segs Absolute 3.95 [place], [place] WBC (Bld) [#/Vol] 0.0 10*3/uL 0.0 per 10 0 WBC [place] WBC (Bld) [#/Vol] 7.0 10*3/uL [place] WBC Morphology NOT REPORTED [place], [place] CBC with Diffon 08-19-2019 Abs. Basophil 0.06 k/uL Normal 0.00-0.20 [facility] Comment on above: Performed By: #### C MPX, CDP #### [address] [place] [address] Shuttle Inspector: Víctor Leary MD Abs.Imm.Granulocyte <0.03 Normal 0.00-0.30 [facility] Comment on above: Performed By: #### C MPX, CDP #### [facility] [address] [place] [id number] Shuttle Inspector: Víctor Leary MD Abs.Neutrophil (Seg) 3.95 k/uL Normal 1.50-8.10 [facility] Comment on above: Performed By: #### C MPX, CDP #### [address] [place] [id number] Shuttle Inspector: Víctor Leary MD Basophils/100 WBC (Bld) 1 % Normal 0-2 [facility] Comment on above: Performed By: #### C MPX, CDP #### [facility] [address] [place] [address] Shuttle Inspector: Víctor Leary MD Eosinophils (Bld) [#/Vol] 0.27 10*3/uL Normal 0.00-0.44 [facility] Comment on above: Performed By: #### C MPX, CDP #### [facility] [address] [place], [facility]83 Shuttle Inspector: Víctor Leary MD Eosinophils/100 WBC (Bld) 4 % Normal 1-4 [facility] Comment on above: Performed By: #### C MPX, CDP #### [facility] [address] [place], [facility]83 Shuttle Inspector: Víctor Leary MD Erythrocyte distribution width (RBC) [Ratio] 12.4 % Normal 11.8-14.4 [facility] Comment on above: Performed By: #### C MPX, CDP #### [facility] [address] [place], [facility] Shuttle Inspector: Víctor Leary MD Hematocrit (Bld) [Volume fraction] 46.1 % Normal 40.7-50.3 [facility] Comment on above: Performed By: #### C MPX, CDP #### [facility] [address] [place], [facility]83 Shuttle Inspector: Víctor Leary MD Hemoglobin (Bld) [Mass/Vol] 15.5 g/dL Normal 13.0-17.0 [facility] Comment on above: Performed By: #### C MPX, CDP #### [address] [place], [facility] Shuttle Inspector: Víctor Leary MD Immature granulocytes (Bld) [#/Vol] 0 % Normal 0 [facility] Comment on above: Performed By: #### C MPX, CDP #### [facility] [address] [place], [facility] Shuttle Inspector: Víctor Leary MD Lymphocytes (Bld) [#/Vol] 2.22 10*3/uL Normal 1.10-3.70 [facility] Comment on above: Performed By: #### C MPX, CDP #### [facility] [address] [place], [facility]83 Shuttle Inspector: Víctor Leary MD Lymphocytes/100 WBC (Bld) 32 % Normal 24-43 [facility] Comment on above: Performed By: #### C MPX, CDP #### [facility] [address] [place] [address] Shuttle Inspector: Víctor Leary MD MCH (RBC) [Entitic mass] 30.2 pg Normal 25.2-33.5 [facility] Comment on above: Performed By: #### C MPX, CDP #### [facility] [address] [place] [address] Shuttle Inspector: Víctor Leary MD MCHC (RBC) [Mass/Vol] 33.6 g/dL Normal 28.4-34.8 [facility] Comment on above: Performed By: #### C MPX, CDP #### [facility] [address] [place] [address] Shuttle Inspector: Víctor Leary MD MCV (RBC) [Entitic vol] 89.9 fL Normal 82.6-102.9 [facility] Comment on above: Performed By: #### C MPX, CDP #### [facility] [address] [place] [address] Shuttle Inspector: Víctor Leary MD Monocytes (Bld) [#/Vol] 0.44 10*3/uL Normal 0.10-1.20 [facility] Comment on above: Performed By: #### C MPX, CDP #### [facility] [address] [place], [place] [id number] Shuttle Inspector: Víctor Leary MD Monocytes/100 WBC (Bld) 6 % Normal 3-12 [facility] Comment on above: Performed By: #### C MPX, CDP #### [facility] [address] [place] [address] Shuttle Inspector: Víctor Leary MD Neutrophil (Seg) 57 % Normal 36-65 [facility] Comment on above: Performed By: #### C MPX, CDP #### [facility] [address] [place] [address] Shuttle Inspector: Víctor Leary MD NRBC Automated 0.0 per 100 WBC Normal 0.0 [facility] Comment on above: Performed By: #### C MPX, CDP #### [facility] [address] [place], [facility]83 Shuttle Inspector: Víctor Leary MD Platelet mean volume (Bld) [Entitic vol] 8.8 fL Normal 8.1-13.5 [facility] Comment on above: Performed By: #### C MPX, CDP #### [facility] [address] [place], [place] [id number] Shuttle Inspector: Víctor Leary MD Platelets (Bld) [#/Vol] 258 10*3/uL Normal 138-453 [facility] Comment on above: Performed By: #### C MPX, CDP #### [address] [place] [address] Shuttle Inspector: Víctor Leary MD RBC (Bld) [#/Vol] 5.13 10*6/uL Normal 4.21-5.77 [facility] Comment on above: Performed By: #### C MPX, CDP #### [address] [place] [address] Shuttle Inspector: Víctor Leary MD WBC (Bld) [#/Vol] 7.0 10*3/uL Normal 3.5-11.3 [facility] Comment on above: Performed By: #### C MPX, CDP #### [facility] [address] [place], [place] [id number] Shuttle Inspector: Víctor Leary MD Auto Diff Performed NOT REPORTED Normal [facility] Comment on above: Performed By: #### C MPX, CDP #### [facility] [address] [place], [place] [id number] Shuttle Inspector: Víctor Leary MD Platelets (Bld) [#/Vol] NOT REPORTED Normal [facility] Comment on above: Performed By: #### C MPX, CDP #### [facility] [address] [place] [address] Shuttle Inspector: Víctor Leary MD RBC morphology finding Nom (Bld) NOT REPORTED Normal [facility] Comment on above: Performed By: #### C MPX, CDP #### [facility] [address] [place] [address] Shuttle Inspector: Víctor Leary MD WBC Morphology NOT REPORTED Normal [facility] Comment on above: Performed By: #### C MPX, CDP #### [facility] [address] [place] [address] Shuttle Inspector: Víctor Leary MD Comp Metabolic Pr/rfx MGon 0 08-19-2019 (cont.) Normal [facility] Comment on above: Result Comment: Aver age GFR for 20-29 years old: 116 mL/min/1.73sq m Chronic Kidney Disease: <60 mL/min/1.73sq m Kidney failure: <15 mL/min/1.73sq m eGFR calculated using average adult body mass. Additional eGFR calculator available at: http://www.[employer]/multiple_crcl_2012.htm Performed By: #### C MPX, CDP #### [facility] [address] [place] [address] Shuttle Inspector: Víctor Leary MD Albumin [Mass/Vol] 4.1 g/dL Normal 3.5-5.2 [facility] Comment on above: Performed By: #### C MPX, CDP #### [facility] [address] [place] [address] Shuttle Inspector: Víctor Leary MD Albumin/Globulin [Mass ratio] 1.1 {ratio} Normal 1.0-2.5 [facility] Comment on above: Performed By: #### C MPX, CDP #### [facility] [address] [place], [place] 5093283 Shuttle Inspector: Víctor Leary MD Alkaline Phos 87 U/L Normal 40-129 [facility] Comment on above: Performed By: #### C MPX, CDP #### [facility] [address] [place], [place] [id number] Shuttle Inspector: Víctor Leary MD ALT [Catalytic activity/Vol] 23 U/L Normal 5-41 [facility] Comment on above: Performed By: #### C MPX, CDP #### [facility] [address] [place], [place] 8777083 Shuttle Inspector: Víctor Leary MD Anion gap [Moles/Vol] 14 mmol/L Normal 9-17 [facility] Comment on above: Performed By: #### C MPX, CDP #### [facility] [address] [place], [place] 0051083 Shuttle Inspector: Víctor Leary MD AST [Catalytic activity/Vol] 20 U/L Normal <40 [facility] Comment on above: Performed By: #### C MPX, CDP #### [facility] [address] [place], [place] [id number] Shuttle Inspector: Víctor Leary MD Bilirubin Ql (U) 0.38 mg/dL Normal 0.3-1.2 [facility] Comment on above: Performed By: #### C MPX, CDP #### [facility] [address] [place], [place] 6046283 Shuttle Inspector: Víctor Leary MD BUN/CRE Ratio 13 Normal 9-20 [facility] Comment on above: Performed By: #### C MPX, CDP #### [facility] [address] [place], [place] 8507983 Shuttle Inspector: Víctor Leary MD Calcium [Mass/Vol] 9.2 mg/dL Normal 8.6-10.4 [facility] Comment on above: Performed By: #### C MPX, CDP #### [facility] [address] [place], [place] 3968183 Shuttle Inspector: Víctor Leary MD Chloride [Moles/Vol] 100 mmol/L Normal 98-107 [facility] Comment on above: Performed By: #### C MPX, CDP #### [facility] [address] [place], [place] 9827383 Shuttle Inspector: Víctor Leary MD CO2 [Moles/Vol] 24 mmol/L Normal 20-[address] [facility] Comment on above: Performed By: #### C MPX, CDP #### [facility] [address] [place], [place] 4522183 Shuttle Inspector: Víctor Leary MD Creatinine [Mass/Vol] 1.15 mg/dL Normal 0.70-1.20 [facility] Comment on above: Performed By: #### C MPX, CDP #### [facility] [address] [place], [place] 8973583 Shuttle Inspector: Víctor Leary MD GFR, Amer >60 Normal >60 [facility] Comment on above: Performed By: #### C MPX, CDP #### [facility] [address] [place], [place] 4247483 Shuttle Inspector: Víctor Leary MD GFR,non Amer >60 Normal >60 [facility] Comment on above: Performed By: #### C MPX, CDP #### [facility] [address] [place], [place] 5214483 Shuttle Inspector: Víctor Leary MD Glucose [Mass/Vol] 157 mg/dL High 70-99 [facility] Comment on above: Performed By: #### C MPX, CDP #### [facility] [address] [place], [place] 4666583 Shuttle Inspector: Víctor Leary MD Potassium [Moles/Vol] 4.0 mmol/L Normal 3.7-5.3 [facility] Comment on above: Performed By: #### C MPX, CDP #### [facility] [address] [place] [address] Shuttle Inspector: Víctor Leary MD Protein [Mass/Vol] 7.9 g/dL Normal 6.4-8.3 [facility] Comment on above: Performed By: #### C MPX, CDP #### [facility] [address] [place] [address] Shuttle Inspector: Víctor Leary MD Sodium [Moles/Vol] 138 mmol/L Normal 135-144 [facility] Comment on above: Performed By: #### C MPX, CDP #### [facility] [address] [place] [address] Shuttle Inspector: Víctor Leary MD Staging: Normal [facility] Comment on above: Result Comment: Stag e 1: Some kidney damage normal GFR Stage 2: Mild kidney damage GFR 60-89 Stage 3: Moderate kidney damage GFR 30-59 Stage 4: Severe kidney damage GFR 15-29 Stage 5: Severe kidney damage GFR <15 ESRD - chronic treatment by dialysis or transplant Performed By: #### C MPX, CDP #### [facility] [address] [place] [address] Shuttle Inspector: Víctor Leary MD Urea nitrogen [Mass/Vol] 15 mg/dL Normal 6-20 [facility] Comment on above: Performed By: #### C MPX, CDP #### [facility] [address] [place] [address] Shuttle Inspector: Víctor Leary MD Comprehensive Metabolic Pane l w/ Reflex to MGon 08-19-2019 Albumin [Mass/Vol] 4.1 g/dL 3.5 - 5.2 g/dL [facility], [place] Albumin/Globulin [Mass ratio] 1.1 {ratio} [place] ALP [Catalytic activity/Vol] 87 U/L 40 - 129 U/L [place] ALT [Catalytic activity/Vol] 23 U/L 5 - 41 U/L [place] Anion gap [Moles/Vol] 14 mmol/L 9 - 17 mmol/L [place] AST [Catalytic activity/Vol] 20 U/L <40 [place] Bilirubin Ql (U) 0.38 mg/dL 0.3 - 1.2 mg/dL [place] Bun/Cre Ratio 13 [place] Calcium [Mass/Vol] 9.2 mg/dL 8.6 - 10. 4 mg/dL [place] Chloride [Moles/Vol] 100 mmol/L 98 - 10 7 mmol/L [place] CO2 [Moles/Vol] 24 mmol/L 20 - 31 mmol/L [place] Creatinine [Mass/Vol] 1.15 mg/dL 0.7 - 1.2 mg/dL [place] GFR >60 >60 mL/min [place] GFR Non- >60 >60 mL/min [place] Glucose [Mass/Vol] 157 mg/dL High 70 - 99 mg/dL [place] Interpretation and review of laboratory results Abnormal [place] Potassium [Moles/Vol] 4.0 mmol/L 3.7 - 5.3 mmol/L [place] Protein [Mass/Vol] 7.9 g/dL 6.4 - 8.3 g/dL [place] Sodium [Moles/Vol] 138 mmol/L 135 - 144 mmol/L [place] Urea nitrogen [Mass/Vol] 15 mg/dL 6 - 20 mg/dL [place] Drug Scr, Abuse, Uron 2019 Amphetamine(s),Ur Negative Normal NEG [facility] Comment on above: Performed By: #### U VIELKA OCASIO DAU #### [facility] [address] [place] [address] Shuttle Inspector: Víctor Leary MD Barbiturate(s),Ur Negative Normal [facility] Comment on above: Performed By: #### U AX, UMICAO, LEILANI #### [facility] [address] [place], [place] 2291583 Shuttle Inspector: Víctor Leary MD Base excess Calc (Bld) [Moles/Vol] Negative Normal [facility] Comment on above: Performed By: #### U AX, UMICAO, LEILANI #### [facility] [address] [place], [place] 3948483 Shuttle Inspector: Víctor Leary MD Benzodiazepine(s) Negative Normal [facility] Comment on above: Performed By: #### U AX, UMICAO, LEILANI #### [address] [place] [id number] Shuttle Inspector: Víctor Leary MD Buprenorphrine, Ur Negative Normal [facility] Comment on above: Performed By: #### U AX, UMICAO, LEILANI #### [address] [place] [id number] Shuttle Inspector: Víctor Leary MD Cannabinoid(s),Ur Negative Normal [facility] Comment on above: Performed By: #### U AX, UMICAO, LEILANI #### [facility] [address] [place], [place] 3564483 Shuttle Inspector: Víctor Leary MD Methadone Ql (U) Negative Normal NEG [facility] Comment on above: Performed By: #### U AX, UMICAO, LEILANI #### [facility] [address] [place], [place] 6563483 Shuttle Inspector: Víctor Leary MD Methamphetamine, Ur Negative Normal [facility] Comment on above: Performed By: #### U AX, UMICAO, LEILANI #### [facility] [address] [place] [address] Shuttle Inspector: Víctor Leary MD Opiate(s), Ur Negative Normal NEG [facility] Comment on above: Performed By: #### U AX, UMICAO, LEILANI #### [facility] [address] [place] [address] Shuttle Inspector: Víctor Leary MD Oxycodone, Urine Negative Normal NEG [facility] Comment on above: Performed By: #### U AX, UMICAO, LEILANI #### [facility] [address] [place] [address] Shuttle Inspector: Víctor Leary MD Phencyclidine, Ur Negative Normal NEG [facility] Comment on above: Performed By: #### U AX, UMICAO, LEILANI #### [facility] [address] [place] [address] Shuttle Inspector: Víctor Leary MD Propoxyphene,Urine Negative Normal NEG [facility] Comment on above: Performed By: #### U AX, UMICAO, LEILANI #### [facility] [address] [place] [address] [place], [place] [id number] Shuttle Inspector: Víctor Leary MD Tricyclic antidepressants Screen Ql (U) Negative [facility] Comment on above: Result Comment: Drug screen results are to be used for medical purposes only. All positive results are unconfirmed. Testing for employment or legal uses should be sent to a reference laboratory for confirmation. Performed By: #### U AX, UMICAO, LEILANI #### [facility] [address] [place], [place] 1659783 Shuttle Inspector: Víctor Leary MD Interpretive Info NOT REPORTED Normal [facility] Comment on above: Performed By: #### U AX, UMICAO, LEILANI #### [facility] [address] [place], [place] 6462883 Shuttle Inspector: Víctor Leary MD MDMA, Urine NOT REPORTED Normal NEG [facility] Comment on above: Performed By: #### U AX, UMPINEDAO, LEILANI #### [facility] [address] [place] [address] Shuttle Inspector: Víctor Leary MD Ethanolon 08-19-2019 Ethanol [Mass/Vol] mg/dL <10 mg/dL [place], [place] Ethanol percent <0.010 <0.010 % [place], [place] Ethanol Alcoholon 08-19-2019 Ethanol [Mass/Vol] mg/dL Normal <10 [facility] Comment on above: Performed By: #### C MPX, CDP #### [facility] [address] [place] [address] Shuttle Inspector: Víctor Leary MD Ethanol percent <0.010 Normal <0.[address] [facility] Comment on above: Performed By: #### C MPX, CDP #### [facility] [address] [place] [address] Shuttle Inspector: Víctor Leary MD Metabolic Panelon 08-19-2019 GFR/1.73 sq M predicted among non-blacks MDRD (S/P/Bld) [Vol rate/Area] [place], [place] Comment on above: Average GFR for 20-2 9 years old: 116 mL/min/1.73sq m Chronic Kidney Disease: <60 mL/min/1.73sq m Kidney failure: <15 mL/min/1.73sq m eGFR calculated using average adult body mass. Additional eGFR calculator available at: http://[email or web address]/multiple_crcl_2012.htm Stage 1: Some kidney damage normal GFR Stage 2: Mild kidney damage GFR 60-89 Stage 3: Moderate kidney damage GFR 30-59 Stage 4: Severe kidney damage GFR 15-29 Stage 5: Severe kidney damage GFR <15 ESRD - chronic treatment by dialysis or transplant Microscopic Urinalysison Amorphous, UA NOT REPORTED None [place], [place] Bacteria, UA TRACE Abnormal None [place], [place] Casts UA NOT REPORTED /LPF [place] Crystals, UA NOT REPORTED None /HPF [place], [place] Epithelial Cells UA None [place], [place] Interpretation and review of laboratory results Abnormal [place], [place] Mucus, UA 2+ Abnormal None [place], [place] Other Observations UA NOT REPORTED NOT REQ. M [place], [place] RBC (U) [#/Vol] None [facility] [place] Renal Epithelial, UA NOT REPORTED 0 /HPF Me [place], [place] Trichomonas, UA NOT REPORTED None [facility] [place] WBC, UA 0 TO 2 [place], [place] Yeast, UA NOT REPORTED None [facility], [place] - [place], [place] UA w/Reflex Cultureon 2019 Acetoacetic Acid,Ur Negative Normal NEG [facility] Comment on above: Performed By: #### U AX, UMICAO, LEILANI #### [facility] [address] [place] [address] [place]. [place] [id number] Shuttle Inspector: Víctor Leary MD Bilirubin, SemiQt,Ur Negative Normal NEG [facility] Comment on above: Performed By: #### U AX, UMICAO, LEILANI #### [address] [place] [address] Shuttle Inspector: Víctor Leary MD Color (U) YELLOW Normal YEL [facility] Comment on above: Performed By: #### U AX, UMICAO, LEILANI #### [address] [place] [id number] Shuttle Inspector: Víctor Leary MD Glucose Ql (U) Negative Normal NEG [facility] Comment on above: Performed By: #### U AX, UMICAO, LEILANI #### [address] [place] [address] Shuttle Inspector: Víctor Leary MD Hemoglobin, Ur Negative Normal NEG [facility] Comment on above: Performed By: #### U AX, UMICAO, LEILANI #### [facility] [address] [place] [address] Shuttle Inspector: Víctor Leary MD Leukocyte esterase Test strip Ql (U) Negative Normal NEG [facility] Comment on above: Performed By: #### U AX, UMICAO, LEILANI #### [address] [place], [place] [id number] Shuttle Inspector: Víctor Leary MD Nitrite,Ur Negative Normal NEG [facility] Comment on above: Performed By: #### U AX, UMICAO, LEILANI #### [address] [place], [place] [id number] Shuttle Inspector: Víctor Leary MD pH (U) 5.5 [pH] Normal 5.0-9.0 [facility] Comment on above: Performed By: #### U AX, UMICAO, LEILANI #### [address] [place], [facility] Shuttle Inspector: Víctor Leary MD Protein Ql (U) Negative Normal NEG [facility] Comment on above: Performed By: #### U AX, UMICAO, LEILANI #### [address] [place], [place] [id number] Shuttle Inspector: Víctor Leary MD Specific gravity (U) [Rel density] >1.030 High 1.010-1.020 [facility] Comment on above: Performed By: #### U AX, UMICAO, LEILANI #### [address] [place], [place] [id number] Shuttle Inspector: Víctor Leary MD Turbidity CLEAR Normal CLEAR [facility] Comment on above: Performed By: #### U AX, UMICAO, LEILANI #### [address] [place], [place] [id number] Shuttle Inspector: Víctor Leary MD Urobilinogen,Ur Normal Normal NORM [facility] Comment on above: Performed By: #### U AX, UMICAO, LEILANI #### [facility] [address] [place] [address] Shuttle Inspector: Víctor Leary MD Comment NOT REPORTED Normal [facility] Comment on above: Performed By: #### U AX, UMICAO, LEILANI #### [facility] [address] [place] [address] Shuttle Inspector: Víctor Leary MD Urinalysis Reflex to Culture on 08-19-2019 Bilirubin Urine Negative [facility] [place] Color, UA YELLOW YELLOW [facility], [place] Glucose, Ur Negative NEGATIVE [facility], [place] Interpretation and review of laboratory results Abnormal [facility], [place] Ketones Ql (U) Negative NEGATIVE [facility] [place], [place] Leukocyte esterase Test strip Ql (U) Negative NEGATIVE [facility], [place] Nitrite, Urine Negative NEGATIVE [facility], [place] pH, UA 5.5 [facility], [place] Protein (U) [Mass/Vol] Negative NEGATIVE [facility], [place] Specific [place], UA >1.030 High [facility], [place] Turbidity UA CLEAR CLEAR [facility], [place] Urinalysis Comments NOT REPORTED [facility] [place], [place] Urine Hgb Negative NEGATIVE [facility], [place] Urobilinogen, Urine Normal Normal [facility], [place] Urinalysis,Microon 0 ----- Normal [facility] Comment on above: Performed By: #### U AX, UMICAO, LEILANI #### [facility] [address] [place] [address] Shuttle Inspector: Víctor Leary MD Bacteria LM.HPF (Urine sed) [#/Area] TRACE Abnormal NONE [facility] Comment on above: Performed By: #### U AX, UMICAO, LEILANI #### [facility] [address] [place] [address] [place] [address] Shuttle Inspector: Víctor Leary MD Epithelial cells LM.HPF (Urine sed) [#/Area] None Normal 0-5 [facility] Comment on above: Performed By: #### U AX, UMICAO, LEILANI #### [facility] [address] [place] [id number] Shuttle Inspector: Víctor Leary MD Mucus Strands 2+ Abnormal NONE [facility] Comment on above: Performed By: #### U AX, UMICAO, LEILANI #### [facility] [address] [place], [place] [address] Shuttle Inspector: Víctor Leary MD RBC (U) [#/Vol] None Normal 0-[address] [facility] Comment on above: Performed By: #### U AX, UMICAO, LEILANI #### [address] [place] [id number] Shuttle Inspector: Víctor Leary MD WBC (U) [#/Vol] 0 TO 2 Normal 0-[address] [facility] Comment on above: Performed By: #### U AX, UMICAO, LEILANI #### [address] [place] [address] Shuttle Inspector: Víctor Leary MD Amorphous sediment LM Ql (Urine sed) NOT REPORTED Normal [facility] Comment on above: Performed By: #### U AX, UMICAO, LEILANI #### [address] [place], [place] [address] Shuttle Inspector: Víctor Leary MD Casts LM.LPF (Urine sed) [#/Area] NOT REPORTED Normal [facility] Comment on above: Performed By: #### U AX, UMICAO, LEILANI #### [facility] [address] [place] [id number] Shuttle Inspector: Víctor Leary MD Crystals LM Nom (Urine sed) NOT REPORTED Normal [facility] Comment on above: Performed By: #### U AX, UMICAO, LEILANI #### [facility] [address] [place] [id number] Shuttle Inspector: Víctor Leary MD Epithelial, Renal NOT REPORTED Normal 0 [facility] Comment on above: Performed By: #### U AX, UMICAO, LEILANI #### [facility] [address] [place] [id number] Shuttle Inspector: Víctor Leary MD Other Observations NOT REPORTED Normal NREQ [facility] Comment on above: Performed By: #### U AX, UMICAO, LEILANI #### [facility] [address] [place] [id number] Shuttle Inspector: Víctor Leary MD Trichomonas NOT REPORTED Normal NONE [facility] Comment on above: Performed By: #### U AX, UMICAO, LEILANI #### [facility] [address] [place] [address] [place] [address] Shuttle Inspector: Víctor Leary MD Yeast LM Ql (Urine sed) NOT REPORTED Normal [facility] Comment on above: Performed By: #### U AX, UMICAO, LEILANI #### [facility] [address] [place] [address] Dr. [place], [place] [id number] Shuttle Inspector: Víctor Leary MD Urine Drug Screenon 08-19-19 [...] Health- [place], [place] Test Information NOT REPORTED [facility] [place] Tricyclic Antidepressants, Urine Negative NEGATIVE [facility] [place], [place] Comment on above: Drug screen results are to be used for medical purposes only. All positive results are unconfirmed. Testing for employment or legal uses should be sent to a reference laboratory for confirmation. Laboratory Studieson 017 Amphetamines Ql (U) Negative [facility] Appearance (U) Clear [facility] Bacteria LM.HPF (Urine sed) [#/Area] None seen [facility] Benzodiazepines Ql (U) Negative [facility] Bilirubin Ql (U) Negative [facility] Cocaine Ql (U) Negative [facility] Color (U) Yellow [facility] Epithelial cells.squamous LM.HPF (Urine sed) [#/Area] None seen /hpf [facility] Glucose (U) [Mass/Vol] Normal mg/dL [facility] Hyaline casts LM Ql (Urine sed) None seen /lpf [facility] Ketones Ql (U) Negative [facility] Leukocyte esterase Test strip Ql (U) Negative [facility] Nitrite Ql (U) Negative [facility] Opiates Ql (U) Negative [facility] pH (U) 7.0 [pH] 5.0-9.0 [facility] Phencyclidine Ql (U) Negative [place] Protein Ql (U) Negative [facility] RBC (U) [#/Vol] None seen /hpf [facility] Specific gravity (U) [Rel density] 1.021 1.001-1.030 [facility] Urine Barbiturates Screen Negative [facility] Urine Collection Type Type [facility] Comment on above: VOIDED Urine Drug Screen Comment See comment [facility] Comment on above: THESE ARE UNCONFIRME D RESULTS AND SHOULD NOT BE USED FOR LEGAL PURPOSES. DRUG CUT-OFF CONCENTRATION: AMPH 1000 ng/mL CHASE 200 ng/mL ОЛЕГ 200 ng/mL COCM 300 ng/mL OP 300 ng/mL PCP 25 ng/mL THC 20 ng/mL Urine Marijuana (THC) Screen Negative [facility] Urine Occult Blood Negative [facility] Urobilinogen Qn (U) Normal mg/dL [facility] WBC (U) [#/Vol] None seen /hpf [facility] Albumin [Mass/Vol] 3.5 g/dL 3.2-5.5 [facility] Albumin/Globulin [Mass ratio] 1.2 {ratio} [facility] ALP [Catalytic activity/Vol] 75 U/L 32-92 [facility] ALT [Catalytic activity/Vol] 17 U/L 10-60 [facility] AST [Catalytic activity/Vol] 18 U/L 10-42 [facility] Basophils (Bld) [#/Vol] 0.1 10*3/uL 0.0-0.2 [facility] Basophils/100 WBC (Bld) 1.0 % [facility] Bilirubin Ql (U) 0.4 mg/dL 0.3-1.2 [facility] Bilirubin.direct [Mass/Vol] 0.1 mg/dL 0.0-0.4 [facility] Bilirubin.indirect (Body fld) [Mass/Vol] 0.3 mg/dL [facility] Calcium [Mass/Vol] 9.1 mg/dL 8.2-10.2 [facility] Chloride [Moles/Vol] 104 mmol/L 95-114 [place] Cholesterol [Mass/Vol] 104 mg/dL Low 140-200 [facility] Comment on above: CHOL less than 200 m g/dL Low risk CHOL 201-239 mg/dL Borderline risk CHOL 240 mg/dL and greater High risk Cholesterol [Mass/Vol] 21 mg/dL [facility] Cholesterol in HDL [Mass/Vol] 30 mg/dL 29-71 [facility] Comment on above: HDL CHOL ATP-III CLA SSIFICATION Cardiovascular Risk HDL > or equal to 60 mg/dL Low HDL < 40 mg/dL High Cholesterol.total/Cho lesterol in HDL [Mass ratio] 3.5 {ratio} [facility] CO2 [Moles/Vol] 27.7 mmol/L 22.0-30.0 [facility] Creatinine [Mass/Vol] 1.13 mg/dL 0.64-1.27 [facility] Eosinophils (Bld) [#/Vol] 0.40 10*3/uL 0.0-0.45 [facility] Eosinophils/100 WBC (Bld) 4.5 % [facility] Erythrocyte distribution width (RBC) [Ratio] 13.3 % 12.0-14.8 [facility] Estimated GFR (Non- > 60 [facility] GFR/1.73 sq M.predicted MDRD (S/P/Bld) [Vol rate/Area] mL/min/{1.73_m2} [facility] Comment on above: GFR estimated refere nce range: According to KDOQI guidelines, <60 ml/min/1.73m2 is sufficient to diagnose a patient with chronic kidney disease. Globulin (S) [Mass/Vol] 2.9 g/dL [facility] Glucose [Mass/Vol] 99 mg/dL 70-100 [facility] Comment on above: ADA RECOMMENDED REFE RENCE RANGE Hematocrit (Bld) [Volume fraction] 41.7 % 38.8-50.0 [facility] Hemoglobin (Bld) [Mass/Vol] 14.3 g/dL 13.0-17.0 [facility] LDL Cholesterol, Calculated 52 mg/dL 0-100 [facility] Comment on above: LDL ATP III CLASSIFI CATION LDL less than 100 mg/dL Optimal LDL 100-129 mg/dL Near or above optimal LDL 130-159 mg/dL Borderline high LDL 160-189 mg/dL High LDL greater than 189 mg/dL Very high Lymphocytes (Bld) [#/Vol] 3.1 10*3/uL 1.00-4.8 [facility] Lymphocytes/100 WBC (Bld) 38.8 % [facility] MCH (RBC) [Entitic mass] 29.7 pg 27.5-35.2 [facility] MCHC (RBC) [Mass/Vol] 34.3 g/dL 32.5-35.6 [facility] MCV (RBC) [Entitic vol] 86.6 fL 83.5-101 [facility] Monocytes (Bld) [#/Vol] 0.7 10*3/uL 0.0-0.8 [facility] Monocytes/100 WBC (Bld) 8.9 % [facility] Neutrophils (Bld) [#/Vol] 3.7 10*3/uL 1.8-7.7 [facility] Neutrophils/100 WBC (Bld) 46.8 % [facility] Platelet mean volume (Bld) [Entitic vol] 7.7 fL 6.6-10.1 [facility] Platelets (Bld) [#/Vol] 261 10*3/uL 150-450 [facility] Potassium [Moles/Vol] 4.1 mmol/L 3.5-5.1 [facility] Protein [Mass/Vol] 6.4 g/dL 6.1-7.9 [facility] RBC (Bld) [#/Vol] 4.81 10*6/uL 3.90-5.60 [facility] Sodium [Moles/Vol] 138 mmol/L 136-146 [facility] Triglyceride [Mass/Vol] 109 mg/dL 35-149 [facility] Comment on above: TRIG ATP III CLASSIF ICATION TRIG less than 150 mg/dL Normal TRIG 150-199 mg/dL Borderline high TRIG 200-500 mg/dL High TRIG greater than 500 mg/dL Very high Standard traceable to the Center for Disease Conrtrol and Prevention (CDC) test method. TSH Qn 0.54 uIU/mL 0.45-5.33 [facility] Comment on above: Revised TSH Assay This assay is standardized to the World Health Organization International Standard for human TSH. Please note Reference Intervals have changed. Urea nitrogen [Mass/Vol] 14 mg/dL 9- [facility] WBC (Bld) [#/Vol] 7.9 10*3/uL 4.1-10.5 [facility] Vital Signs Date Time Vital Sign Value Performing Clinician Facility 01-23-2024 23:01-0400 Body temperature 97.88 [degF] [facility] 01-23-2024 23:01-0400 Diastolic blood pressure 83 mm[Hg] [facility] 01-23-2024 23:01-0400 Heart rate 74 /min [facility] 01-23-2024 23:01-0400 Respiratory rate 16 /min [facility] 01-23-2024 23:01-0400 SaO2% (BldA) [Mass fraction] 96 % [facility] 01-23-2024 23:01-0400 Systolic blood pressure 131 mm[Hg] [facility] 07-10-2023 19:03-0500 Diastolic blood pressure 86 mm[Hg] [facility] 07-10-2023 19:03-0500 Heart rate 72 /min [facility] 07-10-2023 19:03-0500 Mean blood pressure 98 mm[Hg] [facility] 07-10-2023 19:03-0500 Respiratory rate 18 /min [facility] 07-10-2023 19:03-0500 SaO2% (BldA) [Mass fraction] 97 % [facility] 07-10-2023 19:03-0500 Systolic blood pressure 121 mm[Hg] [facility] 07-10-2023 18:00-0500 Diastolic blood pressure 82 mm[Hg] [facility] 07-10-2023 18:00-0500 Heart rate 81 /min [facility] 07-10-2023 18:00-0500 Respiratory rate 17 /min [facility] 07-10-2023 18:00-0500 Systolic blood pressure 131 mm[Hg] [facility] 07-10-2023 17:30-0500 Diastolic blood pressure 92 mm[Hg] [facility] 07-10-2023 17:30-0500 Heart rate 79 /min [facility] 07-10-2023 17:30-0500 Mean blood pressure 107 mm[Hg] [facility] 07-10-2023 17:30-0500 Respiratory rate 18 /min [facility] 07-10-2023 17:30-0500 SaO2% (BldA) [Mass fraction] 95 % [facility] 07-10-2023 17:30-0500 Systolic blood pressure 136 mm[Hg] [facility] 07-10-2023 16:10-0500 gluc 80 mg/dL [facility] 07-10-2023 16:10-0500 gluc [facility] 07-10-2023 16:00-0500 Body temperature 97.88 [degF] [facility] 07-10-2023 16:00-0500 Heart rate 87 /min [facility] 09-12-2022 16:50-0400 gluc 105 mg/dL Timothy Kessler [facility] 09-12-2022 16:50-0400 gluc Timothy Kessler [facility] 09-12-2022 16:36-0400 Body temperature 98.24 [degF] Timothy Crawforde [facility] 09-12-2022 16:36-0400 Diastolic blood pressure 80 mm[Hg] Timothy Victoria [facility] 09-12-2022 16:36-0400 Heart rate 63 /min Timothy Victoria [facility] 09-12-2022 16:36-0400 Respiratory rate 16 /min Timothy Victoria [facility] 09-12-2022 16:36-0400 SaO2% (BldA) [Mass fraction] 99 % Timothy Victoria [facility] 09-12-2022 16:36-0400 Systolic blood pressure 124 mm[Hg] Timothy Victoria [facility] 07-27-2022 14:35-0400 Diastolic blood pressure 73 mm[Hg] [facility] 07-27-2022 14:35-0400 Heart rate 54 /min [facility] 07-27-2022 14:35-0400 Mean blood pressure 85 mm[Hg] [facility] 07-27-2022 14:35-0400 Respiratory rate 20 /min [facility] 07-27-2022 14:35-0400 SaO2% (BldA) [Mass fraction] 97 % [facility] 07-27-2022 14:35-0400 Systolic blood pressure 108 mm[Hg] [facility] 07-27-2022 13:59-0400 Heart rate 68 /min [facility] 07-27-2022 13:59-0400 Respiratory rate 16 /min [facility] 07-27-2022 13:41-0400 Heart rate 75 /min [facility] 07-27-2022 13:41-0400 Respiratory rate 16 /min [facility] 07-27-2022 12:45-0400 Diastolic blood pressure 67 mm[Hg] [facility] 07-27-2022 12:45-0400 Mean blood pressure 85 mm[Hg] [facility] 07-27-2022 12:45-0400 Respiratory rate 20 /min [facility] 07-27-2022 12:45-0400 SaO2% (BldA) [Mass fraction] 95 % [facility] 07-27-2022 12:45-0400 Systolic blood pressure 122 mm[Hg] [facility] 07-27-2022 11:43-0400 Body temperature 98.42 [degF] [facility] 07-27-2022 11:43-0400 Diastolic blood pressure 80 mm[Hg] [facility] 07-27-2022 11:43-0400 Heart rate 76 /min [facility] 07-27-2022 11:43-0400 Respiratory rate 16 /min [facility] 07-27-2022 11:43-0400 SaO2% (BldA) [Mass fraction] 97 % [facility] 07-27-2022 11:43-0400 Systolic blood pressure 122 mm[Hg] [facility] 05-03-2022 13:15-0500 Body height 175.26 cm Niki Austinmond Other [facility] [employer] Other 05-03-2022 13:15-0500 Body mass index (BMI) [Ratio] 39.13 kg/m2 Niik Austinmond Other [facility] [employer] Other 05-03-2022 13:15-0500 Body temperature 997 [degF] Niki Quiroz Other [employer] Other 05-03-2022 13:15-0500 Body weight 120.2 kg Niki Quiroz Other [employer] Other 05-03-2022 13:15-0500 Respiratory rate 18 /min Niki Austinmond Other [employer] Other 05-03-2022 13:15-0500 SaO2% (BldA) [Mass fraction] 99 % Niki Austinmond Other [employer] Other 02-06-2022 11:27-0400 Body height 175.3 cm Malcolm Miranda MD Work Phone: [facility] 02-06-2022 11:27-0400 Body mass index (BMI) [Ratio] 40.61 kg/m2 Malcolm Miranda MD Work Phone: [facility] [employer] 02-06-2022 11:27-0400 Body weight 124.74 kg Malcolm Miranda MD Work Phone: [facility] [employer] 02-06-2022 11:27-0400 Diastolic blood pressure 90 mm[Hg] Malcolm Miranda MD [facility] [employer] 02-06-2022 11:27-0400 Heart rate 70 /min Malcolm Miranda MD Work Phone: [facility] [employer] 02-06-2022 11:27-0400 Respiratory rate 18 /min Malcolm Miranda MD Work Phone: [facility] [employer] 02-06-2022 11:27-0400 SaO2% (BldA) [Mass fraction] 96 % Malcolm Miranda MD Work Phone: [facility] [employer] 02-06-2022 11:27-0400 Systolic blood pressure 130 mm[Hg] Malcolm Miranda MD Work Phone: [facility] [employer] 04-10-2020 00:19-0500 Body Temperature 97 [degF] [facility] [place] 04-10-2020 00:19-0500 BP Diastolic 88 mm[Hg] [facility] [place] 04-10-2020 00:19-0500 BP Systolic 130 mm[Hg] [facility] [place] 04-10-2020 00:19-0500 Pulse (Heart Rate) 97 /min [facility] [place] 04-10-2020 00:19-0500 Pulse Oximetry 97 % [facility] [place] 04-10-2020 00:19-0500 Respiratory Rate 16 /min [facility] [place] 08-19-2019 15:18-0400 BMI (Body Mass Index) 39.05 kg/m2 [facility] [place] 08-19-2019 15:18-0400 Body Temperature 98.01 [degF] [facility] [place], [place] 08-19-2019 15:18-0400 Body weight 127.01 kg Pj Alaniz [facility]- [place] , [place]RE 08-19-2019 15:18-0400 BP Diastolic 74 mm[Hg] Pj Alaniz [facility] [place] , ANDRE 08-19-2019 15:18-0400 BP Systolic 121 mm[Hg] Pj Alaniz [facility] [place] , [place] 08-19-2019 15:18-0400 Pulse (Heart Rate) 88 /min Pj Alaniz [facility], [place] 08-19-2019 15:18-0400 Pulse Oximetry 98 % Pj Alaniz [facility] , [place] 08-19-2019 15:18-0400 Respiratory Rate 18 /min Pj Alaniz [facility], [place] NEGATED: Highlighted row BMI (Body Mass Index) [facility] NEGATED: Highlighted row Body Temperature [facility] NEGATED: Highlighted row Body weight Comfort [facility] NEGATED: Highlighted row BP Diastolic [facility] NEGATED: Highlighted row BP Systolic [facility] NEGATED: Highlighted row Height Comfort [facility] NEGATED: Highlighted row Pulse (Heart Rate) [facility] NEGATED: Highlighted row Pulse [facility] NEGATED: Highlighted row Respiratory Rate Comfort [facility] Encounters Encounter Date Encounter Type Care Provider Facility Start: 01-23-2025 End: 01-23-2025 ambulatory Laura L Zayra Facility:[facility] Nadira whitaker Start: 12-16-2024 ambulatory Elton Davis acility:[facility] Start: 11-12-2024 End: 11-12-2024 ambulatory Laura L Zayra Facility:[facility] Nadira whitaker Start: 11-09-2024 End: 11-09-2024 Emergency department patient visit Fredo Zepeda [facility] Start: 07-31-2024 End: 08-01-2024 Lab Drop off Laura L Zayra [facility] Start: 07-31-2024 End: 08-01-2024 ambulatory Laura L Zayra Facility:[facility] [place] [facility] Start: 06-11-2024 End: 06-11-2024 ambulatory Laura L Zayra Facility: [facility] [place] [facility] Start: 04-29-2024 End: 04-29-2024 ambulatory Laura L Zayra Facility:[facility] [place] Start: 01-23-2024 End: 01-24-2024 Emergency department patient visit [facility] Start: 01-21-2024 End: 01-21-2024 ambulatory PAMEtelvina MARTIN Facility: [facility] [place] [facility] Start: 11-27-2023 End: 11-27-2023 ambulatory Laura L Zayra Facility: [facility] [place] [facility] Start: 11-06-2023 End: 11-06-2023 ambulatory Laura L Zayra Facility: [facility] [place] [facility] Start: 09-27-2023 End: 09-27-2023 ambulatory LUIZ RUBIO Not Available Start: 09-21-2023 End: 09-21-2023 ambulatory Laura L Zayra Facility:[facility] [place] Start: 09-17-2023 End: 09-17-2023 ambulatory EDWIN COLE Not Available Start: 09-10-2023 End: 09-10-2023 ambulatory VALERIA MANZANO Not Available Start: 08-28-2023 End: 08-28-2023 Lab Drop off Laura L Zayra [facility] Start: 08-28-2023 End: 08-28-2023 ambulatory Laura L Zayra Facility:[facility] Start: 07-10-2023 End: 07-10-2023 [facility] Start: 05-08-2023 End: 05-08-2023 Emergency department patient visit RICHMOND MARTINEZ [facility] Start: 11-15-2022 ambulatory Eliz Pena [facility] Start: 09-12-2022 End: 09-12-2022 Emergency department patient visit Timothy Kessler [facility] Start: 07-27-2022 End: 07-27-2022 Emergency department patient visit Sue Park [facility] Start: 05-09-2022 End: 05-09-[address] MALCOLM MIRANDA Facility:[facility]1 Start: 05-03-2022 End: 05-03-2022 ambulatory Niki Quiroz Other [employer] Other Start: 05-03-2022 Office outpatient visit 25 minutes Niki Quiroz [facility] Start: 03-01-2022 End: 03-02-[address] MALCOLM MIRANDA Facility:[facility] Start: 02-13-2022 End: 02-13-[address] MALCOLM MIRANDA Facility:[facility] Start: 02-06-2022 End: 02-06-2022 Emergency department patient visit Malcolm Miranda MD Work Phone: [facility] ED Comment on above: COVID (Primary Dx) Start: 01-22-2022 End: 01-22-[address] MALCOLM MIRANDA Facility:[facility] Start: 01-18-2022 End: 02-02-[address] MALCOLM MIRANDA Facility:[facility] Start: 01-11-2022 End: 01-12-[address] DOCTOR CONRAD Facility:[facility] Start: 01-06-2022 End: 01-06-[address] MALCOLM MIRANDA Facility:[facility] Start: 11-26-2021 End: 11-26-2021 ambulatory Ivelisse Jara Other [employer] Other Start: 11-26-2021 Office outpatient visit 5 minutes Ivelisse Jara [facility] Start: 11-07-2021 End: 11-08-[address] MALCOLM MIRANDA Facility:[facility] Start: 07-28-2021 End: 07-29-[address] MALCOLM MIRANDA Facility:[facility] Start: 04-10-2020 End: 04-10-2020 Emergency department patient visit MALCOLM Christensen Etelvina [facility] Start: 04-10-2020 End: 04-10-2020 Emergency department patient visit Lizet Styles Work Phone: [facility] ED Comment on above: Depressive episode ( Primary Dx); Bipolar 1 disorder (HCC) Start: 08-19-2019 End: 08-19-2019 Emergency department patient visit PJ PEREZ [facility] Start: 08-19-2019 End: 08-19-2019 Emergency department patient visit Pj Perez Work Phone: [facility] ED Comment on above: Depression with [...] Clinician Start: 02-06-2022 COVID-19, RAPID Henrry A Hammuda PA-C Work Phone: Start: 02-06-2022 Iaadiadoo influenza Yus ef A Henriuda PA-C Work Phone: Start: 04-10-2020 COVID-19 MALCOLM CHARLEEN Et[facility]ina Start: 04-10-2020 COVID-19 Lizet Mullins dd Work Phone: Start: 04-10-2020 Drug screen class list a MALCOLM MIRANDA Start: 04-10-2020 Urnls dip stick/tabl et rgnt [...] GLAS HOY Start: 08-19-2019 Assay of ethanol DOUGLA S HOY Start: 08-19-2019 Blood count complete auto&auto difrntl wbc MALCOLM HOY Start: 08-19-2019 Drug screen class list a [...] 12-12-2021 Influenza vaccination Flu vaccine (# 1) [facility] Start: 01-13-2020 Influenza vaccination [place] Start: 2011 DTaP/Tdap/Td vaccine (1 - Tdap) DTaP/Tdap/Td vaccine (1 - Tdap) [facility] Start: 2010 Hepatitis C screening Hepatitis C sc reen [facility] Start: 2007 HIV screen HIV screen [place], [place] Start: 2007 HIV screening HIV screen [facility] Start: 2004 Depression Screen Depression Screen [facility] Start: 1998 Pneumococcal 0-64 ye ars Vaccine (1 - PCV) Pneumococcal 0-64 years Vaccine (1 - PCV) [facility] Start: 1993 Varicella vaccine (1 of 2 - 2-dose childhood series) Varicella vaccine (1 of 2 - 2-dose childhood series) [facility] Start: 1992 COVID-19 Vaccine (#1) COVID-19 Vacci ne (#1) [facility] Immunizations Immunization Date Immunization Notes Care Provider Disha chapin 02-28-2023 influenza virus vaccine, unspecified formulation [facility] 04-12-2021 influenza virus vaccine, unspecified formulation [facility] 03-26-2020 influenza virus vaccine, unspecified formulation [facility] 02-26-2019 influenza virus vaccine, unspecified formulation [facility] 03-11-2012 influenza virus vaccine, unspecified formulation [facility] 10-20-1997 DTaP, unspecified formulation [facility] 10-20-1997 measles, mumps and rubella virus vaccine [facility] 12-03-1995 DTaP, unspecified formulation [facility] 08-07-1994 DTP-Hib [facility] 08-07-1994 hepatitis B vaccine, pediatric or pediatric/adolescent dosage [facility] 08-07-1994 measles, mumps and rubella virus vaccine [facility] 1992 hepatitis B vaccine, pediatric or pediatric/adolescent dosage [facility] 1992 Hib, unspecified formulation [facility] 1992 hepatitis B vaccine, pediatric or pediatric/adolescent dosage [facility] 1992 Hib, unspecified formulation [facility] NEGATED: Highlighted row has not occurred!07-08-2019 influenza virus vaccine, live, attenuated, for intranasal use [facility] Payers Date Payer Category Payer Medicaid [id number] 2022 Self-pay 2019 Private Health Insurance [id number] 1992 Unknown [id number] 2.16.8 40.1.454500.3.579.2.173 1992 Unknown [id number] 2.16.84 0.1.622283.3.579.2.593 1992 Unknown [id number] 2.16.84 0.1.497048.3.579.2.593 1992 Unknown [id number] 2.16.84 0.1.182099.3.579.2.593 1992 Unknown [id number] 2.16.84 0.1.775316.3.579.2.593 1992 Unknown [id number] 2.16.84 0.1.017733.3.579.2.593 1992 Unknown [id number] 2.16.84 0.1.095399.3.579.2.593 1992 Unknown [id number] 2.16.84 0.1.423718.3.579.2.593 1992 Unknown [id number] 2.16.84 0.1.185224.3.579.2.593 1992 Unknown [id number] 2.16.84 0.1.168749.3.579.2.593 1992 Unknown [id number] 2.16. 840.1.859197.3.579.2.175 1992 Unknown [id number] 2.16.84 0.1.603202.3.579.2.1259 1992 Unknown [id number] 2.16.84 0.1.727813.3.579.2.1259 1992 Unknown [id number] 2.16.84 0.1.298004.3.579.2.1259 1992 Unknown [id number] 2.16.8 40.1.593352.3.579.2.727 1992 Unknown [id number] 2.16.8 40.1.524842.3.579.2.727 1992 Unknown [id number] 2.16.8 40.1.077619.3.579.2.727 1992 Unknown [id number] 2.16.8 40.1.698412.3.579.2.727 1992 Unknown [id number] 2.16.8 40.1.503957.3.579.2.727 1992 Unknown [id number] 2.16.8 40.1.263604.3.579.2.727 1992 Unknown [id number] 2.16.8 40.1.973469.3.579.2.727 1992 Unknown [id number] 2.16.8 40.1.681896.3.579.2.727 1992 Unknown [id number] 2.16.8 40.1.090692.3.579.2.727 1992 Unknown [id number] 2.16.8 40.1.923305.3.579.2.727 1992 Unknown [id number] 2.16.8 40.1.868513.3.579.2.727 1992 Unknown [id number] 2.16.8 40.1.171018.3.579.2.727 1992 Unknown [id number] 2.16.8 40.1.702184.3.579.2.727 1992 Unknown [id number] 2.16.8 40.1.015231.3.579.2.727 1959 Private Health Insurance [id number] 2.16.8 40.1.780063.3.579.2.531 Social History Date Type Detail Facility Start: 08-19-2019 End: 07-31-2024 Tobacco smoking status NHIS Former smoker [facility] End: 03-07-2012 History of tobacco use Current smoker [place], [place] End: 03-07-2012 History of tobacco use Cigarette Smoker [place] Start: 08-19-2019 End: 04-10-2020 Cigarettes smoked current (pack per day) - Reported [place] Start: 08-19-2019 End: 04-10-2020 Alcohol intake Current drinker of alcohol (finding) [place], [place] Start: 1990 Sex Assigned At Not on file [place] Exposure to SARS-CoV -2 (event) Unable to assess [place] Start: 04-10-2020 End: 03-07-2012 Tobacco smoking status NHIS Current every day smoker [place] Start: 04-10-2020 Tobacco use and exposure Current use r [place], [place] History of tobacco use Chews Tobacco [place], [place] Start: 01-27-2022 End: 02-06-2022 Exposure to SARS-CoV-2 (event) Not sure [place] Sex Assigned At [facility] Start: 07-08-2019 Tobacco smoking status Heavy t obacco smoker (finding) [facility] Tobacco smoking status Never [facility]ne [facility] Sexual Orientation [facility] Start: 10-07-2018 Sex Male (finding) [facility] Functional Status Date Assessment Result Facility 01-23-2024 Functional Status N/A [facility] 07-10-2023 Functional Status N/A [facility] 09-12-2022 Functional Status N/A [facility] 07-27-2022 Functional Status N/A [facility] Clinical Notes 07-29-2021 to 11-09-2024 Note [...] and water are not available, use hand fountain jerk. Change your dressing as told by your [...] told by your health care provider. Take awki-nvy-sycuwto and prescription medicines only as told by [...] provider. Document Revised: 09/06/2021 Document Reviewed: 09/06/2021 [employer] Patient Education 2023 [employer] 11/09/2024 15:55:29 Abrasion, Hbut-fd-Pcdu Abrasion An abrasion is a cut or [...] do these things: Medicines Take or use mngn-twf-wxhpepm and prescription medicines only as told by [...] provider. Document Revised: 07/29/2020 Document Reviewed: 07/29/2020 [employer] Patient Education 2023 [employer] Follow Up Care 11/09/2024 15:16:12 With:Laura Iverson Address: [address] [place] [address] Business (1) When:11/12/2024 15:52:25 Comments:Call Dr for diagnosis based follow up [facility] 11-09-2024 Note ED Patient Education Note [...] and water are not available, use hand fountain jerk. ??? Change your dressing as told by [...] by your health care provider. ??? Take zbdc-ojd-lhxuyit and prescription medicines only as told by [...] ??? Your wound has been closed with estelita, [...] Call your lo (more content not included)... [facility] 01-24-2024 Evaluation + Plan note Extrac jadyn from: Title:ED Note Author:Xavier Pereyra, Sue Barrientos te:01/24/24 1. Lower back pain (M54.50: Low [...] XR Spine Lumbosacral 2 or 3 Views [facility] 09-12-2024 Hospital Discharge instructions Patient Education [...] home: Managing pain, stiffness, and swelling Take hyrh-kem-ajfpory and prescription medicines only as told by [...] each day. 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 Take egcw-lec-uzbehki and prescription medicines only as told by your health care provider, and apply heat or ice as told. This information is not intended to replace advice given to you by your health care provider. Make sure you discuss any questions you have with your health care provider. Document Revised: 07/22/2021 Document Reviewed: 07/22/2021 [employer] Patient Education 2023 [employer] Follow Up Care 01/23/2024 22:41:38 With:Laura Iverson Address:Unknown When:01/27/2024 Comments:Return to the emergency room if your pain gets worse, bowel or bladder incontinence, numbness/tingling in the saddle/groin area or any new symptoms. [facility] 09-12-2024 NoteED Patient Education Note Orthopedics [...] Managing pain, stiffness, and swelling ? Take pztu-whg-bdlqfwj and prescription medicines only as told by [...] day. ? Do not sit, drive, or accounting recruiter one place for more than 30 minutes [...] arms or legs. ? (more content not included)...[facility]09-09-2024 Note Patient Education Orthopedics Acute Back Pain, [...] Managing pain, stiffness, and swelling ? Take wpdm-qmt-yscgzyv and prescription medicines only as told by [...] day. ? Do not sit, drive, or accounting recruiter one place for more than 30 minutes [...] legs. ? You fee (more content not included)...[facility]04-16-2024 Evaluation + Plan note Diagnostic Tests Pending * Testosterone Level Total 08/28/23 [facility]02-27-2024 Hospital Discharge instructions Patient Education 07/10/2023 [...] Medicines to relieve symptoms. These can include vdza-nco-hurwzpt medicine for pain and fever, medicines for cough or congestion, and medicines to relieve diarrhea. Antiviral medicines. These medicines are available only for certain types of viruses. Some viral illnesses can be prevented with vaccinations. A common example is the flu shot. Follow these instructions at home: Medicines Take izuf-cda-wcptbbc and prescription medicines only as told by [...] and water are not available, use hand fountain jerk. Avoid touching your nose, eyes, and mouth, [...] provider. Document Revised: 09/13/2020 Document Reviewed: 03/09/2020 [employer] Patient Education 2022 [employer] Follow Up Care 07/10/2023 15:55:35 With:Donell Ernst Address:Unknown When:07/13/2023 18:22:05 [facility]02-27-2024 Evaluation + Plan noteExtracted from: Title:ED [...] PCR Influenza A&B Ag Rapid COVID Antigen ([facility]) Rapid Strep w/rfx Saline Lock Insert UA With Cult Reflex Future Appointments Appointment Date:07/18/2023 01:30:00 PM Scheduled Provider:Donell Ernst MD Location:[facility] Appointment Type: New Patient - Adult Diagnostic Tests Pending * Group A Strep by PCR 07/10/23 [facility]12-26-2023 NoteEXAMINATION: ULTRASOUND OF THE SCROTUM/TESTICLES WITH [...] Signed by: Escobar Pablo MD 05/08/23 [facility] Dis[facility] Follow Up Care 09/12/2022 16:31:34 With:Malcolm Miranda Address: [address] [place], [place] [id number]- Business (1) When:Within 3 Day(s) [facility]05-02-2023 Evaluation + Plan noteExtracted from: Title:ED Note Author:Timothy Kessler DO Date:09/12 Mononucleosis (B27.90: Infec tious mononucleosis, unspecified without complication) Orders: Ammonia Level Automated Diff CBC w/ Auto Diff Comprehensive Metabolic Panel CT Head or Brain w/o Contrast eGFR Ethanol Level Mononucleosis Screen Troponin 0 Hr. TSH With T4fr Reflex [facility]03-16-2023 Hospital Discharge instructions Patient Education 07/27/2022 [...] medicines to help relieve symptoms, such as: Plus-uoo-lqzmaus cold medicines. Cough suppressants. Coughing is a [...] and other clear broths. General instructions Take sthb-sqy-zoxplnz and prescription medicines only as told by [...] and water are not available, use hand fountain jerk. ?Avoid touching your mouth, face, eyes, or [...] 10/24/2001 Document Revised: 05/08/2019 Document Reviewed: 12/14/2017 [employer] Patient Education 2020 [employer] 07/27/2022 14:36:02 Nonspecific Chest Pain, Adult Nonspecific [...] Follow these instructions at home: Medicines Take minf-gxx-uzuedjw and prescription medicines only as told by [...] 02/07/2006 Document Revised: 10/31/2018 Document Reviewed: 10/31/2018 [employer] Patient Education 2019 [employer] Follow Up Care 07/27/2022 11:39:04 With:Malcolm Miranda Address: [address] [place], [place] [id number]- Business (1) When:Within 3 Day(s) [facility]03-16-2023 Evaluation + Plan noteExtracted from: Title:ED [...] EDT, STAT, Start date 07/27/22 12:57:00 EDT [facility]12-21-2022 Evaluation note* Encounter Date Diagnosis Assessment [...] no improvement in 2 to 3 days [employer] Other 07-16-2022 Evaluation note* Encounter Date Diagnosis Assessment Notes Treatment Notes Treatment Clinical Notes Nov, Exposure to COVID-19 virus (ICD-10 - Z20.828) Nov, COVID-19 (ICD-10 - U07.1) [employer] Other 03-18-2022 NotePROCEDURE: XR FEMUR RT, XR [...] Electronically authenticated by: EDWIN HILL Date: 2021-07-29 07:48[facility]03-18-2022 NotePROCEDURE: XR FEMUR RT, XR HIP [...] Electronically authenticated by: EDWIN HILL Date: 2021-07-29 07:48[facility] COVID- Primary documented in this encounter [facility] Phone: History general Narrative - Reported* Type Description Date Medical History nerve pain Medical History Depression/anxiety [employer] Other Hospital course Narrative No data available for this section [facility]* Attachments The following attachments cannot be sent through Care Everywhere. * Coronavirus Disease (COVID-19): General Info (Estonian) documented in this encounterDEMI ALANIZ [employer] Work Phone: Hospital Discharge instructions No data available for this section [facility] No data available for this section [facility] Assessments Diagnosis Depression with suicidal ideation Diagnosis Depressive episode Depressive disorder, not elsewhere classified Bipolar 1 disorder (HCC) Bipolar I disorder, most recent episode (or current) unspecified Advance Directives No Advanced Directives Records FoundDocuments on File Type Date Recorded Patient Entry Level Account Representative Expl anation Advance Directives and Living Will Power of Marketing Producer Documents on File Type Date Recorded Patient Entry Level Account Representative Expl anation ACP-Advance Directive ACP-Power of Marketing Producer Summary Purpose Family History No Family History [...] and it is to be admitted to [address] [place] [address] for medication adjustments Reason Comments Depression Patient [...] section and content) DATE CREATED AUTHOR 04/13/2020 Marguerite dee DATE CREATED AUTHOR AUTHOR'S ORGANIZ ATION 06/20/2022 [facility] DATE CREATED AUTHOR AUTHOR'S ORGANIZ ATION 12/16/2022 [facility] DATE CREATED AUTHOR AUTHOR'S ORGANIZ ATION 05/09/2023 [facility] DATE CREATED AUTHOR AUTHOR'S ORGANIZ ATION 09/30/2023 [facility] EPIC DATE CREATED AUTHOR AUTHOR'S ORGANIZ ATION [facility]20[facility] DATE CREATED AUTHOR AUTHOR'S ORGANIZ ATION 12/27/2024 [facility] DATE CREATED AUTHOR AUTHOR'S ORGANIZ ATION 01/25/2025 [facility] Ordered Prescriptions (unrec ognized section and content) [...] Care Teams (unrecognized sec tion and content) Information Architect Relationship Specialty Start Date End Date Malcolm Miranda MD [address] [place] [address] PCP - General Family Medicine 08/19/19 FOR [...] BE BASED ON THE PRIMARY CLINICAL RECORDS. [employer] provides no warranty or guarantee of the accuracy or completeness of information in this document.
[2025-01-26 11:17] LABS: Thyroid Stimulating Hormone 1.038 uIU/mL (0.358-3.740)
[2025-01-31 22:07] LABS: Serotonin, Serum 6 ng/mL (31-207)
== END 2025-01-26 10:01 | disposition home or self-care (01) ==
LOC: LAB 10:01
PROVIDERS: PCP Nurse Practitioner; Visit Provider Nurse Practitioner
DX: R61 Generalized hyperhidrosis (principal); Z87.891 Personal history of nicotine dependence; Z68.41 Body mass index [BMI] 40.0-44.9, adult; E66.813 Obesity, class 3
CPT/HCPCS: 36415; 83036; 84260; 84403; 84443